=== PATIENT | male | born 1970 | race Caucasian/White ===

== ENCOUNTER 2017-11-12 06:05 | Inpatient (IN) ==
[~2017-11-12 06:05] MED LIST: Bacitracin 50,000 UNIT, Polymyxin B Sulfate 500,000 UNIT, Sodium Chloride IRRigation 1,... IR ONE
[2017-11-12] MEDS ORDERED: CeFAZolin Syr 3,000MG/30 ML 3,000 MG/30 ML SYRINGE IVPB ONE (06:22)
[2017-11-12] MEDS ORDERED: Ringers Solution, Lactated 1,000 ML IVC SCH (06:30)
--- NOTE | 2017-11-12 07:02 | Anesthesia Evaluation PreOp ---
Date of Encounter: 11/12/17 Time of Encounter: 07:00 - Past History Planned Operation: PLIF T12-S1 Cardiac History: [place] (1999, no stent, had heart cath and medically treated, on metoprolol), HTN, Hyperlipidemia Pulmonary History: Former smoker NUMEROLOGIST History: Other (Radiculopathy) Other Medical History: GERD, Other (Morbid Obesity) Anesthesia History: No Prior Anesthetic Complications Alcohol Use: none Drug use: none Medications and Allergies Aspirin [Lo-Dose Aspirin EC] 81 mg PO DAILY 11/08/16 [History] Pravastatin Sodium [Pravachol] 40 mg PO HS 11/08/16 [History] Trazodone HCl 300 mg PO HS 11/08/16 [History] Calcium Carbonate [Calcium] 600 mg PO DAILY 06/11/17 [History] Duloxetine HCl [Cymbalta] 120 mg PO DAILY 06/11/17 [History] Ergocalciferol (VITAMIN D2) [Vitamin D2] 1,000 unit PO BID 06/11/17 [History] Gabapentin [Neurontin] 1,800 mg PO BID 06/11/17 [History] Metoprolol [Lopressor] 50 mg PO BID 06/11/17 [History] Tizanidine HCl 4 mg PO HS 09/23/17 [History] Meloxicam [Mobic] 7.5 mg PO DAILY 11/12/17 [History] NIFEdipine [Nifedipine ER] 60 mg PO DAILY 11/12/17 [History] 3 Allergy/AdvReac Type Severity Reaction Status Date / Time No Known Allergies Allergy Verified 06/11/17 10:31 - Meds/Allergy Pre-op Review Medications Reviewed: Yes Allergies Reviewed: Yes Beta Blockers on Current Med List: Yes (Metoprolol today [id number]) Anesthesia Results - Labs Laboratory Tests 10/28/17 10/28/17 12:55 12:55 Hgb 15.8 Hct 47.7 Plt Count 252 Sodium 139 Potassium 4.1 BUN 13 Creatinine 1.26 - Imaging EKG: report reviewed (SR) Additional studies: Stress Test 2016 negative for ischemia, gated EF 61% Anesthesia Exam O2 Sat Height 1.93 m Height 1.93 m Weight 145.603 kg Weight 145.603 kg O2 Sat by Pulse Oximetry 96 Vital Signs Temp Pulse Resp BP Pulse Ox 98.1 F 71 18 116/82 96 11/12/17 06:27 11/12/17 06:27 11/12/17 06:27 11/12/17 06:27 11/12/17 06:27 Height: 6'4 Weight: 321 lbs NPO (# of Hours): MN Pain Scale: 0 - HEENT Pupil (Motor): Pupils equal, EOMI Mallampati: III Teeth: Missing, Poor dentition (several loose dentition) Oral Opening: Less than or equal to 3 - NUMEROLOGIST LOC: Oriented NUMEROLOGIST Motor: Normal RUE, Normal LUE, Normal RLE, Normal LLE, Normal Face NUMEROLOGIST Sensory: Normal: RUE, LUE, RLE, LLE, Face - Cardiac Rhythm: Regular Murmur: None JVD: No Carotid Bruit: No - Pulmonary Breath Sounds: bilateral Clear Respiratory Effort: Symmetrical Anesthesia Assess/Plan ASA Score: 3 (CAD HTN MO) Modified Analisa Scale for Level of Consciousness: Cooperative, oriented, and tranquil Anesthetic Plan: General Monitoring Plan: Standard Monitors, A-Line Recovery Plan: PACU (Discussed GA, risk of losing loose dentition, A-line, agrees to proceed)
[2017-11-12] MEDS ORDERED: *HR* FentaNYL (PF) 100 MCG/2 ML VIAL ONE (07:14)
[2017-11-12] MEDS ORDERED: *HR* Midazolam HCl 2 MG/2 ML VIAL ONE (07:14)
[2017-11-12] MEDS ORDERED: Ketorolac 30 MG/ML VIAL ONE (07:14)
[2017-11-12] MEDS ORDERED: Dexamethasone 4 MG/ML VIAL ONE (07:14)
[2017-11-12] MEDS ORDERED: Ondansetron 4 MG/2 ML VIAL ONE (07:14)
[2017-11-12] MEDS ORDERED: Heparin 1,000 UNITS/500 mL 500 ML ONE (07:14)
[2017-11-12] MEDS ORDERED: *HR* Rocuronium Bromide 50 MG/5 ML VIAL ONE (07:14)
[2017-11-12] MEDS ORDERED: Lidocaine -MPF 2% 2 ML VIAL ONE (07:14)
[2017-11-12] MEDS ORDERED: *HR* Propofol 200 MG/20 ML VIAL IVP ONE ×2 (07:15→08:22)
[2017-11-12] MEDS ORDERED: Famotidine 20 MG/2 ML VIAL IVP ONE (07:16)
[2017-11-12] MEDS ORDERED: Pregabalin 75 MG CAPSULE PO ONE (07:17)
[2017-11-12] MEDS ORDERED: *HR* Methadone 10 MG TABLET PO ONE (07:17)
--- NOTE | 2017-11-12 08:07 | History & Physical Report ---
Date of Encounter: 11/12/17 Time of Encounter: 08:06 24 Hour HP Update - Instructions Instructions: If the History and Physical is less than 30 days old and was completed prior to A.M. admission and or procedure and has NOT been updated on calendar day of procedure please complete this update prior to performing procedure. - Update Patient reports changes in Medical Condition: No Changes in examination, assessment, or condition: No Changes in Medication: No Preop tests/diagnostics Reviewed: Yes Pre-Op MRSA Screen: Negative Surgery Remains Indicated: Yes Consent for Planned Operative Procedure(s) Verified: Yes - Pre-Operative Checklist Preoperative Checklist Indicated: No Prophylactic Antibiotic Ordered: Yes Home Medications Include Beta David: No Beta David Taken Today (Day of Surgery): No Beta David Taken Yesterday (Day Prior to Surgery): No Is VTE Prophylaxis Indicated?: Yes
[2017-11-12] MEDS ORDERED: EPHEDrine 50 MG/ML VIAL ONE (08:28)
[2017-11-12] MEDS ORDERED: *HR* Remifentanil 2 MG VIAL IVP ONE ×4 (08:44→13:36)
[2017-11-12] MEDS ORDERED: *HR* Morphine 10 MG/ML VIAL ONE (12:24)
[2017-11-12] MEDS ORDERED: Acetaminophen IV 1,000 MG/100 ML INFUS..BTL IVPB ONE (12:28)
[2017-11-12] MEDS ORDERED: *HR* HYDROmorphone (PF) 1 MG/ML SYRINGE IVP PRN (12:28)
[2017-11-12] MEDS ORDERED: *HR* Midazolam HCl 2 MG/2 ML VIAL IVP PRN (12:28)
[2017-11-12] MEDS ORDERED: *HR* Promethazine 25 MG/ML VIAL IVP PRN (12:28)
[2017-11-12] MEDS ORDERED: Albuterol 2.5 MG/3 ML NEBULIZER IH PRN (12:28)
[2017-11-12] MEDS ORDERED: *HR* OxyCODONE Immed Rel 5 MG TABLET PO PRN (12:32)
--- NOTE | 2017-11-12 13:49 | Anesthesia Procedures ---
Date of Encounter: 11/12/17 Time of Encounter: 07:00 Procedures: Anesthesia - Arterial Line Consent obtained: written consent Time out performed: Yes Size (Gauge): 20 Length (inches): 1 3/4 Technique Used: sterile prep, guide wire technique, direct puncture technique Post-Procedure: line taped into place Patient tolerated procedure: no complications Complications: none Site: Radial L
--- NOTE | 2017-11-12 16:08 | Orthopedic Operative Note ---
Date of procedure: 11/12/17 Pre-op diagnosis: Degenerative scoliosis, lumbar stenosis, lumbar radiculopathy Post-op diagnosis: same Operation/Findings: Posterior lumbar interbody fusion T12-S1 with interbody grafts at L2-3, L3-4, and L5-S1: The patient successfully underwent general endotracheal anesthesia. The patient was given antibiotics prior to the start of the procedure. Compression boots and stockings were used for deep vein thrombosis prophylaxis. A Hummel catheter was placed. Leads for neuro monitoring were placed on the upper and lower extremities. This included the cranium. The neuro monitoring personnel confirmed there were satisfactory readings prior to the start of the procedure. The patient was turned prone on the Mikie table. The back was prepped and draped in the usual sterile fashion. An incision was was marked and centered over the involved T12-S1 levels in the mid line. The incision was deepened through the lumbar fascia. Bovie cautery and Do elevators were used to reflect the paraspinal musculature at the lateral extent of the transverse processes of the involved T12-S1 levels. Bere clamps were placed over the spinous L4 and L5 processes. An intraoperative lateral fluorograph was obtained. A conversation was held between the surgeon and radiologist and both confirmed we had the correct operative levels. We then placed pedicle screws in standard fashion with the aid of fluoroscopy and anatomic landmarks. Briefly a starter awl was used. A gearshift was subsequently used to enter the state pilot hole via a transpedicular route into the vertebral body. The state pilot hole was tapped with an undersized instrument, and subsequently twelve 6.5 x 40 mm pedicle screws were placed bilaterally at the indicated T12 to the L5 levels. Pedicle screws that were 7.5 x 40mm were placed bilaterally at S1. The screws were tested with the aid of the neurologic monitoring staff via pedicle screw stimulation. All reading suggested there was no significant cortical wall breech. The screws were also evaluated fluoro- graphically and appeared to be in satisfactory position. We then turned our attention to the decompression portion of the procedure. We removed the supraspinous and interspinous ligaments between L3-4 and subsequently the insertion of the ligamentum flavum on the undersurface of the proximal L3 lamina was dislodged with a curette. We then removed the ligamentum flavum as well as undercut the L3-4 facets at this level to decompress the lateral recesses. We also performed a L3 laminectomy. We moved proximally to the L2-3 level and again removed hypertrophied ligamentum flavum and undercut the L2-3 facets. We also performed an L2 laminectomy. We went distally to the L5-S1 level and again removed ligamentum flavum and the supraspinous and interspinous ligaments, undercut the L5-S1 facets, and performed an L5 laminectomy. After the decompression at L2-3, L3-4 , and L5-S1, which was over and above that which was required to place the interbody graft, the foramen and traversing roots at these levels were found to be free and patent. We also took part of the medial facet at L2-3 and L3-4 on the right in order to aid in the decompression and lessen the known scoliotic deformity.. We then protected the neural elements including the thecal sac and traversing nerve root on the right at L2-3 with a dural retractor. We made an annulotomy into the L2-3 disc space and then removed entire disc material using Pituitary instruments. We trialed various size grafts after the endplates were prepared for graft insertion. A 10 x 26 enter body graft fit well within the L2 -3 disc space. We obtained some bone from the right posterior superior iliac spine through us a separate incision and combined with this with the bone which we had saved from the laminectomies portion of the procedure. This autograft bone was first placed in the anterior portion of the L2-3 disc space and additional bone was placed within the interbody graft spacer. We then placed the interbody graft spacer obliquely across the L2-3 disc space towards the midline while protecting the neural elements with a root retractor. When the graft was found to be in satisfactory position the structural steel detailer was removed. We then turned our attention to the L3-4 level and again retracted the neural elements on the right with a dural retractor. We made an annulotomy into the L3 -4 disc space and removed entire disc material at L3-4. We packed the anterior portion of the L3-4 disc space with autograft bone, and then subsequently placed a packed 10 x 26 mm interbody graft and placed it obliquely across the L3 -4 disc space. When found to be in satisfactory position the structural steel detailer was removed. We then turned our attention to the L5-S1 disc space and again protected the neural elements with a dural retractor. We made an annulotomy in the L5-S1 disc space. Removed entire disc material from L5-S1. We packed the anterior portion of the L5-S1 disc space with autograft bone which we had obtained from the pelvis and the previous laminectomies. We then packed a 10 x 26 mm interbody graft spacer and placed it obliquely across the L5-S1 disc space. When found in appropriate position this structural steel detailer was removed. This left 3 interbody grafts at L2-3, L3-4, and L5-S1 respectively. We then copiously irrigated the wound. We then decorticated the transverse processes as well as the facet joints of the involved T12-L1, L1-L2, L2-L3, L3-L4, L4-L5, and L5-S1 levels to aid in the posterolateral fusion. We placed autograft bone in the lateral gutters over these regions. We then placed rods within the screw heads of the involved T12-S1 levels and an performed compression and distraction maneuvers with the jeramy/screw construct to improve the scoliotic deformity previously seen. We then closed the wound in layers with 1 Vicryl for the fascia, 2-0 Vicryl. Subcutaneous tissue, and Dermabond was used for skin closure. Sterile dressings were placed over the wound. The patient was turned supine on a hospital bed and extubated. All sponge instruments and needle counts were correct at the end of the procedure. The patient tolerated the procedure well without complications. Anesthesia: GETA Surgeon: Ole Cox Jr Was there an information services assistant present: No Estimated blood loss (cc): 1,500 (1100 cc Cell Saver returned) Specimen: None Condition: stable Disposition: PACU
--- NOTE | 2017-11-12 16:43 | Anesthesia Evaluation Post Op ---
Date of Encounter: 11/12/17 Time of Encounter: 16:30 - Vital Signs Vital Signs: Vital Signs/O2 Sat/Glucose, Most Current Temp Pulse Resp BP Pulse Ox 11/12/17 16:31 98.9 F 114 18 117/85 94 11/12/17 16:24 18 92 11/12/17 16:21 98.9 F 118 18 122/79 92 11/12/17 16:11 97.7 F 113 14 125/82 90 11/12/17 16:01 97.7 F 109 12 125/82 90 - Lungs Lungs: Clear Ascult./Percussion - Airway Airway: Non-obstructed - Cardiovascular Regular Rate - Mental Status Mental Status: Alert & Oriented, Answers Appropriately - Pain Pain Scale: 0 - Nausea Vomiting Nausea Vomiting: Not Present - Hydration Hydration: Ice chips - Discharge PostOp Status: Transfer Patient to floor
[2017-11-12] MEDS ORDERED: Naloxone 0.4 MG/ML INJ IVP PRN (17:32)
[2017-11-12] MEDS ORDERED: *HR* HYDROcodone/Acet 5/325 mg TABLET PO PRN (17:32)
[2017-11-12] MEDS: CeFAZolin Pre 2,000 MG/100 ML 2,000 MG/100 ML BAG IVPB SCH (18:26)
[2017-11-12] MEDS: traZODone 50 MG TABLET PO SCH (19:58)
[2017-11-12] MEDS: tiZANidine 4 MG TABLET PO SCH (19:58)
[2017-11-12] MEDS: *HR* OxyCODONE Immed Rel 5 MG TABLET PO PRN (20:06)
[2017-11-13] MEDS: CeFAZolin Pre 2,000 MG/100 ML 2,000 MG/100 ML BAG IVPB SCH (01:44)
[2017-11-13 01:52] LABS: Basophils % 0.1 %; Hematocrit 43.8 % (37.5-50.1); Hemoglobin 14.7 g/dL (12.9-16.9); Immature Granulocytes % 0.5 % (0-4); Lymphocytes # 0.9 K/mcL (0.6-4.6); Lymphocytes % 4.5 %; Mean Corpuscular HGB Conc 33.6 g/dL (31.6-35.5); Mean Corpuscular Hemoglobin 30.2 pg (28.0-33.3); Mean Corpuscular Volume 89.9 fL (83.0-100.0); Monocytes # 1.1 K/mcL (0.0-1.3); Monocytes % 5.7 %; Neutrophils # 17.6 K/mcL (1.6-8.9); Platelet Count 195 K/mcL (140-400); Red Blood Count 4.87 M/mcL (4.19-5.50); Red Cell Distribution Width 12.7 % (11.5-14.5); Segmented Neutrophils % 89.2 %
[2017-11-13 02:08] LABS: Calcium 7.9 mg/dL (8.6-10.3); Potassium 5.2 mEq/L (3.5-5.1)
[2017-11-13] MEDS ORDERED: NIFEdipine XL (24 HR) 60 MG TAB.ER.24 PO SCH (09:00)
--- NOTE | 2017-11-13 09:01 | Orthopedics Progress Note ---
Date of Encounter: 11/13/17 Time of Encounter: 08:59 - Assessment and Plan (1) Degenerative scoliosis Current Visit: Yes Status: Chronic (2) Lumbar stenosis Current Visit: Yes Status: Chronic Qualifiers: Neurogenic claudication status: unspecified Qualified Code(s): M48.061 - Spinal stenosis, lumbar region without neurogenic claudication (3) Lumbar radiculopathy Current Visit: Yes Status: Chronic (4) Status post lumbar spinal fusion Current Visit: Yes Status: Acute Subjective Principal diagnosis: Degenerative scoliosis, lumbar stenosis, lumbar radiculopathy Interval history: Posterior lumbar interbody fusion T12-S1 with interbody grafts at L2-3, L3-4, and L5-S1 on 11/12/[address] Cox Degenerative scoliosis, lumbar stenosis, lumbar radiculopathy The patient is without complaints. Afebrile vital signs are stable. Incision is clean dry and intact. Neurovascularly intact with regard to bilateral lower extremities. Fires all upper and lower extremity motor groups. Assessment: Stable postoperative. Plan: Reviewed postoperative restrictions and precautions. Patient verbalized understanding. Brace present and patient aware to apply with activity. Mobilize with therapy Continue analgesics as needed Discharge planning - awaiting therapy recommendations Radiographs pending Objective Vital signs: Vital Signs Temp Pulse Resp BP Pulse Ox 11/13/17 06:33 98.9 F 116 16 109/73 96 11/13/17 04:02 97.9 F 127 18 108/74 93 11/13/17 00:00 98.6 F 128 18 104/69 99 11/12/17 21:59 98 11/12/17 19:40 25 100 11/12/17 19:18 97.7 F 122 18 114/82 94 11/12/17 18:00 98.8 F 117 20 104/69 92 11/12/17 17:30 98.8 F 112 18 123/83 93 11/12/17 17:01 98.6 F 111 18 117/85 90 11/12/17 16:51 98.9 F 108 18 104/84 90 11/12/17 16:41 98.9 F 109 18 120/88 94 11/12/17 16:31 98.9 F 114 18 117/85 94 11/12/17 16:24 18 92 11/12/17 16:21 98.9 F 118 18 122/79 92 11/12/17 16:11 97.7 F 113 14 125/82 90 11/12/17 16:01 97.7 F 109 12 125/82 90 Intake and Output 11/12/17 11/13/17 11/13/17 23:59 07:59 15:59 Intake Total 275 / 275 Output Total 1500 / 1500 Balance 275 / 275 -1500 / -1500 Intake: IV Fluids 100 / 100 Ancef Premix 2,000 MG/100 ML 2, 100 / 100 000 mg In 100 ml @ 200 mls/hr IVPB Q8H JENA Rx#:[id number] Oral 175 / 175 Output: Urine 400 / 400 Catheter 1100 / 1100 - Labs CBC & BMP: 11/13/17 15:27 11/13/17 01:05 Labs: Abnormal lab results WBC 19.7 K/mcL (4.3-11.1) H 11/13/17 01:05 Neutrophils # 17.6 K/mcL (1.6-8.9) H 11/13/17 01:05 Sodium 135 mEq/L (136-145) L 11/13/17 01:05 Potassium 5.2 mEq/L (3.5-5.1) H 11/13/17 01:05 Carbon Dioxide 21 mEq/L (23-29) L 11/13/17 01:05 BUN 23 mg/dL (6-20) H 11/13/17 01:05 Creatinine 1.64 mg/dL (0.70-1.30) H 11/13/17 01:05 Est GFR ( Amer) 55 (> 60) L 11/13/17 01:05 Est GFR (Non-Af Amer) 45 (> 60) L 11/13/17 01:05 Glucose 217 mg/dL (70-105) H 11/13/17 01:05 Calcium 7.9 mg/dL (8.6-10.3) L 11/13/17 01:05 - VTE Documentation of Mechanical Device: Intermittent pneumatic compression device Consult Discharge Plan - Plan Referrals: Aundrea Thrasher, DAYO [Primary Care Provider] -
[2017-11-13] MEDS: Ringers Solution, Lactated 1,000 ML IVC SCH ×3 (09:30→23:45)
[2017-11-13] MEDS: Aspirin Enteric Coated 81 MG Tablet PO SCH (09:44)
[2017-11-13] MEDS: Cholecalciferol (D-3) 1,000 UNIT TABLET PO SCH (09:44)
[2017-11-13] MEDS: Ondansetron 4 MG/2 ML VIAL IVP PRN (09:52)
[2017-11-13 15:38] LABS: Hematocrit 31.4 % (37.5-50.1)
[2017-11-13 15:51] LABS: Hemoglobin 11.1 g/dL (12.9-16.9)
[2017-11-13] MEDS: tiZANidine 4 MG TABLET PO SCH (21:28)
[2017-11-13] MEDS: traZODone 50 MG TABLET PO SCH (21:28)
[2017-11-13] MEDS: *HR* OxyCODONE Immed Rel 5 MG TABLET PO PRN (23:43)
[2017-11-14] MEDS ORDERED: Ipratropium/Albuterol Neb 3 ML IH STA (01:16)
[2017-11-14 01:18] LABS: ABG Base Excess 4 mEq/L (-2 to 3); ABG HCO3 30 mEq/L (21-27); ABG Oxygen Saturation 93 % (95-98); ABG PCO2 51 mmHg (35-45); ABG PH 7.38 pH Units (7.32-7.45); ABG PO2 69 mmHg (85-104); ABG TCO2 32 mEq/L (20-26)
[2017-11-14 01:32] LABS: Basophils % 0.1 %; Eosinophils % 0.1 %; Hematocrit 31.2 % (37.5-50.1); Hemoglobin 10.6 g/dL (12.9-16.9); Immature Granulocytes % 0.5 % (0-4); Lymphocytes # 2.1 K/mcL (0.6-4.6); Lymphocytes % 13.3 %; Mean Corpuscular Hemoglobin 30.1 pg (28.0-33.3); Mean Corpuscular Volume 88.6 fL (83.0-100.0); Mean Platelet Volume 10.7 fL (9.4-12.4); Monocytes # 1.2 K/mcL (0.0-1.3); Monocytes % 7.7 %; Neutrophils # 12.1 K/mcL (1.6-8.9); Platelet Count 136 K/mcL (140-400); Red Blood Count 3.52 M/mcL (4.19-5.50); Red Cell Distribution Width 12.7 % (11.5-14.5); Segmented Neutrophils % 78.3 %
[2017-11-14] MEDS ORDERED: 0.9 % Sodium Chloride 500 ML IVC ONE (01:50)
[2017-11-14] MEDS ORDERED: 0.9 % Sodium Chloride 1,000 ML IVC SCH ×2 (02:00→03:45)
[2017-11-14 02:06] LABS: Alanine Aminotransferase 25 Units/L (7-52); Albumin/Globulin Ratio 1.3 (1.1-2.2); Alkaline Phosphatase 38 Units/L (34-104); Aspartate Amino Transferase 95 Units/L (13-39); BUN/Creatinine Ratio 17 (6-26); Bilirubin,Total 0.4 mg/dL (0.3-1.0); Blood Urea Nitrogen 20 mg/dL (6-20); Carbon Dioxide 28 mEq/L (23-29); Chloride 103 mEq/L (98-107); Globulin 2.3 g/dL (2.4-3.5); Glucose 161 mg/dL (70-105); Osmolality,Calculated 292 (280-300); Potassium 4.6 mEq/L (3.5-5.1); Sodium 138 mEq/L (136-145); Total Protein 5.3 g/dL (6.4-8.9); eGFR For African Americans > 60 (> 60); eGFR For Non-African Americans > 60 (> 60)
[2017-11-14 02:10] LABS: Troponin I 0.09 ng/mL (< 0.04)
[2017-11-14] MEDS: Ipratropium/Albuterol Neb 3 ML IH SCH ×6 (03:46→23:48)
--- NOTE | 2017-11-14 03:53 | Internal Medicine Consult Note ---
Date of Encounter: 11/14/17 Time of Encounter: 02:00 - Assessment and plan (1) Hypoxemia Current Visit: Yes Status: Acute Assessment and plan: O2 saturations currently in 90-92% when I am in room. He is in no respiratory distress on 10 L HFNC. Continue supplemental O2 and wean as tolerated. ABG confirms mild hypoxemia and mild hypercapnia. Please see my HPI for discussion on plan. I think this is likely secondary to a combination of obesity hypoventilation syndrome and post-surgical atelectasis. Will add IV levaquin for now because CXR can't rule out pneumonia; my suspicions are low. Get up to chair during day. Turn cough and deep breathe. Encourage more use of incentive spirometer. Raise head of bed when in bed. Per Dr. Cox's order, we will get BLE dopplers to rule out DVT. Will defer CTA chest for now due to mild ELIGIO. Consider CTA chest in AM if condition worsens or BLE dopplers come back positive for DVT. EKG was NSR. Troponin elevated at 0.09. Patient states that he does have CAD history with HI; no stents or CABG. Would like to treat for NSTEMI with anticoagulation, but will defer to surgeon. Nurse consulted with surgeon, and Dr. Cox is aware and does not want to anticoagulate. Advised nurse to notify me if his condition worsens. Stable at this time, but I have low threshold for transfer to step down. (2) Obesity hypoventilation syndrome Current Visit: Yes Status: Acute Assessment and plan: Plan as per above. (3) Hyperglycemia Current Visit: Yes Status: Acute Assessment and plan: Start accuchecks and low dose SSI QID AC/HS. (4) Acute kidney injury Current Visit: Yes Status: Acute Assessment and plan: Improved. Today, Cr = 1.21. Hydrate gently with IV NS. Give mucomyst x 4 doses in case we need to get CTA chest. Encourage good PO hydration. (5) Acute blood loss anemia Current Visit: Yes Status: Acute Assessment and plan: Slowly dropping. Now Hgb = 10.6. Management per primary at this time. Dr. Cox is aware and does not want to anticoagulate. (6) Elevated troponin Current Visit: Yes Status: Acute Assessment and plan: Management as per above. No chest pain at this time. Will trend troponin Q6H x 3. Dr. Cox is aware and does not want to anticoagulate. Consider cardiology consult in AM. (7) CAD (coronary artery disease) Current Visit: Yes Status: Acute Assessment and plan: Management as per above. Continue home medications. Qualifiers: Coronary Disease-Associated Artery/Lesion type: unspecified vessel or lesion type [place] vs. transplanted heart: unspecified whether [place] or transplanted heart Associated angina: angina presence unspecified Qualified Code(s): I25.10 - Atherosclerotic heart disease of [place] coronary artery without angina pectoris (8) Status post lumbar spinal fusion Current Visit: Yes Status: Acute Assessment and plan: Management per primary. - Time Spent With Patient Total time spent is greater than 50% in coordination of care (as documented) at patient's floor/unit and/or counseling patient: less than 15 minutes Internal Medicine - CN: HPI - Data of Consult Patient: new to practice Consult date: 11/14/17 Requesting Physician: Ole Cox Jr MD - Consult Narrative Reason for consult: Hypoxemia History of present illness: Mr. Marte is a 46 year old male who is POD #1 from extensive lumbar to sacrum spinal fusion surgery performed by Dr. Cox. He states that patient tolerated procedure well. However, nurse paged him tonight because patient had increase in oxygen requirement - needed 10 L HFNC to maintain O2 saturations in high 80s - low 90s. After surgery, he was on 10 L, and they were able to wean him down to 7 L earlier today, but now required [address] Cox has order CXR, ABG, and called me consult on patient. When I went to see patient, he was in no distress at all. He was in good spirits and joking around with me. Nurse confirms that he is in no distress. He denies chest pain, SOB, abdominal pain, nausea, vomiting, fever, or chills. He does not want to wear BiPAP. After surgery, Hgb has trended from 14.1 to 11.1 to 10.6 now. No signs of bleeding. WBC has trended from 19.7 to 15.5 today. ABG now shows pCO2 of 51 and pO2 of 69. CMP significant for mild hyperglycemia and creatinine of 1.21 (down from 1.64). STAT troponin just came back 0.09. Nurse spoke with surgeon Dr. Cox who does not want any anticoagulation. He instead wants to looks for clots in BLE. He requested that a BLE doppler be ordered. I do not understand the benefit of getting BLE dopplers if he is against anticoagulation. But it may help us risk stratify and maybe help us decide if we should get a CTA chest to rule out pulmonary embolism (we are not getting one STAT because of suboptimal renal function). I will give 4 doses of mucomyst and IVF overnight in preparation for possible CTA chest in AM. I advised nursing staff to monitor patient closely and notifying me STAT of any changes, or if he needs to be urgently transferred to step down or ICU. He is in no distress at this time. CXR just came back with bibasilar airspace disease, likely atelectasis. Pneumonia cannot be excluded. He was probably treated perioperatively with antibiotics, but I will start IV levaquin 750 mg QD for now and observe for any improvements. I emphasized to nursing staff to get patient out of bed during day time and ENCOURAGE him to use incentive spirometer. He likely has obesity hypoventilation syndrome, and in addition to the above measures, BiAPAP would help. Long-term, it would be beneficial to lose some weight. He also may benefit from a sleep study as an outpatient. Past Med Surg Social Fam HX - Past Medical History Attestation: Yes The following information was validated with the patient. Medical history: arthritis, coronary artery disease, GERD, hypertension Psychiatric history: no psych history - Past Surgical History Surgical History: other (L-S Spinal Fusion) - Social History Smoking Status: Unknown if ever smoked Smokeless Tobacco Status: No Alcohol use: none Drug use: none - Family History Mother Hx Family Endocrine Disorder: Yes - Additional Family History Additional family history: Family history reviewed with patient. - Constitutional Constitutional: no anorexia, no chills, no fatigue, no fever(s), no lethargy, no malaise, no weakness, no weight gain, no weight loss - EENT Eyes: no blurry vision, no diplopia, no loss of vision, no pain, no photophobia , no other visual disturbances Nose, mouth and throat: no dry mouth, no mouth lesions, no mouth pain, no nasal congestion, no nasal discharge, no nasal obstruction, no sinus pain, no sinus pressure, no sore throat - Cardiovascular Cardiovascular ROS IM: no chest pain, no diaphoresis, no dyspnea, no dyspnea on exertion, no edema, no lightheadedness, no palpitations, no syncope - Respiratory Respiratory: no cough, no dyspnea, no hemoptysis, no dyspnea on exertion, no wheezing, no chest congestion, no excessive phlegm production - Gastrointestinal Gastrointestinal: no abdominal pain, no change in bowel habits, no constipation , no diarrhea, no dysphagia, no heartburn, no hematemesis, no hematochezia, no melena, no nausea, no vomiting - Genitourinary Genitourinary ROS male: no difficulty urinating, no dysuria, no flank pain, no hematuria, no urinary frequency, no urinary hesitancy, no urinary incontinence, no urinary urgency - Musculoskeletal Musculoskeletal ROS IM: arthralgias, back pain, limited range of motion, no joint swelling, no muscle weakness, no myalgias, no numbness, no tingling - Integumentary Integumentary IM: other (Surgical Incision), no erythema, no rash, no sores, no jaundice - Neurological Neurological ROS: no abnormal hearing, no abnormal movements, no abnormal speech , no behavioral changes, no confusion, no dizziness, no focal weakness, no headache(s), no paresthesias, no weakness - Psychiatric Psychiatric: no anxiety, no confusion, no depression, no irritability, no mood swings - Endocrine Endocrine IM: no cold intolerance, no heat intolerance, no polydipsia, no polyphagia, no polyuria Internal Medicine - CN: Meds Aspirin [Lo-Dose Aspirin EC] 81 mg PO DAILY 11/08/16 [History] Pravastatin Sodium [Pravachol] 40 mg PO HS 11/08/16 [History] Trazodone HCl 300 mg PO HS 11/08/16 [History] Calcium Carbonate [Calcium] 600 mg PO BID 06/11/17 [History] Duloxetine HCl [Cymbalta] 120 mg PO DAILY 06/11/17 [History] Ergocalciferol (VITAMIN D2) [Vitamin D2] 400 unit PO BID 06/11/17 [History] Gabapentin [Neurontin] 1,800 mg PO BID 06/11/17 [History] Metoprolol [Lopressor] 50 mg PO BID 06/11/17 [History] Tizanidine HCl 16 mg PO HS 09/23/17 [History] Meloxicam [Mobic] 7.5 mg PO DAILY 11/12/17 [History] NIFEdipine [Nifedipine ER] 60 mg PO DAILY 11/12/17 [History] 3 Allergy/AdvReac Type Severity Reaction Status Date / Time No Known Allergies Allergy Verified 06/11/17 10:31 Internal Medicine - CN: Exam - Constitutional Vitals: Temp Pulse Resp BP Pulse Ox 98.8 F 89 15 108/71 90 11/13/17 23:36 11/13/17 23:36 11/13/17 23:36 11/13/17 23:36 11/13/17 23:36 General appearance IM: Present: cooperative, A&O X 3, pleasant, no acute distress, obese, answers questions appropriately - Head Head exam: Present: atraumatic, normal inspection, normocephalic - Eye Eye exam: Present: EOMI, PERRL. Absent: conjunctival injection, nystagmus, scleral icterus - ENT ENT exam: Present: mucous membranes moist, normal external ear exam, normal oropharynx - Neck Neck exam general surgery: Present: supple, trachea midline. Absent: lymphadenopathy, tenderness, thyromegaly - Respiratory Respiratory exam: Present: CTAB. Absent: accessory muscle use, rales, rhonchi, wheezes Additional comments: Normal WOB on 10 L HFNC, no respiratory distress, able to expand lungs well when told to take deep breath - Cardiovascular Cardiovascular exam IM: Present: RRR, +S1, +S2. Absent: diastolic murmur, gallop, rubs, systolic murmur Additional comments: No BLE edema - GI/Abdominal GI/Abdominal exam IM: Present: normal bowel sounds, soft. Absent: distended, hepatomegaly, mass, splenomegaly, tenderness - Neurological Exam Neurological exam: Present: alert, CN II-XII intact, oriented X3, no focal deficits, strengths equal and symetr throughout. Absent: motor sensory deficit , facial droop, speech deficit - Psychiatric Psychiatric exam: Present: normal affect, normal mood. Absent: agitated, anxious, depressed - Skin Skin exam IM: Present: dry, intact, warm. Absent: cyanosis, rash Internal Medicine - CN: Reslt - Labs CBC & Chem 7: 11/14/17 01:20 11/14/17 01:20 Labs: Short CBC 11/13/17 11/14/17 Range/Units 15:27 01:20 WBC 15.5 H (4.3-11.1) K/mcL Hgb 11.1 L D 10.6 L (12.9-16.9) g/dL Hct 31.4 L 31.2 L (37.5-50.1) % Plt Count 136 L (140-400) K/mcL Neutrophils # 12.1 H (1.6-8.9) K/mcL BMP 11/14/17 01:20 Sodium 138 Potassium 4.6 Chloride 103 Carbon Dioxide 28 BUN 20 Creatinine 1.21 Glucose 161 H Calcium 8.0 L Cardiac Enzymes 11/14/17 Range/Units 01:20 Troponin I 0.09 H* (< 0.04) ng/mL Liver Function 11/14/17 Range/Units 01:20 Total Bilirubin 0.4 (0.3-1.0) mg/dL AST 95 H (13-39) Units/L ALT 25 (7-52) Units/L Alkaline Phosphatase 38 (34-104) Units/L Albumin 3.0 L (3.5-5.7) g/dL - ABG Interpretation ABG results: ABG ABG pH 7.38 pH Units (7.32-7.45) 11/14/17 01:12 ABG pCO2 51 mmHg (35-45) H 11/14/17 01:12 ABG pO2 69 mmHg (85-104) L 11/14/17 01:12 ABG O2 Saturation 93 % (95-98) L 11/14/17 01:12 - Impressions Impressions Lumbar Spine X-Ray 11/12/17 00:00 IMPRESSION: Posterior spinal fusion hardware extends from T12 to S1. D/ / 11/12/2017 15:40:33 Estiven Centeno MD / [email or web address] Interpreting Provider: Estiven Centeno MD Chest X-Ray 11/14/17 00:35 IMPRESSION: Very low lung volume study showing bibasilar airspace disease, likely atelectasis. Pneumonia cannot be excluded. D/ / Angeli Enriquez Cha, MD / Angeli Enriquez Cha, MD Interpreting Provider: Angeli Enriquez Cha, MD Consult Discharge Plan - Plan Referrals: Aundrea Thrasher, DAYO [Primary Care Provider] -
[2017-11-14] MEDS ORDERED: Dextrose Gel 15 GM/37.5 ML TUBE PO PRN ×2 (04:11)
[2017-11-14] MEDS ORDERED: *HR* Dextrose 50 % in Water (Syg) 50 ML SYRINGE IVP PRN (04:11)
[2017-11-14] MEDS ORDERED: D5% in Water 1,000 ML IVC PRN (04:11)
[2017-11-14] MEDS: *HR* Acetylcysteine 20% 600 MG/3 ML ORAL SYRINGE PO SCH ×2 (04:44→20:42)
[2017-11-14] MEDS: Levofloxacin 750 MG/150 ML 750 MG/150 ML BAG IVPB SCH (04:44)
[2017-11-14] MEDS: Insulin LISPRO 300 UNITS/3 ML VIAL SQ SCH ×4 (04:55→20:42)
[2017-11-14] MEDS: Aspirin Enteric Coated 81 MG Tablet PO SCH (07:57)
[2017-11-14] MEDS: Cholecalciferol (D-3) 1,000 UNIT TABLET PO SCH (07:57)
[2017-11-14] MEDS: Acetaminophen 325 MG TABLET PO PRN ×3 (07:57→21:31)
[2017-11-14 09:24] LABS: Estimated Average Glucose 108 mg/dl; Hemoglobin A1C 5.4 %
[2017-11-14] MEDS: 0.9 % Sodium Chloride 1,000 ML IVC SCH (15:21)
[2017-11-14] MEDS: NIFEdipine XL (24 HR) 60 MG TAB.ER.24 PO SCH (15:30)
--- NOTE | 2017-11-14 16:32 | Orthopedics Progress Note ---
Date of Encounter: 11/14/17 Time of Encounter: 09:15 - Assessment and Plan (1) Degenerative scoliosis Current Visit: Yes Status: Chronic (2) Lumbar stenosis Current Visit: Yes Status: Chronic Qualifiers: Neurogenic claudication status: unspecified Qualified Code(s): M48.061 - Spinal stenosis, lumbar region without neurogenic claudication (3) Lumbar radiculopathy Current Visit: Yes Status: Chronic (4) Status post lumbar spinal fusion Current Visit: Yes Status: Acute Subjective Principal diagnosis: Degenerative scoliosis, lumbar stenosis, lumbar radiculopathy Interval history: Posterior lumbar interbody fusion T12-S1 with interbody grafts at L2-3, L3-4, and L5-S1 on 11/12/[address] Cox Degenerative scoliosis, lumbar stenosis, lumbar radiculopathy The patient is without complaints. Patient states that he feels fine. He states that "I do not know what everyone is concerned about my oxygen for". Afebrile - patient continues on 10 L of oxygen. . Incision is clean dry and intact. Neurovascularly intact with regard to bilateral lower extremities. Fires all upper and lower extremity motor groups. Assessment: Hypoxemia with sudden development. Hospitalist on board. Plan: Reviewed postoperative restrictions and precautions. Patient verbalized understanding. Brace present and patient aware to apply with activity. Mobilize with therapy Continue analgesics as needed Discharge planning - awaiting therapy recommendations Radiographs pending Objective Vital signs: Vital Signs Temp Pulse Resp BP Pulse Ox 11/14/17 16:15 98.1 F 90 18 123/78 90 11/14/17 16:01 18 92 11/14/17 12:22 90 11/14/17 11:25 98.4 F 97 20 110/70 94 11/14/17 07:45 18 92 11/14/17 07:30 93 11/14/17 06:51 98.9 F 93 18 112/76 92 11/14/17 03:47 18 90 11/14/17 03:36 98.7 F 89 18 100/69 91 11/13/17 23:36 98.8 F 89 15 108/71 90 11/13/17 18:50 97.4 F L 94 15 127/84 95 Intake and Output 11/14/17 11/14/17 11/14/17 07:59 15:59 23:59 Intake Total 1350 / 1350 Output Total 375 / 375 800 / 800 Balance 975 / 975 -800 / -800 Intake: IV Fluids 650 / 650 0.9 % Sodium Chloride 500 ML @ 500 / 500 1875 mls/hr IVC .Q16M ONE Rx#: [id number] Levaquin Premix 750mg/150 mL 150 / 150 750 mg In 150 ml @ 100 mls/hr IVPB DAILY JENA Rx#:[id number] Oral 700 / 700 Output: Urine 375 / 375 800 / 800 Other: Blood Glucose* 126 120 120 - Labs CBC & BMP: 11/14/17 01:20 11/14/17 01:20 Labs: Abnormal lab results WBC 15.5 K/mcL (4.3-11.1) H 11/14/17 01:20 RBC 3.52 M/mcL (4.19-5.50) L 11/14/17 01:20 Hgb 10.6 g/dL (12.9-16.9) L 11/14/17 01:20 Hct 31.2 % (37.5-50.1) L 11/14/17 01:20 Plt Count 136 K/mcL (140-400) L 11/14/17 01:20 Neutrophils # 12.1 K/mcL (1.6-8.9) H 11/14/17 01:20 D-Dimer 2086 ng/mLFEU (0-500) H 11/14/17 13:34 ABG pCO2 51 mmHg (35-45) H 11/14/17 01:12 ABG pO2 69 mmHg (85-104) L 11/14/17 01:12 ABG HCO3 30 mEq/L (21-27) H 11/14/17 01:12 ABG Total CO2 32 mEq/L (20-26) H 11/14/17 01:12 ABG O2 Saturation 93 % (95-98) L 11/14/17 01:12 ABG Base Excess 4 mEq/L (-2 to 3) H 11/14/17 01:12 Glucose 161 mg/dL (70-105) H 11/14/17 01:20 POC Glucose 122 mg/dL (70-99) H 11/14/17 04:48 Calcium 8.0 mg/dL (8.6-10.3) L 05/18/18 01:20 AST 95 Units/L (13-39) H 11/14/17 01:20 Troponin I 0.07 ng/mL (< 0.04) H* 11/14/17 07:44 Serum Total Protein 5.3 g/dL (6.4-8.9) L 11/14/17 01:20 Albumin 3.0 g/dL (3.5-5.7) L 11/14/17 01:20 Globulin 2.3 g/dL (2.4-3.5) L 11/14/17 01:20 - VTE Documentation of Mechanical Device: Graduated compression elastic hosiery Consult Discharge Plan - Plan Referrals: Aundrea Thrasher, [employer] [Primary Care Provider] -
[2017-11-14] MEDS ORDERED: Ketorolac 15 MG/ML VIAL IVP ONE (21:58)
--- NOTE | 2017-11-14 23:28 | Electrocardiograph Report ---
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
[2017-11-15 01:05] LABS: Basophils % 0.2 %; Eosinophils % 0.5 %; Mean Corpuscular Hemoglobin 31.5 pg (28.0-33.3); Red Blood Count 2.76 M/mcL (4.19-5.50)
[2017-11-15 01:07] LABS: Eosinophils # 0.1 K/mcL (0.0-0.6); Hematocrit 24.9 % (37.5-50.1); Hemoglobin 8.7 g/dL (12.9-16.9); Immature Granulocytes % 0.5 % (0-4); Immature Platelets 7.1 % (1.1-6.1); Lymphocytes # 1.5 K/mcL (0.6-4.6); Lymphocytes % 13.6 %; Mean Corpuscular HGB Conc 34.9 g/dL (31.6-35.5); Mean Corpuscular Volume 90.2 fL (83.0-100.0); Mean Platelet Volume 11.4 fL (9.4-12.4); Monocytes % 8.7 %; Neutrophils # 8.4 K/mcL (1.6-8.9); Platelet Count 97 K/mcL (140-400); Red Cell Distribution Width 12.4 % (11.5-14.5); Segmented Neutrophils % 76.5 %
[2017-11-15 01:08] LABS: Platelet Estimate Decreased (Normal)
[2017-11-15 01:22] LABS: BUN/Creatinine Ratio 22 (6-26); Blood Urea Nitrogen 21 mg/dL (6-20); Calcium 7.7 mg/dL (8.6-10.3); Carbon Dioxide 25 mEq/L (23-29); Chloride 106 mEq/L (98-107); Glucose 115 mg/dL (70-105); Osmolality,Calculated 286 (280-300); Potassium 4.7 mEq/L (3.5-5.1); Sodium 136 mEq/L (136-145); eGFR For African Americans > 60 (> 60); eGFR For Non-African Americans > 60 (> 60)
[2017-11-15] MEDS: Ipratropium/Albuterol Neb 3 ML IH SCH ×6 (04:25→23:35)
[2017-11-15] MEDS: 0.9 % Sodium Chloride 1,000 ML IVC SCH (07:18)
[2017-11-15] MEDS: Insulin LISPRO 300 UNITS/3 ML VIAL SQ SCH ×4 (08:10→22:34)
[2017-11-15] MEDS: *HR* Acetylcysteine 20% 600 MG/3 ML ORAL SYRINGE PO SCH ×2 (08:50→21:04)
[2017-11-15] MEDS: Cholecalciferol (D-3) 1,000 UNIT TABLET PO SCH (08:52)
[2017-11-15] MEDS: Aspirin Enteric Coated 81 MG Tablet PO SCH (08:52)
[2017-11-15] MEDS: Acetaminophen 325 MG TABLET PO PRN (08:54)
[2017-11-15] MEDS: Levofloxacin 750 MG/150 ML 750 MG/150 ML BAG IVPB SCH (08:55)
[2017-11-15] MEDS ORDERED: Isovue-370 500 ML INFUS..BTL IV ONE (11:40)
[2017-11-15] MEDS: NIFEdipine XL (24 HR) 60 MG TAB.ER.24 PO SCH (15:05)
--- NOTE | 2017-11-15 15:20 | Internal Med Progress Note ---
Date of Encounter: 11/15/17 Time of Encounter: 11:45 - Assessment and plan (1) Status post lumbar spinal fusion Current Visit: Yes Status: Acute Assessment and plan: postoperative care per Spine surgery; (2) Hyperglycemia Current Visit: Yes Status: Acute Assessment and plan: Start accuchecks and low dose SSI QID AC/HS. check HbA1C; he is not a known diabetic; blood sugars improving; (3) Acute kidney injury Current Visit: Yes Status: Resolved Assessment and plan: improved with IV hydration; monitor closely; (4) Acute blood loss anemia Current Visit: Yes Status: Acute Assessment and plan: Hb continues to drop, 8.7 TODAY; could be dilutional too; check stool for occult blood; check Fe profile, ferritin; transfuse to keep Hb>8; (5) Elevated troponin Current Visit: Yes Status: Acute Assessment and plan: mild leak likely demand ischemia and hypoxemia; flat and adynamic; continue Telemetry and f/up TTE; (6) CAD (coronary artery disease) Current Visit: Yes Status: Chronic Assessment and plan: continue ASA, beta pooja, statin; Qualifiers: Coronary Disease-Associated Artery/Lesion type: [place] artery [place] vs. transplanted heart: [place] heart Associated angina: without angina Qualified Code(s): I25.10 - Atherosclerotic heart disease of [place] coronary artery without angina pectoris (7) Obesity hypoventilation syndrome Current Visit: Yes Status: Suspected (8) Acute respiratory failure Current Visit: Yes Status: Acute Assessment and plan: ABG shows hypoxemia and mild hypercapnia; elevated D-dimer which could be from recent surgery. B/L LE venous Doppler negative for DVT. PE vs atelectasis vs OHS check CTA chest; continue supplemental O2 and monitor closely; Qualifiers: Respiratory failure complication: hypoxia Qualified Code(s): J96.01 - Acute respiratory failure with hypoxia - Time Spent With Patient Total time spent is greater than 50% in coordination of care (as documented) at patient's floor/unit and/or counseling patient: - Subjective Interval history: Reports no chest pain, shortness of breath, palpitations, dizziness or syncope; requiring at least 4L/min O2; back pain controlled; c/o- constipation; - Constitutional Vitals: Temp Pulse Resp BP Pulse Ox 99.3 F 88 17 113/68 93 11/15/17 07:44 11/15/17 07:44 11/15/17 11:37 11/15/17 07:44 11/15/17 11:37 General appearance: Present: cooperative, A&O X 3, obese, answers questions appropriately - Respiratory Respiratory exam: Present: CTAB. Absent: accessory muscle use, rales, rhonchi, wheezes - Cardiovascular Cardiovascular exam: Present: RRR, +S1, +S2. Absent: diastolic murmur, gallop, rubs, systolic murmur - GI/Abdominal GI/Abdominal exam: Present: normal bowel sounds, soft (obese), no peritoneal signs. Absent: distended, tenderness - Extremities Exam Extremities exam: Present: pedal edema, warm, radial pulses palpable and symmetrical. Absent: calf tenderness, cyanotic - Back Exam Additional comments: midline lumbar surgical dressing dry and intact; mild tenderness+ - Neurological Exam Neurological exam: Present: CN II-XII intact, oriented X3, no focal deficits. Absent: pronater drift, facial droop, speech deficit Internal Medicine: Result - Labs CBC & Chem 7: 11/15/17 00:40 11/15/17 00:40 Labs: Short CBC 11/15/17 Range/Units 00:40 WBC 11.0 (4.3-11.1) K/mcL Hgb 8.7 L D (12.9-16.9) g/dL Hct 24.9 L (37.5-50.1) % Plt Count 97 L (140-400) K/mcL Neutrophils # 8.4 (1.6-8.9) K/mcL BMP 11/15/17 00:40 Sodium 136 Potassium 4.7 Chloride 106 Carbon Dioxide 25 BUN 21 H Creatinine 0.96 Glucose 115 H Calcium 7.7 L - ABG Interpretation ABG results: ABG ABG pH 7.38 pH Units (7.32-7.45) 11/14/17 01:12 ABG pCO2 51 mmHg (35-45) H 11/14/17 01:12 ABG pO2 69 mmHg (85-104) L 11/14/17 01:12 ABG O2 Saturation 93 % (95-98) L 11/14/17 01:12 PT/INR, D-dimer D-Dimer 2086 ng/mLFEU (0-500) H 11/14/17 13:34 - Impressions Impressions Lumbar Spine X-Ray 11/14/17 12:09 IMPRESSION: No complicating factor evident following T12-S1 transpedicular spinal fixation and L2-3, L3-4 and L5-S1 discectomies with spacer placement. D/ / Emory Sweeney / Emory Sweeney Interpreting Provider: Emory Sweeney - VTE Documentation of Mechanical Device: Graduated compression elastic hosiery Consult Discharge Plan - Plan Referrals: Aundrea Thrasher, [employer] [Primary Care Provider] -
[2017-11-15] MEDS: *HR* OxyCODONE Immed Rel 5 MG TABLET PO PRN ×2 (15:44→21:49)
[2017-11-15 16:31] LABS: % Iron Saturation 10 % (20-55); Ferritin 171 ng/ml (20-250); Iron 24 mcg/dL (65-175); Transferrin 165 mg/dL (203-362)
[2017-11-15] MEDS: *HR* Enoxaparin 150 MG/ML SYRINGE SQ SCH (19:53)
[2017-11-15] MEDS: Sennosides/Docusate Sodium TABLET PO SCH (21:04)
--- NOTE | 2017-11-15 21:45 | Event Note ---
Date of Encounter: 11/15/17 Time of Encounter: 19:20 Received a call from Radiologist regarding CTA chest report- left-sided acute PE in distal left main pulmonary artery, involving segmental and subsegmental branches, with no right heart strain; d/w patient's RN; to start 1mg/kg body weight s.c Lovenox BID, after Spine surgeon's clearance; continue supplemental O2 and supportive care;
[2017-11-16 01:38] LABS: Basophils % 0.1 %; Eosinophils # 0.1 K/mcL (0.0-0.6); Eosinophils % 1.4 %; Hematocrit 23.1 % (37.5-50.1); Immature Granulocytes % 0.7 % (0-4); Lymphocytes # 1.7 K/mcL (0.6-4.6); Lymphocytes % 20.1 %; Mean Corpuscular HGB Conc 34.6 g/dL (31.6-35.5); Mean Corpuscular Hemoglobin 31.9 pg (28.0-33.3); Mean Platelet Volume 11.1 fL (9.4-12.4); Monocytes # 0.6 K/mcL (0.0-1.3); Monocytes % 7.1 %; Nucleated Red Blood Cells 0.4 /100 WBC (0); Platelet Count 106 K/mcL (140-400); Red Blood Count 2.51 M/mcL (4.19-5.50); Red Cell Distribution Width 12.5 % (11.5-14.5); Segmented Neutrophils % 70.6 %
[2017-11-16 01:57] LABS: BUN/Creatinine Ratio 17 (6-26); Blood Urea Nitrogen 15 mg/dL (6-20); Carbon Dioxide 30 mEq/L (23-29); Chloride 103 mEq/L (98-107); Glucose 106 mg/dL (70-105); Osmolality,Calculated 285 (280-300); Potassium 4.2 mEq/L (3.5-5.1); Sodium 137 mEq/L (136-145); eGFR For African Americans > 60 (> 60); eGFR For Non-African Americans > 60 (> 60)
[2017-11-16] MEDS: Ipratropium/Albuterol Neb 3 ML IH SCH ×6 (04:31→23:17)
[2017-11-16] MEDS: *HR* Enoxaparin 150 MG/ML SYRINGE SQ SCH ×2 (05:17→19:53)
[2017-11-16] MEDS: Insulin LISPRO 300 UNITS/3 ML VIAL SQ SCH ×2 (08:30→12:00)
[2017-11-16] MEDS: Cholecalciferol (D-3) 1,000 UNIT TABLET PO SCH (08:35)
[2017-11-16] MEDS: Levofloxacin 750 MG/150 ML 750 MG/150 ML BAG IVPB SCH (08:35)
[2017-11-16] MEDS: Aspirin Enteric Coated 81 MG Tablet PO SCH (08:35)
[2017-11-16] MEDS: Sennosides/Docusate Sodium TABLET PO SCH ×2 (08:35→19:53)
[2017-11-16] MEDS: *HR* OxyCODONE Immed Rel 5 MG TABLET PO PRN ×3 (08:40→19:53)
[2017-11-16] MEDS ORDERED: 0.9 % Sodium Chloride 250 ML ONE ×2 (12:27→15:41)
[2017-11-16] MEDS: NIFEdipine XL (24 HR) 60 MG TAB.ER.24 PO SCH (15:13)
--- NOTE | 2017-11-16 15:19 | Internal Med Progress Note ---
Date of Encounter: 11/16/17 Time of Encounter: 11:30 - Assessment and plan (1) Acute respiratory failure Current Visit: Yes Status: Acute Assessment and plan: CTA chest showed left-sided PE; started on therapeutic s.c Lovenox for now; requiring at least 2-3L/min supplemental O2 via NC; Venous Doppler of B/L LE showed no DVT. Echocardiogram shows preserved EF, moderate LV diastolic dysfunction, mild concentric LVH; Qualifiers: Respiratory failure complication: hypoxia Qualified Code(s): J96.01 - Acute respiratory failure with hypoxia (2) Status post lumbar spinal fusion Current Visit: Yes Status: Acute Assessment and plan: postoperative care per Spine surgery; (3) Hyperglycemia Current Visit: Yes Status: Resolved Assessment and plan: not a diabetic, blood sugars remain controlled; HbA1C 5.4%; will stop Accucheck blood glucose monitoring; (4) Acute kidney injury Current Visit: Yes Status: Resolved Assessment and plan: improved with IV hydration; monitor closely; (5) Acute blood loss anemia Current Visit: Yes Status: Acute Assessment and plan: Hb continues to drop, 8 TODAY; check stool for occult blood; check Fe profile- mildly low Fe stores; receiving 2units PRBC transfusion today; (6) CAD (coronary artery disease) Current Visit: Yes Status: Chronic Qualifiers: Coronary Disease-Associated Artery/Lesion type: [place] artery [place] vs. transplanted heart: [place] heart Associated angina: without angina Qualified Code(s): I25.10 - Atherosclerotic heart disease of [place] coronary artery without angina pectoris (7) Obesity hypoventilation syndrome Current Visit: Yes Status: Suspected - Time Spent With Patient Total time spent is greater than 50% in coordination of care (as documented) at patient's floor/unit and/or counseling patient: - Subjective Interval history: Reports chest pain due to recent chest strapping for back surgery that left blisters; no shortness of breath, palpitations, dizziness or syncope; requiring at least 2-3L/min O2; back pain controlled; c/o- constipation; - Constitutional Vitals: Temp Pulse Resp BP Pulse Ox 98 F 86 18 109/69 95 11/16/17 12:53 11/16/17 12:53 11/16/17 12:53 11/16/17 12:53 11/16/17 12:53 General appearance: Present: cooperative, A&O X 3, obese, answers questions appropriately - Respiratory Respiratory exam: Present: CTAB (anterolaterally). Absent: accessory muscle use , rales, rhonchi, wheezes - Cardiovascular Cardiovascular exam: Present: RRR, +S1, +S2. Absent: diastolic murmur, gallop, rubs, systolic murmur - GI/Abdominal GI/Abdominal exam: Present: normal bowel sounds, soft (obese), no peritoneal signs. Absent: distended, tenderness - Extremities Exam Extremities exam: Present: full ROM, warm, radial pulses palpable and symmetrical. Absent: calf tenderness, cyanotic, pedal edema - Neurological Exam Neurological exam: Present: CN II-XII intact, oriented X3, no focal deficits. Absent: pronater drift, facial droop, speech deficit Internal Medicine: Result - Labs CBC & Chem 7: 11/16/17 01:25 11/16/17 01:25 Labs: Short CBC 11/16/17 Range/Units 01:25 WBC 8.4 (4.3-11.1) K/mcL Hgb 8.0 L (12.9-16.9) g/dL Hct 23.1 L (37.5-50.1) % Plt Count 106 L (140-400) K/mcL Neutrophils # 6.0 (1.6-8.9) K/mcL BMP 11/16/17 01:25 Sodium 137 Potassium 4.2 Chloride 103 Carbon Dioxide 30 H BUN 15 Creatinine 0.90 Glucose 106 H Calcium 8.0 L - ABG Interpretation ABG results: ABG ABG pH 7.38 pH Units (7.32-7.45) 11/14/17 01:12 ABG pCO2 51 mmHg (35-45) H 11/14/17 01:12 ABG pO2 69 mmHg (85-104) L 11/14/17 01:12 ABG O2 Saturation 93 % (95-98) L 11/14/17 01:12 PT/INR, D-dimer D-Dimer 2086 ng/mLFEU (0-500) H 11/14/17 13:34 - Impressions Impressions Chest CTA 11/15/17 11:40 IMPRESSION: Acute PE in the distal left lower lobe pulmonary artery, with segmental and subsegmental extension. Acute segmental upper lobe PE. No evidence of right heart strain. Results of this examination were verbally communicated to Dr. Ortega at 7:21 p.m. on 11/15/2017. D/ / Juvenal Haley MD / Juvenal Haley MD Interpreting Provider: Juvenal Haley MD Echocardiogram 11/15/17 11:42 Impressions: LVEF 60-65%. Normal LV chamber size and function. Moderate left ventricular diastolic dysfunction. Mild concentric left ventricular hypertrophy. Normal right ventricular structure and function. No evidence of pulmonary hypertension. No significant valvular dysfunction. Findings: Study Quality * Technically adequate exam. ECG Findings * Normal sinus rhythm. Left Ventricle * LVEF 60-65%. * Normal LV chamber size and function. * Moderate left ventricular diastolic dysfunction. * Mild concentric left ventricular hypertrophy. Right Ventricle * Normal right ventricular structure and function. Left Atrium * Moderately dilated left atrium. Right Atrium * Normal right atrial size. Aortic Valve * Aortic valve not well visualized. * No aortic regurgitation. * No aortic stenosis. Mitral Valve * Normal mitral valve structure and function. * No mitral regurgitation. * No mitral stenosis. Tricuspid Valve * Normal tricuspid valve structure and function. * Trace tricuspid regurgitation. * No evidence of pulmonary hypertension. Pulmonic Valve * Pulmonic valve is not well visualized. * No pulmonic regurgitation. Aorta * Normally sized aortic root. Pericardium * The pericardium appears normal. IVC * Not well visualized. Pulmonary Artery * Normal visualized portions of the main pulmonary artery. - VTE Documentation of Mechanical Device: Intermittent pneumatic compression device Consult Discharge Plan - Plan Referrals: Aundrea Thrasher, EMERGENCY DEPARTMENT PHYSICIAN [Primary Care Provider] -
--- NOTE | 2017-11-16 15:23 | Spine Progress Note ---
Date of Encounter: 11/15/17 Time of Encounter: 07:15 Subjective Principal diagnosis: Degenerative scoliosis, lumbar stenosis, lumbar radiculopathy Interval history: Patient complains of back pain. It is of concern that he is on 10 L of O2 via nasal cannula. Chest x-ray was essentially normal. Cardiac workup was negative for acute LA. Also scanned his lower extremities with a Doppler and this was negative. Due to high suspicion of pulmonary process we plan to get a VQ scan or CTA. He is afebrile. Pulse ox is in the high 80s to low 90s on 10 L via nasal cannula. His incision is well approximated clean dry and intact. He is neurovascularly intact with regard to his bilateral lower extremities. Within a type and cross him for 2 units as his hemoglobin has slowly drifted to the 8 range. Recheck a.m. and check results of CTA. Appreciate hospitalist input. Objective Vital signs: Vital Signs Temp Pulse Pulse Pulse Pulse Resp BP 11/16/17 12:53 98 F 86 18 109/69 11/16/17 12:43 11/16/17 12:38 99 F 86 18 108/72 11/16/17 12:25 98.8 F 89 17 109/71 11/16/17 11:12 18 11/16/17 08:56 11/16/17 08:38 18 11/16/17 08:13 99.1 F 96 18 119/73 11/16/17 04:13 98.6 F 85 16 100/70 11/15/17 23:35 18 11/15/17 23:16 99.1 F 105 18 135/87 11/15/17 18:32 109 70 120 11/15/17 18:13 11/15/17 17:11 11/15/17 16:21 18 11/15/17 15:54 11/15/17 15:45 98.6 F 94 18 105/67 BP BP BP Pulse Ox 11/16/17 12:53 95 11/16/17 12:43 98 11/16/17 12:38 96 11/16/17 12:25 98 11/16/17 11:12 94 11/16/17 08:56 94 11/16/17 08:38 91 11/16/17 08:13 100 11/16/17 04:13 97 11/15/17 23:35 88 11/15/17 23:16 93 11/15/17 18:32 88/40 78/49 95/51 11/15/17 18:13 89 11/15/17 17:11 94 11/15/17 16:21 95 11/15/17 15:54 95 11/15/17 15:45 97 Intake and Output 11/15/17 11/16/17 11/16/17 23:59 07:59 15:59 Intake Total 250 / 250 540 / 540 Output Total 200 / 200 Balance -200 / -200 250 / 250 540 / 540 Intake: IV Fluids 300 / 300 Levaquin Premix 750mg/150 mL 300 / 300 750 mg In 150 ml @ 100 mls/hr IVPB DAILY [facility] Rx#:[id number] Oral 250 / 250 240 / 240 Blood Product 0 / 0 Rbcs Leuko Poor As-1 Unit 0 / 0 [id number] Output: Urine 200 / 200 Other: Meal Lunch Percent of Meal Consumed 20% # Voids 1 Blood Glucose* 99 107 - Labs CBC & BMP: 11/16/17 01:25 11/16/17 01:25 Labs: Abnormal lab results RBC 2.51 M/mcL (4.19-5.50) L 11/16/17 01:25 Hgb 8.0 g/dL (12.9-16.9) L 11/16/17 01:25 Hct 23.1 % (37.5-50.1) L 11/16/17 01:25 Plt Count 106 K/mcL (140-400) L 11/16/17 01:25 Nucleated RBCs/100 WBC 0.4 /100 WBC (0) H 11/16/17 01:25 Platelet Estimate Decreased (Normal) L 11/15/17 00:40 Immature Plt Fraction 7.1 % (1.1-6.1) H 11/15/17 00:40 D-Dimer 2086 ng/mLFEU (0-500) H 11/14/17 13:34 ABG pCO2 51 mmHg (35-45) H 11/14/17 01:12 ABG pO2 69 mmHg (85-104) L 11/14/17 01:12 ABG HCO3 30 mEq/L (21-27) H 11/14/17 01:12 ABG Total CO2 32 mEq/L (20-26) H 11/14/17 01:12 ABG O2 Saturation 93 % (95-98) L 11/14/17 01:12 ABG Base Excess 4 mEq/L (-2 to 3) H 11/14/17 01:12 Carbon Dioxide 30 mEq/L (23-29) H 11/16/17 01:25 Glucose 106 mg/dL (70-105) H 11/16/17 01:25 POC Glucose 121 mg/dL (70-99) H 11/16/17 11:47 Calcium 8.0 mg/dL (8.6-10.3) L 11/16/17 01:25 Iron 24 mcg/dL (65-175) L 11/15/17 15:36 % Saturation 10 % (20-55) L 11/15/17 15:36 Transferrin 165 mg/dL (203-362) L 11/15/17 15:36 AST 95 Units/L (13-39) H 11/14/17 01:20 Troponin I 0.07 ng/mL (< 0.04) H* 11/14/17 07:44 Serum Total Protein 5.3 g/dL (6.4-8.9) L 11/14/17 01:20 Albumin 3.0 g/dL (3.5-5.7) L 11/14/17 01:20 Globulin 2.3 g/dL (2.4-3.5) L 11/14/17 01:20 Consult Discharge Plan - Plan Referrals: Aundrea Thrasher, [facility] [Primary Care Provider] -
--- NOTE | 2017-11-16 15:26 | Spine Progress Note ---
Date of Encounter: 11/16/17 Time of Encounter: 15:24 Subjective Principal diagnosis: Degenerative scoliosis, lumbar stenosis, lumbar radiculopathy Interval history: Patient complains of back pain. Head CTA yesterday which revealed acute pulmonary embolism. He has been started on Lovenox and his respiratory status has improved. He is now on 2 L O2 via nasal cannula. Afebrile vital signs stable. He is neurovascularly intact with regard to his bilateral lower extremities. He is currently receiving 2 units of packed red cells. Will reassess H&H in a.m. as well as pulmonary status. Mobilize, discharge planning. Objective Vital signs: Vital Signs Temp Pulse Pulse Pulse Pulse Resp BP 11/16/17 12:53 98 F 86 18 109/69 11/16/17 12:43 11/16/17 12:38 99 F 86 18 108/72 11/16/17 12:25 98.8 F 89 17 109/71 11/16/17 11:12 18 11/16/17 08:56 11/16/17 08:38 18 11/16/17 08:13 99.1 F 96 18 119/73 11/16/17 04:13 98.6 F 85 16 100/70 11/15/17 23:35 18 11/15/17 23:16 99.1 F 105 18 135/87 11/15/17 18:32 109 70 120 11/15/17 18:13 11/15/17 17:11 11/15/17 16:21 18 11/15/17 15:54 11/15/17 15:45 98.6 F 94 18 105/67 BP BP BP Pulse Ox 11/16/17 12:53 95 11/16/17 12:43 98 11/16/17 12:38 96 11/16/17 12:25 98 11/16/17 11:12 94 11/16/17 08:56 94 11/16/17 08:38 91 11/16/17 08:13 100 11/16/17 04:13 97 11/15/17 23:35 88 18 23:16 93 11/15/17 18:32 88/40 78/49 95/51 18 18:13 89 11/15/17 17:11 94 11/15/17 16:21 95 11/15/17 15:54 95 11/15/17 15:45 97 Intake and Output 11/15/17 11/16/17 11/16/17 23:59 07:59 15:59 Intake Total 250 / 250 835 / 835 Output Total 200 / 200 Balance -200 / -200 250 / 250 835 / 835 Intake: IV Fluids 300 / 300 Levaquin Premix 750mg/150 mL 300 / 300 750 mg In 150 ml @ 100 mls/hr IVPB DAILY [facility] Rx#:[id number] Oral 250 / 250 240 / 240 Blood Product 295 / 295 Rbcs Leuko Poor As-1 Unit 295 / 295 [id number] Output: Urine 200 / 200 Other: Meal Lunch Percent of Meal Consumed 20% # Voids 1 Blood Glucose* 99 107 - Labs CBC & BMP: 11/16/17 01:25 11/16/17 01:25 Labs: Abnormal lab results RBC 2.51 M/mcL (4.19-5.50) L 11/16/17 01:25 Hgb 8.0 g/dL (12.9-16.9) L 11/16/17 01:25 Hct 23.1 % (37.5-50.1) L 11/16/17 01:25 Plt Count 106 K/mcL (140-400) L 11/16/17 01:25 Nucleated RBCs/100 WBC 0.4 /100 WBC (0) H 11/16/17 01:25 Platelet Estimate Decreased (Normal) L 11/15/17 00:40 Immature Plt Fraction 7.1 % (1.1-6.1) H 11/15/17 00:40 D-Dimer 2086 ng/mLFEU (0-500) H 11/14/17 13:34 ABG pCO2 51 mmHg (35-45) H 11/14/17 01:12 ABG pO2 69 mmHg (85-104) L 11/14/17 01:12 ABG HCO3 30 mEq/L (21-27) H 11/14/17 01:12 ABG Total CO2 32 mEq/L (20-26) H 11/14/17 01:12 ABG O2 Saturation 93 % (95-98) L 11/14/17 01:12 ABG Base Excess 4 mEq/L (-2 to 3) H 11/14/17 01:12 Carbon Dioxide 30 mEq/L (23-29) H 11/16/17 01:25 Glucose 106 mg/dL (70-105) H 11/16/17 01:25 POC Glucose 121 mg/dL (70-99) H 11/16/17 11:47 Calcium 8.0 mg/dL (8.6-10.3) L 11/16/17 01:25 Iron 24 mcg/dL (65-175) L 11/15/17 15:36 % Saturation 10 % (20-55) L 11/15/17 15:36 Transferrin 165 mg/dL (203-362) L 11/15/17 15:36 AST 95 Units/L (13-39) H 11/14/17 01:20 Troponin I 0.07 ng/mL (< 0.04) H* 11/14/17 07:44 Serum Total Protein 5.3 g/dL (6.4-8.9) L 11/14/17 01:20 Albumin 3.0 g/dL (3.5-5.7) L 11/14/17 01:20 Globulin 2.3 g/dL (2.4-3.5) L 11/14/17 01:20 Consult Discharge Plan - Plan Referrals: Aundrea Thrasher, [facility] [Primary Care Provider] -
[2017-11-17 02:11] LABS: Basophils % 0.3 %; Eosinophils # 0.1 K/mcL (0.0-0.6); Eosinophils % 1.5 %; Hematocrit 28.6 % (37.5-50.1); Immature Granulocytes % 1.8 % (0-4); Lymphocytes # 1.8 K/mcL (0.6-4.6); Lymphocytes % 18.4 %; Mean Corpuscular HGB Conc 35.3 g/dL (31.6-35.5); Mean Corpuscular Volume 87.7 fL (83.0-100.0); Mean Platelet Volume 11.3 fL (9.4-12.4); Monocytes # 0.9 K/mcL (0.0-1.3); Neutrophils # 6.6 K/mcL (1.6-8.9); Nucleated Red Blood Cells 0.3 /100 WBC (0); Platelet Count 154 K/mcL (140-400); Red Blood Count 3.26 M/mcL (4.19-5.50); Red Cell Distribution Width 13.4 % (11.5-14.5)
[2017-11-17 02:12] LABS: Hemoglobin 10.1 g/dL (12.9-16.9)
[2017-11-17] MEDS: Ipratropium/Albuterol Neb 3 ML IH SCH ×5 (03:21→20:16)
[2017-11-17] MEDS: *HR* Enoxaparin 150 MG/ML SYRINGE SQ SCH ×2 (05:15→19:43)
[2017-11-17] MEDS: Levofloxacin 750 MG/150 ML 750 MG/150 ML BAG IVPB SCH (07:47)
[2017-11-17] MEDS: Cholecalciferol (D-3) 1,000 UNIT TABLET PO SCH (07:47)
[2017-11-17] MEDS: Aspirin Enteric Coated 81 MG Tablet PO SCH (07:48)
[2017-11-17] MEDS: *HR* OxyCODONE Immed Rel 5 MG TABLET PO PRN ×3 (07:48→20:37)
[2017-11-17] MEDS: Sennosides/Docusate Sodium TABLET PO SCH ×2 (07:48→20:37)
[2017-11-17] MEDS ORDERED: Haloperidol Lactate 5 MG/ML VIAL IVP ONE ×2 (13:21→21:45)
[2017-11-17] MEDS: Ondansetron 4 MG/2 ML VIAL IVP PRN ×2 (14:24→20:37)
[2017-11-17] MEDS: NIFEdipine XL (24 HR) 60 MG TAB.ER.24 PO SCH (16:34)
--- NOTE | 2017-11-17 17:17 | Internal Med Progress Note ---
Date of Encounter: 11/17/17 Time of Encounter: 11:00 - Assessment and plan (1) Acute respiratory failure Current Visit: Yes Status: Acute Assessment and plan: CTA chest showed left-sided PE; started on therapeutic s.c Lovenox for now; Xarelto calles check tomorrow; improving O2 requirements, saturating well on room air today; Venous Doppler of B/L LE showed no DVT. Echocardiogram shows preserved EF, moderate LV diastolic dysfunction, mild concentric LVH; Qualifiers: Respiratory failure complication: hypoxia Qualified Code(s): J96.01 - Acute respiratory failure with hypoxia (2) Status post lumbar spinal fusion Current Visit: Yes Status: Acute Assessment and plan: postoperative care per Spine surgery; PT/PT recommends inpatient rehab; social work job titles on board; (3) Hyperglycemia Current Visit: Yes Status: Resolved (4) Acute kidney injury Current Visit: Yes Status: Resolved (5) Acute blood loss anemia Current Visit: Yes Status: Acute Assessment and plan: Hb improved to 10.1 after PRBC transfusion; stool for occult blood positive; continue to monitor Hb, if further drops, consult GI for possible EGD/ Colonoscopy; check Fe profile- mildly low Fe stores; (6) CAD (coronary artery disease) Current Visit: Yes Status: Chronic Qualifiers: Coronary Disease-Associated Artery/Lesion type: [place] artery [place] vs. transplanted heart: [place] heart Associated angina: without angina Qualified Code(s): I25.10 - Atherosclerotic heart disease of [place] coronary artery without angina pectoris (7) Obesity hypoventilation syndrome Current Visit: Yes Status: Suspected - Time Spent With Patient Total time spent is greater than 50% in coordination of care (as documented) at patient's floor/unit and/or counseling patient: - Subjective Interval history: Able to answer questions but seems somewhat off; denies chest pain, shortness of breath, palpitations; noted to be agitated with erratic behaviour later today; - Constitutional Vitals: Temp Pulse Resp BP Pulse Ox 97.6 F 103 16 133/88 96 11/17/17 15:55 11/17/17 15:55 11/17/17 15:55 11/17/17 15:55 11/17/17 15:55 General appearance: Present: cooperative, A&O X 3, obese, answers questions appropriately - Respiratory Respiratory exam: Present: CTAB. Absent: accessory muscle use, rales, rhonchi, wheezes - Cardiovascular Cardiovascular exam: Present: RRR, +S1, +S2. Absent: diastolic murmur, gallop, rubs, systolic murmur - GI/Abdominal GI/Abdominal exam: Present: normal bowel sounds, soft (obese), no peritoneal signs. Absent: distended, tenderness - Extremities Exam Extremities exam: Present: full ROM, warm, radial pulses palpable and symmetrical. Absent: calf tenderness, cyanotic, pedal edema Internal Medicine: Result - Labs CBC & Chem 7: 11/17/17 01:20 11/16/17 01:25 Labs: Short CBC 11/17/17 Range/Units 01:20 WBC 9.5 (4.3-11.1) K/mcL Hgb 10.1 L D (12.9-16.9) g/dL Hct 28.6 L (37.5-50.1) % Plt Count 154 (140-400) K/mcL Neutrophils # 6.6 (1.6-8.9) K/mcL - ABG Interpretation ABG results: ABG ABG pH 7.38 pH Units (7.32-7.45) 11/14/17 01:12 ABG pCO2 51 mmHg (35-45) H 11/14/17 01:12 ABG pO2 69 mmHg (85-104) L 11/14/17 01:12 ABG O2 Saturation 93 % (95-98) L 11/14/17 01:12 PT/INR, D-dimer D-Dimer 2086 ng/mLFEU (0-500) H 11/14/17 13:34 - VTE Documentation of Mechanical Device: Intermittent pneumatic compression device Consult Discharge Plan - Plan Referrals: Aundrea Thrasher, SE[employer] [Primary Care Provider] -
[2017-11-17 18:03] LABS: BUN/Creatinine Ratio 20 (6-26); Blood Urea Nitrogen 19 mg/dL (6-20); Calcium 8.8 mg/dL (8.6-10.3); Carbon Dioxide 29 mEq/L (23-29); Chloride 101 mEq/L (98-107); Glucose 144 mg/dL (70-105); Osmolality,Calculated 287 (280-300); Potassium 3.8 mEq/L (3.5-5.1); Sodium 136 mEq/L (136-145); eGFR For African Americans > 60 (> 60); eGFR For Non-African Americans > 60 (> 60)
[2017-11-18] MEDS: Ipratropium/Albuterol Neb 3 ML IH SCH ×2 (00:17→04:47)
[2017-11-18 01:43] LABS: Basophils % 0.2 %; Eosinophils % 0.1 %; Hematocrit 27.4 % (37.5-50.1); Hemoglobin 9.5 g/dL (12.9-16.9); Immature Granulocytes % 1.8 % (0-4); Lymphocytes % 7.4 %; Mean Corpuscular HGB Conc 34.7 g/dL (31.6-35.5); Mean Corpuscular Hemoglobin 31.3 pg (28.0-33.3); Mean Corpuscular Volume 90.1 fL (83.0-100.0); Mean Platelet Volume 10.6 fL (9.4-12.4); Monocytes # 1.1 K/mcL (0.0-1.3); Monocytes % 7.8 %; Neutrophils # 11.4 K/mcL (1.6-8.9); Nucleated Red Blood Cells 0.3 /100 WBC (0); Platelet Count 223 K/mcL (140-400); Red Blood Count 3.04 M/mcL (4.19-5.50); Red Cell Distribution Width 13.9 % (11.5-14.5); Segmented Neutrophils % 82.7 %
[2017-11-18 02:02] LABS: BUN/Creatinine Ratio 25 (6-26); Blood Urea Nitrogen 24 mg/dL (6-20); Calcium 8.6 mg/dL (8.6-10.3); Carbon Dioxide 26 mEq/L (23-29); Chloride 103 mEq/L (98-107); Glucose 149 mg/dL (70-105); Osmolality,Calculated 295 (280-300); Potassium 4.4 mEq/L (3.5-5.1); Sodium 139 mEq/L (136-145); eGFR For African Americans > 60 (> 60); eGFR For Non-African Americans > 60 (> 60)
[2017-11-18] MEDS: *HR* Enoxaparin 150 MG/ML SYRINGE SQ SCH ×2 (05:20→17:36)
[2017-11-18] MEDS ORDERED: Ipratropium/Albuterol Neb 3 ML IH PRN (07:48)
[2017-11-18] MEDS: Aspirin Enteric Coated 81 MG Tablet PO SCH (07:52)
[2017-11-18] MEDS: Cholecalciferol (D-3) 1,000 UNIT TABLET PO SCH (07:52)
[2017-11-18] MEDS: *HR* OxyCODONE Immed Rel 5 MG TABLET PO PRN ×2 (07:52→19:57)
[2017-11-18] MEDS: Sennosides/Docusate Sodium TABLET PO SCH ×2 (07:52→20:05)
[2017-11-18] MEDS: Levofloxacin 750 MG/150 ML 750 MG/150 ML BAG IVPB SCH (07:53)
--- NOTE | 2017-11-18 12:44 | Internal Med Progress Note ---
Date of Encounter: 11/18/17 Time of Encounter: 12:40 - Assessment and plan (1) Leukocytosis, unspecified Current Visit: Yes Status: Acute Assessment and plan: History today's leukocytosis is 13.7 thousand. It was 8.4 thousand days ago. It is associated with tachycardia. We are ordering blood cultures and urine culture. We are ordering lactic acid level. The patient may be developing a wound infection, after recently done low back surgery. Qualifiers: Leukocytosis type: unspecified Qualified Code(s): D72.829 - Elevated white blood cell count, unspecified (2) Tachycardia Current Visit: Yes Status: Acute Assessment and plan: See the dictation above, about his leukocytosis. The patient was transfused with 2 units of packed red blood cells 2 days ago. Hemoccults of stool was positive yesterday. There is no evidence for significant GI bleeding. See GI consult. The patient is on Lovenox for treatment of pulmonary embolism. We will observe his hemoglobin closely. (3) Status post lumbar spinal fusion Current Visit: Yes Status: Acute Assessment and plan: The treatment is as per orthopedic spine surgery. The patient developed pulmonary embolism after the surgery. He is on subcutaneous Lovenox. (4) Acute blood loss anemia Current Visit: Yes Status: Acute Assessment and plan: His hemoccult of stool was positive yesterday. We transfused him with 2 units of packed red blood cells 2 days ago. He is getting treatment with subcutaneous Lovenox for pulmonary embolism. We will monitor his hemoglobin closely. Appreciate consult from GI disease. (5) Pulmonary embolism Current Visit: Yes Status: Acute Assessment and plan: The patient is on subcutaneous Lovenox. We are watching his hemoglobin closely. She will need to 3 months of treatment Xarelto or similar. The pulmonary embolism episode is his first one. It is likely provoked by the recently done low back surgery. Qualifiers: Pulmonary embolism type: other Chronicity: acute Acute cor pulmonale presence: without acute cor pulmonale Qualified Code(s): I26.99 - Other pulmonary embolism without acute cor pulmonale - Time Spent With Patient Total time spent is greater than 50% in coordination of care (as documented) at patient's floor/unit and/or counseling patient: 25 - 35 minutes - Subjective Interval history: The patient complains of low back Pain. It is mild to moderate in intensity. It seems to be decreasing in intensity. Denies chest pain. Denies difficulty breathing, coughing and wheezing. Denies abdominal pain, nausea and vomiting. He does not have any urinary symptoms. He does have physical therapy with a walker. He does have more pain in his lower back at standing/walking. He also complains of pain in his knees, when doing physical activities. His mental status seems to be normal (baseline). - Constitutional Vitals: Temp Pulse Resp BP Pulse Ox 97.5 F L 128 20 135/86 97 11/18/17 10:51 11/18/17 10:51 11/18/17 10:51 11/18/17 10:51 11/18/17 10:51 General appearance: Present: cooperative, A&O X 3, obese, answers questions appropriately - Respiratory Respiratory exam: Present: CTAB. Absent: accessory muscle use, rales, rhonchi, wheezes Additional comments: The patient is tachycardic. - Cardiovascular Cardiovascular exam: Present: RRR. Absent: diastolic murmur, gallop, rubs, systolic murmur Additional comments: The patient is tachypneic. - GI/Abdominal GI/Abdominal exam: Present: normal bowel sounds, soft, no peritoneal signs. Absent: distended, tenderness - Skin Skin exam: Present: normal color. Absent: rash Additional comments: Examination of the wound in the lower back is deferred to orthopedic service. Internal Medicine: Result - Labs CBC & Chem 7: 11/19/17 17:20 11/19/17 08:55 Labs: Short CBC 11/18/17 Range/Units 01:08 WBC 13.7 H (4.3-11.1) K/mcL Hgb 9.5 L (12.9-16.9) g/dL Hct 27.4 L (37.5-50.1) % Plt Count 223 (140-400) K/mcL Neutrophils # 11.4 H (1.6-8.9) K/mcL BMP 11/17/17 11/18/17 17:26 01:08 Sodium 136 139 Potassium 3.8 4.4 Chloride 101 103 Carbon Dioxide 29 26 BUN 19 24 H Creatinine 0.94 0.95 Glucose 144 H 149 H Calcium 8.8 8.6 - ABG Interpretation ABG results: ABG ABG pH 7.38 pH Units (7.32-7.45) 05/18/18 01:12 ABG pCO2 51 mmHg (35-45) H 11/14/17 01:12 ABG pO2 69 mmHg (85-104) L 11/14/17 01:12 ABG O2 Saturation 93 % (95-98) L 11/14/17 01:12 PT/INR, D-dimer D-Dimer 2086 ng/mLFEU (0-500) H 11/14/17 13:34 - Impressions Impressions Chest X-Ray 11/18/17 09:58 IMPRESSION: 1. Limited evaluation secondary to portable technique and hypoinflation. If patient can participate in proper PA and lateral positioning, that would be helpful. 2. Parahilar opacification and right mid lung opacification identified, possibly representing atelectasis. 3. Subsegmental atelectasis in the left base is nonspecific. Given that there was embolus in this area on 11/15/2017 evaluation, small area of infarct could be considered. D/ / Marvin Mccann / Marvin Mccann Interpreting Provider: Marvin Mccann - VTE Documentation of Mechanical Device: Intermittent pneumatic compression device Consult Discharge Plan - Plan Referrals: Aundrea Thrasher ATTENDING RADIOLOGIST [Primary Care Provider] -
[2017-11-18] MEDS: NIFEdipine XL (24 HR) 60 MG TAB.ER.24 PO SCH (14:40)
[2017-11-18 15:34] LABS: Bilirubin,Urine Negative (Negative); Blood,Urine Large (Negative); Clarity,Urine Cloudy (Clear); Color,Urine Dark Yellow (Yellow); Glucose,Urine (UA) Normal (Normal); Ketones,Urine 15 mg/dL (Negative); Leukocyte Esterase,Urine Negative (Negative); Nitrite,Urine Negative (Negative); Protein,Urine 30 mg/dL (Neg-Trace); Specific Gravity,Urine 1.021 (1.010-1.025); Urobilinogen,Urine Normal (Normal)
[2017-11-18 15:36] LABS: Bacteria,Urine None Seen per hpf (None-Few); Hyaline Casts,Urine Few per lpf (None-Few); Squamous Epithelial Cell,Urine Many per lpf (None-Few)
[2017-11-18 15:49] LABS: RBC,Urine TNTC per hpf (0-3); Sperm,Urine Present
--- NOTE | 2017-11-18 15:59 | Orthopedics Progress Note ---
Date of Encounter: 11/18/17 Time of Encounter: 09:00 - Assessment and Plan (1) Degenerative scoliosis Current Visit: Yes Status: Chronic (2) Lumbar stenosis Current Visit: Yes Status: Chronic Qualifiers: Neurogenic claudication status: unspecified Qualified Code(s): M48.061 - Spinal stenosis, lumbar region without neurogenic claudication (3) Lumbar radiculopathy Current Visit: Yes Status: Chronic (4) Status post lumbar spinal fusion Current Visit: Yes Status: Acute (5) Diaphoresis Current Visit: Yes Status: Acute (6) Pulmonary embolism Current Visit: Yes Status: Acute Qualifiers: Pulmonary embolism type: other Chronicity: acute Acute cor pulmonale presence: without acute cor pulmonale Qualified Code(s): I26.99 - Other pulmonary embolism without acute cor pulmonale Subjective Principal diagnosis: Degenerative scoliosis, lumbar stenosis, lumbar radiculopathy Interval history: Posterior lumbar interbody fusion T12-S1 with interbody grafts at L2-3, L3-4, and L5-S1 on 11/12/[address] Cox Degenerative scoliosis, lumbar stenosis, lumbar radiculopathy The patient is without complaints. Patient states that he feels short of breath , and sweaty. He states overall he does not feel well and he states "I wish someone to would figure this out". States that through the night he has not been having the best care per patient with assistance to and from the restroom. Afebrile - temperature checked while this provided within the room secondary to diaphoresis. Patient on a room air on examination. Incision is clean and intact, scant serosanguineous drainage noted to mid incision. Patient admits to new numbness the right lower extremity from the right thigh down to the proximal bryant on the anterior side of the leg. He states that his right foot is numb. However he can feel, though describes it as altered sensation, with palpation of the right foot. Fires all upper and lower extremity motor groups. Assessment: Status post lumbar fusion Pulmonary embolism Plan: Reviewed postoperative restrictions and precautions. Patient verbalized understanding. Brace present and patient aware to apply with activity. Mobilize with therapy as tolerated Continue analgesics as needed Discharge planning - awaiting medical clearance Radiographs reviewed With patient continuing to be tachycardic as well as significantly diaphoretic with intermittent hole episodes of hallucination mixed with lucidity, discussed with Dr. Cox regarding patient's status. Concern for developing infection. Blood cultures ordered as well as chest x-ray and urinalysis. We will discuss with hospitalist at earliest available time. We will continue to follow. Objective Vital signs: Vital Signs Temp Pulse Resp BP Pulse Ox 11/18/17 10:51 97.5 F L 128 20 135/86 97 11/18/17 07:17 98.9 F 140 16 121/88 95 11/18/17 03:27 98.7 F 109 18 128/89 99 11/17/17 23:39 98.7 F 95 16 129/84 97 11/17/17 18:38 98.3 F 118 16 133/83 94 11/17/17 15:55 97.6 F 103 16 133/88 96 Intake and Output 11/17/17 11/18/17 11/18/17 23:59 07:59 15:59 Intake Total 590 / 590 200 / 200 Output Total 0 / 0 200 / 200 Balance 590 / 590 0 / 0 Intake: Oral 590 / 590 200 / 200 Output: Urine 0 / 0 200 / 200 Other: Meal Dinner Percent of Meal Consumed 80% Stool Size Moderate Stool Consistency soft Stool Characteristics Normal for Patient Stool Color Brown # Voids 2 # Bowel Movements 1 Blood Glucose* 150 - Labs CBC & BMP: 11/18/17 01:08 11/18/17 01:08 Labs: Abnormal lab results WBC 13.7 K/mcL (4.3-11.1) H 11/18/17 01:08 RBC 3.04 M/mcL (4.19-5.50) L 11/18/17 01:08 Hgb 9.5 g/dL (12.9-16.9) L 11/18/17 01:08 Hct 27.4 % (37.5-50.1) L 11/18/17 01:08 Neutrophils # 11.4 K/mcL (1.6-8.9) H 11/18/17 01:08 Nucleated RBCs/100 WBC 0.3 /100 WBC (0) H 11/18/17 01:08 Platelet Estimate Decreased (Normal) L 11/15/17 00:40 Immature Plt Fraction 7.1 % (1.1-6.1) H 11/15/17 00:40 D-Dimer 2086 ng/mLFEU (0-500) H 11/14/17 13:34 ABG pCO2 51 mmHg (35-45) H 11/14/17 01:12 ABG pO2 69 mmHg (85-104) L 11/14/17 01:12 ABG HCO3 30 mEq/L (21-27) H 11/14/17 01:12 ABG Total CO2 32 mEq/L (20-26) H 11/14/17 01:12 ABG O2 Saturation 93 % (95-98) L 11/14/17 01:12 ABG Base Excess 4 mEq/L (-2 to 3) H 11/14/17 01:12 BUN 24 mg/dL (6-20) H 11/18/17 01:08 Glucose 149 mg/dL (70-105) H 11/18/17 01:08 POC Glucose 107 mg/dL (70-99) H 11/17/17 13:11 Iron 24 mcg/dL (65-175) L 11/15/17 15:36 % Saturation 10 % (20-55) L 11/15/17 15:36 Transferrin 165 mg/dL (203-362) L 11/15/17 15:36 AST 95 Units/L (13-39) H 11/14/17 01:20 Troponin I 0.07 ng/mL (< 0.04) H* 11/14/17 07:44 Serum Total Protein 5.3 g/dL (6.4-8.9) L 11/14/17 01:20 Albumin 3.0 g/dL (3.5-5.7) L 11/14/17 01:20 Globulin 2.3 g/dL (2.4-3.5) L 11/14/17 01:20 Urine Clarity Cloudy (Clear) A 11/18/17 15:15 Urine Protein 30 mg/dL (Neg-Trace) H 11/18/17 15:15 Urine Ketones 15 mg/dL (Negative) H 11/18/17 15:15 Urine Blood Large (Negative) H 11/18/17 15:15 Urine Microscopic RBC TNTC per hpf (0-3) H 11/18/17 15:15 Urine Microscopic WBC 3-5 per hpf (0-3) H 11/18/17 15:15 Ur Squamous Epith Cells Many per lpf (None-Few) H 11/18/17 15:15 Stool Occult Blood Positive (Negative) A 11/17/17 06:12 - VTE Documentation of Mechanical Device: Intermittent pneumatic compression device Consult Discharge Plan - Plan Referrals: Aundrea Thrasher CNP [Primary Care Provider] -
--- NOTE | 2017-11-18 16:16 | Event Note ---
Date of Encounter: 11/18/17 Time of Encounter: 16:[address] Slaughter regarding patient. We discussed the possibilities of patient's ongoing diaphoresis and tachycardia. We discussed patient's history since operative day. Continuing to rule out sepsis which appears to be very unlikely given patient laboratory results. Concern for wound infection is ongoing. Patient's urine culture is pending. Other concerns regarding the hallucinations and the pulmonary embolism were discussed. At this time Dr. Slaughter with like us to consider local cultures of the wound in addition to the blood cultures. We will discuss with Dr. Cox and proceed in the morning as per Dr. Cox' s discretion.
[2017-11-19] MEDS: *HR* OxyCODONE Immed Rel 5 MG TABLET PO PRN (04:45)
[2017-11-19] MEDS: *HR* Enoxaparin 150 MG/ML SYRINGE SQ SCH ×3 (04:45→18:48)
--- NOTE | 2017-11-19 08:17 | Orthopedics Progress Note ---
Date of Encounter: 11/19/17 Time of Encounter: 08:17 - Assessment and Plan (1) Degenerative scoliosis Current Visit: Yes Status: Chronic (2) Lumbar stenosis Current Visit: Yes Status: Chronic Qualifiers: Neurogenic claudication status: unspecified Qualified Code(s): M48.061 - Spinal stenosis, lumbar region without neurogenic claudication (3) Lumbar radiculopathy Current Visit: Yes Status: Chronic (4) Status post lumbar spinal fusion Current Visit: Yes Status: Acute (5) Diaphoresis Current Visit: Yes Status: Acute (6) Pulmonary embolism Current Visit: Yes Status: Acute Qualifiers: Pulmonary embolism type: other Chronicity: acute Acute cor pulmonale presence: without acute cor pulmonale Qualified Code(s): I26.99 - Other pulmonary embolism without acute cor pulmonale (7) Anemia Current Visit: Yes Status: Acute Qualifiers: Anemia type: unspecified type Qualified Code(s): D64.9 - Anemia, unspecified (8) Leukocytosis, unspecified Current Visit: Yes Status: Acute Qualifiers: Leukocytosis type: unspecified Qualified Code(s): D72.829 - Elevated white blood cell count, unspecified (9) Tachycardia Current Visit: Yes Status: Acute Subjective Principal diagnosis: Degenerative scoliosis, lumbar stenosis, lumbar radiculopathy Interval history: Posterior lumbar interbody fusion T12-S1 with interbody grafts at L2-3, L3-4, and L5-S1 on 11/12/[address] Cox Degenerative scoliosis, lumbar stenosis, lumbar radiculopathy The patient is without complaints. Patient states that he feels short of breath , and sweaty. He states overall he does not feel well and he states "I wish someone to would figure this out". He declines to transport for chest xray repeat. Discussed and informed patient that it is necessary to see if he has pneumonia as he had questionable patches on portable version. Patient on a 4L humidified O2 by nasal cannula air on examination. Patient admits to new numbness the right lower extremity from the right thigh down to the proximal bryant on the anterior side of the leg. He states that his right foot is numb. However he can feel, though describes it as altered sensation, with palpation of the right foot. Motion intact. Posterior tibial pulses intact. Fires all upper and lower extremity motor groups. Assessment: Status post lumbar fusion Pulmonary embolism Hallucinations Tachycardia Diaphoresis Plan: Reviewed postoperative restrictions and precautions. Patient verbalized understanding. Brace present and patient aware to apply with activity. Mobilize with therapy as tolerated Continue analgesics as needed Discharge planning - awaiting medical clearance Radiographs reviewed With patient continuing to be tachycardic as well as significantly diaphoretic with intermittent episodes of hallucination mixed with lucidity, discussed with Dr. Cox regarding patient's status. Concern for developing infection. Blood cultures ordered and pending Chest x-ray suspicious for infiltrate vs infarct Urinalysis - awaiting culture results; patient currently on Levofloxacin Repeat Troponin and order Ammonia Dr. Cox inspected dressing and incision and denies concern for incisional infection - no local cultures indicated. GI consulted as patient continues to have decreased hemoglobin with ongoing tachycardia Hospitalist states going to consult ID Dr. Cox discussing transfer to ICU potentially as concern for worsening instability. Objective Vital signs: Vital Signs Temp Pulse Resp BP Pulse Ox 11/19/17 04:27 99.4 F 120 18 133/88 96 11/19/17 00:43 99.5 F 105 18 132/93 96 11/18/17 20:16 99.1 F 128 18 115/79 93 11/18/17 20:06 92 11/18/17 16:10 98.1 F 119 20 141/79 96 11/18/17 10:51 97.5 F L 128 20 135/86 97 Intake and Output 11/18/17 11/19/17 11/19/17 23:59 07:59 15:59 Intake Total 400 / 400 0 / 0 Output Total 900 / 900 0 / 0 Balance -500 / -500 0 / 0 Intake: Oral 400 / 400 0 / 0 Output: Urine 0 / 0 Straight Cath 900 / 900 Other: Meal Dinner Percent of Meal Consumed 0% Blood Glucose* 142 - Labs CBC & BMP: 11/19/17 09:46 11/19/17 08:55 Labs: Abnormal lab results WBC 13.7 K/mcL (4.3-11.1) H 11/18/17 01:08 RBC 3.04 M/mcL (4.19-5.50) L 11/18/17 01:08 Hgb 9.5 g/dL (12.9-16.9) L 11/18/17 01:08 Hct 27.4 % (37.5-50.1) L 11/18/17 01:08 Neutrophils # 11.4 K/mcL (1.6-8.9) H 11/18/17 01:08 Nucleated RBCs/100 WBC 0.3 /100 WBC (0) H 11/18/17 01:08 Platelet Estimate Decreased (Normal) L 11/15/17 00:40 Immature Plt Fraction 7.1 % (1.1-6.1) H 11/15/17 00:40 D-Dimer 2086 ng/mLFEU (0-500) H 11/14/17 13:34 ABG pCO2 51 mmHg (35-45) H 11/14/17 01:12 ABG pO2 69 mmHg (85-104) L 11/14/17 01:12 ABG HCO3 30 mEq/L (21-27) H 11/14/17 01:12 ABG Total CO2 32 mEq/L (20-26) H 11/14/17 01:12 ABG O2 Saturation 93 % (95-98) L 11/14/17 01:12 ABG Base Excess 4 mEq/L (-2 to 3) H 11/14/17 01:12 BUN 24 mg/dL (6-20) H 11/18/17 01:08 Glucose 149 mg/dL (70-105) H 11/18/17 01:08 POC Glucose 145 mg/dL (70-99) H 11/18/17 17:43 Iron 24 mcg/dL (65-175) L 11/15/17 15:36 % Saturation 10 % (20-55) L 11/15/17 15:36 Transferrin 165 mg/dL (203-362) L 11/15/17 15:36 AST 95 Units/L (13-39) H 11/14/17 01:20 Troponin I 0.07 ng/mL (< 0.04) H* 11/14/17 07:44 Serum Total Protein 5.3 g/dL (6.4-8.9) L 11/14/17 01:20 Albumin 3.0 g/dL (3.5-5.7) L 11/14/17 01:20 Globulin 2.3 g/dL (2.4-3.5) L 11/14/17 01:20 Urine Clarity Cloudy (Clear) A 11/18/17 15:15 Urine Protein 30 mg/dL (Neg-Trace) H 11/18/17 15:15 Urine Ketones 15 mg/dL (Negative) H 11/18/17 15:15 Urine Blood Large (Negative) H 11/18/17 15:15 Urine Microscopic RBC TNTC per hpf (0-3) H 11/18/17 15:15 Urine Microscopic WBC 3-5 per hpf (0-3) H 11/18/17 15:15 Ur Squamous Epith Cells Many per lpf (None-Few) H 11/18/17 15:15 Stool Occult Blood Positive (Negative) A 11/17/17 06:12 - VTE Documentation of Mechanical Device: Intermittent pneumatic compression device Consult Discharge Plan - Plan Referrals: Aundrea Thrasher, NURSING CARE ATTENDANT [Primary Care Provider] -
[2017-11-19] MEDS: Sennosides/Docusate Sodium TABLET PO SCH ×2 (09:16→19:57)
[2017-11-19] MEDS: Cholecalciferol (D-3) 1,000 UNIT TABLET PO SCH (09:16)
[2017-11-19] MEDS: Aspirin Enteric Coated 81 MG Tablet PO SCH (09:16)
[2017-11-19] MEDS: Levofloxacin 750 MG/150 ML 750 MG/150 ML BAG IVPB SCH (09:17)
[2017-11-19 09:21] LABS: BUN/Creatinine Ratio 37 (6-26); Blood Urea Nitrogen 41 mg/dL (6-20); Calcium 8.5 mg/dL (8.6-10.3); Carbon Dioxide 22 mEq/L (23-29); Chloride 99 mEq/L (98-107); Glucose 123 mg/dL (70-105); Osmolality,Calculated 287 (280-300); Potassium 4.1 mEq/L (3.5-5.1); Sodium 133 mEq/L (136-145); eGFR For African Americans > 60 (> 60); eGFR For Non-African Americans > 60 (> 60)
[2017-11-19 10:05] LABS: Hematocrit 23.5 % (37.5-50.1); Hemoglobin 8.1 g/dL (12.9-16.9); Immature Platelets 5.5 % (1.1-6.1); Mean Corpuscular HGB Conc 34.5 g/dL (31.6-35.5); Mean Corpuscular Hemoglobin 31.2 pg (28.0-33.3); Mean Corpuscular Volume 90.4 fL (83.0-100.0); Mean Platelet Volume 10.9 fL (9.4-12.4); Nucleated Red Blood Cells 0.6 /100 WBC (0); Platelet Count 341 K/mcL (140-400); Red Cell Distribution Width 14.9 % (11.5-14.5)
[2017-11-19 10:24] LABS: Lymphocytes # 3.2 K/mcL (0.6-4.6); Monocytes # 4.2 K/mcL (0.0-1.3); Neutrophils # 18.9 K/mcL (1.6-8.9)
[2017-11-19 10:29] LABS: Anisocytosis 1+ (Not Present); Macrocytosis Present (Not Present); Platelet Estimate Normal (Normal); Polychromasia 1+ (Not Present)
[2017-11-19] MEDS ORDERED: *HR* LORazepam 2 MG/ML VIAL IVP ONE (12:19)
[2017-11-19] MEDS ORDERED: *HR* LORazepam 2 MG/ML VIAL ONE (12:22)
[2017-11-19] MEDS ORDERED: *HR* LORazepam 2 MG/ML VIAL IM STA (12:24)
--- NOTE | 2017-11-19 12:44 | Gastroenterology Consult Note ---
<Malathi Jacques - Last Filed: 11/19/17 12:39> Date of Encounter: 11/19/17 Time of Encounter: 12:30 - Assessment and plan (1) Acute blood loss anemia Current Visit: Yes Status: Acute Assessment and plan: Anemia is likely multifactoral. He does not have any overt GI bleed. He denies abdominal symptoms. He appears septic and is being taken to CCU, poor candidate for endoscopic procedures at this time. Would monitor H&H and transfuse as needed. Will reconsider endoscopy when patient is more stable. - Time Spent With Patient Total time spent is greater than 50% in coordination of care (as documented) at patient's floor/unit and/or counseling patient: GI History of Present Illness - Data of Consult Patient: new to practice Consult date: 11/19/17 Requesting Physician: Bebeto Lombardo - Consult Narrative Reason for consult: anemia History of present illness: Mr. Marte is a 46 year old male 46 year old male who is status post extensive spinal fusion surgery on 11/11. He also had PE and elevated troponins postoperatively. He has been on lovenox injections. He has been tachycardic and diaphoretic. Hgb has dropped from baseline of 14 to 8.1 today. He has been transfused 2 units prbcs. He denies abdominal pain, GERD. He reports some nausea, no vomiting. He denies bloody or tarry stools, reports BM yesterday. He denies diarrhea. He is currently very agitated, per nursing staff he pulled monitor and lines out. He appears pale, cool and clammy. He is shivering. His WBC count is 23 today. He had colonoscopy 06/15 which was normal. Past Med Surg Social Fam HX - Past Medical History Medical history: arthritis, coronary artery disease, GERD, hypertension Psychiatric history: no psych history - Past Surgical History Surgical History: other (L-S Spinal Fusion) - Social History Smoking Status: Unknown if ever smoked Smokeless Tobacco Status: No Alcohol use: none Drug use: none - Family History Mother Hx Family Endocrine Disorder: Yes Review of Systems: GI: as per [facility]: chills and diaphoresis EYES: denies yellow discoloration ENT: denies pain with swallowing or difficulty swallowing CARDIO: denies chest pain, tachycardia RESP: Shortness of breath with exertion : denies change in color of urine NEURO: weakness HEME: bruising MS: continued back pain DERM: denies rash or itching PSYCH: Denies history of anxiety or depression - Constitutional Vitals: Temp Pulse Resp BP Pulse Ox 98.8 F 118 15 125/74 94 11/19/17 11:07 11/19/17 11:07 11/19/17 11:07 11/19/17 11:07 11/19/17 11:07 Exam: CONSTITUTIONAL:~alert, agitated.~HEAD:~normocephalic.~EYES:~no jaundice.~NECK:~ no obvious swelling.~HEART:~tachycardic, regular rate and rhythm, no murmurs.~ LUNGS:~bilateral fair air entry.~ABDOMEN:~non distended, soft, non tender, no masses palpable, no organomegaly, bruising noted to injection sites.~RECTAL EXAM :~Deferred.~EXTREMITIES:~no clubbing, cyanosis or edema.~SKIN:~pallor noted, diaphoretic and cool, no stigmata of chronic liver disease, midline incision to his back well approximated, no drainage noted, some bruising noted around site.~ NEUROLOGIC:~no obvious focal defect.~~~~ Results - Labs CBC & Chem 7: 11/19/17 09:46 11/19/17 08:55 Labs: Last Result Calcium 8.5 mg/dL (8.6-10.3) L 11/19/17 08:55 Iron 24 mcg/dL (65-175) L 11/15/17 15:36 % Saturation 10 % (20-55) L 11/15/17 15:36 Transferrin 165 mg/dL (203-362) L 11/15/17 15:36 Ferritin 171 ng/ml (20-250) 11/15/17 15:36 Troponin I 0.07 ng/mL (< 0.04) H* 11/14/17 07:44 Stool Occult Blood Positive (Negative) A 11/17/17 06:12 Entire Visit Hgb 8.1 g/dL (12.9-16.9) L 11/19/17 09:46 Hct 23.5 % (37.5-50.1) L 11/19/17 09:46 Ferritin 171 ng/ml (20-250) 11/15/17 15:36 Total Bilirubin 0.4 mg/dL (0.3-1.0) 11/14/17 01:20 AST 95 Units/L (13-39) H 11/14/17 01:20 ALT 25 Units/L (7-52) 11/14/17 01:20 - ABG ABG results: ABG ABG pH 7.38 pH Units (7.32-7.45) 11/14/17 01:12 ABG pCO2 51 mmHg (35-45) H 11/14/17 01:12 ABG pO2 69 mmHg (85-104) L 11/14/17 01:12 ABG O2 Saturation 93 % (95-98) L 11/14/17 01:12 PT/INR, D-dimer D-Dimer 2086 ng/mLFEU (0-500) H 11/14/17 13:34 Consult Discharge Plan - Plan Referrals: Aundrea Thrasher, HOME HEALTH CARE CASE MANAGER [Primary Care Provider] - <Brittny Mariee - Last Filed: 11/19/17 16:35> Date of Encounter: 11/19/17 Time of Encounter: 15:00 - Time Spent With Patient Total time spent is greater than 50% in coordination of care (as documented) at patient's floor/unit and/or counseling patient: GI History of Present Illness - Data of Consult Requesting Physician: Bebeto Lombardo - Consult Narrative History of present illness: Mr. Marte is a 46 year old male - Constitutional Vitals: Temp Pulse Resp BP Pulse Ox 98.2 F 120 22 138/80 92 11/19/17 15:57 11/19/17 15:57 11/19/17 15:57 11/19/17 15:57 11/19/17 15:57 Results - Labs CBC & Chem 7: 11/19/17 09:46 11/19/17 08:55 Labs: Last Result Calcium 8.5 mg/dL (8.6-10.3) L 11/19/17 08:55 Iron 24 mcg/dL (65-175) L 11/15/17 15:36 % Saturation 10 % (20-55) L 11/15/17 15:36 Transferrin 165 mg/dL (203-362) L 11/15/17 15:36 Ferritin 171 ng/ml (20-250) 11/15/17 15:36 Troponin I < 0.03 ng/mL (< 0.04) 11/19/17 13:36 Stool Occult Blood Positive (Negative) A 11/17/17 06:12 Entire Visit Hgb 8.1 g/dL (12.9-16.9) L 11/19/17 09:46 Hct 23.5 % (37.5-50.1) L 11/19/17 09:46 Ferritin 171 ng/ml (20-250) 11/15/17 15:36 Total Bilirubin 0.4 mg/dL (0.3-1.0) 11/14/17 01:20 AST 95 Units/L (13-39) H 11/14/17 01:20 ALT 25 Units/L (7-52) 11/14/17 01:20 Ammonia 44 mcmol/L (16-53) 11/19/17 13:36 - ABG ABG results: ABG ABG pH 7.38 pH Units (7.32-7.45) 11/14/17 01:12 ABG pCO2 51 mmHg (35-45) H 11/14/17 01:12 ABG pO2 69 mmHg (85-104) L 11/14/17 01:12 ABG O2 Saturation 93 % (95-98) L 11/14/17 01:12 PT/INR, D-dimer D-Dimer 2086 ng/mLFEU (0-500) H 11/14/17 13:34 - Attending Attestation I have personally performed a face to face evaluation on this patient. I have reviewed and agree with the care plan. History and Exam by me shows: Patient seen does has chills. Also has high white count. Has a drop in hemoglobin but there is no overt GI bleeding. The anemia is multifactorial. Recommendation: Workup for infection source as per infectious disease. Once clinically more stable then we will do the GI workup for his anemia otherwise there is no acute indication for scopes
--- NOTE | 2017-11-19 15:12 | Pulmonology Consult Note ---
<Rd Napier M - Last Filed: 11/19/17 16:18> Date of Encounter: 11/19/17 Medications and Allergies Aspirin [Lo-Dose Aspirin EC] 81 mg PO DAILY 11/08/16 [History] Pravastatin Sodium [Pravachol] 40 mg PO HS 11/08/16 [History] Trazodone HCl 300 mg PO HS 11/08/16 [History] Calcium Carbonate [Calcium] 600 mg PO BID 06/11/17 [History] Duloxetine HCl [Cymbalta] 120 mg PO DAILY 06/11/17 [History] Ergocalciferol (VITAMIN D2) [Vitamin D2] 400 unit PO BID 06/11/17 [History] Gabapentin [Neurontin] 1,800 mg PO BID 06/11/17 [History] Metoprolol [Lopressor] 50 mg PO BID 06/11/17 [History] Tizanidine HCl 16 mg PO HS 09/23/17 [History] Meloxicam [Mobic] 7.5 mg PO DAILY 11/12/17 [History] NIFEdipine [Nifedipine ER] 60 mg PO DAILY 11/12/17 [History] 3 Allergy/AdvReac Type Severity Reaction Status Date / Time No Known Allergies Allergy Verified 06/11/17 10:31 All Systems: The remainder of the systems were reviewed and are negative Physical Examination Vital Signs: Vital Signs, Last 4 Hours Temp Pulse Resp BP Pulse Ox 11/19/17 15:57 98.2 F 120 22 138/80 92 Results - Laboratory Findings CBC and BMP: 11/19/17 09:46 11/19/17 08:55 ABG ABG pH 7.38 pH Units (7.32-7.45) 11/14/17 01:12 ABG pCO2 51 mmHg (35-45) H 11/14/17 01:12 ABG pO2 69 mmHg (85-104) L 11/14/17 01:12 ABG O2 Saturation 93 % (95-98) L 11/14/17 01:12 PT/INR, D-dimer D-Dimer 2086 ng/mLFEU (0-500) H 11/14/17 13:34 Abnormal lab findings: Abnormal lab results WBC 26.3 K/mcL (4.3-11.1) H D 11/19/17 09:46 RBC 2.60 M/mcL (4.19-5.50) L 11/19/17 09:46 Hgb 8.1 g/dL (12.9-16.9) L 11/19/17 09:46 Hct 23.5 % (37.5-50.1) L 11/19/17 09:46 RDW 14.9 % (11.5-14.5) H 11/19/17 09:46 Neutrophils # 18.9 K/mcL (1.6-8.9) H 11/19/17 09:46 Monocytes # 4.2 K/mcL (0.0-1.3) H 11/19/17 09:46 Nucleated RBCs/100 WBC 0.6 /100 WBC (0) H 11/19/17 09:46 Polychromasia 1+ (Not Present) A 11/19/17 09:46 Anisocytosis 1+ (Not Present) A 11/19/17 09:46 Macrocytosis Present (Not Present) A 11/19/17 09:46 D-Dimer 2086 ng/mLFEU (0-500) H 11/14/17 13:34 ABG pCO2 51 mmHg (35-45) H 11/14/17 01:12 ABG pO2 69 mmHg (85-104) L 11/14/17 01:12 ABG HCO3 30 mEq/L (21-27) H 11/14/17 01:12 ABG Total CO2 32 mEq/L (20-26) H 11/14/17 01:12 ABG O2 Saturation 93 % (95-98) L 11/14/17 01:12 ABG Base Excess 4 mEq/L (-2 to 3) H 11/14/17 01:12 Sodium 133 mEq/L (136-145) L 11/19/17 08:55 Carbon Dioxide 22 mEq/L (23-29) L 11/19/17 08:55 BUN 41 mg/dL (6-20) H 11/19/17 08:55 BUN/Creatinine Ratio 37 (6-26) H 11/19/17 08:55 Glucose 123 mg/dL (70-105) H 11/19/17 08:55 POC Glucose 126 mg/dL (70-99) H 11/19/17 15:39 Calcium 8.5 mg/dL (8.6-10.3) L 11/19/17 08:55 Iron 24 mcg/dL (65-175) L 11/15/17 15:36 % Saturation 10 % (20-55) L 11/15/17 15:36 Transferrin 165 mg/dL (203-362) L 11/15/17 15:36 AST 95 Units/L (13-39) H 11/14/17 01:20 Serum Total Protein 5.3 g/dL (6.4-8.9) L 11/14/17 01:20 Albumin 3.0 g/dL (3.5-5.7) L 11/14/17 01:20 Globulin 2.3 g/dL (2.4-3.5) L 11/14/17 01:20 Urine Clarity Cloudy (Clear) A 11/18/17 15:15 Urine Protein 30 mg/dL (Neg-Trace) H 11/18/17 15:15 Urine Ketones 15 mg/dL (Negative) H 11/18/17 15:15 Urine Blood Large (Negative) H 11/18/17 15:15 Urine Microscopic RBC TNTC per hpf (0-3) H 11/18/17 15:15 Urine Microscopic WBC 3-5 per hpf (0-3) H 11/18/17 15:15 Ur Squamous Epith Cells Many per lpf (None-Few) H 11/18/17 15:15 Stool Occult Blood Positive (Negative) A 11/17/17 06:12 - Microbiology Findings Microbiology Findings: Microbiology, Last 48 Hours 11/18/17 15:15 Urine Culture - Final Urine,Clean Catch No growth. - Clinical Findings Intake & Output: Intake & Output 11/19/17 11/19/17 11/19/17 07:59 15:59 23:59 Intake Total 0 / 0 Output Total 0 / 0 950 / 950 Balance 0 / 0 -950 / -950 Consult Discharge Plan - Plan Referrals: Aundrea Thrasher, [employer] [Primary Care Provider] - - Attending Attestation I examined this patient and my medical decision-making was reviewed with the Resident Physician. I agree with the documented findings, disposition and treatment plan as described except to the extent set forth below. Patient seen and examined. Labs, radiology, chart personally reviewed. I was called by the hospitalist to evaluate the patient and he was seen in the floor in the presence of his nurse and also patient's family patient's seen and examined. Agree with resident's history and physical, assessment, plan with following comments: SUPERINTENDENT STEVEDORING: Patient follows commands, patient has been confused and according to the family he has tendency to have hallucination with the side effect of pain medication and will try to avoid that, however it could be also a feature of sepsis. Pulmonary: Acceptable oxygenation and ventilation. Patient is being diagnosed with acute pulmonary embolism and he is on appropriate treatment with anticoagulation and no significant respiratory distress. Echocardiogram shows no evidence of pulmonary hypertension or right heart strain. Cardiovascular: stable GI: Nutrition per dietary and GI prophylaxis per routine Heme: DVT prophylaxis per routine ID: Continue antibiotics and plan to de-escalation. Patient has features suggestive of systemic inflammatory response syndrome and it is not clear if this is secondary to infection and infectious disease has been consulted. Renal; urine out put and renal funtion reviewed Endorcine: blood glucose is monitored Lines: all lines checked and no evidence of infections Skin: skin care to prevent pressure ulcers per nursing routine care Patient has multiple problems at this time and his condition could deteriorate for that reason close monitoring, patient will be transferred to ICU <Claudio Hair - Last Filed: 11/19/17 17:23> Date of Encounter: 11/19/17 Time of Encounter: 15:00 Assessment and Plan (1) Sepsis Current Visit: Yes Status: Acute Patient is now tachycardic, does not leukocytosis and possible source of infection and recent surgery so he does meet sepsis criteria based currently non -septic shock as his last blood pressures have been stable and he does not need any pressors at this time. The source of infection is not exact but due to the recent surgery most likely it is from the surgical site. Patient is not had any fevers. Due to the possibility of this progressing and patient deteriorating very quickly patient was transferred to the ICU in critical care team was consulted. Patient is currently on Levaquin Infectious disease has been consulted, appreciate their recommendations Await IDs recommendations before we start antibiotics. Blood cultures pending Get surgical site cultures Tylenol when necessary for fever IV fluids at 100 ml/hour The patient does become hypotensive consider placing central line and starting pressors. (Not needed at this time) Qualifiers: Sepsis type: sepsis due to unspecified organism Qualified Code(s): A41.9 - Sepsis, unspecified organism (2) Pulmonary embolism Current Visit: Yes Status: Acute Patient was diagnosed with pulmonary and was not based on CT angiogram. He was started on Lovenox and Lovenox is still being continued. There was no DVTs based on a bilateral Doppler venous exam. The pulmonary embolism was most likely provoked by the recently done low back surgery. This is first-ever pulmonary embolism. We are unable to give heparin due to recent surgery is Dr. Perrin as orthopedist does not want heparin started patient also has a positive Hemoccult GI is consulting. Due to this we also do not want start heparin. Continue Lovenox patient will need 3 months of Xarelto or similar after he is discharged. Qualifiers: Pulmonary embolism type: other Chronicity: acute Acute cor pulmonale presence: without acute cor pulmonale Qualified Code(s): I26.99 - Other pulmonary embolism without acute cor pulmonale (3) Leukocytosis, unspecified Current Visit: Yes Status: Acute Patient does have leukocytosis that when he came in originally was 19.7 did decrease to 8.4. His continue to increase to 9.5, 13.7, 26.3. This was likely secondary to early sepsis or could be stress reaction from the pulmonary embolism. Infectious disease is still on the case so we will appreciate their recommendations patient is also currently on Lovenox for his pulmonary embolus. We will continue to monitor with daily labs We will await and appreciate infectious diseases recommendations. Qualifiers: Leukocytosis type: unspecified Qualified Code(s): D72.829 - Elevated white blood cell count, unspecified (4) Acute respiratory failure Current Visit: Yes Status: Resolved Patient was in acute risk story failure early on in his admission here. He was was on oxygen all up to 10 L high flow. It has normalized were now he is only at 2 L occasionally and satting at 98% oxygen saturation. Overall patient could easily decompensate and going to further respirations failure due to his pulmonary embolism and other comorbidities as well as sepsis. We will continue to monitor with cardiac and pulse ox monitoring. Continue to monitor Qualifiers: Respiratory failure complication: hypoxia Qualified Code(s): J96.01 - Acute respiratory failure with hypoxia (5) Acute blood loss anemia Current Visit: Yes Status: Acute Prior to surgery patient hemoglobin of 14.7. It did decrease elevated 8.0 where he did receive 2 units of packed red blood cells. After that it went to 10.1 this fully been decreasing over the past 2 days were now it is 8.1 this morning. This could be from the surgical site or also could be a GI bleed. GI has been consulted we do appear she had their recommendations. As patient did have a positive Hemoccult. GI said patient does not seem to have an overt GI bleed at this time. He is a poor candidate for endoscopy at this time. We will they recommend continue to monitor H&H and transfuse as needed if he gets less than 7. We will consider endoscopy when patient is more stable. Monitor H&H daily Transfuse hemoglobin less than 7 (6) Tachycardia Current Visit: Yes Status: Acute Patient was tachycardic and has been for most of his visit here this most likely is worsening due to the secondary source of being septic. We will continue to monitor. Plan as above (7) Hypoxemia Current Visit: Yes Status: Acute Patient was hypoxic earlier but has now normalized while he is on 2 L on room air. Most likely secondary to the sepsis/pulmonary embolism. plan as above (8) CAD (coronary artery disease) Current Visit: Yes Status: Chronic Patient does have history of CAD has never had stents placed but did have a heart catheterization which showed minor blockage not eating stents placed. He is medically managed. We will continue his home medications as tolerated for his blood pressure and tachycardia. Qualifiers: Coronary Disease-Associated Artery/Lesion type: [place] artery [place] vs. transplanted heart: [place] heart Associated angina: without angina Qualified Code(s): I25.10 - Atherosclerotic heart disease of [place] coronary artery without angina pectoris History of Present Illness Consult date: 11/19/17 Requesting physician: Satnam Perrin Reason for consult: other (Critical care management) Chief complaint: Backpain History of present illness: Mr. Marte is a 52-year-old male who presented for T12-S1 spinal fusion done by Dr. Perrin postop day #8. Patient has been hospitalized since then. Patient started to have medical problems starting on 11/14/17. At this time the hospitalist team was consulted oxidation saturations dropped to 90% he was beginning to be undressed for distress is placed on 10 L high flow nasal cannula. After his surgery he was on 10 L and was able to wean down his 7 L. He was never in respiratory distress. Patient declined where BiPAP. Hemoglobin did not drop to 8.04 before surgery it was 14.7 he did receive 2 units packed red blood cells. And responded well but again has decreased since those back to 8.1 today. On 518 chest x-ray showed possible pneumonia so is started on IV Levaquin 750 mg daily. Patient that time also had elevated troponin of 0.09. They did not start anticoagulation due to Dr. Cox not wanting to anticoagulate the patient. Patient did have a positive Hemoccult on 11/17/17 GI is currently consulting. Patient did have a chest CT done which was positive for a acute PE in the distal left lower lobe pulmonary artery with segment mental and subsegmental extension. There is also acute segmental upper lobe PE there was no significant right heart strain. Patient was placed on subcutaneous Lovenox after the positive CT finding. He did have bleeding from the sites which orthopedics Dr. Perrin is still following. Over the last couple days they have noticed that patient started to deteriorate where he began having hallucinations after talking to family says that this happens every time he takes oxycodone and is currently getting oxycodone for the pain. She says this is normal hallucinations that he gets one on those. He also became much more tachycardic respiratory drive also increased and he also had increasing leukocytosis from 8.4 to 13.7 to 26.3. Due to the elevation in his white blood cell count has feeling tachycardic and is having a more difficult time breathing but was still only on 2 L to the room air and satting at 96%. Pulmonology was consult and is recommended to transfer him to the ICU due to patient's quick deterioration as he would need a higher level of care. Past Med Surg Social Fam HX - Past Medical History Medical history: arthritis, coronary artery disease, GERD, hypertension Psychiatric history: no psych history - Past Surgical History Surgical History: other (L-S Spinal Fusion) - Social History Smoking Status: Unknown if ever smoked Smokeless Tobacco Status: No Alcohol use: none Drug use: none - Family History Mother Hx Family Endocrine Disorder: Yes ROS unobtainable: due to mental status All Systems: The remainder of the systems were reviewed and are negative Physical Examination General appearance: alert, agitated, appears uncomfortable Eyes: nonicteric ENT: oropharynx moist Neck: supple Effort: mildly labored Inspection: normal Auscultation: bilateral: clear Cardiovascular: regular rate and rhythm Gastrointestinal: normoactive bowel sounds, soft, non-tender, non-distended Integumentary: normal Extremities: no cyanosis, no edema, no clubbing Musculoskeletal: no deformities, ROM normal, other (Back does have multiple bandages on the wounds there is no redness or spreading around the wounds present or erythema around it there is no noticeable pus drainage or other fluid drainage coming from the area.) normal mental status, non-focal exam Results - Laboratory Findings CBC and BMP: 11/19/17 09:46 11/19/17 08:55 ABG ABG pH 7.38 pH Units (7.32-7.45) 11/14/17 01:12 ABG pCO2 51 mmHg (35-45) H 11/14/17 01:12 ABG pO2 69 mmHg (85-104) L 11/14/17 01:12 ABG O2 Saturation 93 % (95-98) L 11/14/17 01:12 PT/INR, D-dimer D-Dimer 2086 ng/mLFEU (0-500) H 11/14/17 13:34 Abnormal lab findings: Abnormal lab results WBC 26.3 K/mcL (4.3-11.1) H D 11/19/17 09:46 RBC 2.60 M/mcL (4.19-5.50) L 11/19/17 09:46 Hgb 8.1 g/dL (12.9-16.9) L 11/19/17 09:46 Hct 23.5 % (37.5-50.1) L 11/19/17 09:46 RDW 14.9 % (11.5-14.5) H 11/19/17 09:46 Neutrophils # 18.9 K/mcL (1.6-8.9) H 11/19/17 09:46 Monocytes # 4.2 K/mcL (0.0-1.3) H 11/19/17 09:46 Nucleated RBCs/100 WBC 0.6 /100 WBC (0) H 11/19/17 09:46 Polychromasia 1+ (Not Present) A 11/19/17 09:46 Anisocytosis 1+ (Not Present) A 11/19/17 09:46 Macrocytosis Present (Not Present) A 11/19/17 09:46 D-Dimer 2086 ng/mLFEU (0-500) H 11/14/17 13:34 ABG pCO2 51 mmHg (35-45) H 11/14/17 01:12 ABG pO2 69 mmHg (85-104) L 11/14/17 01:12 ABG HCO3 30 mEq/L (21-27) H 11/14/17 01:12 ABG Total CO2 32 mEq/L (20-26) H 11/14/17 01:12 ABG O2 Saturation 93 % (95-98) L 11/14/17 01:12 ABG Base Excess 4 mEq/L (-2 to 3) H 11/14/17 01:12 Sodium 133 mEq/L (136-145) L 11/19/17 08:55 Carbon Dioxide 22 mEq/L (23-29) L 11/19/17 08:55 BUN 41 mg/dL (6-20) H 11/19/17 08:55 BUN/Creatinine Ratio 37 (6-26) H 11/19/17 08:55 Glucose 123 mg/dL (70-105) H 11/19/17 08:55 POC Glucose 142 mg/dL (70-99) H 11/18/17 20:58 Calcium 8.5 mg/dL (8.6-10.3) L 11/19/17 08:55 Iron 24 mcg/dL (65-175) L 11/15/17 15:36 % Saturation 10 % (20-55) L 11/15/17 15:36 Transferrin 165 mg/dL (203-362) L 11/15/17 15:36 AST 95 Units/L (13-39) H 11/14/17 01:20 Serum Total Protein 5.3 g/dL (6.4-8.9) L 11/14/17 01:20 Albumin 3.0 g/dL (3.5-5.7) L 11/14/17 01:20 Globulin 2.3 g/dL (2.4-3.5) L 11/14/17 01:20 Urine Clarity Cloudy (Clear) A 11/18/17 15:15 Urine Protein 30 mg/dL (Neg-Trace) H 11/18/17 15:15 Urine Ketones 15 mg/dL (Negative) H 11/18/17 15:15 Urine Blood Large (Negative) H 11/18/17 15:15 Urine Microscopic RBC TNTC per hpf (0-3) H 11/18/17 15:15 Urine Microscopic WBC 3-5 per hpf (0-3) H 11/18/17 15:15 Ur Squamous Epith Cells Many per lpf (None-Few) H 11/18/17 15:15 Stool Occult Blood Positive (Negative) A 11/17/17 06:12 - Microbiology Findings Microbiology Findings: Microbiology, Last 48 Hours 11/18/17 15:15 Urine Culture - Final Urine,Clean Catch No growth. - Diagnostic Findings Chest x-ray: report reviewed, image reviewed CT scan - chest: report reviewed, image reviewed U/S of Legs: report reviewed - Clinical Findings Intake & Output: Intake & Output 11/18/17 11/19/17 11/19/17 23:59 07:59 15:59 Intake Total 400 / 400 0 / 0 Output Total 900 / 900 0 / 0 250 / 250 Balance -500 / -500 0 / 0 -250 / -250
--- NOTE | 2017-11-19 15:22 | Infectious Disease Consult ---
Date of Encounter: 11/19/17 Time of Encounter: 15:13 Assessment and Plan (1) SIRS (systemic inflammatory response syndrome) Status: Acute Assessment and plan: The patient has two SIRS criteria, but no identified source of infection. Afebrile, but does appear to have rigors. Source unclear. The patient has had a 2 gram drop in hemoglobin over the past two days. He is pale on exam and had + FOBT. Blood cultures drawn 11/18/17 are pending x 4 sets. Repeat blood cultures x [address] chest 11/15/17 showed PE, but no pneumonia. CXR 11/18/17 showed parahilar opacification and right mid lung opacification, likely atelectasis, and subsegmental atelectasis in the left base, concerning for infart given history of PE in the same area. Urinalysis contaminated, urine culture negative. Clinically, the surgical site looks great. No evidence of infection. There is some ecchymosis around the incision. Get additional two sets of blood cultures now. Check ESR and CRP. Check LDH. Check amylase and lipase. Check LFTs. Get CT chest, abdomen, and pelvis with IV contrast. Discontinue Levaquin as there is no identified source of infection and previous CT scan was negative for PNA. (2) Monocytosis Status: Acute Assessment and plan: Etiology unclear. WBC 26 thousand with 16% monocytes. Continue to trend. If persists, may need to consult Hem/Onc. (3) Altered mental status Status: Acute Assessment and plan: Etiology unclear. Waxes and waning. No meningeal signs. Continue to monitor closely. Qualifiers: Altered mental status type: unspecified Qualified Code(s): R41.82 - Altered mental status, unspecified (4) Acute kidney injury Status: Resolved Assessment and plan: Etiology unclear. Resolved. Continue to trend. Strict I's and O's. (5) Pulmonary embolism Status: Acute Assessment and plan: Etiology unclear. Venous doppler of the BLE negative for DVT. CT of the chest showed PE in the distal LLL pulmonary artery with segmental and subsegmental extension and acute segmental upper lobe PE. Anticoagulation per the primary team. Continue O2 per the primary team. Qualifiers: Pulmonary embolism type: other Chronicity: acute Acute cor pulmonale presence: without acute cor pulmonale Qualified Code(s): I26.99 - Other pulmonary embolism without acute cor pulmonale (6) Hypoxemia Status: Acute Assessment and plan: Likely secondary to PE. CT negative for PNA. Improved. Continue supportive O2. (7) Acute respiratory failure Status: Resolved Assessment and plan: Likely secondary to PE. Resolved. Qualifiers: Respiratory failure complication: hypoxia Qualified Code(s): J96.01 - Acute respiratory failure with hypoxia (8) Status post lumbar spinal fusion Status: Acute Assessment and plan: Status post PLIF T12-S1 with interbody grafts L2-L3, L3-L4, and L5-S1 11/12/[address] Cox. Clinically, wound looks great. Post-op x-ray negative. Wound care and activity restrictions per the ortho team. (9) Anemia Status: Acute Assessment and plan: Etiology unclear, but concern for GIB. FOBT +. Hgb down to 8 pre-transfusion. Post-transfusion Hgb improved to 10, but back down to 8 today. Could be contributing to the patient's tachycardia and AMS. Transfusion parameters per the primary team. Qualifiers: Anemia type: unspecified type Qualified Code(s): D64.9 - Anemia, unspecified (10) Elevated troponin Status: Acute Assessment and plan: Trops positive 0.09/0.07. No chest pain. Further workup and management per the primary team. (11) Degenerative scoliosis Status: Chronic (12) Lumbar stenosis Status: Chronic Qualifiers: Neurogenic claudication status: unspecified Qualified Code(s): M48.061 - Spinal stenosis, lumbar region without neurogenic claudication (13) CAD (coronary artery disease) Status: Chronic Qualifiers: Coronary Disease-Associated Artery/Lesion type: [place] artery [place] vs. transplanted heart: [place] heart Associated angina: without angina Qualified Code(s): I25.10 - Atherosclerotic heart disease of [place] coronary artery without angina pectoris Infectious Disease HPI - Data of Consult Patient: new to practice Consult date: 11/19/17 Requesting Physician: Bebeto Lombardo Primary Care Provider: Aundrea Thrasher - Consult Narrative Reason for consult: Sepsis History of present illness: Mr. Marte is a 46 year old male has medical history of scoliosis, lumbar stenosis, hypertension, and CAD. The patient was admitted to the hospital November 12 for a posterior lumbar interbody fusion. We are consulted November 19 for further recommendations for sepsis. Recently, the patient's a 46-year-old male with past medical history as stated above. The patient was admitted to the hospital on the day of admission for an elective posterior lumbar interbody fusion with interbody grafts L2-L3, L3-L4, L5-S1 by Dr. Cox due to failed outpatient therapy for lumbar stenosis back pain and scoliosis. The patient underwent his procedure and did well postoperatively until he became hypoxic and required 10 L of high flow nasal cannula. At that time, the patient was mildly symptomatic. ABG showed hypercarbia and hypoxemia. He had a chest x-ray that showed bibasilar airspace disease concerning for atelectasis versus pneumonia. Laboratory studies revealed a leukocytosis he was started on IV Levaquin empirically. He and a repeat L-spine x-ray on November 14 that was essentially negative. He had venous Doppler studies of the bilateral lower extremities that were negative. Troponins were mildly elevated, but adynamic. LFTs were normal. He was noted to have an acute kidney injury on baseline labs. Due to persistent hypoxia and high FiO2 requirements, the patient underwent a CT of the chest that showed a pulmonary embolism in the distal left lower lobe pulmonary artery with segmental and subsegmental extension and acute segmental upper lobe pulmonary embolism. He was started on anticoagulation per the primary team. His leukocytosis resolved. His acute kidney injury improved. On Friday, he began to develop persistent tachycardia with heart rate 120s. His white blood cell count yesterday to 13.7 thousand and went up again today to 26,000 with 16% monocytes. He had a repeat chest x-ray yesterday that showed perihilar opacification with right mid lung opacification likely atelectasis as well as some segmental atelectasis in the left base concerning for possible infarct given the previous history of pulmonary embolism. Blood cultures were obtained 2 sets yesterday and are pending. Urinalysis appears contaminated, but the culture is negative. The patient did have anemia and a positive fecal occult blood test and GI was consulted, but they recommend no further acute intervention at that time given the patient's current condition. Currently, the patient remains on IV Levaquin. We've been asked to evaluate and make further recommendations. During my exam today, the patient appears lethargic, but he arouses easily and is able to answer questions appropriately. According to his , he was in his usual state of health up until Friday when he began to have some intermittent altered mental status and hallucinations. The patient is noted to have rigors during my exam, and reports chills, but no fevers. He denies any headache or neck pain. He denies any dizziness. He denies any congestion, earache, or sore throat. He denies any chest pain, shortness of breath, or cough. He denies any nausea, vomiting, diarrhea, or constipation. He does report some dysuria and urinary frequency, but denies any flank pain. He denies any pain surgical site. He denies any numbness or tingling, but according to the notes and his he reported some altered sensation to the right lower extremity since his surgery. He denies any oral thrush or new skin lesions. The patient lives at home with his . They have 3 cats that are inside and outside. He has not had any contact with the litter box. He has not traveled outside the [facility]. He does not smoke, chew tobacco, use alcohol, or do drugs. CC: Bebeto Lombardo Past Med Surg Social Fam HX - Past Medical History Attestation: Yes The following information was validated with the patient. Source: patient, old records reviewed, nursing notes reviewed Medical history: arthritis, coronary artery disease, GERD, hypertension, other ( lumbar stenosis, scoliosis) Psychiatric history: no psych history - Past Surgical History Surgical History: other (L-S Spinal Fusion) - Social History Smoking Status: Never smoker Smokeless Tobacco Status: No Alcohol use: none Drug use: none Occupational status: disabled Current living situation: Home, With Family Activity Level: Independent ambulation Recent Out of Country Travel Within the Last 8 Weeks: No Exposure or Possible Exposure to Illness During Travel: No - Family History Mother Hx Family Endocrine Disorder: Yes Infectious Disease-CN:Meds Aspirin [Lo-Dose Aspirin EC] 81 mg PO DAILY 11/08/16 [History] Pravastatin Sodium [Pravachol] 40 mg PO HS 11/08/16 [History] Trazodone HCl 300 mg PO HS 11/08/16 [History] Calcium Carbonate [Calcium] 600 mg PO BID 06/11/17 [History] Duloxetine HCl [Cymbalta] 120 mg PO DAILY 06/11/17 [History] Ergocalciferol (VITAMIN D2) [Vitamin D2] 400 unit PO BID 06/11/17 [History] Gabapentin [Neurontin] 1,800 mg PO BID 06/11/17 [History] Metoprolol [Lopressor] 50 mg PO BID 06/11/17 [History] Tizanidine HCl 16 mg PO HS 09/23/17 [History] Meloxicam [Mobic] 7.5 mg PO DAILY 11/12/17 [History] NIFEdipine [Nifedipine ER] 60 mg PO DAILY 11/12/17 [History] 3 Allergy/AdvReac Type Severity Reaction Status Date / Time No Known Allergies Allergy Verified 06/11/17 10:31 All systems: reviewed and no additional remarkable complaints except as stated Exam - Constitutional Vitals: Temp Pulse Resp BP Pulse Ox 98.8 F 118 15 125/74 94 11/19/17 11:07 11/19/17 11:07 11/19/17 11:07 11/19/17 11:07 11/19/17 11:07 General appearance: cooperative, no acute distress, obese - Head Head exam: Present: atraumatic, normal inspection, normocephalic - Eye Eye exam: Present: EOMI, normal appearance, PERRL Pupils: Present: normal accommodation - ENT ENT exam: Present: mucous membranes moist - Neck Neck exam: Present: normal inspection. Absent: meningismus - Respiratory Respiratory exam: Present: CTAB. Absent: rales, respiratory distress, rhonchi, wheezes - Cardiovascular Cardiovascular exam: Present: +S1, +S2, tachycardia. Absent: irregular rhythm - GI/Abdominal GI/Abdominal exam: Present: normal bowel sounds, soft. Absent: distended, tenderness Additional comments: Ecchymosis noted to the left lower abdomen. - Extremities Exam Extremities exam: Present: normal inspection. Absent: joint swelling, pedal edema, tenderness - Back Exam Back exam: Absent: tenderness Additional comments: Midline surgical incision with dressing C/D/I. Expected post-op bruising noted. Sutures and mesh dressing intact. No purulence, erythema, warmth, drainage, or fluctuance noted. - Neurological Exam Neurological exam: Present: altered, oriented X3, no focal deficits. Absent: facial droop, speech deficit - Psychiatric Psychiatric exam: Present: normal affect, normal mood - Skin Skin exam: Present: dry, intact, pallor, warm Infectious Disease CN: Results - Labs CBC & Chem 7: 11/19/17 17:20 11/19/17 08:55 Cultures: Cultures 11/18/17 15:15 Urine Culture - Final Urine,Clean Catch No growth. Serology: Serology 11/18/17 11/17/17 Range/Units 15:15 06:12 Urine Color Dark Yellow (Yellow) Urine Clarity Cloudy A (Clear) Urine pH 7.0 (5.0-8.0) pH Units Ur Specific [place] 1.021 (1.010-1.025) Urine Protein 30 H (Neg-Trace) mg/dL Urine Glucose (UA) Normal (Normal) mg/dL Urine Ketones 15 H (Negative) mg/dL Urine Blood Large H (Negative) Urine Nitrite Negative (Negative) Urine Bilirubin Negative (Negative) Urine Urobilinogen Normal (Normal) mg/dL Ur Leukocyte Esterase Negative (Negative) Urine Microscopic RBC TNTC H (0-3) per hpf Urine Microscopic WBC 3-5 H (0-3) per hpf Ur Squamous Epith Cells Many H (None-Few) per lpf Urine Bacteria None Seen (None-Few) per hpf Hyaline Casts Few (None-Few) per lpf Urine Sperm Present Stool Occult Blood Positive A (Negative) - VTE Documentation of Mechanical Device: Intermittent pneumatic compression device Consult Discharge Plan - Plan Referrals: Aundrea Thrasher CNP [Primary Care Provider] - - Attending Attestation I examined this patient and my medical decision-making was reviewed with the Resident Physician. I agree with the documented findings, disposition and treatment plan as described except to the extent set forth below. This is an addendum to original report dictated by Awa Yuen CNP. Please refer to Ollie badillo for full detail. Patient is a 46-year-old gentleman who came in for elective vertebral fusion surgery. Post surgery patient started having shortness of breath requiring high O2 demands. Post that patient also started having altered mental status. Workup revealed that the patient had a PE and was started on anticoagulation. Patient continued to have SIRS criteria so we were asked to evaluate the patient and make further recommendations. Currently patient laying in bed appears comfortable acid every question appropriately knows who he is aware he is who is the president, any children he has many animals he has and why is he on disability and almost stopped. His and nursing, the earlier he was screaming and yelling and trying to pull things. So apparently is waxing and waning. Plus the patient currently just received some Precedex. Patient also has been having hallucinations in the past every time he gets placed on oxycodone. I did ask the and confirmed with her. Assessment and plan SIRS Pulmonary embolism Altered mental status Acute on chronic kidney injury Troponin leak Status post lumbar fusion Acute blood loss anemia Recommendations: I am not sure was causing all the patients symptoms combined. This could be multifactorial. As for the altered mental status I do not have a high index of suspicion for an infection I think it is medication related. As for the pulmonary embolism but will be treated per primary team. Patient does have SIRS and I am not sure if this is due to infectious etiology versus inflammatory versus postsurgical versus other. Patients physical exam and review of system was really unremarkable. Clinically, the surgical site looks great. No evidence of infection. There is some ecchymosis around the incision. Get additional two sets of blood cultures now. Check ESR and CRP. Check LDH. Check amylase and lipase. Check LFTs. Get CT chest, abdomen, and pelvis with IV contrast. Discontinue Levaquin as there is no identified source of infection and previous CT scan was negative for PNA.
[2017-11-19] MEDS ORDERED: Isovue-370 500 ML INFUS..BTL IV ONE (16:09)
[2017-11-19] MEDS ORDERED: Potassium Chloride 10 MEQ in 0.9 % Sodium Chloride 100 ML IVPB PRN (16:11)
[2017-11-19] MEDS ORDERED: Potassium Phosphate 44 MEQ in 0.9 % Sodium Chloride 250 ML IVPB PRN (16:11)
[2017-11-19] MEDS: NIFEdipine XL (24 HR) 60 MG TAB.ER.24 PO SCH (17:02)
[2017-11-19] MEDS ORDERED: Dexmedetomidine HCl 400 MCG/100 ML MLS IVC ONE (17:03)
[2017-11-19] MEDS: Dexmedetomidine HCl 400 MCG/100 ML MLS IVC SCH (17:06)
[2017-11-19 18:13] LABS: Hematocrit 20.1 % (37.5-50.1); Hemoglobin 6.8 g/dL (12.9-16.9)
[2017-11-19 18:19] LABS: Albumin 2.9 g/dL (3.5-5.7); Albumin/Globulin Ratio 1.1 (1.1-2.2); Bilirubin,Direct 0.6 mg/dL (0.0-0.2); Bilirubin,Indirect 1.1 mg/dL (0.0-1.2); Bilirubin,Total 1.7 mg/dL (0.3-1.0); Globulin 2.6 g/dL (2.4-3.5); Total Protein 5.5 g/dL (6.4-8.9)
[2017-11-19] MEDS ORDERED: 0.9 % Sodium Chloride 250 ML ONE (20:48)
--- NOTE | 2017-11-19 23:09 | Internal Med Progress Note ---
Date of Encounter: 11/19/17 Time of Encounter: 13:00 - Assessment and plan (1) Altered mental status Current Visit: Yes Status: Acute Assessment and plan: The patient has developed confusion. His mental status was baseline yesterday. It is associated with tachycardia, tachypnea and increased WBC count (26.3 thousand). Infectious disease has been consulted. They make diagnosis of SIRS , with no identified source of infection. They took patient off the Levaquin. His lactic acid from today is 1.3. His anemia is worse again. We will move this patient to ICU. Qualifiers: Altered mental status type: unspecified Qualified Code(s): R41.82 - Altered mental status, unspecified (2) Leukocytosis, unspecified Current Visit: Yes Status: Acute Assessment and plan: I am very concerned about the patient's high WBC count. His cultures are negative, so far. We did not see an identifiable cause of infection. Levaquin has been stopped by infectious disease. Qualifiers: Leukocytosis type: unspecified Qualified Code(s): D72.829 - Elevated white blood cell count, unspecified (3) Acute blood loss anemia Current Visit: Yes Status: Acute Assessment and plan: His hemoglobin dropped from 9.5-8.1. Will get another H&H in the afternoon. We may need to switch him from IV heparin (from subcutaneous Lovenox). We may also need to stop his anticoagulation. He was recently diagnosed with pulmonary embolism. I discussed all my findings with obstetrics specialist. (4) Pulmonary embolism Current Visit: Yes Status: Acute Assessment and plan: See my dictation (above) about his acute anemia. Qualifiers: Pulmonary embolism type: other Chronicity: acute Acute cor pulmonale presence: without acute cor pulmonale Qualified Code(s): I26.99 - Other pulmonary embolism without acute cor pulmonale (5) Status post lumbar spinal fusion Current Visit: Yes Status: Acute Assessment and plan: The wound is looking good. I discussed this case with Dr. Cox, orthopedics. - Time Spent With Patient Total time spent is greater than 50% in coordination of care (as documented) at patient's floor/unit and/or counseling patient: - Subjective Interval history: The patient has developed confusion (today morning). He pulled out his peripheral line. He continues to be tachycardic and tachypneic. One can see he is increasing, WBC count. His lactic acid was 1.6 yesterday. It is 1.3 today morning. His hemoglobin dropped from 9.5 to 8.1. With have not seen any bowel movements from him recently. - Constitutional Vitals: Temp Pulse Resp BP Pulse Ox 98.3 F 86 30 106/80 96 11/19/17 21:15 11/19/17 22:00 11/19/17 22:00 11/19/17 22:00 11/19/17 22:00 - Respiratory Respiratory exam: Present: CTAB, tachypnea. Absent: rales, respiratory distress , rhonchi, wheezes - Cardiovascular Cardiovascular exam: Present: gallop, RRR. Absent: diastolic murmur, systolic murmur - GI/Abdominal GI/Abdominal exam: Present: normal bowel sounds, soft. Absent: tenderness - Skin Skin exam: Present: dry, intact Additional comments: The surgical wound in the area of the lower back is looking good. Internal Medicine: Result - Labs CBC & Chem 7: 11/19/17 17:20 11/19/17 08:55 Labs: Short CBC 11/19/17 11/19/17 Range/Units 09:46 17:20 WBC 26.3 H D (4.3-11.1) K/mcL Hgb 8.1 L 6.8 L (12.9-16.9) g/dL Hct 23.5 L 20.1 L (37.5-50.1) % Plt Count 341 D (140-400) K/mcL Neutrophils # 18.9 H (1.6-8.9) K/mcL BMP 11/19/17 08:55 Sodium 133 L Potassium 4.1 Chloride 99 Carbon Dioxide 22 L BUN 41 H Creatinine 1.11 Glucose 123 H Calcium 8.5 L Cardiac Enzymes 11/19/17 11/19/17 Range/Units 08:55 13:36 Troponin I Cancelled < 0.03 Liver Function 11/19/17 Range/Units 17:38 Total Bilirubin 1.7 H (0.3-1.0) mg/dL Direct Bilirubin 0.6 H (0.0-0.2) mg/dL AST 55 H (13-39) Units/L ALT 25 (7-52) Units/L Alkaline Phosphatase 44 (34-104) Units/L Albumin 2.9 L (3.5-5.7) g/dL - ABG Interpretation ABG results: ABG ABG pH 7.38 pH Units (7.32-7.45) 11/14/17 01:12 ABG pCO2 51 mmHg (35-45) H 11/14/17 01:12 ABG pO2 69 mmHg (85-104) L 11/14/17 01:12 ABG O2 Saturation 93 % (95-98) L 11/14/17 01:12 PT/INR, D-dimer D-Dimer 2086 ng/mLFEU (0-500) H 11/14/17 13:34 - Impressions Impressions Abdomen/Pelvis CT 11/19/17 16:09 IMPRESSION: Bibasilar airspace disease, likely atelectasis, minimal on the left. Moderate to large right ileo psoas intramuscular hematoma. Findings were called to the ordering service at 5:20 pm on 11/19/2017. D/ / Angeli Enriquez Cha, MD / Angeli Enriquez Cha, MD Interpreting Provider: Angeli Enriquez Cha, MD Chest CT 11/19/17 16:09 IMPRESSION: Bibasilar airspace disease, likely atelectasis, minimal on the left. Moderate to large right ileo psoas intramuscular hematoma. Findings were called to the ordering service at 5:20 pm on 11/19/2017. D/ / Angeli Enriquez Cha, MD / Angeli Enriquez Cha, MD Interpreting Provider: Angeli Enriquez Cha, MD - VTE Documentation of Mechanical Device: Intermittent pneumatic compression device Consult Discharge Plan - Plan Referrals: Aundrea Thrasher CNP [Primary Care Provider] -
[2017-11-20] MEDS ORDERED: 0.9 % Sodium Chloride 250 ML ONE (00:06)
[2017-11-20] MEDS: Dexmedetomidine HCl 400 MCG/100 ML MLS IVC SCH (03:07)
[2017-11-20 04:41] LABS: VBG Ionized Calcium 1.09 mmol/L (1.15-1.35)
[2017-11-20 04:44] LABS: Basophils % 0.3 %; Eosinophils # 0.1 K/mcL (0.0-0.6); Hematocrit 27.4 % (37.5-50.1); Immature Granulocytes % 0.7 % (0-4); Lymphocytes # 1.9 K/mcL (0.6-4.6); Lymphocytes % 15.4 %; Mean Corpuscular HGB Conc 34.7 g/dL (31.6-35.5); Mean Corpuscular Hemoglobin 32.3 pg (28.0-33.3); Mean Corpuscular Volume 93.2 fL (83.0-100.0); Mean Platelet Volume 10.1 fL (9.4-12.4); Monocytes # 1.5 K/mcL (0.0-1.3); Monocytes % 11.6 %; Platelet Count 147 K/mcL (140-400); Red Blood Count 2.94 M/mcL (4.19-5.50); Red Cell Distribution Width 12.4 % (11.5-14.5)
[2017-11-20 04:47] LABS: Hemoglobin 9.5 g/dL (12.9-16.9)
[2017-11-20 05:06] LABS: Alanine Aminotransferase 38 Units/L (7-52); Albumin 3.2 g/dL (3.5-5.7); Albumin/Globulin Ratio 1.2 (1.1-2.2); Alkaline Phosphatase 46 Units/L (34-104); Aspartate Amino Transferase 32 Units/L (13-39); BUN/Creatinine Ratio 32 (6-26); Bilirubin,Total 0.5 mg/dL (0.3-1.0); Blood Urea Nitrogen 29 mg/dL (6-20); Calcium 8.3 mg/dL (8.6-10.3); Carbon Dioxide 30 mEq/L (23-29); Chloride 100 mEq/L (98-107); Globulin 2.7 g/dL (2.4-3.5); Glucose 211 mg/dL (70-105); Osmolality,Calculated 290 (280-300); Potassium 4.6 mEq/L (3.5-5.1); Sodium 134 mEq/L (136-145); Total Protein 5.9 g/dL (6.4-8.9); eGFR For African Americans > 60 (> 60); eGFR For Non-African Americans > 60 (> 60)
[2017-11-20 05:13] LABS: Troponin I 1.01 ng/mL (< 0.04)
[2017-11-20] MEDS ORDERED: *HR* Heparin 5,000 UNIT/ML VIAL IVP PRN ×4 (07:41→14:18)
[2017-11-20] MEDS ORDERED: Heparin 25,000 UNIT/500 ML D5W 25,000 UNIT/500 ML BAG IVC SCH (07:45)
[2017-11-20] MEDS: Levofloxacin 750 MG/150 ML 750 MG/150 ML BAG IVPB SCH (09:07)
[2017-11-20] MEDS: Aspirin Enteric Coated 81 MG Tablet PO SCH (09:07)
[2017-11-20] MEDS: Cholecalciferol (D-3) 1,000 UNIT TABLET PO SCH (09:14)
[2017-11-20] MEDS: Sennosides/Docusate Sodium TABLET PO SCH ×2 (09:14→21:01)
[2017-11-20 10:02] LABS: Hematocrit 22.7 % (37.5-50.1); Mean Corpuscular HGB Conc 34.4 g/dL (31.6-35.5); Mean Corpuscular Hemoglobin 31.2 pg (28.0-33.3); Mean Corpuscular Volume 90.8 fL (83.0-100.0); Platelet Count 248 K/mcL (140-400); Red Cell Distribution Width 15.2 % (11.5-14.5)
[2017-11-20 10:06] LABS: Hemoglobin 7.8 g/dL (12.9-16.9)
[2017-11-20 10:10] LABS: INR 1.3; Prothrombin Time 14.6 Seconds (9.4-12.1)
[2017-11-20 10:13] LABS: Activated Partial Thrombo Time 32.7 Seconds (26.0-36.0)
--- NOTE | 2017-11-20 10:26 | Pulmonology Progress Note ---
Date of Encounter: 11/20/17 Time of Encounter: 07:00 Assessment and Plan (1) Acute blood loss anemia Current Visit: Yes Status: Acute Patient has received PRBC and H&H stable. This is from the blood loss and hematoma. (2) Pulmonary embolism Current Visit: Yes Status: Acute Start patient on Heparin drip for now instead of the Lovenx without bolus and there is no evidence of right heart strain. Repeat lower ext was done and result is pending, if positive for DVT and continue bleeding, he will need IFC filter. Qualifiers: Qualified Code(s): I26.99 - Other pulmonary embolism without acute cor pulmonale (3) Altered mental status Current Visit: Yes Status: Resolved This is improved significantly and stopped Precedex and avoid narcotics that affects his mental status. Qualifiers: Qualified Code(s): R41.82 - Altered mental status, unspecified (4) SIRS (systemic inflammatory response syndrome) Current Visit: Yes Status: Resolved This possibly related to blood loss and appreciate ID's input. (5) Status post lumbar spinal fusion Current Visit: Yes Status: Acute Followed by ortho team. Subjective Principal diagnosis: Degenerative scoliosis, lumbar stenosis, lumbar radiculopathy Interval history: Patient is feeling much better today. He still have some pain in the right hip area. Objective PUL Vital signs: Last Vital Signs Temp 98.6 F 11/20/17 05:18 Pulse 92 11/20/17 09:30 Resp 28 11/20/17 09:30 BP 110/69 11/20/17 09:30 Pulse Ox 94 11/20/17 09:30 General appearance: no acute distress Eyes: nonicteric ENT: oropharynx moist Neck: supple Effort: normal Auscultation: bilateral: clear Percussion: bilateral: not dull Cardiovascular: regular rate and rhythm Gastrointestinal: normoactive bowel sounds, non-distended Extremities: no cyanosis normal mental status, non-focal exam mood appropriate Results - Laboratory Findings CBC and BMP: 11/20/17 09:50 11/20/17 04:20 ABG ABG pH 7.38 pH Units (7.32-7.45) 11/14/17 01:12 ABG pCO2 51 mmHg (35-45) H 11/14/17 01:12 ABG pO2 69 mmHg (85-104) L 11/14/17 01:12 ABG O2 Saturation 93 % (95-98) L 11/14/17 01:12 PT/INR, D-dimer PT 14.6 Seconds (9.4-12.1) H 11/20/17 09:50 D-Dimer 2086 ng/mLFEU (0-500) H 11/14/17 13:34 Abnormal lab findings: Abnormal lab results WBC 14.8 K/mcL (4.3-11.1) H 11/20/17 09:50 RBC 2.50 M/mcL (4.19-5.50) L 11/20/17 09:50 Hgb 7.8 g/dL (12.9-16.9) L D 11/20/17 09:50 Hct 22.7 % (37.5-50.1) L 11/20/17 09:50 RDW 15.2 % (11.5-14.5) H 11/20/17 09:50 Neutrophils # 9.0 K/mcL (1.6-8.9) H 11/20/17 04:20 Monocytes # 1.5 K/mcL (0.0-1.3) H 11/20/17 04:20 Nucleated RBCs/100 WBC 0.6 /100 WBC (0) H 11/19/17 09:46 Polychromasia 1+ (Not Present) A 11/19/17 09:46 Anisocytosis 1+ (Not Present) A 11/19/17 09:46 Macrocytosis Present (Not Present) A 11/19/17 09:46 ESR 36 mm/hr (0-10) H 11/19/17 17:38 PT 14.6 Seconds (9.4-12.1) H 11/20/17 09:50 D-Dimer 2086 ng/mLFEU (0-500) H 11/14/17 13:34 ABG pCO2 51 mmHg (35-45) H 11/14/17 01:12 ABG pO2 69 mmHg (85-104) L 11/14/17 01:12 ABG HCO3 30 mEq/L (21-27) H 11/14/17 01:12 ABG Total CO2 32 mEq/L (20-26) H 11/14/17 01:12 ABG O2 Saturation 93 % (95-98) L 11/14/17 01:12 ABG Base Excess 4 mEq/L (-2 to 3) H 11/14/17 01:12 Sodium 134 mEq/L (136-145) L 11/20/17 04:20 Carbon Dioxide 30 mEq/L (23-29) H 11/20/17 04:20 BUN 29 mg/dL (6-20) H 11/20/17 04:20 BUN/Creatinine Ratio 32 (6-26) H 11/20/17 04:20 Glucose 211 mg/dL (70-105) H 11/20/17 04:20 POC Glucose 138 mg/dL (70-99) H 11/19/17 20:02 Calcium 8.3 mg/dL (8.6-10.3) L 11/20/17 04:20 Venous Ioniz Calcium 1.09 mmol/L (1.15-1.35) L 11/20/17 04:36 Iron 24 mcg/dL (65-175) L 11/15/17 15:36 % Saturation 10 % (20-55) L 11/15/17 15:36 Transferrin 165 mg/dL (203-362) L 11/15/17 15:36 Direct Bilirubin 0.6 mg/dL (0.0-0.2) H 11/19/17 17:38 Lactate Dehydrogenase 276 Units/L (140-271) H 11/19/17 17:38 Troponin I 1.01 ng/mL (< 0.04) H* 11/20/17 04:20 C-Reactive Protein 162 mg/L (Less than 10) H 11/19/17 17:38 Serum Total Protein 5.9 g/dL (6.4-8.9) L 11/20/17 04:20 Albumin 3.2 g/dL (3.5-5.7) L 11/20/17 04:20 Urine Clarity Cloudy (Clear) A 11/18/17 15:15 Urine Protein 30 mg/dL (Neg-Trace) H 11/18/17 15:15 Urine Ketones 15 mg/dL (Negative) H 11/18/17 15:15 Urine Blood Large (Negative) H 11/18/17 15:15 Urine Microscopic RBC TNTC per hpf (0-3) H 11/18/17 15:15 Urine Microscopic WBC 3-5 per hpf (0-3) H 11/18/17 15:15 Ur Squamous Epith Cells Many per lpf (None-Few) H 11/18/17 15:15 Stool Occult Blood Positive (Negative) A 11/17/17 06:12 - Microbiology Findings Microbiology Findings: Microbiology, Last 48 Hours 11/18/17 11:03 Blood Culture - Preliminary Peripheral Venipuncture No growth. 11/18/17 11:08 Blood Culture - Preliminary Peripheral Venipuncture No growth. 11/18/17 15:15 Urine Culture - Final Urine,Clean Catch No growth. - Diagnostic Findings CT scan - chest: report reviewed, image reviewed - Clinical Findings Intake & Output: Intake & Output 11/19/17 11/20/17 11/20/17 23:59 07:59 15:59 Intake Total 341.7 / 341.7 929.3 / 929.3 Output Total 825 / 825 250 / 250 225 / 225 Balance -483.3 / -483.3 679.3 / 679.3 -200 / -200 Weight 152.2 kg 151.4 kg - VTE Documentation of Mechanical Device: Intermittent pneumatic compression device Consult Discharge Plan - Plan Referrals: Aundrea Thrasher, [employer] [Primary Care Provider] - - Attending Attestation I examined this patient and my medical decision-making was reviewed with the Resident Physician. I agree with the documented findings, disposition and treatment plan as described except to the extent set forth below. Patient seen and examined. Labs, radiology, chart personally reviewed. 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
[2017-11-20] MEDS ORDERED: Dextrose Gel 15 GM/37.5 ML TUBE PO PRN ×4 (10:46→14:18)
[2017-11-20] MEDS ORDERED: *HR* Dextrose 50 % in Water (Syg) 50 ML SYRINGE IVP PRN ×2 (10:46→14:18)
[2017-11-20] MEDS ORDERED: D5% in Water 1,000 ML IVC PRN ×2 (10:46→14:18)
[2017-11-20] MEDS ORDERED: Insulin LISPRO 300 UNITS/3 ML VIAL SQ SCH ×2 (11:30→21:00)
[2017-11-20] MEDS: Acetaminophen 325 MG TABLET PO PRN ×3 (11:37→21:01)
--- NOTE | 2017-11-20 13:52 | Infectious Disease Progress No ---
Date of Encounter: 11/20/17 Time of Encounter: 13:41 - Assessment and Plan (1) SIRS (systemic inflammatory response syndrome) Current Visit: Yes Status: Resolved The patient has two SIRS criteria, but no identified source of infection. Likely secondary to anemia from acute bleeding into the large iliopsoas hematoma. Improved. Tachycardia has resolved. WBC has improved. Afebrile, but does appear to have rigors. Blood cultures drawn 11/18/17 are NGTD x 2 sets. Repeat blood cultures x 2 sets drawn 11/19/[address] chest 11/15/17 showed PE, but no pneumonia. CXR 11/18/17 showed parahilar opacification and right mid lung opacification, likely atelectasis, and subsegmental atelectasis in the left base, concerning for infarct given history of PE in the same area. Urine culture negative. ESR and CRP mildly elevated, likely secondary to recent surgery. LDH elevated. Amylase, lipase, and LFTs are normal. CT chest showed bibasilar atelectasis, no PNA. CT abdomen and pelvis showed a large right iliopsoas muscle hematoma. (2) Monocytosis Current Visit: Yes Status: Acute Etiology unclear. Improved this morning. Likely reactive from iliopsoas hematoma. Continue to trend. If persists, may need to consult Hem/Onc. (3) Hematoma of right iliopsoas muscle Current Visit: Yes Status: Acute Etiology unclear: post-surgical vs. spontaneous secondary to anticoagulation vs. other. CT of the abdomen and pelvis showed 7.3 x 7.8 x 14.8 cm ileopsoas intramuscular hematoma. Likely contributing to the patient's anemia and RLE/right hip pain. Recommend surgery or IR to evaluate for possible drainage of the hematoma. Qualifiers: Encounter type: initial encounter Qualified Code(s): S70.11XA - Contusion of right thigh, initial encounter (4) Altered mental status Current Visit: Yes Status: Resolved Likely secondary to hypoxia and anemia. Improved. Waxes and waning. No meningeal signs. Continue to monitor closely. Qualifiers: Altered mental status type: unspecified Qualified Code(s): R41.82 - Altered mental status, unspecified (5) Acute kidney injury Current Visit: Yes Status: Resolved Etiology unclear. Resolved. Continue to trend. Strict I's and O's. (6) Pulmonary embolism Current Visit: Yes Status: Acute Etiology unclear. Venous doppler of the BLE negative for DVT. CT of the chest showed PE in the distal LLL pulmonary artery with segmental and subsegmental extension and acute segmental upper lobe PE. Anticoagulation per the primary team. Continue O2 per the primary team. Qualifiers: Pulmonary embolism type: other Chronicity: acute Acute cor pulmonale presence: without acute cor pulmonale Qualified Code(s): I26.99 - Other pulmonary embolism without acute cor pulmonale (7) Hypoxemia Current Visit: Yes Status: Acute Likely secondary to PE. CT negative for PNA. Improved. Continue supportive O2. (8) Acute respiratory failure Current Visit: Yes Status: Resolved Likely secondary to PE. Resolved. Qualifiers: Respiratory failure complication: hypoxia Qualified Code(s): J96.01 - Acute respiratory failure with hypoxia (9) Status post lumbar spinal fusion Current Visit: Yes Status: Acute Status post PLIF T12-S1 with interbody grafts L2-L3, L3-L4, and L5-S1 11/12/[address] Cox. Clinically, wound looks great. Post-op x-ray negative. Wound care and activity restrictions per the ortho team. (10) Anemia Current Visit: Yes Status: Acute Etiology unclear, but concern for GIB. FOBT +. Hgb down to 8 pre-transfusion. Post-transfusion Hgb improved to 10, but back down to 8 yesterday. Likely secondary to iliopsoas muscle hematoma. Likely the source of to the patient's tachycardia and AMS. Transfusion parameters per the primary team. Qualifiers: Anemia type: unspecified type Qualified Code(s): D64.9 - Anemia, unspecified (11) Elevated troponin Current Visit: Yes Status: Acute Trops positive 0.09/0.07. No chest pain. Further workup and management per the primary team. (12) Degenerative scoliosis Current Visit: Yes Status: Chronic (13) Lumbar stenosis Current Visit: Yes Status: Chronic Qualifiers: Neurogenic claudication status: unspecified Qualified Code(s): M48.061 - Spinal stenosis, lumbar region without neurogenic claudication (14) CAD (coronary artery disease) Current Visit: Yes Status: Chronic Qualifiers: Coronary Disease-Associated Artery/Lesion type: [place] artery [place] vs. transplanted heart: [place] heart Associated angina: without angina Qualified Code(s): I25.10 - Atherosclerotic heart disease of [place] coronary artery without angina pectoris - Subjective Interval history: Patient seen and examined. No acute events noted overnight. Patient resting quietly in bed with at bedside. Denies fevers, chills, or rigors. Denies chest pain, shortness of breath, or cough. Denies nausea, vomiting, or diarrhea. Reports some RLQ abdominal pain and RLE pain from the hip to the knee. Hummel catheter remains patent with clear yellow urine. Denies oral thrush or new skin lesions. Reports mild pain at the surgical site. Infect Dis PN-Objective Data - Labs CBC & Chem 7: 11/20/17 09:50 11/20/17 04:20 Labs: Laboratory Results - last 24 hr 11/19/17 11/19/17 11/19/17 13:36 13:36 15:39 WBC RBC Hgb Hct MCV MCH MCHC RDW Plt Count MPV Immature Gran % Seg Neutrophils % Lymphocytes % Monocytes % Eosinophils % Basophils % Neutrophils # Lymphocytes # Monocytes # Eosinophils # Basophils # ESR PT INR APTT Sodium Potassium Chloride Carbon Dioxide BUN Creatinine Est GFR ( Amer) Est GFR (Non-Af Amer) BUN/Creatinine Ratio Glucose POC Glucose 126 H Calculated Osmolality Lactic Acid Calcium Venous Ioniz Calcium Phosphorus Magnesium Total Bilirubin Direct Bilirubin Indirect Bilirubin AST ALT Alkaline Phosphatase Ammonia 44 Lactate Dehydrogenase Troponin I < 0.03 C-Reactive Protein Serum Total Protein Albumin Globulin Albumin/Globulin Ratio Amylase Lipase Blood Type Antibody Screen Crossmatch 11/19/17 11/19/17 11/19/17 17:20 17:38 17:38 WBC RBC Hgb 6.8 L Hct 20.1 L MCV MCH MCHC RDW Plt Count MPV Immature Gran % Seg Neutrophils % Lymphocytes % Monocytes % Eosinophils % Basophils % Neutrophils # Lymphocytes # Monocytes # Eosinophils # Basophils # ESR 36 H PT INR APTT Sodium Potassium Chloride Carbon Dioxide BUN Creatinine Est GFR ( Amer) Est GFR (Non-Af Amer) BUN/Creatinine Ratio Glucose POC Glucose Calculated Osmolality Lactic Acid Calcium Venous Ioniz Calcium Phosphorus Magnesium Total Bilirubin 1.7 H Direct Bilirubin 0.6 H Indirect Bilirubin 1.1 AST 55 H ALT 25 Alkaline Phosphatase 44 Ammonia Lactate Dehydrogenase 276 H Troponin I C-Reactive Protein 162 H Serum Total Protein 5.5 L Albumin 2.9 L Globulin 2.6 Albumin/Globulin Ratio 1.1 Amylase 59 Lipase 34 Blood Type Antibody Screen Crossmatch 11/19/17 11/19/17 11/20/17 19:30 20:02 04:20 WBC 12.6 H D RBC 2.94 L Hgb 9.5 L D Hct 27.4 L MCV 93.2 MCH 32.3 MCHC 34.7 RDW 12.4 Plt Count 147 D MPV 10.1 Immature Gran % 0.7 Seg Neutrophils % 71.0 Lymphocytes % 15.4 Monocytes % 11.6 Eosinophils % 1.0 Basophils % 0.3 Neutrophils # 9.0 H Lymphocytes # 1.9 Monocytes # 1.5 H Eosinophils # 0.1 Basophils # 0.0 ESR PT INR APTT Sodium Potassium Chloride Carbon Dioxide BUN Creatinine Est GFR ( Amer) Est GFR (Non-Af Amer) BUN/Creatinine Ratio Glucose POC Glucose 138 H Calculated Osmolality Lactic Acid Calcium Venous Ioniz Calcium Phosphorus Magnesium Total Bilirubin Direct Bilirubin Indirect Bilirubin AST ALT Alkaline Phosphatase Ammonia Lactate Dehydrogenase Troponin I C-Reactive Protein Serum Total Protein Albumin Globulin Albumin/Globulin Ratio Amylase Lipase Blood Type A POSITIVE Antibody Screen NEGATIVE Crossmatch See Detail 11/20/17 11/20/17 11/20/17 04:20 04:20 04:36 WBC RBC Hgb Hct MCV MCH MCHC RDW Plt Count MPV Immature Gran % Seg Neutrophils % Lymphocytes % Monocytes % Eosinophils % Basophils % Neutrophils # Lymphocytes # Monocytes # Eosinophils # Basophils # ESR PT INR APTT Sodium 134 L Potassium 4.6 Chloride 100 Carbon Dioxide 30 H BUN 29 H Creatinine 0.92 Est GFR ( Amer) > 60 Est GFR (Non-Af Amer) > 60 BUN/Creatinine Ratio 32 H Glucose 211 H POC Glucose Calculated Osmolality 290 Lactic Acid 1.3 Calcium 8.3 L Venous Ioniz Calcium 1.09 L Phosphorus 3.0 Magnesium 2.0 Total Bilirubin 0.5 Direct Bilirubin Indirect Bilirubin AST 32 ALT 38 Alkaline Phosphatase 46 Ammonia Lactate Dehydrogenase Troponin I 1.01 H* C-Reactive Protein Serum Total Protein 5.9 L Albumin 3.2 L Globulin 2.7 Albumin/Globulin Ratio 1.2 Amylase Lipase Blood Type Antibody Screen Crossmatch 11/20/17 11/20/17 09:50 09:50 WBC 14.8 H RBC 2.50 L Hgb 7.8 L D Hct 22.7 L MCV 90.8 MCH 31.2 MCHC 34.4 RDW 15.2 H Plt Count 248 D MPV 10.0 Immature Gran % Seg Neutrophils % Lymphocytes % Monocytes % Eosinophils % Basophils % Neutrophils # Lymphocytes # Monocytes # Eosinophils # Basophils # ESR PT 14.6 H INR 1.3 APTT 32.7 Sodium Potassium Chloride Carbon Dioxide BUN Creatinine Est GFR ( Amer) Est GFR (Non-Af Amer) BUN/Creatinine Ratio Glucose POC Glucose Calculated Osmolality Lactic Acid Calcium Venous Ioniz Calcium Phosphorus Magnesium Total Bilirubin Direct Bilirubin Indirect Bilirubin AST ALT Alkaline Phosphatase Ammonia Lactate Dehydrogenase Troponin I C-Reactive Protein Serum Total Protein Albumin Globulin Albumin/Globulin Ratio Amylase Lipase Blood Type Antibody Screen Crossmatch Cultures: Cultures 11/18/17 11:03 Blood Culture - Preliminary Peripheral Venipuncture No growth. 11/18/17 11:08 Blood Culture - Preliminary Peripheral Venipuncture No growth. 11/18/17 15:15 Urine Culture - Final Urine,Clean Catch No growth. Serology 11/18/17 11/17/17 Range/Units 15:15 06:12 Urine Color Dark Yellow (Yellow) Urine Clarity Cloudy A (Clear) Urine pH 7.0 (5.0-8.0) pH Units Ur Specific [place] 1.021 (1.010-1.025) Urine Protein 30 H (Neg-Trace) mg/dL Urine Glucose (UA) Normal (Normal) mg/dL Urine Ketones 15 H (Negative) mg/dL Urine Blood Large H (Negative) Urine Nitrite Negative (Negative) Urine Bilirubin Negative (Negative) Urine Urobilinogen Normal (Normal) mg/dL Ur Leukocyte Esterase Negative (Negative) Urine Microscopic RBC TNTC H (0-3) per hpf Urine Microscopic WBC 3-5 H (0-3) per hpf Ur Squamous Epith Cells Many H (None-Few) per lpf Urine Bacteria None Seen (None-Few) per hpf Hyaline Casts Few (None-Few) per lpf Urine Sperm Present Stool Occult Blood Positive A (Negative) - Impressions Impressions Abdomen/Pelvis CT 11/19/17 16:09 IMPRESSION: Bibasilar airspace disease, likely atelectasis, minimal on the left. Moderate to large right ileo psoas intramuscular hematoma. Findings were called to the ordering service at 5:20 pm on 11/19/2017. D/ / Angeli Enriquez Cha, MD / Angeli Enriquez Cha, MD Interpreting Provider: Angeli Enriquez Cha, MD Chest CT 11/19/17 16:09 IMPRESSION: Bibasilar airspace disease, likely atelectasis, minimal on the left. Moderate to large right ileo psoas intramuscular hematoma. Findings were called to the ordering service at 5:20 pm on 11/19/2017. D/ / Angeli Enriquez Cha, MD / Angeli Enriquez Cha, MD Interpreting Provider: Angeli Enriquez Cha, MD Exam - Constitutional Vitals: Temp Pulse Resp BP Pulse Ox 99 F 81 26 115/67 95 11/20/17 12:30 11/20/17 13:30 11/20/17 13:30 11/20/17 13:30 11/20/17 13:30 General appearance: average body habitus, cooperative, no acute distress - Head Head exam: Present: atraumatic, normal inspection, normocephalic - Eye Eye exam: Present: EOMI, normal appearance, PERRL Pupils: Present: normal accommodation - ENT ENT exam: Present: mucous membranes moist - Neck Neck exam: Present: normal inspection - Respiratory Respiratory exam: Present: CTAB. Absent: rales, respiratory distress, rhonchi, wheezes - Cardiovascular Cardiovascular exam: Present: RRR, +S1, +S2 - GI/Abdominal GI/Abdominal exam: Present: normal bowel sounds, soft, tenderness (RLQ). Absent : distended - Extremities Exam Extremities exam: Present: normal inspection, tenderness (RLE). Absent: pedal edema - Back Exam Additional comments: Surgical site dressing C/D/I. Mild ecchymosis noted to the right lower back. - Neurological Exam Neurological exam: Present: alert, oriented X3, no focal deficits - Psychiatric Psychiatric exam: Present: normal affect, normal mood - Skin Skin exam: Present: dry, intact, normal color, warm - VTE Documentation of Mechanical Device: Intermittent pneumatic compression device Consult Discharge Plan - Plan Referrals: Aundrea Thrasher, [employer] [Primary Care Provider] - - Attending Attestation I examined this patient and my medical decision-making was reviewed with the Resident Physician. I agree with the documented findings, disposition and treatment plan as described except to the extent set forth below.
[2017-11-20] MEDS ORDERED: Naloxone 0.4 MG/ML INJ IVP PRN (14:18)
[2017-11-20] MEDS ORDERED: Ipratropium/Albuterol Neb 3 ML IH PRN (14:18)
[2017-11-20] MEDS ORDERED: *HR* OxyCODONE Immed Rel 5 MG TABLET PO PRN (14:18)
[2017-11-20] MEDS ORDERED: Isovue-370 500 ML INFUS..BTL IV ONE (14:18)
[2017-11-20] MEDS ORDERED: Ondansetron 4 MG/2 ML VIAL IVP PRN (14:18)
[2017-11-20] MEDS ORDERED: Gabapentin 300 MG CAPSULE PO SCH (15:00)
[2017-11-20] MEDS ORDERED: CeFAZolin Syr 3,000MG/30 ML 3,000 MG/30 ML SYRINGE IVPB ONE (15:41)
[2017-11-20] MEDS: Gabapentin 300 MG CAPSULE PO SCH ×2 (15:44→21:00)
[2017-11-20] MEDS: Insulin LISPRO 300 UNITS/3 ML VIAL SQ SCH ×2 (17:26→21:02)
[2017-11-20] MEDS: NIFEdipine XL (24 HR) 60 MG TAB.ER.24 PO SCH (17:28)
--- NOTE | 2017-11-20 17:53 | Orthopedics Progress Note ---
Date of Encounter: 11/20/17 Time of Encounter: 09:20 - Assessment and Plan (1) Degenerative scoliosis Current Visit: Yes Status: Chronic (2) Lumbar stenosis Current Visit: Yes Status: Chronic Qualifiers: Neurogenic claudication status: unspecified Qualified Code(s): M48.061 - Spinal stenosis, lumbar region without neurogenic claudication (3) Lumbar radiculopathy Current Visit: Yes Status: Chronic (4) Status post lumbar spinal fusion Current Visit: Yes Status: Acute (5) Diaphoresis Current Visit: Yes Status: Acute (6) Pulmonary embolism Current Visit: Yes Status: Acute Qualifiers: Pulmonary embolism type: other Chronicity: acute Acute cor pulmonale presence: without acute cor pulmonale Qualified Code(s): I26.99 - Other pulmonary embolism without acute cor pulmonale (7) Anemia Current Visit: Yes Status: Acute Qualifiers: Anemia type: unspecified type Qualified Code(s): D64.9 - Anemia, unspecified (8) Leukocytosis, unspecified Current Visit: Yes Status: Acute Qualifiers: Leukocytosis type: unspecified Qualified Code(s): D72.829 - Elevated white blood cell count, unspecified (9) Tachycardia Current Visit: Yes Status: Resolved Subjective Principal diagnosis: Degenerative scoliosis, lumbar stenosis, lumbar radiculopathy Interval history: Posterior lumbar interbody fusion T12-S1 with interbody grafts at L2-3, L3-4, and L5-S1 on 11/12/[address] Cox Degenerative scoliosis, lumbar stenosis, lumbar radiculopathy The patient is without complaints. Patient admits to ongoing numbness the right lower extremity from the right thigh down to the proximal bryant on the anterior side of the leg. He states that his right foot is numb. However he can feel, though describes it as altered sensation, with palpation of the right foot. Weakness of the right hip flexion. Posterior tibial pulses intact. Fires all upper and lower extremity motor groups. Assessment: Status post lumbar fusion Pulmonary embolism - requires provoked dosing of anticoagulation upon discharge Hallucinations - appear to be resolved Tachycardia - appears to be resolved Diaphoresis - appears to be resolved Plan: Reviewed postoperative restrictions and precautions. Patient verbalized understanding. Brace present and patient aware to apply with activity. 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 This was just revealed to the orthopedic team. Patient is medically improved and this provider is informed that he will transfer back to [facility] for continuing postoperative care. Dr. Cox states that he is going to take patient to surgery tomorrow to remove the screw that appears to be touching causing psoas muscle weakness as well as patient's decreased ability to flex the right hip. Objective Vital signs: Vital Signs Temp Pulse Resp BP Pulse Ox 11/20/17 17:11 98.4 F 79 16 124/75 96 11/20/17 15:00 87 22 108/75 93 11/20/17 13:30 81 26 115/67 95 11/20/17 12:30 99 F 81 24 112/69 96 11/20/17 11:30 82 30 111/74 98 11/20/17 10:00 85 24 118/71 95 11/20/17 09:30 92 28 110/69 94 11/20/17 08:30 98 F 90 24 107/72 94 11/20/17 07:30 90 26 115/69 93 11/20/17 06:00 94 31 113/70 96 11/20/17 05:18 98.6 F 11/20/17 05:00 90 30 106/74 95 11/20/17 04:00 88 30 108/71 95 11/20/17 03:05 98.8 F 90 20 99/64 11/20/17 03:00 91 24 99/64 95 11/20/17 02:00 89 38 102/70 92 11/20/17 01:00 90 30 109/78 95 11/20/17 00:31 99.0 F 90 30 102/80 98 11/20/17 00:20 87 27 108/69 96 11/20/17 00:15 98.9 F 86 36 108/69 36 11/20/17 00:08 98.9 F 88 20 110/63 11/19/17 23:00 87 18 93/74 96 11/19/17 22:00 86 30 106/80 96 11/19/17 21:15 98.3 F 93 16 111/69 97 11/19/17 21:00 98.1 F 98 37 117/67 100 11/19/17 20:03 98 F 11/19/17 20:00 102 26 123/76 98 11/19/17 19:00 102 34 116/74 97 11/19/17 18:37 102 16 110/78 98 Intake and Output 11/20/17 11/20/17 11/20/17 07:59 15:59 23:59 Intake Total 929.3 / 929.3 415 / 415 344 / 344 Output Total 250 / 250 575 / 575 Balance 679.3 / 679.3 -160 / -160 344 / 344 Intake: IV Fluids 229.3 / 229.3 150 / 150 344 / 344 PRECEDEX Premix 400 mcg In 100 119.3 / 119.3 ml @ 0.2 MCG/KG/HR 7.28 mls/hr IVC .[id number] [facility] Rx#:[id number] Heparin 25,000 UNIT/500 ML D5W 344 / 344 25,000 unit In 500 ml @ 14 UNIT /KG/HR 42.616 mls/hr IVC . [id number] [facility] Rx#:[id number] Calcium Gluconate 1,000 MG In 0 110 / 110 .9 % Sodium Chloride 100 ML @ 220 mls/hr IVPB Q6HR PRN Rx#: [id number] Levaquin Premix 750mg/150 mL 150 / 150 750 mg In 150 ml @ 100 mls/hr IVPB DAILY [facility] Rx#:[id number] Oral 265 / 265 Blood Product 700 / 700 Rbcs Leuko Poor As-1 Unit 350 / 350 [id number] Rbcs Leuko Poor As-1 Unit 350 / 350 [id number] Output: Catheter 250 / 250 575 / 575 Other: Meal Lunch Percent of Meal Consumed 90% Weight 151.4 kg Blood Glucose* 131 Patient Weight 11/20/17 23:59 Weight 151.4 kg - Labs CBC & BMP: 11/20/17 09:50 11/20/17 04:20 Labs: Abnormal lab results WBC 14.8 K/mcL (4.3-11.1) H 11/20/17 09:50 RBC 2.50 M/mcL (4.19-5.50) L 11/20/17 09:50 Hgb 7.8 g/dL (12.9-16.9) L D 11/20/17 09:50 Hct 22.7 % (37.5-50.1) L 11/20/17 09:50 RDW 15.2 % (11.5-14.5) H 11/20/17 09:50 Neutrophils # 9.0 K/mcL (1.6-8.9) H 11/20/17 04:20 Monocytes # 1.5 K/mcL (0.0-1.3) H 11/20/17 04:20 Nucleated RBCs/100 WBC 0.6 /100 WBC (0) H 11/19/17 09:46 Polychromasia 1+ (Not Present) A 11/19/17 09:46 Anisocytosis 1+ (Not Present) A 11/19/17 09:46 Macrocytosis Present (Not Present) A 11/19/17 09:46 ESR 36 mm/hr (0-10) H 11/19/17 17:38 PT 14.6 Seconds (9.4-12.1) H 11/20/17 09:50 APTT 47.1 Seconds (26.0-36.0) H 11/20/17 15:30 D-Dimer 2086 ng/mLFEU (0-500) H 11/14/17 13:34 ABG pCO2 51 mmHg (35-45) H 11/14/17 01:12 ABG pO2 69 mmHg (85-104) L 11/14/17 01:12 ABG HCO3 30 mEq/L (21-27) H 11/14/17 01:12 ABG Total CO2 32 mEq/L (20-26) H 11/14/17 01:12 ABG O2 Saturation 93 % (95-98) L 11/14/17 01:12 ABG Base Excess 4 mEq/L (-2 to 3) H 11/14/17 01:12 Sodium 134 mEq/L (136-145) L 11/20/17 04:20 Carbon Dioxide 30 mEq/L (23-29) H 11/20/17 04:20 BUN 29 mg/dL (6-20) H 11/20/17 04:20 BUN/Creatinine Ratio 32 (6-26) H 11/20/17 04:20 Glucose 211 mg/dL (70-105) H 11/20/17 04:20 POC Glucose 138 mg/dL (70-99) H 11/19/17 20:02 Calcium 8.3 mg/dL (8.6-10.3) L 11/20/17 04:20 Venous Ioniz Calcium 1.09 mmol/L (1.15-1.35) L 11/20/17 04:36 Iron 24 mcg/dL (65-175) L 11/15/17 15:36 % Saturation 10 % (20-55) L 11/15/17 15:36 Transferrin 165 mg/dL (203-362) L 11/15/17 15:36 Direct Bilirubin 0.6 mg/dL (0.0-0.2) H 11/19/17 17:38 Lactate Dehydrogenase 276 Units/L (140-271) H 11/19/17 17:38 C-Reactive Protein 162 mg/L (Less than 10) H 11/19/17 17:38 Serum Total Protein 5.9 g/dL (6.4-8.9) L 11/20/17 04:20 Albumin 3.2 g/dL (3.5-5.7) L 11/20/17 04:20 Urine Clarity Cloudy (Clear) A 11/18/17 15:15 Urine Protein 30 mg/dL (Neg-Trace) H 11/18/17 15:15 Urine Ketones 15 mg/dL (Negative) H 11/18/17 15:15 Urine Blood Large (Negative) H 11/18/17 15:15 Urine Microscopic RBC TNTC per hpf (0-3) H 11/18/17 15:15 Urine Microscopic WBC 3-5 per hpf (0-3) H 11/18/17 15:15 Ur Squamous Epith Cells Many per lpf (None-Few) H 11/18/17 15:15 Stool Occult Blood Positive (Negative) A 11/17/17 06:12 - VTE Documentation of Mechanical Device: Intermittent pneumatic compression device Consult Discharge Plan - Plan Referrals: Aundrea Thrasher, [employer]EL[employer] DIRECTOR [Primary Care Provider] -
[2017-11-20] MEDS: Heparin 25,000 UNIT/500 ML D5W 25,000 UNIT/500 ML BAG IVC SCH (21:02)
[2017-11-20] MEDS ORDERED: tiZANidine 4 MG TABLET PO ONE (23:00)
--- NOTE | 2017-11-20 23:58 | Anesthesia Evaluation PreOp ---
Date of Encounter: 11/21/17 Time of Encounter: 19:23 - Past History Planned Operation: Hardware removal spine Cardiac History: [place] (in 1999, medically managed), HTN, Hyperlipidemia, Other Pulmonary History: Former smoker, Other (Acute PE (diagnosed 11-15-17)) [employer]IV[employer] History: Other (radiculopathy, recent PLIF T12-S1) Other Medical History: GERD, Other (BMI 41, anemia s/p 4U PRBC's between 11-16 and 11-20) Anesthesia History: No Prior Anesthetic Complications Alcohol Use: none Drug use: none Medications and Allergies Aspirin [Lo-Dose Aspirin EC] 81 mg PO DAILY 11/08/16 [History] Pravastatin Sodium [Pravachol] 40 mg PO HS 11/08/16 [History] Trazodone HCl 300 mg PO HS 11/08/16 [History] Calcium Carbonate [Calcium] 600 mg PO BID 06/11/17 [History] Duloxetine HCl [Cymbalta] 120 mg PO DAILY 06/11/17 [History] Ergocalciferol (VITAMIN D2) [Vitamin D2] 400 unit PO BID 06/11/17 [History] Gabapentin [Neurontin] 1,800 mg PO BID 06/11/17 [History] Metoprolol [Lopressor] 50 mg PO BID 06/11/17 [History] Tizanidine HCl 16 mg PO HS 09/23/17 [History] Meloxicam [Mobic] 7.5 mg PO DAILY 11/12/17 [History] NIFEdipine [Nifedipine ER] 60 mg PO DAILY 11/12/17 [History] 3 Allergy/AdvReac Type Severity Reaction Status Date / Time Oxycodone AdvReac Hallucinati Verified 11/20/17 14:13 ng - Meds/Allergy Pre-op Review Medications Reviewed: Yes Allergies Reviewed: Yes Beta Blockers on Current Med List: Yes (metoprolol) If Beta Blockers taken, Date/Time (Last Dose taken): 11-20-17 metoprolol 21:01 Anesthesia Results - Labs 11/21/17 16:19 11/21/17 05:04 - Imaging EKG: report reviewed, image reviewed (SR) Chest x-ray: other (11-15-17 CT chest: IMPRESSION: Acute PE in the distal left lower lobe pulmonary artery, with segmental and subsegmental extension. Acute segmental upper lobe PE. No evidence of right heart strain.) Additional studies: TTE: Impressions: LVEF 60-65%. Normal LV chamber size and function. Moderate left ventricular diastolic dysfunction. Mild concentric left ventricular hypertrophy. Normal right ventricular structure and function. No evidence of pulmonary hypertension. No significant valvular dysfunction. Anesthesia Exam Last Vital Signs Temp 98.2 F 11/20/17 19:50 Pulse 92 11/20/17 19:50 Resp 16 11/20/17 19:50 BP 118/70 11/20/17 19:50 Pulse Ox 96 11/20/17 19:50 Weight: 151 kg - HEENT Pupil (Motor): Pupils equal, EOMI Mallampati: III Teeth: Missing, Poor dentition (several loose teeth) Oral Opening: Greater than 3 - [employer]SEM[employer]IV[employer] LOC: Oriented - Cardiac Rhythm: Regular - Pulmonary Breath Sounds: bilateral Clear Respiratory Effort: Symmetrical Anesthesia Assess/Plan ASA Score: 4 (BMI 41, CAD, hx IL, radiculopathy, Acute PE, anemia requiring blood transfusion) Anesthetic Plan: General Monitoring Plan: Standard Monitors Recovery Plan: PACU
[2017-11-21] MEDS ORDERED: Acetaminophen 325 MG TABLET PO ONE (02:40)
[2017-11-21 05:30] LABS: Hematocrit 24.2 % (37.5-50.1); Hemoglobin 7.7 g/dL (12.9-16.9); Mean Corpuscular HGB Conc 31.8 g/dL (31.6-35.5); Mean Corpuscular Hemoglobin 29.5 pg (28.0-33.3); Mean Corpuscular Volume 92.7 fL (83.0-100.0); Mean Platelet Volume 10.2 fL (9.4-12.4); Nucleated Red Blood Cells 0.9 /100 WBC (0); Platelet Count 280 K/mcL (140-400); Red Blood Count 2.61 M/mcL (4.19-5.50); Red Cell Distribution Width 15.3 % (11.5-14.5)
[2017-11-21 05:32] LABS: VBG PH 7.35 pH Units (7.32-7.42)
[2017-11-21 05:44] LABS: Alanine Aminotransferase 25 Units/L (7-52); Albumin 2.9 g/dL (3.5-5.7); Albumin/Globulin Ratio 1.1 (1.1-2.2); Alkaline Phosphatase 45 Units/L (34-104); Aspartate Amino Transferase 42 Units/L (13-39); BUN/Creatinine Ratio 31 (6-26); Bilirubin,Total 1.3 mg/dL (0.3-1.0); Blood Urea Nitrogen 23 mg/dL (6-20); Carbon Dioxide 27 mEq/L (23-29); Chloride 102 mEq/L (98-107); Globulin 2.7 g/dL (2.4-3.5); Glucose 110 mg/dL (70-105); Magnesium 1.9 mg/dL (1.6-2.6); Osmolality,Calculated 282 (280-300); Potassium 3.7 mEq/L (3.5-5.1); Sodium 134 mEq/L (136-145); Total Protein 5.6 g/dL (6.4-8.9); eGFR For African Americans > 60 (> 60); eGFR For Non-African Americans > 60 (> 60)
[2017-11-21 05:50] LABS: Eosinophils # 0.3 K/mcL (0.0-0.6); Lymphocytes # 4.8 K/mcL (0.6-4.6); Neutrophils # 9.9 K/mcL (1.6-8.9); Platelet Estimate Normal (Normal)
[2017-11-21] MEDS: Acetaminophen 325 MG TABLET PO PRN ×2 (07:44→20:20)
[2017-11-21] MEDS: Cholecalciferol (D-3) 1,000 UNIT TABLET PO SCH (07:47)
[2017-11-21] MEDS: Sennosides/Docusate Sodium TABLET PO SCH ×2 (07:47→20:12)
[2017-11-21] MEDS: Aspirin Enteric Coated 81 MG Tablet PO SCH (07:47)
[2017-11-21] MEDS: Gabapentin 300 MG CAPSULE PO SCH ×3 (07:47→20:12)
[2017-11-21] MEDS: Insulin LISPRO 300 UNITS/3 ML VIAL SQ SCH ×4 (07:47→20:39)
--- NOTE | 2017-11-21 08:28 | Orthopedics Progress Note ---
Date of Encounter: 11/21/17 Time of Encounter: 08:00 - Assessment and Plan (1) Degenerative scoliosis Current Visit: Yes Status: Chronic (2) Lumbar stenosis Current Visit: Yes Status: Chronic Qualifiers: Qualified Code(s): M48.061 - Spinal stenosis, lumbar region without neurogenic claudication (3) Lumbar radiculopathy Current Visit: Yes Status: Chronic (4) Status post lumbar spinal fusion Current Visit: Yes Status: Acute (5) Diaphoresis Current Visit: Yes Status: Acute (6) Pulmonary embolism Current Visit: Yes Status: Acute Qualifiers: Qualified Code(s): I26.99 - Other pulmonary embolism without acute cor pulmonale (7) Anemia Current Visit: Yes Status: Acute Qualifiers: Qualified Code(s): D64.9 - Anemia, unspecified (8) Leukocytosis, unspecified Current Visit: Yes Status: Acute Qualifiers: Qualified Code(s): D72.829 - Elevated white blood cell count, unspecified (9) Tachycardia Current Visit: Yes Status: Resolved Subjective Principal diagnosis: Degenerative scoliosis, lumbar stenosis, lumbar radiculopathy Interval history: Posterior lumbar interbody fusion T12-S1 with interbody grafts at L2-3, L3-4, and L5-S1 on 11/12/[address] Cox Degenerative scoliosis, lumbar stenosis, lumbar radiculopathy The patient is without complaints. Patient admits to ongoing numbness the right lower extremity from the right thigh down to the proximal bryant on the anterior side of the leg. He states that his right foot is numb. However he can feel, though describes it as altered sensation, with palpation of the right foot. Weakness of the right hip flexion. Posterior tibial pulses intact. Fires all upper and lower extremity motor groups. Assessment: Status post lumbar fusion Failed Hardware - requiring removal and replacement of hardware of lumbar spine Pulmonary embolism - requires provoked dosing of anticoagulation upon discharge Hallucinations - appear to be resolved Tachycardia - appears to be resolved Diaphoresis - appears to be resolved Plan: Reviewed postoperative restrictions and precautions. Patient verbalized understanding. Brace present and patient aware to apply with activity. 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 This was just revealed to the orthopedic team. Patient is medically improved - transferred [facility] care on 11/20 Dr. Cox planning to take patient to surgery today to for failed hardware and removal and replacement of hardware. Informed consent obtained. Objective Vital signs: Vital Signs Temp Pulse Resp BP Pulse Ox 11/21/17 06:55 98.3 F 84 16 107/68 99 11/21/17 03:35 98.1 F 78 18 105/71 98 11/21/17 00:35 97.9 F 80 18 100/63 93 11/20/17 19:50 98.2 F 92 16 118/70 96 11/20/17 17:11 98.4 F 79 16 124/75 96 11/20/17 17:00 95 11/20/17 15:00 87 22 108/75 93 11/20/17 13:30 81 26 115/67 95 11/20/17 12:30 99 F 81 24 112/69 96 11/20/17 11:30 82 30 111/74 98 11/20/17 10:00 85 24 118/71 95 11/20/17 09:30 92 28 110/69 94 11/20/17 08:30 98 F 90 24 107/72 94 Intake and Output 11/20/17 11/21/17 11/21/17 23:59 07:59 15:59 Intake Total 344 / 344 495 / 495 Output Total 800 / 800 Balance 344 / 344 -305 / -305 Intake: IV Fluids 344 / 344 495 / 495 Heparin 25,000 UNIT/500 ML D5W 344 / 344 495 / 495 25,000 unit In 500 ml @ 14 UNIT /KG/HR 42.616 mls/hr IVC . [id number] [facility] Rx#:[id number] Output: Catheter 800 / 800 Other: Blood Glucose* 142 101 - Labs CBC & BMP: 11/21/17 05:04 11/21/17 05:04 Labs: Abnormal lab results WBC 16.0 K/mcL (4.3-11.1) H 11/21/17 05:04 RBC 2.61 M/mcL (4.19-5.50) L 11/21/17 05:04 Hgb 7.7 g/dL (12.9-16.9) L 11/21/17 05:04 Hct 24.2 % (37.5-50.1) L 11/21/17 05:04 RDW 15.3 % (11.5-14.5) H 11/21/17 05:04 Neutrophils # 9.9 K/mcL (1.6-8.9) H 11/21/17 05:04 Lymphocytes # 4.8 K/mcL (0.6-4.6) H 11/21/17 05:04 Nucleated RBCs/100 WBC 0.9 /100 WBC (0) H 11/21/17 05:04 Polychromasia 1+ (Not Present) A 11/19/17 09:46 Anisocytosis 1+ (Not Present) A 11/19/17 09:46 Macrocytosis Present (Not Present) A 11/19/17 09:46 ESR 36 mm/hr (0-10) H 11/19/17 17:38 PT 14.6 Seconds (9.4-12.1) H 11/20/17 09:50 APTT 88.5 Seconds (26.0-36.0) H D 11/20/17 23:21 D-Dimer 2086 ng/mLFEU (0-500) H 11/14/17 13:34 ABG pCO2 51 mmHg (35-45) H 11/14/17 01:12 ABG pO2 69 mmHg (85-104) L 11/14/17 01:12 ABG HCO3 30 mEq/L (21-27) H 11/14/17 01:12 ABG Total CO2 32 mEq/L (20-26) H 11/14/17 01:12 ABG O2 Saturation 93 % (95-98) L 11/14/17 01:12 ABG Base Excess 4 mEq/L (-2 to 3) H 11/14/17 01:12 Sodium 134 mEq/L (136-145) L 11/21/17 05:04 BUN 23 mg/dL (6-20) H 11/21/17 05:04 BUN/Creatinine Ratio 31 (6-26) H 11/21/17 05:04 Glucose 110 mg/dL (70-105) H 11/21/17 05:04 POC Glucose 118 mg/dL (70-99) H 11/20/17 11:47 Calcium 8.0 mg/dL (8.6-10.3) L 11/21/17 05:04 Venous Ioniz Calcium 1.10 mmol/L (1.15-1.35) L 11/21/17 05:29 Iron 24 mcg/dL (65-175) L 11/15/17 15:36 % Saturation 10 % (20-55) L 11/15/17 15:36 Transferrin 165 mg/dL (203-362) L 11/15/17 15:36 Total Bilirubin 1.3 mg/dL (0.3-1.0) H 11/21/17 05:04 Direct Bilirubin 0.6 mg/dL (0.0-0.2) H 11/19/17 17:38 AST 42 Units/L (13-39) H 11/21/17 05:04 Lactate Dehydrogenase 276 Units/L (140-271) H 11/19/17 17:38 C-Reactive Protein 162 mg/L (Less than 10) H 11/19/17 17:38 Serum Total Protein 5.6 g/dL (6.4-8.9) L 11/21/17 05:04 Albumin 2.9 g/dL (3.5-5.7) L 11/21/17 05:04 Urine Clarity Cloudy (Clear) A 11/18/17 15:15 Urine Protein 30 mg/dL (Neg-Trace) H 11/18/17 15:15 Urine Ketones 15 mg/dL (Negative) H 11/18/17 15:15 Urine Blood Large (Negative) H 11/18/17 15:15 Urine Microscopic RBC TNTC per hpf (0-3) H 11/18/17 15:15 Urine Microscopic WBC 3-5 per hpf (0-3) H 11/18/17 15:15 Ur Squamous Epith Cells Many per lpf (None-Few) H 11/18/17 15:15 Stool Occult Blood Positive (Negative) A 11/17/17 06:12 - VTE Documentation of Mechanical Device: Intermittent pneumatic compression device Consult Discharge Plan - Plan Referrals: Aundrea Thrasher, MATERIALS SPECIALIST [Primary Care Provider] -
--- NOTE | 2017-11-21 09:44 | Infectious Disease Progress No ---
Date of Encounter: 11/21/17 Time of Encounter: 09:42 - Assessment and Plan (1) SIRS (systemic inflammatory response syndrome) Current Visit: Yes Status: Resolved The patient has two SIRS criteria, but no identified source of infection. Likely secondary to anemia from acute bleeding into the large iliopsoas hematoma. Improved. Tachycardia has resolved. WBC has improved. Blood cultures drawn 11/18/17 are NGTD x 2 sets. Repeat blood cultures x 2 sets drawn 11/19/[address] chest 11/15/17 showed PE, but no pneumonia. CXR 11/18/17 showed parahilar opacification and right mid lung opacification, likely atelectasis, and subsegmental atelectasis in the left base, concerning for infarct given history of PE in the same area. Urine culture negative. ESR and CRP mildly elevated, likely secondary to recent surgery. LDH elevated. Amylase, lipase, and LFTs are normal. CT chest showed bibasilar atelectasis, no PNA. CT abdomen and pelvis showed a large right iliopsoas muscle hematoma. No further recommendations from the ID team. Will sign off. Please re-consult if needed. (2) Monocytosis Current Visit: Yes Status: Resolved Etiology unclear. Resolved. Likely reactive from iliopsoas hematoma. Continue to trend. If persists, may need to consult Hem/Onc. (3) Hematoma of right iliopsoas muscle Current Visit: Yes Status: Acute Etiology unclear: post-surgical vs. spontaneous secondary to anticoagulation vs. other. CT of the abdomen and pelvis showed 7.3 x 7.8 x 14.8 cm ileopsoas intramuscular hematoma. Likely contributing to the patient's anemia and RLE/right hip pain. Ortho team is planning to take the patient back to surgery today for removal of failed hardware and evacuation of the hematoma. Qualifiers: Encounter type: initial encounter Qualified Code(s): S70.11XA - Contusion of right thigh, initial encounter (4) Altered mental status Current Visit: Yes Status: Resolved Likely secondary to hypoxia and anemia and medication. Improved. Continue to monitor closely. Qualifiers: Altered mental status type: unspecified Qualified Code(s): R41.82 - Altered mental status, unspecified (5) Acute kidney injury Current Visit: Yes Status: Resolved Etiology unclear. Resolved. Continue to trend. Strict I's and O's. (6) Pulmonary embolism Current Visit: Yes Status: Acute Etiology unclear. Venous doppler of the BLE negative for DVT. CT of the chest showed PE in the distal LLL pulmonary artery with segmental and subsegmental extension and acute segmental upper lobe PE. Anticoagulation per the primary team. Continue O2 per the primary team. Qualifiers: Pulmonary embolism type: other Chronicity: acute Acute cor pulmonale presence: without acute cor pulmonale Qualified Code(s): I26.99 - Other pulmonary embolism without acute cor pulmonale (7) Hypoxemia Current Visit: Yes Status: Resolved Likely secondary to PE. CT negative for PNA. Improved. On RA. (8) Acute respiratory failure Current Visit: Yes Status: Resolved Likely secondary to PE. Resolved. Qualifiers: Respiratory failure complication: hypoxia Qualified Code(s): J96.01 - Acute respiratory failure with hypoxia (9) Status post lumbar spinal fusion Current Visit: Yes Status: Acute Status post PLIF T12-S1 with interbody grafts L2-L3, L3-L4, and L5-S1 11/12/[address] Cox. Clinically, wound looks great. Post-op x-ray negative. Wound care and activity restrictions per the ortho team. (10) Anemia Current Visit: Yes Status: Acute Etiology unclear, but concern for GIB. FOBT +. Hgb down to 8 pre-transfusion. Post-transfusion Hgb improved to 10, but back down to 8 yesterday. Likely secondary to iliopsoas muscle hematoma. Hgb back down to 7.7 this morning. Likely the source of to the patient's tachycardia and AMS. Transfusion parameters per the primary team. Qualifiers: Anemia type: unspecified type Qualified Code(s): D64.9 - Anemia, unspecified (11) Elevated troponin Current Visit: Yes Status: Acute Trops positive 0.09/0.07. No chest pain. Further workup and management per the primary team. (12) Degenerative scoliosis Current Visit: Yes Status: Chronic (13) Lumbar stenosis Current Visit: Yes Status: Chronic Qualifiers: Neurogenic claudication status: unspecified Qualified Code(s): M48.061 - Spinal stenosis, lumbar region without neurogenic claudication (14) CAD (coronary artery disease) Current Visit: Yes Status: Chronic Qualifiers: Coronary Disease-Associated Artery/Lesion type: [place] artery [place] vs. transplanted heart: [place] heart Associated angina: without angina Qualified Code(s): I25.10 - Atherosclerotic heart disease of [place] coronary artery without angina pectoris - Subjective Interval history: Patient seen and examined. No acute events noted overnight. Patient resting quietly in bed. Reports overall he feels better. Denies fevers, chills, or rigors. Denies chest pain, shortness of breath, or cough. Denies nausea, vomiting, or diarrhea. Denies abdominal pain. States he does not have much of an appetite. Hummel catheter remains patent with clear yellow urine. Denies oral thrush or new skin lesions. Reports mild pain at the surgical site and across his low back. He states his RLE is numb. He is scheduled to go to surgery later today. Infect Dis PN-Objective Data - Labs CBC & Chem 7: 11/21/17 05:04 11/21/17 05:04 Labs: Laboratory Results - last 24 hr 11/19/17 11/20/17 11/20/17 19:30 09:50 09:50 WBC 14.8 H RBC 2.50 L Hgb 7.8 L D Hct 22.7 L MCV 90.8 MCH 31.2 MCHC 34.4 RDW 15.2 H Plt Count 248 D MPV 10.0 Seg Neutrophils % Band Neutrophils % Lymphocytes % Monocytes % Eosinophils % Neutrophils # Lymphocytes # Monocytes # Eosinophils # Nucleated RBCs/100 WBC Platelet Estimate PT 14.6 H INR 1.3 APTT 32.7 VBG pH Sodium Potassium Chloride Carbon Dioxide BUN Creatinine Est GFR ( Amer) Est GFR (Non-Af Amer) BUN/Creatinine Ratio Glucose POC Glucose Calculated Osmolality Lactic Acid Calcium Venous Ioniz Calcium Magnesium Total Bilirubin AST ALT Alkaline Phosphatase Troponin I Serum Total Protein Albumin Globulin Albumin/Globulin Ratio Crossmatch See Detail 11/20/17 11/20/17 11/20/17 11:47 14:10 15:30 WBC RBC Hgb Hct MCV MCH MCHC RDW Plt Count MPV Seg Neutrophils % Band Neutrophils % Lymphocytes % Monocytes % Eosinophils % Neutrophils # Lymphocytes # Monocytes # Eosinophils # Nucleated RBCs/100 WBC Platelet Estimate PT INR APTT 47.1 H VBG pH Sodium Potassium Chloride Carbon Dioxide BUN Creatinine Est GFR ( Amer) Est GFR (Non-Af Amer) BUN/Creatinine Ratio Glucose POC Glucose 118 H Calculated Osmolality Lactic Acid Calcium Venous Ioniz Calcium Magnesium Total Bilirubin AST ALT Alkaline Phosphatase Troponin I < 0.03 Serum Total Protein Albumin Globulin Albumin/Globulin Ratio Crossmatch 11/20/17 11/21/17 11/21/17 23:21 05:04 05:04 WBC 16.0 H RBC 2.61 L Hgb 7.7 L Hct 24.2 L MCV 92.7 MCH 29.5 MCHC 31.8 RDW 15.3 H Plt Count 280 MPV 10.2 Seg Neutrophils % 60.0 Band Neutrophils % 2.0 Lymphocytes % 30.0 Monocytes % 6.0 Eosinophils % 2.0 Neutrophils # 9.9 H Lymphocytes # 4.8 H Monocytes # 1.0 Eosinophils # 0.3 Nucleated RBCs/100 WBC 0.9 H Platelet Estimate Normal PT INR APTT 88.5 H D VBG pH Sodium 134 L Potassium 3.7 Chloride 102 Carbon Dioxide 27 BUN 23 H Creatinine 0.74 Est GFR ( Amer) > 60 Est GFR (Non-Af Amer) > 60 BUN/Creatinine Ratio 31 H Glucose 110 H POC Glucose Calculated Osmolality 282 Lactic Acid Calcium 8.0 L Venous Ioniz Calcium Magnesium 1.9 Total Bilirubin 1.3 H AST 42 H ALT 25 Alkaline Phosphatase 45 Troponin I Serum Total Protein 5.6 L Albumin 2.9 L Globulin 2.7 Albumin/Globulin Ratio 1.1 Crossmatch 11/21/17 11/21/17 05:04 05:29 WBC RBC Hgb Hct MCV MCH MCHC RDW Plt Count MPV Seg Neutrophils % Band Neutrophils % Lymphocytes % Monocytes % Eosinophils % Neutrophils # Lymphocytes # Monocytes # Eosinophils # Nucleated RBCs/100 WBC Platelet Estimate PT INR APTT VBG pH 7.35 Sodium Potassium Chloride Carbon Dioxide BUN Creatinine Est GFR ( Amer) Est GFR (Non-Af Amer) BUN/Creatinine Ratio Glucose POC Glucose Calculated Osmolality Lactic Acid 0.9 Calcium Venous Ioniz Calcium 1.10 L Magnesium Total Bilirubin AST ALT Alkaline Phosphatase Troponin I Serum Total Protein Albumin Globulin Albumin/Globulin Ratio Crossmatch Cultures: Cultures 11/19/17 17:34 Blood Culture - Preliminary Peripheral Venipuncture No growth. 11/19/17 17:34 Blood Culture - Preliminary Peripheral Venipuncture No growth. 11/19/17 17:34 Blood Culture - Preliminary Peripheral Venipuncture No growth. 11/18/17 11:03 Blood Culture - Preliminary Peripheral Venipuncture No growth. 11/18/17 11:08 Blood Culture - Preliminary Peripheral Venipuncture No growth. 11/18/17 15:15 Urine Culture - Final Urine,Clean Catch No growth. Serology 11/18/17 11/17/17 Range/Units 15:15 06:12 Urine Color Dark Yellow (Yellow) Urine Clarity Cloudy A (Clear) Urine pH 7.0 (5.0-8.0) pH Units Ur Specific [place] 1.021 (1.010-1.025) Urine Protein 30 H (Neg-Trace) mg/dL Urine Glucose (UA) Normal (Normal) mg/dL Urine Ketones 15 H (Negative) mg/dL Urine Blood Large H (Negative) Urine Nitrite Negative (Negative) Urine Bilirubin Negative (Negative) Urine Urobilinogen Normal (Normal) mg/dL Ur Leukocyte Esterase Negative (Negative) Urine Microscopic RBC TNTC H (0-3) per hpf Urine Microscopic WBC 3-5 H (0-3) per hpf Ur Squamous Epith Cells Many H (None-Few) per lpf Urine Bacteria None Seen (None-Few) per hpf Hyaline Casts Few (None-Few) per lpf Urine Sperm Present Stool Occult Blood Positive A (Negative) Exam - Constitutional Vitals: Temp Pulse Resp BP Pulse Ox 98.3 F 84 16 107/68 99 11/21/17 06:55 11/21/17 06:55 11/21/17 06:55 11/21/17 06:55 11/21/17 06:55 General appearance: cooperative, no acute distress, obese - Head Head exam: Present: atraumatic, normal inspection, normocephalic - Eye Eye exam: Present: EOMI, normal appearance, PERRL Pupils: Present: normal accommodation - ENT ENT exam: Present: mucous membranes moist - Neck Neck exam: Present: normal inspection - Respiratory Respiratory exam: Present: CTAB. Absent: rales, respiratory distress, rhonchi, wheezes - Cardiovascular Cardiovascular exam: Present: RRR, +S1, +S2 - GI/Abdominal GI/Abdominal exam: Present: normal bowel sounds, soft. Absent: distended, tenderness Additional comments: Hummel catheter patent draining dark yellow urine. - Extremities Exam Extremities exam: Present: normal inspection. Absent: joint swelling, pedal edema, tenderness - Back Exam Additional comments: Dressing C/D/I. - Neurological Exam Neurological exam: Present: alert, motor sensory deficit (Altered sensation to the RLE.), oriented X3, no focal deficits - Psychiatric Psychiatric exam: Present: normal affect, normal mood - Skin Skin exam: Present: dry, intact, normal color, warm - VTE Documentation of Mechanical Device: Intermittent pneumatic compression device Consult Discharge Plan - Plan Referrals: Aundrea Thrasher, DAYO [Primary Care Provider] - - Attending Attestation I examined this patient and my medical decision-making was reviewed with the Resident Physician. I agree with the documented findings, disposition and treatment plan as described except to the extent set forth below.
[2017-11-21] MEDS ORDERED: *HR* FentaNYL (PF) 100 MCG/2 ML VIAL ONE (10:31)
[2017-11-21] MEDS ORDERED: *HR* Propofol 200 MG/20 ML VIAL IVP ONE (10:31)
[2017-11-21] MEDS ORDERED: *HR* Succinylcholine 200 MG/10 ML VIAL IVP ONE ×2 (10:34→14:14)
[2017-11-21] MEDS ORDERED: Lidocaine -MPF 2% 2 ML VIAL ONE (10:34)
[2017-11-21] MEDS ORDERED: *HR* Rocuronium Bromide 50 MG/5 ML VIAL ONE (10:35)
[2017-11-21] MEDS ORDERED: *HR* Midazolam HCl 2 MG/2 ML VIAL ONE ×2 (10:35→16:08)
[2017-11-21] MEDS ORDERED: Bacitracin 50,000 UNIT, Polymyxin B Sulfate 500,000 UNIT, Sodium Chloride IRRigation 1,... IR ONE (12:10)
[2017-11-21] MEDS ORDERED: CEFAZOLIN IVP ONE (12:18)
[2017-11-21] MEDS ORDERED: *HR* PHENYLEPHRINE 1,000 MCG/10 ML SYRINGE IVP ONE (12:18)
[2017-11-21] MEDS ORDERED: WATER FOR INJ IVP ONE (12:18)
[2017-11-21] MEDS ORDERED: Lacri-Lube 3.5 GM TUBE ONE (12:20)
--- NOTE | 2017-11-21 12:40 | Spine Progress Note ---
Date of Encounter: 11/21/17 Time of Encounter: 12:36 - Assessment and Plan (1) Hematoma of right iliopsoas muscle Current Visit: Yes Status: Acute Qualifiers: Encounter type: subsequent encounter Qualified Code(s): S70.11XD - Contusion of right thigh, subsequent encounter Subjective Principal diagnosis: Degenerative scoliosis, lumbar stenosis, lumbar radiculopathy Interval history: Patient is being anticoagulated secondary to his pulmonary embolism. His respiratory status is stable but he continues to have drifting of his hemoglobin into the 8 and 7 range. He is currently getting 2 units of packed red cells. Review of his abdominal CT revealed a right psoas hematoma. There is concern for a displaced L3 pedicle screw which may be in contact with the psoas musculature. This may be a source of the psoas hematoma. He does complain of some right leg pain and weakness. The patient is afebrile with stable vital signs. He is neurovascularly intact with regard to his bilateral lower extremities but he does have some weakness in right hip flexion. Due to his weakness and hematoma find it reasonable consider surgery in the form of removal and possible replacement of his lumbar pedicle screw/hardware. Risk benefits possible competitions and alternatives were discussed and the patient would like to proceed Objective Vital signs: Vital Signs Temp Pulse Resp BP Pulse Ox 11/21/17 09:43 98.5 F 91 16 104/73 96 11/21/17 06:55 98.3 F 84 16 107/68 99 11/21/17 03:35 98.1 F 78 18 105/71 98 11/21/17 00:35 97.9 F 80 18 100/63 93 11/20/17 19:50 98.2 F 92 16 118/70 96 11/20/17 17:11 98.4 F 79 16 124/75 96 11/20/17 17:00 95 11/20/17 15:00 87 22 108/75 93 11/20/17 13:30 81 26 115/67 95 Intake and Output 11/20/17 11/21/17 11/21/17 23:59 07:59 15:59 Intake Total 344 / 344 495 / 495 Output Total 800 / 800 425 / 425 Balance 344 / 344 -305 / -305 -425 / -425 Intake: IV Fluids 344 / 344 495 / 495 Heparin 25,000 UNIT/500 ML D5W 344 / 344 495 / 495 25,000 unit In 500 ml @ 14 UNIT /KG/HR 42.616 mls/hr IVC . [id number] [facility] Rx#:[id number] Output: Catheter 800 / 800 425 / 425 Other: Blood Glucose* 142 101 - Labs CBC & BMP: 11/21/17 05:04 11/21/17 05:04 Labs: Abnormal lab results WBC 16.0 K/mcL (4.3-11.1) H 11/21/17 05:04 RBC 2.61 M/mcL (4.19-5.50) L 11/21/17 05:04 Hgb 7.7 g/dL (12.9-16.9) L 11/21/17 05:04 Hct 24.2 % (37.5-50.1) L 11/21/17 05:04 RDW 15.3 % (11.5-14.5) H 11/21/17 05:04 Neutrophils # 9.9 K/mcL (1.6-8.9) H 11/21/17 05:04 Lymphocytes # 4.8 K/mcL (0.6-4.6) H 11/21/17 05:04 Nucleated RBCs/100 WBC 0.9 /100 WBC (0) H 11/21/17 05:04 Polychromasia 1+ (Not Present) A 11/19/17 09:46 Anisocytosis 1+ (Not Present) A 11/19/17 09:46 Macrocytosis Present (Not Present) A 11/19/17 09:46 ESR 36 mm/hr (0-10) H 11/19/17 17:38 PT 14.6 Seconds (9.4-12.1) H 11/20/17 09:50 APTT 88.5 Seconds (26.0-36.0) H D 11/20/17 23:21 D-Dimer 2086 ng/mLFEU (0-500) H 11/14/17 13:34 ABG pCO2 51 mmHg (35-45) H 11/14/17 01:12 ABG pO2 69 mmHg (85-104) L 11/14/17 01:12 ABG HCO3 30 mEq/L (21-27) H 11/14/17 01:12 ABG Total CO2 32 mEq/L (20-26) H 11/14/17 01:12 ABG O2 Saturation 93 % (95-98) L 11/14/17 01:12 ABG Base Excess 4 mEq/L (-2 to 3) H 11/14/17 01:12 Sodium 134 mEq/L (136-145) L 11/21/17 05:04 BUN 23 mg/dL (6-20) H 11/21/17 05:04 BUN/Creatinine Ratio 31 (6-26) H 11/21/17 05:04 Glucose 110 mg/dL (70-105) H 11/21/17 05:04 POC Glucose 118 mg/dL (70-99) H 11/20/17 11:47 Calcium 8.0 mg/dL (8.6-10.3) L 11/21/17 05:04 Venous Ioniz Calcium 1.10 mmol/L (1.15-1.35) L 11/21/17 05:29 Iron 24 mcg/dL (65-175) L 11/15/17 15:36 % Saturation 10 % (20-55) L 11/15/17 15:36 Transferrin 165 mg/dL (203-362) L 11/15/17 15:36 Total Bilirubin 1.3 mg/dL (0.3-1.0) H 11/21/17 05:04 Direct Bilirubin 0.6 mg/dL (0.0-0.2) H 11/19/17 17:38 AST 42 Units/L (13-39) H 11/21/17 05:04 Lactate Dehydrogenase 276 Units/L (140-271) H 11/19/17 17:38 C-Reactive Protein 162 mg/L (Less than 10) H 11/19/17 17:38 Serum Total Protein 5.6 g/dL (6.4-8.9) L 11/21/17 05:04 Albumin 2.9 g/dL (3.5-5.7) L 11/21/17 05:04 Urine Clarity Cloudy (Clear) A 11/18/17 15:15 Urine Protein 30 mg/dL (Neg-Trace) H 11/18/17 15:15 Urine Ketones 15 mg/dL (Negative) H 11/18/17 15:15 Urine Blood Large (Negative) H 11/18/17 15:15 Urine Microscopic RBC TNTC per hpf (0-3) H 11/18/17 15:15 Urine Microscopic WBC 3-5 per hpf (0-3) H 11/18/17 15:15 Ur Squamous Epith Cells Many per lpf (None-Few) H 11/18/17 15:15 Stool Occult Blood Positive (Negative) A 11/17/17 06:12 Consult Discharge Plan - Plan Referrals: Aundrea Thrasher, DAYO [Primary Care Provider] -
--- NOTE | 2017-11-21 13:11 | Internal Med Progress Note ---
Date of Encounter: 11/21/17 Time of Encounter: 13:00 - Assessment and plan (1) Pulmonary embolism Current Visit: Yes Status: Acute Assessment and plan: Was previously on lovenox but has been switched to heparin drip dueto bleeding. Hematology recs appreciated for [facility] anticoagulation planning Qualifiers: Pulmonary embolism type: other Chronicity: acute Acute cor pulmonale presence: without acute cor pulmonale Qualified Code(s): I26.99 - Other pulmonary embolism without acute cor pulmonale (2) Hematoma Current Visit: Yes Status: Acute Assessment and plan: Went for surgery today (3) Acute blood loss anemia Current Visit: Yes Status: Acute Assessment and plan: is s/p transfusion. Anemia likley 2/2 to blood loss from hematoma. Monitr hemoglobin and transfuse prbc as indicated (4) Status post lumbar spinal fusion Current Visit: Yes Status: Acute Assessment and plan: postoperative care per Spine surgery; PT/PT recommends inpatient rehab; social work manager on board; (5) Hyperglycemia Current Visit: Yes Status: Resolved Assessment and plan: not a diabetic, blood sugars remain controlled; HbA1C 5.4%; will stop Accucheck blood glucose monitoring; (6) Acute kidney injury Current Visit: Yes Status: Resolved Assessment and plan: improved with IV hydration; monitor closely; (7) CAD (coronary artery disease) Current Visit: Yes Status: Chronic Assessment and plan: continue ASA, beta pooja, statin; Qualifiers: Coronary Disease-Associated Artery/Lesion type: [place] artery [place] vs. transplanted heart: [place] heart Associated angina: without angina Qualified Code(s): I25.10 - Atherosclerotic heart disease of [place] coronary artery without angina pectoris (8) Obesity hypoventilation syndrome Current Visit: Yes Status: Suspected Assessment and plan: Plan as per above. (9) Acute respiratory failure Current Visit: Yes Status: Resolved Assessment and plan: CTA chest showed left-sided PE; currently on heparin drip improving O2 requirements, saturating well on room air today; Venous Doppler of B/L LE showed no DVT. Echocardiogram shows preserved EF, moderate LV diastolic dysfunction, mild concentric LVH; Qualifiers: Respiratory failure complication: hypoxia Qualified Code(s): J96.01 - Acute respiratory failure with hypoxia - Time Spent With Patient Total time spent is greater than 50% in coordination of care (as documented) at patient's floor/unit and/or counseling patient: - Subjective Interval history: went for surgery this am - Constitutional Vitals: Temp Pulse Resp BP Pulse Ox 98.5 F 91 16 104/73 96 11/21/17 09:43 11/21/17 09:43 11/21/17 09:43 11/21/17 09:43 11/21/17 09:43 General appearance: Present: cooperative, A&O X 3, obese, answers questions appropriately - Head Head exam: Present: atraumatic, normocephalic - Eye Eye exam: Present: PERRL, conjuntiva pink, sclera anicteric Pupils: Present: PERRL - Neck Neck exam general surgery: Present: supple, trachea midline. Absent: lymphadenopathy - Respiratory Respiratory exam: Present: CTAB. Absent: accessory muscle use, rales, rhonchi, wheezes - Cardiovascular Cardiovascular exam: Present: RRR, +S1, +S2. Absent: diastolic murmur, gallop, rubs, systolic murmur - GI/Abdominal GI/Abdominal exam: Present: normal bowel sounds, soft, no peritoneal signs. Absent: distended, tenderness - Extremities Exam Extremities exam: Present: warm, radial pulses palpable and symmetrical. Absent : calf tenderness, cyanotic, pedal edema - Neurological Exam Neurological exam: Present: CN II-XII intact, oriented X3, no focal deficits. Absent: pronater drift, facial droop, speech deficit - Skin Skin exam: Present: dry, intact Internal Medicine: Result - Labs CBC & Chem 7: 11/21/17 05:04 11/21/17 05:04 Labs: Short CBC 11/21/17 Range/Units 05:04 WBC 16.0 H (4.3-11.1) K/mcL Hgb 7.7 L (12.9-16.9) g/dL Hct 24.2 L (37.5-50.1) % Plt Count 280 (140-400) K/mcL Neutrophils # 9.9 H (1.6-8.9) K/mcL BMP 11/21/17 05:04 Sodium 134 L Potassium 3.7 Chloride 102 Carbon Dioxide 27 BUN 23 H Creatinine 0.74 Glucose 110 H Calcium 8.0 L Cardiac Enzymes 11/20/17 Range/Units 14:10 Troponin I < 0.03 (< 0.04) ng/mL Liver Function 05/25/18 Range/Units 05:04 Total Bilirubin 1.3 H (0.3-1.0) mg/dL AST 42 H (13-39) Units/L ALT 25 (7-52) Units/L Alkaline Phosphatase 45 (34-104) Units/L Albumin 2.9 L (3.5-5.7) g/dL - ABG Interpretation ABG results: ABG ABG pH 7.38 pH Units (7.32-7.45) 11/14/17 01:12 ABG pCO2 51 mmHg (35-45) H 11/14/17 01:12 ABG pO2 69 mmHg (85-104) L 11/14/17 01:12 ABG O2 Saturation 93 % (95-98) L 11/14/17 01:12 PT/INR, D-dimer PT 14.6 Seconds (9.4-12.1) H 11/20/17 09:50 D-Dimer 2086 ng/mLFEU (0-500) H 11/14/17 13:34 - VTE Documentation of Mechanical Device: Intermittent pneumatic compression device Consult Discharge Plan - Plan Referrals: Aundrea Thrasher, MATERIALS SUPERVISOR [Primary Care Provider] -
[2017-11-21] MEDS ORDERED: *HR* Promethazine 25 MG/ML VIAL IVP PRN (13:26)
[2017-11-21] MEDS ORDERED: *HR* HYDROmorphone (PF) 1 MG/ML SYRINGE IVP PRN (13:26)
[2017-11-21] MEDS ORDERED: Neostigmine Methylsulfate 3 MG/3 ML SYRINGE ONE (13:44)
[2017-11-21] MEDS ORDERED: *HR* HYDROmorphone (PF) 1 MG/ML SYRINGE ONE (14:03)
[2017-11-21] MEDS ORDERED: Ondansetron 4 MG/2 ML VIAL ONE (14:14)
[2017-11-21] MEDS ORDERED: *HR* Midazolam HCl 5 MG/5 ML VIAL IVP PRN (16:03)
--- NOTE | 2017-11-21 16:49 | Oncology Inp Consult Note ---
<Shea Modi - Last Filed: 11/21/17 22:38> Date of Encounter: 11/21/17 - Data of Consult Requesting Physician: Bebeto Lombardo Primary Care Provider: Aundrea Thrasher - Consult Narrative Reason for consult: anticoagulation, bleed, thrombosis History of present illness: Mr. Marte is a 46 year old male seen today after surgical intervention for psoas hematoma, failed hardware, who initially underwent spinal fusion surgery on 11/11. He developed pulmonary embolus anticoagulated with subsequent Hgb drop , requiring transfusion support. Imaging findings since hospital stay reviewed. Per GI report he had a colonoscopy 06/15 which was normal. Hematology is consulted for recommendations on anticoagulation in this post surgical patient with hematoma. Please refer to Bere Marks's A/P for anticoag recommendations. Monitor Hgb/Hct transfusion support/surgery intervention as needed. I examined this patient and my medical decision-making was reviewed with the Advanced Practice Nurse, Bere Marks. I agree with the documented findings, disposition and treatment plan as described except to the extent set forth below. Medications and Allergies Aspirin [Lo-Dose Aspirin EC] 81 mg PO DAILY 11/08/16 [History] Pravastatin Sodium [Pravachol] 40 mg PO HS 11/08/16 [History] Trazodone HCl 300 mg PO HS 11/08/16 [History] Calcium Carbonate [Calcium] 600 mg PO BID 06/11/17 [History] Duloxetine HCl [Cymbalta] 120 mg PO DAILY 06/11/17 [History] Ergocalciferol (VITAMIN D2) [Vitamin D2] 400 unit PO BID 06/11/17 [History] Gabapentin [Neurontin] 1,800 mg PO BID 06/11/17 [History] Metoprolol [Lopressor] 50 mg PO BID 06/11/17 [History] Tizanidine HCl 16 mg PO HS 09/23/17 [History] Meloxicam [Mobic] 7.5 mg PO DAILY 11/12/17 [History] NIFEdipine [Nifedipine ER] 60 mg PO DAILY 11/12/17 [History] 3 Allergy/AdvReac Type Severity Reaction Status Date / Time Oxycodone AdvReac Hallucinati Verified 11/20/17 14:13 ng Review of systems: seen bedside after arrival post surgery, drowsy. c/o some discomfort using oxygen, breathing ok, no chest pain Oncology - Exam - Constitutional Vitals: Temp Pulse Resp BP Pulse Ox 98.0 F 100 18 145/82 96 11/21/17 20:25 11/21/17 20:25 11/21/17 20:25 11/21/17 20:25 11/21/17 20:25 General appearance: cooperative - Head Head exam: Present: atraumatic, normal inspection - Eye Eye exam: Present: conjuntiva pink - ENT ENT exam: Present: mucous membranes moist - Neck Neck exam: Present: full ROM - Respiratory Respiratory exam: Present: CTAB - Cardiovascular Cardiovascular exam: Present: +S1, +S2, systolic murmur - GI/Abdominal GI/Abdominal exam: Present: distended, normal bowel sounds, soft - Extremities Exam Extremities exam: Present: normal inspection - Neurological Exam Neurological exam: Present: alert, altered, no focal deficits - Psychiatric Psychiatric exam: Present: normal affect - Skin Skin exam: Present: normal color Oncology - Results Labs: 11/21/17 11/21/17 11/21/17 20:34 18:19 18:19 WBC RBC Hgb Hct MCV MCH MCHC RDW Plt Count MPV Immature Gran % Seg Neutrophils % Band Neutrophils % Lymphocytes % Monocytes % Eosinophils % Basophils % Neutrophils # Lymphocytes # Monocytes # Eosinophils # Basophils # Nucleated RBCs/100 WBC Platelet Estimate Immature Plt Fraction Polychromasia Anisocytosis Macrocytosis ESR PT INR APTT 23.4 L D VBG pH Sodium Potassium Chloride Carbon Dioxide BUN Creatinine Est GFR ( Amer) Est GFR (Non-Af Amer) BUN/Creatinine Ratio Glucose POC Glucose 150 H Calculated Osmolality Lactic Acid Calcium Venous Ioniz Calcium Phosphorus Magnesium Iron % Saturation Transferrin Ferritin Total Bilirubin Direct Bilirubin Indirect Bilirubin AST ALT Alkaline Phosphatase Ammonia Lactate Dehydrogenase Troponin I C-Reactive Protein Serum Total Protein Albumin Globulin Albumin/Globulin Ratio Amylase Lipase Vitamin B12 Folate Urine Color Urine Clarity Urine pH Ur Specific [place] Urine Protein Urine Glucose (UA) Urine Ketones Urine Blood Urine Nitrite Urine Bilirubin Urine Urobilinogen Ur Leukocyte Esterase Urine Microscopic RBC Urine Microscopic WBC Ur Squamous Epith Cells Urine Bacteria Hyaline Casts Urine Sperm Stool Occult Blood Blood Type Antibody Screen CHARLY, Poly Interpret NEG Crossmatch 11/21/17 11/21/17 11/21/17 18:19 18:12 16:19 WBC RBC Hgb 8.5 L Hct 25.7 L MCV MCH MCHC RDW Plt Count MPV Immature Gran % Seg Neutrophils % Band Neutrophils % Lymphocytes % Monocytes % Eosinophils % Basophils % Neutrophils # Lymphocytes # Monocytes # Eosinophils # Basophils # Nucleated RBCs/100 WBC Platelet Estimate Immature Plt Fraction Polychromasia Anisocytosis Macrocytosis ESR PT INR APTT VBG pH Sodium Potassium Chloride Carbon Dioxide BUN Creatinine Est GFR ( Amer) Est GFR (Non-Af Amer) BUN/Creatinine Ratio Glucose POC Glucose 143 H Calculated Osmolality Lactic Acid Calcium Venous Ioniz Calcium Phosphorus Magnesium Iron % Saturation Transferrin Ferritin Total Bilirubin Direct Bilirubin Indirect Bilirubin AST ALT Alkaline Phosphatase Ammonia Lactate Dehydrogenase Troponin I C-Reactive Protein Serum Total Protein Albumin Globulin Albumin/Globulin Ratio Amylase Lipase Vitamin B12 289 Folate 11.6 Urine Color Urine Clarity Urine pH Ur Specific [place] Urine Protein Urine Glucose (UA) Urine Ketones Urine Blood Urine Nitrite Urine Bilirubin Urine Urobilinogen Ur Leukocyte Esterase Urine Microscopic RBC Urine Microscopic WBC Ur Squamous Epith Cells Urine Bacteria Hyaline Casts Urine Sperm Stool Occult Blood Blood Type Antibody Screen CHARLY, Poly Interpret Crossmatch 11/21/17 11/21/17 11/21/17 11:22 07:44 05:29 WBC RBC Hgb Hct MCV MCH MCHC RDW Plt Count MPV Immature Gran % Seg Neutrophils % Band Neutrophils % Lymphocytes % Monocytes % Eosinophils % Basophils % Neutrophils # Lymphocytes # Monocytes # Eosinophils # Basophils # Nucleated RBCs/100 WBC Platelet Estimate Immature Plt Fraction Polychromasia Anisocytosis Macrocytosis ESR PT INR APTT VBG pH 7.35 Sodium Potassium Chloride Carbon Dioxide BUN Creatinine Est GFR ( Amer) Est GFR (Non-Af Amer) BUN/Creatinine Ratio Glucose POC Glucose 101 H Calculated Osmolality Lactic Acid Calcium Venous Ioniz Calcium 1.10 L Phosphorus Magnesium Iron % Saturation Transferrin Ferritin Total Bilirubin Direct Bilirubin Indirect Bilirubin AST ALT Alkaline Phosphatase Ammonia Lactate Dehydrogenase Troponin I C-Reactive Protein Serum Total Protein Albumin Globulin Albumin/Globulin Ratio Amylase Lipase Vitamin B12 Folate Urine Color Urine Clarity Urine pH Ur Specific [place] Urine Protein Urine Glucose (UA) Urine Ketones Urine Blood Urine Nitrite Urine Bilirubin Urine Urobilinogen Ur Leukocyte Esterase Urine Microscopic RBC Urine Microscopic WBC Ur Squamous Epith Cells Urine Bacteria Hyaline Casts Urine Sperm Stool Occult Blood Blood Type A POSITIVE Antibody Screen NEGATIVE CHARLY, Poly Interpret Crossmatch See Detail 11/21/17 11/21/17 11/21/17 05:04 05:04 05:04 WBC 16.0 H RBC 2.61 L Hgb 7.7 L Hct 24.2 L MCV 92.7 MCH 29.5 MCHC 31.8 RDW 15.3 H Plt Count 280 MPV 10.2 Immature Gran % Seg Neutrophils % 60.0 Band Neutrophils % 2.0 Lymphocytes % 30.0 Monocytes % 6.0 Eosinophils % 2.0 Basophils % Neutrophils # 9.9 H Lymphocytes # 4.8 H Monocytes # 1.0 Eosinophils # 0.3 Basophils # Nucleated RBCs/100 WBC 0.9 H Platelet Estimate Normal Immature Plt Fraction Polychromasia Anisocytosis Macrocytosis ESR PT INR APTT VBG pH Sodium 134 L Potassium 3.7 Chloride 102 Carbon Dioxide 27 BUN 23 H Creatinine 0.74 Est GFR ( Amer) > 60 Est GFR (Non-Af Amer) > 60 BUN/Creatinine Ratio 31 H Glucose 110 H POC Glucose Calculated Osmolality 282 Lactic Acid 0.9 Calcium 8.0 L Venous Ioniz Calcium Phosphorus Magnesium 1.9 Iron % Saturation Transferrin Ferritin Total Bilirubin 1.3 H Direct Bilirubin Indirect Bilirubin AST 42 H ALT 25 Alkaline Phosphatase 45 Ammonia Lactate Dehydrogenase Troponin I C-Reactive Protein Serum Total Protein 5.6 L Albumin 2.9 L Globulin 2.7 Albumin/Globulin Ratio 1.1 Amylase Lipase Vitamin B12 Folate Urine Color Urine Clarity Urine pH Ur Specific [place] Urine Protein Urine Glucose (UA) Urine Ketones Urine Blood Urine Nitrite Urine Bilirubin Urine Urobilinogen Ur Leukocyte Esterase Urine Microscopic RBC Urine Microscopic WBC Ur Squamous Epith Cells Urine Bacteria Hyaline Casts Urine Sperm Stool Occult Blood Blood Type Antibody Screen CHARLY, Poly Interpret Crossmatch 11/20/17 11/20/17 11/20/17 23:21 17:25 15:30 WBC RBC Hgb Hct MCV MCH MCHC RDW Plt Count MPV Immature Gran % Seg Neutrophils % Band Neutrophils % Lymphocytes % Monocytes % Eosinophils % Basophils % Neutrophils # Lymphocytes # Monocytes # Eosinophils # Basophils # Nucleated RBCs/100 WBC Platelet Estimate Immature Plt Fraction Polychromasia Anisocytosis Macrocytosis ESR PT INR APTT 88.5 H D 47.1 H VBG pH Sodium Potassium Chloride Carbon Dioxide BUN Creatinine Est GFR ( Amer) Est GFR (Non-Af Amer) BUN/Creatinine Ratio Glucose POC Glucose 131 H Calculated Osmolality Lactic Acid Calcium Venous Ioniz Calcium Phosphorus Magnesium Iron % Saturation Transferrin Ferritin Total Bilirubin Direct Bilirubin Indirect Bilirubin AST ALT Alkaline Phosphatase Ammonia Lactate Dehydrogenase Troponin I C-Reactive Protein Serum Total Protein Albumin Globulin Albumin/Globulin Ratio Amylase Lipase Vitamin B12 Folate Urine Color Urine Clarity Urine pH Ur Specific [place] Urine Protein Urine Glucose (UA) Urine Ketones Urine Blood Urine Nitrite Urine Bilirubin Urine Urobilinogen Ur Leukocyte Esterase Urine Microscopic RBC Urine Microscopic WBC Ur Squamous Epith Cells Urine Bacteria Hyaline Casts Urine Sperm Stool Occult Blood Blood Type Antibody Screen CHARLY, Poly Interpret Crossmatch 11/20/17 11/20/17 11/20/17 14:10 11:47 09:50 WBC RBC Hgb Hct MCV MCH MCHC RDW Plt Count MPV Immature Gran % Seg Neutrophils % Band Neutrophils % Lymphocytes % Monocytes % Eosinophils % Basophils % Neutrophils # Lymphocytes # Monocytes # Eosinophils # Basophils # Nucleated RBCs/100 WBC Platelet Estimate Immature Plt Fraction Polychromasia Anisocytosis Macrocytosis ESR PT 14.6 H INR 1.3 APTT 32.7 VBG pH Sodium Potassium Chloride Carbon Dioxide BUN Creatinine Est GFR ( Amer) Est GFR (Non-Af Amer) BUN/Creatinine Ratio Glucose POC Glucose 118 H Calculated Osmolality Lactic Acid Calcium Venous Ioniz Calcium Phosphorus Magnesium Iron % Saturation Transferrin Ferritin Total Bilirubin Direct Bilirubin Indirect Bilirubin AST ALT Alkaline Phosphatase Ammonia Lactate Dehydrogenase Troponin I < 0.03 C-Reactive Protein Serum Total Protein Albumin Globulin Albumin/Globulin Ratio Amylase Lipase Vitamin B12 Folate Urine Color Urine Clarity Urine pH Ur Specific [place] Urine Protein Urine Glucose (UA) Urine Ketones Urine Blood Urine Nitrite Urine Bilirubin Urine Urobilinogen Ur Leukocyte Esterase Urine Microscopic RBC Urine Microscopic WBC Ur Squamous Epith Cells Urine Bacteria Hyaline Casts Urine Sperm Stool Occult Blood Blood Type Antibody Screen CHARLY, Poly Interpret Crossmatch 11/20/17 11/20/17 11/20/17 09:50 04:36 04:20 WBC 14.8 H RBC 2.50 L Hgb 7.8 L D Hct 22.7 L MCV 90.8 MCH 31.2 MCHC 34.4 RDW 15.2 H Plt Count 248 D MPV 10.0 Immature Gran % Seg Neutrophils % Band Neutrophils % Lymphocytes % Monocytes % Eosinophils % Basophils % Neutrophils # Lymphocytes # Monocytes # Eosinophils # Basophils # Nucleated RBCs/100 WBC Platelet Estimate Immature Plt Fraction Polychromasia Anisocytosis Macrocytosis ESR PT INR APTT VBG pH Sodium Potassium Chloride Carbon Dioxide BUN Creatinine Est GFR ( Amer) Est GFR (Non-Af Amer) BUN/Creatinine Ratio Glucose POC Glucose Calculated Osmolality Lactic Acid 1.3 Calcium Venous Ioniz Calcium 1.09 L Phosphorus Magnesium Iron % Saturation Transferrin Ferritin Total Bilirubin Direct Bilirubin Indirect Bilirubin AST ALT Alkaline Phosphatase Ammonia Lactate Dehydrogenase Troponin I C-Reactive Protein Serum Total Protein Albumin Globulin Albumin/Globulin Ratio Amylase Lipase Vitamin B12 Folate Urine Color Urine Clarity Urine pH Ur Specific [place] Urine Protein Urine Glucose (UA) Urine Ketones Urine Blood Urine Nitrite Urine Bilirubin Urine Urobilinogen Ur Leukocyte Esterase Urine Microscopic RBC Urine Microscopic WBC Ur Squamous Epith Cells Urine Bacteria Hyaline Casts Urine Sperm Stool Occult Blood Blood Type Antibody Screen CHARLY, Poly Interpret Crossmatch 11/20/17 11/20/17 11/19/17 04:20 04:20 20:02 WBC 12.6 H D RBC 2.94 L Hgb 9.5 L D Hct 27.4 L MCV 93.2 MCH 32.3 MCHC 34.7 RDW 12.4 Plt Count 147 D MPV 10.1 Immature Gran % 0.7 Seg Neutrophils % 71.0 Band Neutrophils % Lymphocytes % 15.4 Monocytes % 11.6 Eosinophils % 1.0 Basophils % 0.3 Neutrophils # 9.0 H Lymphocytes # 1.9 Monocytes # 1.5 H Eosinophils # 0.1 Basophils # 0.0 Nucleated RBCs/100 WBC Platelet Estimate Immature Plt Fraction Polychromasia Anisocytosis Macrocytosis ESR PT INR APTT VBG pH Sodium 134 L Potassium 4.6 Chloride 100 Carbon Dioxide 30 H BUN 29 H Creatinine 0.92 Est GFR ( Amer) > 60 Est GFR (Non-Af Amer) > 60 BUN/Creatinine Ratio 32 H Glucose 211 H POC Glucose 138 H Calculated Osmolality 290 Lactic Acid Calcium 8.3 L Venous Ioniz Calcium Phosphorus 3.0 Magnesium 2.0 Iron % Saturation Transferrin Ferritin Total Bilirubin 0.5 Direct Bilirubin Indirect Bilirubin AST 32 ALT 38 Alkaline Phosphatase 46 Ammonia Lactate Dehydrogenase Troponin I 1.01 H* C-Reactive Protein Serum Total Protein 5.9 L Albumin 3.2 L Globulin 2.7 Albumin/Globulin Ratio 1.2 Amylase Lipase Vitamin B12 Folate Urine Color Urine Clarity Urine pH Ur Specific [place] Urine Protein Urine Glucose (UA) Urine Ketones Urine Blood Urine Nitrite Urine Bilirubin Urine Urobilinogen Ur Leukocyte Esterase Urine Microscopic RBC Urine Microscopic WBC Ur Squamous Epith Cells Urine Bacteria Hyaline Casts Urine Sperm Stool Occult Blood Blood Type Antibody Screen CHARLY, Poly Interpret Crossmatch 11/19/17 11/19/17 11/19/17 19:30 17:38 17:38 WBC RBC Hgb Hct MCV MCH MCHC RDW Plt Count MPV Immature Gran % Seg Neutrophils % Band Neutrophils % Lymphocytes % Monocytes % Eosinophils % Basophils % Neutrophils # Lymphocytes # Monocytes # Eosinophils # Basophils # Nucleated RBCs/100 WBC Platelet Estimate Immature Plt Fraction Polychromasia Anisocytosis Macrocytosis ESR 36 H PT INR APTT VBG pH Sodium Potassium Chloride Carbon Dioxide BUN Creatinine Est GFR ( Amer) Est GFR (Non-Af Amer) BUN/Creatinine Ratio Glucose POC Glucose Calculated Osmolality Lactic Acid Calcium Venous Ioniz Calcium Phosphorus Magnesium Iron % Saturation Transferrin Ferritin Total Bilirubin 1.7 H Direct Bilirubin 0.6 H Indirect Bilirubin 1.1 AST 55 H ALT 25 Alkaline Phosphatase 44 Ammonia Lactate Dehydrogenase 276 H Troponin I C-Reactive Protein 162 H Serum Total Protein 5.5 L Albumin 2.9 L Globulin 2.6 Albumin/Globulin Ratio 1.1 Amylase 59 Lipase 34 Vitamin B12 Folate Urine Color Urine Clarity Urine pH Ur Specific [place] Urine Protein Urine Glucose (UA) Urine Ketones Urine Blood Urine Nitrite Urine Bilirubin Urine Urobilinogen Ur Leukocyte Esterase Urine Microscopic RBC Urine Microscopic WBC Ur Squamous Epith Cells Urine Bacteria Hyaline Casts Urine Sperm Stool Occult Blood Blood Type A POSITIVE Antibody Screen NEGATIVE CHARLY, Poly Interpret Crossmatch See Detail 11/19/17 11/19/17 11/19/17 17:20 15:39 13:36 WBC RBC Hgb 6.8 L Hct 20.1 L MCV MCH MCHC RDW Plt Count MPV Immature Gran % Seg Neutrophils % Band Neutrophils % Lymphocytes % Monocytes % Eosinophils % Basophils % Neutrophils # Lymphocytes # Monocytes # Eosinophils # Basophils # Nucleated RBCs/100 WBC Platelet Estimate Immature Plt Fraction Polychromasia Anisocytosis Macrocytosis ESR PT INR APTT VBG pH Sodium Potassium Chloride Carbon Dioxide BUN Creatinine Est GFR ( Amer) Est GFR (Non-Af Amer) BUN/Creatinine Ratio Glucose POC Glucose 126 H Calculated Osmolality Lactic Acid Calcium Venous Ioniz Calcium Phosphorus Magnesium Iron % Saturation Transferrin Ferritin Total Bilirubin Direct Bilirubin Indirect Bilirubin AST ALT Alkaline Phosphatase Ammonia 44 Lactate Dehydrogenase Troponin I C-Reactive Protein Serum Total Protein Albumin Globulin Albumin/Globulin Ratio Amylase Lipase Vitamin B12 Folate Urine Color Urine Clarity Urine pH Ur Specific [place] Urine Protein Urine Glucose (UA) Urine Ketones Urine Blood Urine Nitrite Urine Bilirubin Urine Urobilinogen Ur Leukocyte Esterase Urine Microscopic RBC Urine Microscopic WBC Ur Squamous Epith Cells Urine Bacteria Hyaline Casts Urine Sperm Stool Occult Blood Blood Type Antibody Screen CHARLY, Poly Interpret Crossmatch 11/19/17 11/19/17 11/19/17 13:36 11:00 09:46 WBC 26.3 H D RBC 2.60 L Hgb 8.1 L Hct 23.5 L MCV 90.4 MCH 31.2 MCHC 34.5 RDW 14.9 H Plt Count 341 D MPV 10.9 Immature Gran % Seg Neutrophils % 72.0 Band Neutrophils % Lymphocytes % 12.0 Monocytes % 16.0 Eosinophils % Basophils % Neutrophils # 18.9 H Lymphocytes # 3.2 Monocytes # 4.2 H Eosinophils # Basophils # Nucleated RBCs/100 WBC 0.6 H Platelet Estimate Normal Immature Plt Fraction 5.5 Polychromasia 1+ A Anisocytosis 1+ A Macrocytosis Present A ESR PT INR APTT VBG pH Sodium Potassium Chloride Carbon Dioxide BUN Creatinine Est GFR ( Amer) Est GFR (Non-Af Amer) BUN/Creatinine Ratio Glucose POC Glucose Calculated Osmolality Lactic Acid 1.3 Calcium Venous Ioniz Calcium Phosphorus Magnesium Iron % Saturation Transferrin Ferritin Total Bilirubin Direct Bilirubin Indirect Bilirubin AST ALT Alkaline Phosphatase Ammonia Lactate Dehydrogenase Troponin I < 0.03 C-Reactive Protein Serum Total Protein Albumin Globulin Albumin/Globulin Ratio Amylase Lipase Vitamin B12 Folate Urine Color Urine Clarity Urine pH Ur Specific [place] Urine Protein Urine Glucose (UA) Urine Ketones Urine Blood Urine Nitrite Urine Bilirubin Urine Urobilinogen Ur Leukocyte Esterase Urine Microscopic RBC Urine Microscopic WBC Ur Squamous Epith Cells Urine Bacteria Hyaline Casts Urine Sperm Stool Occult Blood Blood Type Antibody Screen CHARLY, Poly Interpret Crossmatch 11/19/17 11/18/17 11/18/17 08:55 20:58 17:43 WBC RBC Hgb Hct MCV MCH MCHC RDW Plt Count MPV Immature Gran % Seg Neutrophils % Band Neutrophils % Lymphocytes % Monocytes % Eosinophils % Basophils % Neutrophils # Lymphocytes # Monocytes # Eosinophils # Basophils # Nucleated RBCs/100 WBC Platelet Estimate Immature Plt Fraction Polychromasia Anisocytosis Macrocytosis ESR PT INR APTT VBG pH Sodium 133 L Potassium 4.1 Chloride 99 Carbon Dioxide 22 L BUN 41 H Creatinine 1.11 Est GFR ( Amer) > 60 Est GFR (Non-Af Amer) > 60 BUN/Creatinine Ratio 37 H Glucose 123 H POC Glucose 142 H 145 H Calculated Osmolality 287 Lactic Acid Calcium 8.5 L Venous Ioniz Calcium Phosphorus Magnesium Iron % Saturation Transferrin Ferritin Total Bilirubin Direct Bilirubin Indirect Bilirubin AST ALT Alkaline Phosphatase Ammonia Lactate Dehydrogenase Troponin I Cancelled C-Reactive Protein Serum Total Protein Albumin Globulin Albumin/Globulin Ratio Amylase Lipase Vitamin B12 Folate Urine Color Urine Clarity Urine pH Ur Specific [place] Urine Protein Urine Glucose (UA) Urine Ketones Urine Blood Urine Nitrite Urine Bilirubin Urine Urobilinogen Ur Leukocyte Esterase Urine Microscopic RBC Urine Microscopic WBC Ur Squamous Epith Cells Urine Bacteria Hyaline Casts Urine Sperm Stool Occult Blood Blood Type Antibody Screen CHARLY, Poly Interpret Crossmatch 11/18/17 11/18/17 11/18/17 15:15 12:30 01:08 WBC RBC Hgb Hct MCV MCH MCHC RDW Plt Count MPV Immature Gran % Seg Neutrophils % Band Neutrophils % Lymphocytes % Monocytes % Eosinophils % Basophils % Neutrophils # Lymphocytes # Monocytes # Eosinophils # Basophils # Nucleated RBCs/100 WBC Platelet Estimate Immature Plt Fraction Polychromasia Anisocytosis Macrocytosis ESR PT INR APTT VBG pH Sodium 139 Potassium 4.4 Chloride 103 Carbon Dioxide 26 BUN 24 H Creatinine 0.95 Est GFR ( Amer) > 60 Est GFR (Non-Af Amer) > 60 BUN/Creatinine Ratio 25 Glucose 149 H POC Glucose Calculated Osmolality 295 Lactic Acid 1.6 Calcium 8.6 Venous Ioniz Calcium Phosphorus Magnesium Iron % Saturation Transferrin Ferritin Total Bilirubin Direct Bilirubin Indirect Bilirubin AST ALT Alkaline Phosphatase Ammonia Lactate Dehydrogenase Troponin I C-Reactive Protein Serum Total Protein Albumin Globulin Albumin/Globulin Ratio Amylase Lipase Vitamin B12 Folate Urine Color Dark Yellow Urine Clarity Cloudy A Urine pH 7.0 Ur Specific [place] 1.021 Urine Protein 30 H Urine Glucose (UA) Normal Urine Ketones 15 H Urine Blood Large H Urine Nitrite Negative Urine Bilirubin Negative Urine Urobilinogen Normal Ur Leukocyte Esterase Negative Urine Microscopic RBC TNTC H Urine Microscopic WBC 3-5 H Ur Squamous Epith Cells Many H Urine Bacteria None Seen Hyaline Casts Few Urine Sperm Present Stool Occult Blood Blood Type Antibody Screen CHARLY, Poly Interpret Crossmatch 11/18/17 11/18/17 11/17/17 01:08 00:19 17:26 WBC 13.7 H RBC 3.04 L Hgb 9.5 L Hct 27.4 L MCV 90.1 MCH 31.3 MCHC 34.7 RDW 13.9 Plt Count 223 MPV 10.6 Immature Gran % 1.8 Seg Neutrophils % 82.7 Band Neutrophils % Lymphocytes % 7.4 Monocytes % 7.8 Eosinophils % 0.1 Basophils % 0.2 Neutrophils # 11.4 H Lymphocytes # 1.0 Monocytes # 1.1 Eosinophils # 0.0 Basophils # 0.0 Nucleated RBCs/100 WBC 0.3 H Platelet Estimate Immature Plt Fraction Polychromasia Anisocytosis Macrocytosis ESR PT INR APTT VBG pH Sodium 136 Potassium 3.8 Chloride 101 Carbon Dioxide 29 BUN 19 Creatinine 0.94 Est GFR ( Amer) > 60 Est GFR (Non-Af Amer) > 60 BUN/Creatinine Ratio 20 Glucose 144 H POC Glucose 150 H Calculated Osmolality 287 Lactic Acid Calcium 8.8 Venous Ioniz Calcium Phosphorus Magnesium Iron % Saturation Transferrin Ferritin Total Bilirubin Direct Bilirubin Indirect Bilirubin AST ALT Alkaline Phosphatase Ammonia Lactate Dehydrogenase Troponin I C-Reactive Protein Serum Total Protein Albumin Globulin Albumin/Globulin Ratio Amylase Lipase Vitamin B12 Folate Urine Color Urine Clarity Urine pH Ur Specific [place] Urine Protein Urine Glucose (UA) Urine Ketones Urine Blood Urine Nitrite Urine Bilirubin Urine Urobilinogen Ur Leukocyte Esterase Urine Microscopic RBC Urine Microscopic WBC Ur Squamous Epith Cells Urine Bacteria Hyaline Casts Urine Sperm Stool Occult Blood Blood Type Antibody Screen CHARLY, Poly Interpret Crossmatch 11/17/17 11/17/17 11/17/17 13:11 09:50 06:12 WBC RBC Hgb Hct MCV MCH MCHC RDW Plt Count MPV Immature Gran % Seg Neutrophils % Band Neutrophils % Lymphocytes % Monocytes % Eosinophils % Basophils % Neutrophils # Lymphocytes # Monocytes # Eosinophils # Basophils # Nucleated RBCs/100 WBC Platelet Estimate Immature Plt Fraction Polychromasia Anisocytosis Macrocytosis ESR PT INR APTT VBG pH Sodium Potassium Chloride Carbon Dioxide BUN Creatinine Est GFR ( Amer) Est GFR (Non-Af Amer) BUN/Creatinine Ratio Glucose POC Glucose 107 H 90 Calculated Osmolality Lactic Acid Calcium Venous Ioniz Calcium Phosphorus Magnesium Iron % Saturation Transferrin Ferritin Total Bilirubin Direct Bilirubin Indirect Bilirubin AST ALT Alkaline Phosphatase Ammonia Lactate Dehydrogenase Troponin I C-Reactive Protein Serum Total Protein Albumin Globulin Albumin/Globulin Ratio Amylase Lipase Vitamin B12 Folate Urine Color Urine Clarity Urine pH Ur Specific [place] Urine Protein Urine Glucose (UA) Urine Ketones Urine Blood Urine Nitrite Urine Bilirubin Urine Urobilinogen Ur Leukocyte Esterase Urine Microscopic RBC Urine Microscopic WBC Ur Squamous Epith Cells Urine Bacteria Hyaline Casts Urine Sperm Stool Occult Blood Positive A Blood Type Antibody Screen CHARLY, Poly Interpret Crossmatch 11/17/17 11/16/17 11/16/17 01:20 11:47 08:01 WBC 9.5 RBC 3.26 L Hgb 10.1 L D Hct 28.6 L MCV 87.7 MCH 31.0 MCHC 35.3 RDW 13.4 Plt Count 154 MPV 11.3 Immature Gran % 1.8 Seg Neutrophils % 69.0 Band Neutrophils % Lymphocytes % 18.4 Monocytes % 9.0 Eosinophils % 1.5 Basophils % 0.3 Neutrophils # 6.6 Lymphocytes # 1.8 Monocytes # 0.9 Eosinophils # 0.1 Basophils # 0.0 Nucleated RBCs/100 WBC 0.3 H Platelet Estimate Immature Plt Fraction Polychromasia Anisocytosis Macrocytosis ESR PT INR APTT VBG pH Sodium Potassium Chloride Carbon Dioxide BUN Creatinine Est GFR ( Amer) Est GFR (Non-Af Amer) BUN/Creatinine Ratio Glucose POC Glucose 121 H 107 H Calculated Osmolality Lactic Acid Calcium Venous Ioniz Calcium Phosphorus Magnesium Iron % Saturation Transferrin Ferritin Total Bilirubin Direct Bilirubin Indirect Bilirubin AST ALT Alkaline Phosphatase Ammonia Lactate Dehydrogenase Troponin I C-Reactive Protein Serum Total Protein Albumin Globulin Albumin/Globulin Ratio Amylase Lipase Vitamin B12 Folate Urine Color Urine Clarity Urine pH Ur Specific [place] Urine Protein Urine Glucose (UA) Urine Ketones Urine Blood Urine Nitrite Urine Bilirubin Urine Urobilinogen Ur Leukocyte Esterase Urine Microscopic RBC Urine Microscopic WBC Ur Squamous Epith Cells Urine Bacteria Hyaline Casts Urine Sperm Stool Occult Blood Blood Type Antibody Screen CHARLY, Poly Interpret Crossmatch 11/16/17 11/16/17 11/15/17 01:25 01:25 21:58 WBC 8.4 RBC 2.51 L Hgb 8.0 L Hct 23.1 L MCV 92.0 MCH 31.9 MCHC 34.6 RDW 12.5 Plt Count 106 L MPV 11.1 Immature Gran % 0.7 Seg Neutrophils % 70.6 Band Neutrophils % Lymphocytes % 20.1 Monocytes % 7.1 Eosinophils % 1.4 Basophils % 0.1 Neutrophils # 6.0 Lymphocytes # 1.7 Monocytes # 0.6 Eosinophils # 0.1 Basophils # 0.0 Nucleated RBCs/100 WBC 0.4 H Platelet Estimate Immature Plt Fraction Polychromasia Anisocytosis Macrocytosis ESR PT INR APTT VBG pH Sodium 137 Potassium 4.2 Chloride 103 Carbon Dioxide 30 H BUN 15 Creatinine 0.90 Est GFR ( Amer) > 60 Est GFR (Non-Af Amer) > 60 BUN/Creatinine Ratio 17 Glucose 106 H POC Glucose 103 H Calculated Osmolality 285 Lactic Acid Calcium 8.0 L Venous Ioniz Calcium Phosphorus Magnesium Iron % Saturation Transferrin Ferritin Total Bilirubin Direct Bilirubin Indirect Bilirubin AST ALT Alkaline Phosphatase Ammonia Lactate Dehydrogenase Troponin I C-Reactive Protein Serum Total Protein Albumin Globulin Albumin/Globulin Ratio Amylase Lipase Vitamin B12 Folate Urine Color Urine Clarity Urine pH Ur Specific [place] Urine Protein Urine Glucose (UA) Urine Ketones Urine Blood Urine Nitrite Urine Bilirubin Urine Urobilinogen Ur Leukocyte Esterase Urine Microscopic RBC Urine Microscopic WBC Ur Squamous Epith Cells Urine Bacteria Hyaline Casts Urine Sperm Stool Occult Blood Blood Type Antibody Screen CHARLY, Poly Interpret Crossmatch 11/15/17 11/15/17 11/15/17 16:03 15:36 11:30 WBC RBC Hgb Hct MCV MCH MCHC RDW Plt Count MPV Immature Gran % Seg Neutrophils % Band Neutrophils % Lymphocytes % Monocytes % Eosinophils % Basophils % Neutrophils # Lymphocytes # Monocytes # Eosinophils # Basophils # Nucleated RBCs/100 WBC Platelet Estimate Immature Plt Fraction Polychromasia Anisocytosis Macrocytosis ESR PT INR APTT VBG pH Sodium Potassium Chloride Carbon Dioxide BUN Creatinine Est GFR ( Amer) Est GFR (Non-Af Amer) BUN/Creatinine Ratio Glucose POC Glucose 99 101 H Calculated Osmolality Lactic Acid Calcium Venous Ioniz Calcium Phosphorus Magnesium Iron 24 L % Saturation 10 L Transferrin 165 L Ferritin 171 Total Bilirubin Direct Bilirubin Indirect Bilirubin AST ALT Alkaline Phosphatase Ammonia Lactate Dehydrogenase Troponin I C-Reactive Protein Serum Total Protein Albumin Globulin Albumin/Globulin Ratio Amylase Lipase Vitamin B12 Folate Urine Color Urine Clarity Urine pH Ur Specific [place] Urine Protein Urine Glucose (UA) Urine Ketones Urine Blood Urine Nitrite Urine Bilirubin Urine Urobilinogen Ur Leukocyte Esterase Urine Microscopic RBC Urine Microscopic WBC Ur Squamous Epith Cells Urine Bacteria Hyaline Casts Urine Sperm Stool Occult Blood Blood Type Antibody Screen CHARLY, Poly Interpret Crossmatch 11/15/17 11/15/17 11/15/17 08:01 07:29 00:40 WBC RBC Hgb Hct MCV MCH MCHC RDW Plt Count MPV Immature Gran % Seg Neutrophils % Band Neutrophils % Lymphocytes % Monocytes % Eosinophils % Basophils % Neutrophils # Lymphocytes # Monocytes # Eosinophils # Basophils # Nucleated RBCs/100 WBC Platelet Estimate Immature Plt Fraction Polychromasia Anisocytosis Macrocytosis ESR PT INR APTT VBG pH Sodium 136 Potassium 4.7 Chloride 106 Carbon Dioxide 25 BUN 21 H Creatinine 0.96 Est GFR ( Amer) > 60 Est GFR (Non-Af Amer) > 60 BUN/Creatinine Ratio 22 Glucose 115 H POC Glucose 86 Calculated Osmolality 286 Lactic Acid Calcium 7.7 L Venous Ioniz Calcium Phosphorus Magnesium Iron % Saturation Transferrin Ferritin Total Bilirubin Direct Bilirubin Indirect Bilirubin AST ALT Alkaline Phosphatase Ammonia Lactate Dehydrogenase Troponin I C-Reactive Protein Serum Total Protein Albumin Globulin Albumin/Globulin Ratio Amylase Lipase Vitamin B12 Folate Urine Color Urine Clarity Urine pH Ur Specific [place] Urine Protein Urine Glucose (UA) Urine Ketones Urine Blood Urine Nitrite Urine Bilirubin Urine Urobilinogen Ur Leukocyte Esterase Urine Microscopic RBC Urine Microscopic WBC Ur Squamous Epith Cells Urine Bacteria Hyaline Casts Urine Sperm Stool Occult Blood Blood Type A POSITIVE Antibody Screen NEGATIVE CHARLY, Poly Interpret Crossmatch See Detail 11/15/17 11/14/17 11/14/17 00:40 20:10 16:19 WBC 11.0 RBC 2.76 L Hgb 8.7 L D Hct 24.9 L MCV 90.2 MCH 31.5 MCHC 34.9 RDW 12.4 Plt Count 97 L MPV 11.4 Immature Gran % 0.5 Seg Neutrophils % 76.5 Band Neutrophils % Lymphocytes % 13.6 Monocytes % 8.7 Eosinophils % 0.5 Basophils % 0.2 Neutrophils # 8.4 Lymphocytes # 1.5 Monocytes # 1.0 Eosinophils # 0.1 Basophils # 0.0 Nucleated RBCs/100 WBC Platelet Estimate Decreased L Immature Plt Fraction 7.1 H Polychromasia Anisocytosis Macrocytosis ESR PT INR APTT VBG pH Sodium Potassium Chloride Carbon Dioxide BUN Creatinine Est GFR ( Amer) Est GFR (Non-Af Amer) BUN/Creatinine Ratio Glucose POC Glucose 241 H 120 H Calculated Osmolality Lactic Acid Calcium Venous Ioniz Calcium Phosphorus Magnesium Iron % Saturation Transferrin Ferritin Total Bilirubin Direct Bilirubin Indirect Bilirubin AST ALT Alkaline Phosphatase Ammonia Lactate Dehydrogenase Troponin I C-Reactive Protein Serum Total Protein Albumin Globulin Albumin/Globulin Ratio Amylase Lipase Vitamin B12 Folate Urine Color Urine Clarity Urine pH Ur Specific [place] Urine Protein Urine Glucose (UA) Urine Ketones Urine Blood Urine Nitrite Urine Bilirubin Urine Urobilinogen Ur Leukocyte Esterase Urine Microscopic RBC Urine Microscopic WBC Ur Squamous Epith Cells Urine Bacteria Hyaline Casts Urine Sperm Stool Occult Blood Blood Type Antibody Screen CHARLY, Poly Interpret Crossmatch 11/14/17 11/14/17 11:58 07:14 WBC RBC Hgb Hct MCV MCH MCHC RDW Plt Count MPV Immature Gran % Seg Neutrophils % Band Neutrophils % Lymphocytes % Monocytes % Eosinophils % Basophils % Neutrophils # Lymphocytes # Monocytes # Eosinophils # Basophils # Nucleated RBCs/100 WBC Platelet Estimate Immature Plt Fraction Polychromasia Anisocytosis Macrocytosis ESR PT INR APTT VBG pH Sodium Potassium Chloride Carbon Dioxide BUN Creatinine Est GFR ( Amer) Est GFR (Non-Af Amer) BUN/Creatinine Ratio Glucose POC Glucose 120 H 126 H Calculated Osmolality Lactic Acid Calcium Venous Ioniz Calcium Phosphorus Magnesium Iron % Saturation Transferrin Ferritin Total Bilirubin Direct Bilirubin Indirect Bilirubin AST ALT Alkaline Phosphatase Ammonia Lactate Dehydrogenase Troponin I C-Reactive Protein Serum Total Protein Albumin Globulin Albumin/Globulin Ratio Amylase Lipase Vitamin B12 Folate Urine Color Urine Clarity Urine pH Ur Specific [place] Urine Protein Urine Glucose (UA) Urine Ketones Urine Blood Urine Nitrite Urine Bilirubin Urine Urobilinogen Ur Leukocyte Esterase Urine Microscopic RBC Urine Microscopic WBC Ur Squamous Epith Cells Urine Bacteria Hyaline Casts Urine Sperm Stool Occult Blood Blood Type Antibody Screen CHARLY, Poly Interpret Crossmatch Consult Discharge Plan - Plan Referrals: Aundrea Thrasher, STATE APPELLATE CLERK [Primary Care Provider] - <Bere Marks - Last Filed: 11/25/17 12:59> Date of Encounter: 11/21/17 Time of Encounter: 16:15 Assessment and Plan (1) Acute blood loss anemia Status: Acute Assessment and plan: Recommendations from chart review as below, patient remains in surgical suite for planned removal of failed hardware and evacuation of the hematoma-Dr. Caldwell will further assess patient once returned from surgery with further recommendations. Please refer to Dr. Caldwell's recommendations for further details. Anemia likely secondary to acute bleeding into the large iliopsoas hematoma versus small GI loss Hematoma of unclear etiology-Post surgical, spontaneous or exacerbated by AC Hgb 7.7 today, s/p 4 units PRBC with 2 pending. Hgb will recover following transfusion then decrease suggesting continued acute blood loss LDH elevated- will check dane. Indirect bili is normal making hemolysis less likely Can check B12 and folate for completeness although not the cause of his acute anemia Stool occult positive-previously evaluated by GI and holding on endoscopy until patient has stabilized, would recommend EGD/Colonoscopy when stable Patient remains symptomatic from PE- restart heparin drip per surgery Recommend DOAC either Eliquis or Xarelto for AC on discharge. Would recommend Hgb stabilize and further re-imaging of hematoma for stabilization prior to initiating DOAC. If hgb does not stabilize prior to discharge, he may benefit from inpatient GI endoscopy prior to starting DOAC Given patient weight >120 kg-may continue to monitor symptomatically and check Anti-factor Xa levels on outpatient basis if needed. Will arrange for follow up with Dr. Caldwell for continued monitoring following discharge. In the setting of first, provoked thrombotic event-likely recommend AC therapy for 3-6 months depending upon patients recovery from surgical procedure. (2) Pulmonary embolism Status: Acute Assessment and plan: CTA reveals Acute PE in the distal left lower lobe pulmonary artery, with segmental and subsegmental extension. Acute segmental upper lobe PE. No evidence of right heart strain. Bilateral LE venous doppler reveals normal superficial and deep exam. Initially treated with lovenox and Heparin gtt prior to surgical intervention. Provoked PE in the setting of recent surgical procedure, increased risk secondary to morbid obesity. Patient remains symptomatic from PE- likely plan to restart heparin drip per surgery and continue to monitor Hgb or for further clinical signs of bleeding closely. Recommend DOAC-either Eliquis or Xarelto for AC on discharge. Would recommend Hgb stabilize and further re-imaging of hematoma for stabilization prior to initiating DOAC. If hgb does not stabilize prior to discharge, he may benefit from inpatient GI endoscopy prior to starting DOAC Given patient weight >120 kg-may continue to monitor symptomatically and check Anti-factor Xa levels on outpatient basis if needed. Will arrange for follow up with Dr. Caldwell for continued monitoring following discharge. In the setting of first, provoked thrombotic event-likely recommend AC therapy for 3-6 months depending upon patients recovery from surgical procedure. Qualifiers: Pulmonary embolism type: other Chronicity: acute Acute cor pulmonale presence: without acute cor pulmonale Qualified Code(s): I26.99 - Other pulmonary embolism without acute cor pulmonale - Data of Consult Patient: new to practice Consult date: 11/21/17 Requesting Physician: Bebeto Lombardo Primary Care Provider: Aundrea Thrasher Past Med Surg Social Fam HX - Past Medical History Medical history: arthritis, coronary artery disease, GERD, hypertension, other ( lumbar stenosis, scoliosis) Psychiatric history: no psych history - Past Surgical History Surgical History: other (L-S Spinal Fusion) - Social History Smoking Status: Never smoker Smokeless Tobacco Status: No Alcohol use: none Drug use: none - Family History Mother Hx Family Endocrine Disorder: Yes Oncology - Exam - Constitutional Vitals: Temp Pulse Resp BP Pulse Ox 98.2 F 103 20 134/88 91 11/21/17 16:20 11/21/17 16:40 11/21/17 16:40 11/21/17 16:40 11/21/17 16:40
[2017-11-21 17:04] LABS: Hematocrit 25.7 % (37.5-50.1); Hemoglobin 8.5 g/dL (12.9-16.9)
[2017-11-21] MEDS: NIFEdipine XL (24 HR) 60 MG TAB.ER.24 PO SCH (18:00)
--- NOTE | 2017-11-21 18:31 | Anesthesia Evaluation Post Op ---
Date of Encounter: 11/23/17 Time of Encounter: 15:00 - Vital Signs Vital Signs: Vital Signs/O2 Sat/Glucose, Most Current Temp Pulse Resp BP Pulse Ox 11/21/17 17:58 98.9 F 107 24 125/79 91 11/21/17 17:30 98.2 F 107 26 123/73 91 11/21/17 17:20 111 26 112/72 91 11/21/17 17:03 98.4 F 110 27 115/75 91 11/21/17 16:50 98.0 F 100 20 138/87 90 11/21/17 16:40 103 20 134/88 91 11/21/17 16:30 102 20 120/79 89 11/21/17 16:20 98.2 F 115 20 129/73 89 11/21/17 16:10 118 20 158/70 89 11/21/17 16:00 136 22 159/91 93 11/21/17 15:50 106 20 120/77 91 11/21/17 15:40 98.0 F 100 20 146/89 90 11/21/17 15:30 101 20 157/85 93 11/21/17 15:20 103 20 144/99 91 11/21/17 15:10 98.1 F 106 20 153/96 100 - Lungs Lungs: Clear Ascult./Percussion - Airway Airway: Non-obstructed - Cardiovascular Regular Rate - Mental Status Mental Status: Confused (0) - Pain Pain Scale: 0 - Nausea Vomiting Nausea Vomiting: Not Present - Hydration Hydration: Ice chips - Discharge PostOp Status: Transfer Patient to floor
[2017-11-21] MEDS: Heparin 25,000 UNIT/500 ML D5W 25,000 UNIT/500 ML BAG IVC SCH (19:09)
[2017-11-21 19:13] LABS: Folate 11.6 ng/mL (3.0-16.0)
[2017-11-21] MEDS: CeFAZolin Syr 3,000MG/30 ML 3,000 MG/30 ML SYRINGE IVPB SCH (20:20)
[2017-11-21] MEDS: 0.9 % Sodium Chloride 250 ML IVC SCH (20:20)
[2017-11-21] MEDS: *HR* HYDROcodone/Acet 5/325 mg TABLET PO PRN (22:23)
[2017-11-22] MEDS: 0.9 % Sodium Chloride 250 ML IVC SCH ×2 (01:00→06:48)
[2017-11-22 01:58] LABS: Hematocrit 22.9 % (37.5-50.1); Hemoglobin 7.7 g/dL (12.9-16.9); Mean Corpuscular HGB Conc 33.6 g/dL (31.6-35.5); Mean Corpuscular Hemoglobin 31.4 pg (28.0-33.3); Mean Corpuscular Volume 93.5 fL (83.0-100.0); Mean Platelet Volume 9.8 fL (9.4-12.4); Nucleated Red Blood Cells 0.7 /100 WBC (0); Platelet Count 327 K/mcL (140-400); Red Blood Count 2.45 M/mcL (4.19-5.50); Red Cell Distribution Width 16.3 % (11.5-14.5)
[2017-11-22] MEDS: *HR* HYDROcodone/Acet 5/325 mg TABLET PO PRN ×3 (02:05→14:11)
[2017-11-22 02:13] LABS: Alanine Aminotransferase 20 Units/L (7-52); Albumin 2.7 g/dL (3.5-5.7); Alkaline Phosphatase 44 Units/L (34-104); Aspartate Amino Transferase 28 Units/L (13-39); BUN/Creatinine Ratio 26 (6-26); Bilirubin,Total 0.8 mg/dL (0.3-1.0); Blood Urea Nitrogen 19 mg/dL (6-20); Carbon Dioxide 26 mEq/L (23-29); Chloride 102 mEq/L (98-107); Globulin 2.7 g/dL (2.4-3.5); Glucose 145 mg/dL (70-105); Osmolality,Calculated 285 (280-300); Potassium 4.3 mEq/L (3.5-5.1); Sodium 135 mEq/L (136-145); Total Protein 5.4 g/dL (6.4-8.9); eGFR For African Americans > 60 (> 60); eGFR For Non-African Americans > 60 (> 60)
[2017-11-22 02:28] LABS: Activated Partial Thrombo Time 126.8 Seconds (26.0-36.0)
[2017-11-22 02:31] LABS: Lymphocytes # 1.5 K/mcL (0.6-4.6); Monocytes # 1.9 K/mcL (0.0-1.3); Platelet Estimate Normal (Normal)
[2017-11-22 02:36] LABS: Heparin anti-factor XA UFH 1.38 IU/mL (0.30-0.70)
[2017-11-22] MEDS: Heparin 25,000 UNIT/500 ML D5W 25,000 UNIT/500 ML BAG IVC SCH ×2 (04:54→14:56)
[2017-11-22] MEDS: CeFAZolin Syr 3,000MG/30 ML 3,000 MG/30 ML SYRINGE IVPB SCH (04:55)
[2017-11-22] MEDS: Insulin LISPRO 300 UNITS/3 ML VIAL SQ SCH ×4 (08:48→21:09)
[2017-11-22] MEDS: Aspirin Enteric Coated 81 MG Tablet PO SCH (08:49)
[2017-11-22] MEDS: Sennosides/Docusate Sodium TABLET PO SCH ×2 (08:49→21:09)
[2017-11-22] MEDS: Gabapentin 300 MG CAPSULE PO SCH ×3 (08:49→21:09)
[2017-11-22] MEDS: Cholecalciferol (D-3) 1,000 UNIT TABLET PO SCH (08:50)
--- NOTE | 2017-11-22 12:26 | Internal Med Progress Note ---
Date of Encounter: 11/22/17 Time of Encounter: 12:20 - Assessment and plan (1) Pulmonary embolism Current Visit: Yes Status: Acute Assessment and plan: Was previously on lovenox but has been switched to heparin drip due to bleeding. Hematology recommend transitioning to po xarelto and monitoring anti factor xa levels due to pt's weight over 120Kg. Plan for transition o xarelto once clear from surgery standpoint Qualifiers: Pulmonary embolism type: other Chronicity: acute Acute cor pulmonale presence: without acute cor pulmonale Qualified Code(s): I26.99 - Other pulmonary embolism without acute cor pulmonale (2) Hematoma Current Visit: Yes Status: Acute Assessment and plan: s/p evacuation of hematoma in last 24hrs (3) Acute respiratory failure Current Visit: Yes Status: Resolved Assessment and plan: CTA chest showed left-sided PE; currently on heparin drip improving O2 requirements, saturating well on room air today; Venous Doppler of B/L LE showed no DVT. Echocardiogram shows preserved EF, moderate LV diastolic dysfunction, mild concentric LVH; Qualifiers: Respiratory failure complication: hypoxia Qualified Code(s): J96.01 - Acute respiratory failure with hypoxia (4) Acute blood loss anemia Current Visit: Yes Status: Acute Assessment and plan: is s/p transfusion. Anemia likely 2/2 to blood loss from hematoma. Monitor hemoglobin and transfuse prbc as indicated (5) Status post lumbar spinal fusion Current Visit: Yes Status: Acute Assessment and plan: postoperative care per Spine surgery; PT/PT recommends inpatient rehab; clinical social work therapist on board; (6) Acute kidney injury Current Visit: Yes Status: Resolved Assessment and plan: improved with IV hydration; monitor closely; (7) CAD (coronary artery disease) Current Visit: Yes Status: Chronic Assessment and plan: continue ASA, beta pooja, statin; Qualifiers: Coronary Disease-Associated Artery/Lesion type: [place] artery [place] vs. transplanted heart: cantwell heart Associated angina: without angina Qualified Code(s): I25.10 - Atherosclerotic heart disease of [place] coronary artery without angina pectoris (8) Obesity hypoventilation syndrome Current Visit: Yes Status: Suspected Assessment and plan: Plan as per above. (9) DVT prophylaxis Current Visit: Yes Status: Acute Assessment and plan: on heparin drip - Time Spent With Patient Total time spent is greater than 50% in coordination of care (as documented) at patient's floor/unit and/or counseling patient: - Subjective Interval history: Had hematoma evacuation overnight - Constitutional Vitals: Temp Pulse Resp BP Pulse Ox 98.1 F 92 17 139/86 97 11/22/17 11:39 11/22/17 11:39 11/22/17 11:39 11/22/17 11:39 11/22/17 11:39 General appearance: Present: cooperative, A&O X 3, obese, answers questions appropriately - Head Head exam: Present: atraumatic, normocephalic - Eye Eye exam: Present: PERRL, conjuntiva pink, sclera anicteric Pupils: Present: PERRL - Neck Neck exam general surgery: Present: supple, trachea midline. Absent: lymphadenopathy - Respiratory Respiratory exam: Present: CTAB. Absent: accessory muscle use, rales, rhonchi, wheezes - Cardiovascular Cardiovascular exam: Present: RRR, +S1, +S2. Absent: diastolic murmur, gallop, rubs, systolic murmur - GI/Abdominal GI/Abdominal exam: Present: normal bowel sounds, soft, no peritoneal signs. Absent: distended, tenderness - Extremities Exam Extremities exam: Present: warm, radial pulses palpable and symmetrical. Absent : calf tenderness, cyanotic, pedal edema - Neurological Exam Neurological exam: Present: CN II-XII intact, oriented X3, no focal deficits. Absent: pronater drift, facial droop, speech deficit - Skin Skin exam: Present: dry, intact Internal Medicine: Result - Labs CBC & Chem 7: 11/22/17 14:17 11/22/17 01:37 Labs: Short CBC 11/21/17 11/22/17 Range/Units 16:19 01:37 WBC 15.4 H (4.3-11.1) K/mcL Hgb 8.5 L 7.7 L (12.9-16.9) g/dL Hct 25.7 L 22.9 L (37.5-50.1) % Plt Count 327 (140-400) K/mcL Neutrophils # 12.0 H (1.6-8.9) K/mcL BMP 11/22/17 01:37 Sodium 135 L Potassium 4.3 Chloride 102 Carbon Dioxide 26 BUN 19 Creatinine 0.73 Glucose 145 H Calcium 8.0 L Liver Function 05/26/18 Range/Units 01:37 Total Bilirubin 0.8 (0.3-1.0) mg/dL AST 28 (13-39) Units/L ALT 20 (7-52) Units/L Alkaline Phosphatase 44 (34-104) Units/L Albumin 2.7 L (3.5-5.7) g/dL - ABG Interpretation ABG results: ABG ABG pH 7.38 pH Units (7.32-7.45) 11/14/17 01:12 ABG pCO2 51 mmHg (35-45) H 11/14/17 01:12 ABG pO2 69 mmHg (85-104) L 11/14/17 01:12 ABG O2 Saturation 93 % (95-98) L 11/14/17 01:12 PT/INR, D-dimer PT 14.6 Seconds (9.4-12.1) H 11/20/17 09:50 D-Dimer 2086 ng/mLFEU (0-500) H 11/14/17 13:34 - Impressions Impressions Fluoroscopy 11/21/17 00:00 IMPRESSION: Intraprocedural fluoroscopic spot images as above. See separate procedure report for more information. D/ / 11/21/2017 15:46:35 Marquise Bryan MD / eliot Interpreting Provider: Marquise Bryan MD Lumbar Spine X-Ray 11/21/17 00:00 IMPRESSION: Intraprocedural fluoroscopic spot images as above. See separate procedure report for more information. D/ / 11/21/2017 15:46:35 Marquise Bryan MD / eliot Interpreting Provider: Marquise Bryan MD - VTE Documentation of Mechanical Device: Intermittent pneumatic compression device Consult Discharge Plan - Plan Referrals: Aundrea Thrasher, CAMP DIRECTOR [Primary Care Provider] -
--- NOTE | 2017-11-22 15:05 | Orthopedics Progress Note ---
Date of Encounter: 11/22/17 Time of Encounter: 15:02 Subjective Principal diagnosis: Degenerative scoliosis, lumbar stenosis, lumbar radiculopathy Interval history: Patient resting comfortably in bed Back dressings clean dry intact, mild ecchymosis to right flank region Patient is grossly varus intact distally in bilateral lower extremities although pain with motion on the right side.. Bilateral calves are soft and nontender POD # 10 Patient currently on heparin drip for PE Also still has acute monocytosis Continue OT/PT Will DC Hummel today Continue medical management Repeat H&H Objective Vital signs: Vital Signs Temp Pulse Resp BP Pulse Ox 11/22/17 11:39 98.1 F 92 17 139/86 97 11/22/17 08:02 98.2 F 87 17 129/81 100 11/22/17 04:07 97.8 F 78 138/83 93 11/22/17 02:22 73 18 125/75 97 11/22/17 02:01 98.8 F 76 16 125/77 97 11/22/17 01:46 98.8 F 81 18 130/82 98 11/21/17 23:18 99.4 F 80 14 136/79 96 11/21/17 20:25 98.0 F 100 18 145/82 96 11/21/17 19:16 97.7 F 97 22 150/82 92 11/21/17 18:33 98.9 F 95 22 137/79 92 11/21/17 17:58 98.9 F 107 24 125/79 91 11/21/17 17:30 98.2 F 107 26 123/73 91 11/21/17 17:20 111 26 112/72 91 11/21/17 17:03 98.4 F 110 27 115/75 91 11/21/17 16:50 98.0 F 100 20 138/87 90 11/21/17 16:40 103 20 134/88 91 11/21/17 16:30 102 20 120/79 89 11/21/17 16:20 98.2 F 115 20 129/73 89 11/21/17 16:10 118 20 158/70 89 11/21/17 16:00 136 22 159/91 93 11/21/17 15:50 106 20 120/77 91 11/21/17 15:40 98.0 F 100 20 146/89 90 11/21/17 15:30 101 20 157/85 93 11/21/17 15:20 103 20 144/99 91 11/21/17 15:10 98.1 F 106 20 153/96 100 Intake and Output 11/21/17 11/22/17 11/22/17 23:59 07:59 15:59 Intake Total 480 / 480 2171 / 2171 366 / 366 Output Total 800 / 800 300 / 300 Balance -320 / -320 1871 / 1871 366 / 366 Intake: IV Fluids 30 / 30 1221 / 1221 366 / 366 0.9 % Sodium Chloride 250 ML @ 250 / 250 25 mls/hr IVC .Q10H [facility] Rx#: [id number] Heparin 25,000 UNIT/500 ML D5W 941 / 941 366 / 366 25,000 unit In 500 ml @ 14 UNIT /KG/HR 42.616 mls/hr IVC . [id number] [facility] Rx#:[id number] Ancef Syringe 3,000 MG/30 ML 3, 30 / 30 30 / 30 000 mg In 30 ml @ 200 mls/hr IVPB Q8H [facility] Rx#:[id number] Oral 450 / 450 600 / 600 Blood Product 350 / 350 Rbcs Leuko Poor As-1 Unit 350 / 350 [id number] Output: Urine 0 / 0 Catheter 800 / 800 300 / 300 Other: Weight 152.2 kg Blood Glucose* 150 133 Patient Weight 11/22/17 23:59 Weight 152.2 kg - Labs CBC & BMP: 11/22/17 01:37 11/22/17 01:37 Labs: Abnormal lab results WBC 15.4 K/mcL (4.3-11.1) H 11/22/17 01:37 RBC 2.45 M/mcL (4.19-5.50) L 11/22/17 01:37 Hgb 7.7 g/dL (12.9-16.9) L 11/22/17 01:37 Hct 22.9 % (37.5-50.1) L 11/22/17 01:37 RDW 16.3 % (11.5-14.5) H 11/22/17 01:37 Band Neutrophils % 6.0 % (0-4) H 11/22/17 01:37 Neutrophils # 12.0 K/mcL (1.6-8.9) H 11/22/17 01:37 Monocytes # 1.9 K/mcL (0.0-1.3) H 11/22/17 01:37 Nucleated RBCs/100 WBC 0.7 /100 WBC (0) H 11/22/17 01:37 Polychromasia 1+ (Not Present) A 11/19/17 09:46 Anisocytosis 1+ (Not Present) A 11/19/17 09:46 Macrocytosis Present (Not Present) A 11/19/17 09:46 ESR 36 mm/hr (0-10) H 11/19/17 17:38 PT 14.6 Seconds (9.4-12.1) H 11/20/17 09:50 APTT 82.1 Seconds (26.0-36.0) H 11/22/17 10:15 D-Dimer 2086 ng/mLFEU (0-500) H 11/14/17 13:34 Heparin Anti-Xa, Unfract 1.38 IU/mL (0.30-0.70) H* 11/22/17 01:37 ABG pCO2 51 mmHg (35-45) H 11/14/17 01:12 ABG pO2 69 mmHg (85-104) L 11/14/17 01:12 ABG HCO3 30 mEq/L (21-27) H 11/14/17 01:12 ABG Total CO2 32 mEq/L (20-26) H 11/14/17 01:12 ABG O2 Saturation 93 % (95-98) L 11/14/17 01:12 ABG Base Excess 4 mEq/L (-2 to 3) H 11/14/17 01:12 Sodium 135 mEq/L (136-145) L 11/22/17 01:37 Glucose 145 mg/dL (70-105) H 11/22/17 01:37 POC Glucose 150 mg/dL (70-99) H 11/21/17 20:34 Calcium 8.0 mg/dL (8.6-10.3) L 11/22/17 01:37 Venous Ioniz Calcium 1.10 mmol/L (1.15-1.35) L 11/22/17 06:33 Iron 24 mcg/dL (65-175) L 11/15/17 15:36 % Saturation 10 % (20-55) L 11/15/17 15:36 Transferrin 165 mg/dL (203-362) L 11/15/17 15:36 Direct Bilirubin 0.6 mg/dL (0.0-0.2) H 11/19/17 17:38 Lactate Dehydrogenase 276 Units/L (140-271) H 11/19/17 17:38 C-Reactive Protein 162 mg/L (Less than 10) H 11/19/17 17:38 Serum Total Protein 5.4 g/dL (6.4-8.9) L 11/22/17 01:37 Albumin 2.7 g/dL (3.5-5.7) L 11/22/17 01:37 Albumin/Globulin Ratio 1.0 (1.1-2.2) L 11/22/17 01:37 Urine Clarity Cloudy (Clear) A 11/18/17 15:15 Urine Protein 30 mg/dL (Neg-Trace) H 11/18/17 15:15 Urine Ketones 15 mg/dL (Negative) H 11/18/17 15:15 Urine Blood Large (Negative) H 11/18/17 15:15 Urine Microscopic RBC TNTC per hpf (0-3) H 11/18/17 15:15 Urine Microscopic WBC 3-5 per hpf (0-3) H 11/18/17 15:15 Ur Squamous Epith Cells Many per lpf (None-Few) H 11/18/17 15:15 Stool Occult Blood Positive (Negative) A 11/17/17 06:12 - VTE Documentation of Mechanical Device: Intermittent pneumatic compression device Consult Discharge Plan - Plan Referrals: Aundrea Thrasher, TELERADIOLOGIST [Primary Care Provider] -
[2017-11-22 15:09] LABS: Hemoglobin 8.1 g/dL (12.9-16.9)
[2017-11-22] MEDS: NIFEdipine XL (24 HR) 60 MG TAB.ER.24 PO SCH (17:00)
[2017-11-23] MEDS: Heparin 25,000 UNIT/500 ML D5W 25,000 UNIT/500 ML BAG IVC SCH ×2 (02:32→12:53)
[2017-11-23 04:12] LABS: Hematocrit 25.5 % (37.5-50.1); Hemoglobin 8.2 g/dL (12.9-16.9); Mean Corpuscular HGB Conc 32.2 g/dL (31.6-35.5); Mean Corpuscular Hemoglobin 30.3 pg (28.0-33.3); Mean Corpuscular Volume 94.1 fL (83.0-100.0); Mean Platelet Volume 9.7 fL (9.4-12.4); Nucleated Red Blood Cells 0.1 /100 WBC (0); Platelet Count 318 K/mcL (140-400); Red Blood Count 2.71 M/mcL (4.19-5.50); Red Cell Distribution Width 17.2 % (11.5-14.5)
[2017-11-23 04:15] LABS: VBG Ionized Calcium 1.11 mmol/L (1.15-1.35)
[2017-11-23 04:32] LABS: Blood Urea Nitrogen 13 mg/dL (6-20); Carbon Dioxide 29 mEq/L (23-29); Chloride 104 mEq/L (98-107); Sodium 137 mEq/L (136-145)
[2017-11-23 04:33] LABS: Alanine Aminotransferase 20 Units/L (7-52); Albumin 2.8 g/dL (3.5-5.7); Albumin/Globulin Ratio 1.1 (1.1-2.2); Alkaline Phosphatase 49 Units/L (34-104); Aspartate Amino Transferase 29 Units/L (13-39); BUN/Creatinine Ratio 16 (6-26); Bilirubin,Total 0.9 mg/dL (0.3-1.0); Calcium 8.2 mg/dL (8.6-10.3); Globulin 2.6 g/dL (2.4-3.5); Glucose 119 mg/dL (70-105); Osmolality,Calculated 285 (280-300); Total Protein 5.4 g/dL (6.4-8.9); eGFR For African Americans > 60 (> 60); eGFR For Non-African Americans > 60 (> 60)
[2017-11-23 05:05] LABS: Eosinophils # 0.3 K/mcL (0.0-0.6); Monocytes # 0.9 K/mcL (0.0-1.3); Neutrophils # 10.9 K/mcL (1.6-8.9); Platelet Estimate Normal (Normal); Polychromasia 1+ (Not Present)
[2017-11-23] MEDS: Insulin LISPRO 300 UNITS/3 ML VIAL SQ SCH ×4 (08:14→22:17)
[2017-11-23] MEDS: Cholecalciferol (D-3) 1,000 UNIT TABLET PO SCH (08:51)
[2017-11-23] MEDS: Aspirin Enteric Coated 81 MG Tablet PO SCH (08:52)
[2017-11-23] MEDS: *HR* HYDROcodone/Acet 5/325 mg TABLET PO PRN ×2 (08:52→22:21)
[2017-11-23] MEDS: Gabapentin 300 MG CAPSULE PO SCH ×3 (08:52→22:22)
[2017-11-23] MEDS: Sennosides/Docusate Sodium TABLET PO SCH ×2 (08:52→22:21)
--- NOTE | 2017-11-23 09:05 | Oncology Inp Progress Note ---
Date of Encounter: 11/23/17 Time of Encounter: 08:00 (1) Pulmonary embolism Current Visit: Yes Status: Acute Assessment and plan: Hematology consulted for pulmonary embolism, postsurgical risk, on IV heparin. Oral anti-coag lesion to be considered prior to discharge. PT OT for lower extremity strength per ortho. Psoas hematoma clinically appears to be stable. Hemoglobin is steady. Oral iron replacement therapy to be considered for possible line deficiency secondary to bleeding. Plan d/w patient and family bedside Qualifiers: Pulmonary embolism type: other Chronicity: acute Acute cor pulmonale presence: without acute cor pulmonale Qualified Code(s): I26.99 - Other pulmonary embolism without acute cor pulmonale Oncology: Subj Interval history: Anxiety+, He denies pain. - Constitutional Vitals: Vital Signs Temp Pulse Resp BP Pulse Ox 11/23/17 07:26 97.9 F 86 21 122/79 94 11/23/17 03:22 98.3 F 73 16 111/72 96 11/22/17 23:40 98.7 F 73 16 112/69 97 11/22/17 19:06 98.7 F 90 16 126/75 98 11/22/17 15:00 97.8 F 82 17 129/81 95 11/22/17 11:39 98.1 F 92 17 139/86 97 Intake and Output 11/22/17 11/23/17 11/23/17 23:59 07:59 15:59 Intake Total 810 / 810 649 / 649 Output Total 700 / 700 500 / 500 Balance 110 / 110 149 / 149 Intake: IV Fluids 460 / 460 649 / 649 Heparin 25,000 UNIT/500 ML D5W 460 / 460 649 / 649 25,000 unit In 500 ml @ 14 UNIT /KG/HR 42.616 mls/hr IVC . [id number] [facility] Rx#:[id number] Oral 350 / 350 Output: Urine 700 / 700 500 / 500 Other: Blood Glucose* 149 135 General appearance: no acute distress - Head Head exam: Present: atraumatic, normal inspection - Eye Eye exam: Present: sclera anicteric - Neck Neck exam: Present: normal inspection - Respiratory Respiratory exam: Present: CTAB - Cardiovascular Cardiovascular exam: Present: +S1, +S2 - GI/Abdominal GI/Abdominal exam: Present: normal bowel sounds, soft - Neurological Exam Neurological exam: Present: alert, oriented X3 Additional comments: moving rt upper ext/toes - Psychiatric Psychiatric exam: Present: anxious Oncology: Obj Data - Labs CBC & Chem 7: 11/23/17 03:55 11/23/17 03:55 Labs: Laboratory Results - last 24 hr 11/22/17 11/22/17 11/22/17 08:19 10:15 11:42 WBC RBC Hgb Hct MCV MCH MCHC RDW Plt Count MPV Seg Neutrophils % Band Neutrophils % Lymphocytes % Monocytes % Eosinophils % Neutrophils # Lymphocytes # Monocytes # Eosinophils # Nucleated RBCs/100 WBC Platelet Estimate Polychromasia APTT 82.1 H Sodium Potassium Chloride Carbon Dioxide BUN Creatinine Est GFR ( Amer) Est GFR (Non-Af Amer) BUN/Creatinine Ratio Glucose POC Glucose 121 H 133 H Calculated Osmolality Lactic Acid Calcium Venous Ioniz Calcium Total Bilirubin AST ALT Alkaline Phosphatase Serum Total Protein Albumin Globulin Albumin/Globulin Ratio 11/22/17 11/22/17 11/22/17 14:17 16:00 16:45 WBC RBC Hgb 8.1 L Hct 24.0 L MCV MCH MCHC RDW Plt Count MPV Seg Neutrophils % Band Neutrophils % Lymphocytes % Monocytes % Eosinophils % Neutrophils # Lymphocytes # Monocytes # Eosinophils # Nucleated RBCs/100 WBC Platelet Estimate Polychromasia APTT 78.2 H Sodium Potassium Chloride Carbon Dioxide BUN Creatinine Est GFR ( Amer) Est GFR (Non-Af Amer) BUN/Creatinine Ratio Glucose POC Glucose 114 H Calculated Osmolality Lactic Acid Calcium Venous Ioniz Calcium Total Bilirubin AST ALT Alkaline Phosphatase Serum Total Protein Albumin Globulin Albumin/Globulin Ratio 11/22/17 11/23/17 11/23/17 21:59 03:55 03:55 WBC 15.1 H RBC 2.71 L Hgb 8.2 L Hct 25.5 L MCV 94.1 MCH 30.3 MCHC 32.2 RDW 17.2 H Plt Count 318 MPV 9.7 Seg Neutrophils % 64.0 Band Neutrophils % 8.0 H Lymphocytes % 20.0 Monocytes % 6.0 Eosinophils % 2.0 Neutrophils # 10.9 H Lymphocytes # 3.0 Monocytes # 0.9 Eosinophils # 0.3 Nucleated RBCs/100 WBC 0.1 H Platelet Estimate Normal Polychromasia 1+ A APTT 83.9 H Sodium 137 Potassium 4.0 Chloride 104 Carbon Dioxide 29 BUN 13 Creatinine 0.79 Est GFR ( Amer) > 60 Est GFR (Non-Af Amer) > 60 BUN/Creatinine Ratio 16 Glucose 119 H POC Glucose Calculated Osmolality 285 Lactic Acid Calcium 8.2 L Venous Ioniz Calcium Total Bilirubin 0.9 AST 29 ALT 20 Alkaline Phosphatase 49 Serum Total Protein 5.4 L Albumin 2.8 L Globulin 2.6 Albumin/Globulin Ratio 1.1 11/23/17 11/23/17 11/23/17 03:55 03:55 04:12 WBC RBC Hgb Hct MCV MCH MCHC RDW Plt Count MPV Seg Neutrophils % Band Neutrophils % Lymphocytes % Monocytes % Eosinophils % Neutrophils # Lymphocytes # Monocytes # Eosinophils # Nucleated RBCs/100 WBC Platelet Estimate Polychromasia APTT 95.8 H Sodium Potassium Chloride Carbon Dioxide BUN Creatinine Est GFR ( Amer) Est GFR (Non-Af Amer) BUN/Creatinine Ratio Glucose POC Glucose Calculated Osmolality Lactic Acid 0.6 Calcium Venous Ioniz Calcium 1.11 L Total Bilirubin AST ALT Alkaline Phosphatase Serum Total Protein Albumin Globulin Albumin/Globulin Ratio - ABG Interpretation ABG results: ABG ABG pH 7.38 pH Units (7.32-7.45) 11/14/17 01:12 ABG pCO2 51 mmHg (35-45) H 11/14/17 01:12 ABG pO2 69 mmHg (85-104) L 11/14/17 01:12 ABG O2 Saturation 93 % (95-98) L 11/14/17 01:12 PT/INR, D-dimer PT 14.6 Seconds (9.4-12.1) H 11/20/17 09:50 D-Dimer 2086 ng/mLFEU (0-500) H 11/14/17 13:34 Consult Discharge Plan - Plan Referrals: Aundrea Thrasher, [employer] [Primary Care Provider] -
--- NOTE | 2017-11-23 10:43 | Internal Med Progress Note ---
Date of Encounter: 11/23/17 Time of Encounter: 10:40 - Assessment and plan (1) Pulmonary embolism Current Visit: Yes Status: Acute Assessment and plan: Was previously on lovenox but has been switched to heparin drip due to bleeding. Hematology recommend transitioning to po xarelto and monitoring anti factor xa levels due to pt's weight over 120Kg. Plan for transition to xarelto once clear from surgery standpoint Qualifiers: Pulmonary embolism type: other Chronicity: acute Acute cor pulmonale presence: without acute cor pulmonale Qualified Code(s): I26.99 - Other pulmonary embolism without acute cor pulmonale (2) Hematoma Current Visit: Yes Status: Acute Assessment and plan: s/p evacuation of hematoma. Hemoglobin stable (3) Acute respiratory failure Current Visit: Yes Status: Resolved Assessment and plan: CTA chest showed left-sided PE; currently on heparin drip improving O2 requirements, saturating well on room air today; Venous Doppler of B/L LE showed no DVT. Echocardiogram shows preserved EF, moderate LV diastolic dysfunction, mild concentric LVH; Qualifiers: Respiratory failure complication: hypoxia Qualified Code(s): J96.01 - Acute respiratory failure with hypoxia (4) Acute blood loss anemia Current Visit: Yes Status: Acute Assessment and plan: is s/p transfusion. Anemia likely 2/2 to blood loss from hematoma. Monitor hemoglobin and transfuse prbc as indicated (5) Status post lumbar spinal fusion Current Visit: Yes Status: Acute Assessment and plan: postoperative care per Spine surgery; PT/PT recommends inpatient rehab; social services technician on board; (6) Acute kidney injury Current Visit: Yes Status: Resolved Assessment and plan: improved with IV hydration; monitor closely; (7) CAD (coronary artery disease) Current Visit: Yes Status: Chronic Assessment and plan: continue ASA, beta pooja, statin; Qualifiers: Coronary Disease-Associated Artery/Lesion type: [place] artery [place] vs. transplanted heart: [place] heart Associated angina: without angina Qualified Code(s): I25.10 - Atherosclerotic heart disease of [place] coronary artery without angina pectoris (8) Obesity hypoventilation syndrome Current Visit: Yes Status: Suspected Assessment and plan: Plan as per above. (9) DVT prophylaxis Current Visit: Yes Status: Acute Assessment and plan: on heparin drip - Time Spent With Patient Total time spent is greater than 50% in coordination of care (as documented) at patient's floor/unit and/or counseling patient: - Subjective Interval history: No acute events overnight - Constitutional Vitals: Temp Pulse Resp BP Pulse Ox 97.9 F 86 21 122/79 94 11/23/17 07:26 11/23/17 07:26 11/23/17 07:26 11/23/17 07:11/23/17 07:26 General appearance: Present: cooperative, A&O X 3, obese, answers questions appropriately Exam: Obese gentleman, NAD - Head Head exam: Present: atraumatic, normocephalic - Eye Eye exam: Present: PERRL, conjuntiva pink, sclera anicteric Pupils: Present: PERRL - Neck Neck exam general surgery: Present: supple, trachea midline. Absent: lymphadenopathy - Respiratory Respiratory exam: Present: CTAB. Absent: accessory muscle use, rales, rhonchi, wheezes - Cardiovascular Cardiovascular exam: Present: RRR, +S1, +S2. Absent: diastolic murmur, gallop, rubs, systolic murmur - GI/Abdominal GI/Abdominal exam: Present: normal bowel sounds, soft, no peritoneal signs. Absent: distended, tenderness - Extremities Exam Extremities exam: Present: warm, radial pulses palpable and symmetrical. Absent : calf tenderness, cyanotic, pedal edema - Neurological Exam Neurological exam: Present: CN II-XII intact, oriented X3, no focal deficits. Absent: pronater drift, facial droop, speech deficit - Skin Skin exam: Present: dry, intact Internal Medicine: Result - Labs CBC & Chem 7: 11/23/17 03:55 11/23/17 03:55 Labs: Short CBC 11/22/17 11/23/17 Range/Units 14:17 03:55 WBC 15.1 H (4.3-11.1) K/mcL Hgb 8.1 L 8.2 L (12.9-16.9) g/dL Hct 24.0 L 25.5 L (37.5-50.1) % Plt Count 318 (140-400) K/mcL Neutrophils # 10.9 H (1.6-8.9) K/mcL BMP 11/23/17 03:55 Sodium 137 Potassium 4.0 Chloride 104 Carbon Dioxide 29 BUN 13 Creatinine 0.79 Glucose 119 H Calcium 8.2 L Liver Function 11/23/17 Range/Units 03:55 Total Bilirubin 0.9 (0.3-1.0) mg/dL AST 29 (13-39) Units/L ALT 20 (7-52) Units/L Alkaline Phosphatase 49 (34-104) Units/L Albumin 2.8 L (3.5-5.7) g/dL - ABG Interpretation ABG results: ABG ABG pH 7.38 pH Units (7.32-7.45) 11/14/17 01:12 ABG pCO2 51 mmHg (35-45) H 11/14/17 01:12 ABG pO2 69 mmHg (85-104) L 11/14/17 01:12 ABG O2 Saturation 93 % (95-98) L 11/14/17 01:12 PT/INR, D-dimer PT 14.6 Seconds (9.4-12.1) H 11/20/17 09:50 D-Dimer 2086 ng/mLFEU (0-500) H 11/14/17 13:34 - VTE Documentation of Mechanical Device: Intermittent pneumatic compression device Consult Discharge Plan - Plan Referrals: Aundrea Thrasher, FUR TRIMMING MACHINE OPERATOR [Primary Care Provider] -
[2017-11-23] MEDS: NIFEdipine XL (24 HR) 60 MG TAB.ER.24 PO SCH (14:54)
--- NOTE | 2017-11-23 16:04 | Orthopedics Progress Note ---
Date of Encounter: 11/23/17 Time of Encounter: 16:01 Subjective Principal diagnosis: Degenerative scoliosis, lumbar stenosis, lumbar radiculopathy Interval history: Patient resting comfortably in bed Patient states that the pain in the right lower extremity is much improved Back dressings clean dry intact, mild ecchymosis to right flank region Patient is grossly varus intact distally in bilateral lower extremities although pain with motion on the right side.. Bilateral calves are soft and nontender POD # 11, doing well Patient currently on heparin drip for PE Slasher Tender Helper would like to transition heparin to Xarelto I discussed with Dr. Cox and he is okay with the patient going to Xarelto at this time. Continue OT/PT Continue medical management Repeat H&H, to make sure is no further acute blood loss intoi hematoma Objective Vital signs: Vital Signs Temp Pulse Resp BP Pulse Ox 11/23/17 11:35 98.5 F 74 17 116/75 98 11/23/17 07:26 97.9 F 86 21 122/79 94 11/23/17 03:22 98.3 F 73 16 111/72 96 11/22/17 23:40 98.7 F 73 16 112/69 97 11/22/17 19:06 98.7 F 90 16 126/75 98 Intake and Output 11/23/17 11/23/17 11/23/17 07:59 15:59 23:59 Intake Total 649 / 649 576 / 576 Output Total 500 / 500 Balance 149 / 149 576 / 576 Intake: IV Fluids 649 / 649 336 / 336 Heparin 25,000 UNIT/500 ML D5W 649 / 649 336 / 336 25,000 unit In 500 ml @ 14 UNIT /KG/HR 42.616 mls/hr IVC . [id number] Rx#:[id number] Oral 240 / 240 Output: Urine 500 / 500 Other: Meal Lunch Percent of Meal Consumed 95% Blood Glucose* 135 113 - Labs CBC & BMP: 11/23/17 03:55 11/23/17 03:55 Labs: Abnormal lab results WBC 15.1 K/mcL (4.3-11.1) H 11/23/17 03:55 RBC 2.71 M/mcL (4.19-5.50) L 11/23/17 03:55 Hgb 8.2 g/dL (12.9-16.9) L 11/23/17 03:55 Hct 25.5 % (37.5-50.1) L 11/23/17 03:55 RDW 17.2 % (11.5-14.5) H 11/23/17 03:55 Band Neutrophils % 8.0 % (0-4) H 11/23/17 03:55 Neutrophils # 10.9 K/mcL (1.6-8.9) H 11/23/17 03:55 Nucleated RBCs/100 WBC 0.1 /100 WBC (0) H 11/23/17 03:55 Polychromasia 1+ (Not Present) A 11/23/17 03:55 Anisocytosis 1+ (Not Present) A 11/19/17 09:46 Macrocytosis Present (Not Present) A 11/19/17 09:46 ESR 36 mm/hr (0-10) H 11/19/17 17:38 PT 14.6 Seconds (9.4-12.1) H 11/20/17 09:50 APTT 65.3 Seconds (26.0-36.0) H 11/23/17 13:04 D-Dimer 2086 ng/mLFEU (0-500) H 11/14/17 13:34 Heparin Anti-Xa, Unfract 1.38 IU/mL (0.30-0.70) H* 11/22/17 01:37 ABG pCO2 51 mmHg (35-45) H 11/14/17 01:12 ABG pO2 69 mmHg (85-104) L 11/14/17 01:12 ABG HCO3 30 mEq/L (21-27) H 11/14/17 01:12 ABG Total CO2 32 mEq/L (20-26) H 11/14/17 01:12 ABG O2 Saturation 93 % (95-98) L 11/14/17 01:12 ABG Base Excess 4 mEq/L (-2 to 3) H 11/14/17 01:12 Glucose 119 mg/dL (70-105) H 11/23/17 03:55 POC Glucose 114 mg/dL (70-99) H 11/22/17 16:45 Calcium 8.2 mg/dL (8.6-10.3) L 11/23/17 03:55 Venous Ioniz Calcium 1.11 mmol/L (1.15-1.35) L 11/23/17 04:12 Iron 24 mcg/dL (65-175) L 11/15/17 15:36 % Saturation 10 % (20-55) L 11/15/17 15:36 Transferrin 165 mg/dL (203-362) L 11/15/17 15:36 Direct Bilirubin 0.6 mg/dL (0.0-0.2) H 11/19/17 17:38 Lactate Dehydrogenase 276 Units/L (140-271) H 11/19/17 17:38 C-Reactive Protein 162 mg/L (Less than 10) H 11/19/17 17:38 Serum Total Protein 5.4 g/dL (6.4-8.9) L 11/23/17 03:55 Albumin 2.8 g/dL (3.5-5.7) L 11/23/17 03:55 Urine Clarity Cloudy (Clear) A 11/18/17 15:15 Urine Protein 30 mg/dL (Neg-Trace) H 11/18/17 15:15 Urine Ketones 15 mg/dL (Negative) H 11/18/17 15:15 Urine Blood Large (Negative) H 11/18/17 15:15 Urine Microscopic RBC TNTC per hpf (0-3) H 11/18/17 15:15 Urine Microscopic WBC 3-5 per hpf (0-3) H 11/18/17 15:15 Ur Squamous Epith Cells Many per lpf (None-Few) H 11/18/17 15:15 Stool Occult Blood Positive (Negative) A 11/17/17 06:12 - VTE Documentation of Mechanical Device: Intermittent pneumatic compression device Consult Discharge Plan - Plan Referrals: Aundrea Thrasher, SUPERVISOR [employer] [Primary Care Provider] -
[2017-11-23] MEDS: *HR* Rivaroxaban 15 MG TABLET PO SCH (22:21)
[2017-11-24 00:57] LABS: Basophils % 0.3 %; Eosinophils # 0.4 K/mcL (0.0-0.6); Eosinophils % 2.9 %; Hematocrit 26.5 % (37.5-50.1); Hemoglobin 8.7 g/dL (12.9-16.9); Immature Granulocytes % 4.4 % (0-4); Lymphocytes # 2.7 K/mcL (0.6-4.6); Lymphocytes % 17.2 %; Mean Corpuscular HGB Conc 32.8 g/dL (31.6-35.5); Mean Corpuscular Hemoglobin 31.4 pg (28.0-33.3); Mean Corpuscular Volume 95.7 fL (83.0-100.0); Mean Platelet Volume 9.6 fL (9.4-12.4); Monocytes # 1.1 K/mcL (0.0-1.3); Monocytes % 7.2 %; Neutrophils # 10.5 K/mcL (1.6-8.9); Nucleated Red Blood Cells 0.1 /100 WBC (0); Platelet Count 344 K/mcL (140-400); Red Blood Count 2.77 M/mcL (4.19-5.50); Red Cell Distribution Width 16.5 % (11.5-14.5)
[2017-11-24 01:03] LABS: VBG Ionized Calcium 1.11 mmol/L (1.15-1.35)
[2017-11-24 01:23] LABS: Alanine Aminotransferase 23 Units/L (7-52); Albumin/Globulin Ratio 1.1 (1.1-2.2); Alkaline Phosphatase 56 Units/L (34-104); Aspartate Amino Transferase 28 Units/L (13-39); BUN/Creatinine Ratio 18 (6-26); Bilirubin,Total 0.8 mg/dL (0.3-1.0); Blood Urea Nitrogen 14 mg/dL (6-20); Calcium 8.4 mg/dL (8.6-10.3); Carbon Dioxide 27 mEq/L (23-29); Chloride 104 mEq/L (98-107); Globulin 2.7 g/dL (2.4-3.5); Glucose 115 mg/dL (70-105); Osmolality,Calculated 285 (280-300); Potassium 4.1 mEq/L (3.5-5.1); Sodium 137 mEq/L (136-145); Total Protein 5.7 g/dL (6.4-8.9); eGFR For African Americans > 60 (> 60); eGFR For Non-African Americans > 60 (> 60)
[2017-11-24] MEDS: *HR* HYDROcodone/Acet 10/325 mg TABLET PO PRN ×2 (01:59→12:58)
[2017-11-24] MEDS: Insulin LISPRO 300 UNITS/3 ML VIAL SQ SCH ×4 (08:34→21:17)
[2017-11-24] MEDS: Cholecalciferol (D-3) 1,000 UNIT TABLET PO SCH (08:41)
[2017-11-24] MEDS: Sennosides/Docusate Sodium TABLET PO SCH ×2 (08:41→21:18)
[2017-11-24] MEDS: *HR* Rivaroxaban 15 MG TABLET PO SCH ×2 (08:41→21:18)
[2017-11-24] MEDS: Gabapentin 300 MG CAPSULE PO SCH ×3 (08:41→21:18)
[2017-11-24] MEDS: Aspirin Enteric Coated 81 MG Tablet PO SCH (08:41)
[2017-11-24] MEDS: Acetaminophen 325 MG TABLET PO PRN ×3 (08:46→22:05)
--- NOTE | 2017-11-24 10:24 | Internal Med Progress Note ---
Date of Encounter: 11/24/17 Time of Encounter: 10:30 - Assessment and plan (1) Pulmonary embolism Current Visit: Yes Status: Acute Assessment and plan: Was previously on lovenox but has been switched to heparin drip due to bleeding. Hematology recommend transitioning to po xarelto and monitoring anti factor xa levels due to pt's weight over 120Kg. Transitioned to xarelto per hematology recs Qualifiers: Pulmonary embolism type: other Chronicity: acute Acute cor pulmonale presence: without acute cor pulmonale Qualified Code(s): I26.99 - Other pulmonary embolism without acute cor pulmonale (2) Hematoma Current Visit: Yes Status: Acute Assessment and plan: s/p evacuation of hematoma. Hemoglobin stable (3) Acute respiratory failure Current Visit: Yes Status: Resolved Assessment and plan: CTA chest showed left-sided PE; has been transitioned from heparin drip to xarelto improving O2 requirements, saturating well on room air today; Venous Doppler of B/L LE showed no DVT. Echocardiogram shows preserved EF, moderate LV diastolic dysfunction, mild concentric LVH; Qualifiers: Respiratory failure complication: hypoxia Qualified Code(s): J96.01 - Acute respiratory failure with hypoxia (4) Acute blood loss anemia Current Visit: Yes Status: Acute Assessment and plan: is s/p transfusion. Anemia likely 2/2 to blood loss from hematoma. Monitor hemoglobin and transfuse prbc as indicated (5) Status post lumbar spinal fusion Current Visit: Yes Status: Acute Assessment and plan: postoperative care per Spine surgery; PT/PT recommends inpatient rehab; social work professor on board; (6) Acute kidney injury Current Visit: Yes Status: Resolved Assessment and plan: improved with IV hydration; monitor closely; (7) CAD (coronary artery disease) Current Visit: Yes Status: Chronic Assessment and plan: continue ASA, beta pooja, statin; Qualifiers: Coronary Disease-Associated Artery/Lesion type: [place] artery [place] vs. transplanted heart: [place] heart Associated angina: without angina Qualified Code(s): I25.10 - Atherosclerotic heart disease of [place] coronary artery without angina pectoris (8) Obesity hypoventilation syndrome Current Visit: Yes Status: Suspected Assessment and plan: Plan as per above. (9) DVT prophylaxis Current Visit: Yes Status: Acute Assessment and plan: on xarelto - Time Spent With Patient Total time spent is greater than 50% in coordination of care (as documented) at patient's floor/unit and/or counseling patient: - Subjective Interval history: No acute events overnight - Constitutional Vitals: Temp Pulse Resp BP Pulse Ox 98.5 F 87 16 128/76 96 11/24/17 06:41 11/24/17 06:41 11/24/17 06:41 11/24/17 06:41 11/24/17 06:41 General appearance: Present: cooperative, A&O X 3, obese, answers questions appropriately - Head Head exam: Present: atraumatic, normocephalic - Eye Eye exam: Present: PERRL, conjuntiva pink, sclera anicteric Pupils: Present: PERRL - Neck Neck exam general surgery: Present: supple, trachea midline. Absent: lymphadenopathy - Respiratory Respiratory exam: Present: CTAB. Absent: accessory muscle use, rales, rhonchi, wheezes - Cardiovascular Cardiovascular exam: Present: RRR, +S1, +S2. Absent: diastolic murmur, gallop, rubs, systolic murmur - GI/Abdominal GI/Abdominal exam: Present: normal bowel sounds, soft, no peritoneal signs. Absent: distended, tenderness - Extremities Exam Extremities exam: Present: warm, radial pulses palpable and symmetrical. Absent : calf tenderness, cyanotic, pedal edema - Neurological Exam Neurological exam: Present: CN II-XII intact, oriented X3, no focal deficits. Absent: pronater drift, facial droop, speech deficit - Skin Skin exam: Present: dry, intact Internal Medicine: Result - Labs CBC & Chem 7: 11/24/17 00:43 11/24/17 00:43 Labs: Short CBC 11/24/17 Range/Units 00:43 WBC 15.4 H (4.3-11.1) K/mcL Hgb 8.7 L (12.9-16.9) g/dL Hct 26.5 L (37.5-50.1) % Plt Count 344 (140-400) K/mcL Neutrophils # 10.5 H (1.6-8.9) K/mcL BMP 11/24/17 00:43 Sodium 137 Potassium 4.1 Chloride 104 Carbon Dioxide 27 BUN 14 Creatinine 0.80 Glucose 115 H Calcium 8.4 L Liver Function 11/24/17 Range/Units 00:43 Total Bilirubin 0.8 (0.3-1.0) mg/dL AST 28 (13-39) Units/L ALT 23 (7-52) Units/L Alkaline Phosphatase 56 (34-104) Units/L Albumin 3.0 L (3.5-5.7) g/dL - ABG Interpretation ABG results: ABG ABG pH 7.38 pH Units (7.32-7.45) 11/14/17 01:12 ABG pCO2 51 mmHg (35-45) H 11/14/17 01:12 ABG pO2 69 mmHg (85-104) L 11/14/17 01:12 ABG O2 Saturation 93 % (95-98) L 11/14/17 01:12 PT/INR, D-dimer PT 14.6 Seconds (9.4-12.1) H 11/20/17 09:50 D-Dimer 2086 ng/mLFEU (0-500) H 11/14/17 13:34 - VTE Documentation of Mechanical Device: Intermittent pneumatic compression device Consult Discharge Plan - Plan Referrals: Aundrea Thrasher, PATTERN ATTENDANT [Primary Care Provider] -
[2017-11-24] MEDS: NIFEdipine XL (24 HR) 60 MG TAB.ER.24 PO SCH (16:06)
--- NOTE | 2017-11-24 16:20 | Orthopedics Progress Note ---
Date of Encounter: 11/24/17 Time of Encounter: 16:18 Subjective Principal diagnosis: Degenerative scoliosis, lumbar stenosis, lumbar radiculopathy Interval history: Patient resting comfortably in bed Patient states that the pain in the right lower extremity is much improved The patient had urinary retention and a [place] back in. He states his neck is not bothering him since then otherwise his back is doing well Patient is grossly varus intact distally in bilateral lower extremities although pain with motion on the right side.. Bilateral calves are soft and nontender POD # 12, doing well with urinary retention Patient currently on Xarelto for PE Continue OT/PT Continue medical management Discharge plan for tomorrow, patient will go with [facility] Objective Vital signs: Vital Signs Temp Pulse Resp BP Pulse Ox 11/24/17 06:41 98.5 F 87 16 128/76 96 11/24/17 00:32 98.8 F 82 15 126/81 96 11/23/17 20:55 98.3 F 96 17 122/77 97 11/23/17 16:19 97.6 F 83 20 118/72 95 Intake and Output 11/24/17 11/24/17 11/24/17 07:59 15:59 23:59 Intake Total 300 / 300 480 / 480 Output Total 700 / 700 3200 / 3200 Balance -400 / -400 -2720 / -2720 Intake: Oral 300 / 300 480 / 480 Output: Urine 700 / 700 1000 / 1000 Catheter 2200 / 2200 Urethral (Hummel) 1100 / 1100 Other: Meal Lunch Percent of Meal Consumed 60% Blood Glucose* 111 112 - Labs CBC & BMP: 11/24/17 00:43 11/24/17 00:43 Labs: Abnormal lab results WBC 15.4 K/mcL (4.3-11.1) H 11/24/17 00:43 RBC 2.77 M/mcL (4.19-5.50) L 11/24/17 00:43 Hgb 8.7 g/dL (12.9-16.9) L 11/24/17 00:43 Hct 26.5 % (37.5-50.1) L 11/24/17 00:43 RDW 16.5 % (11.5-14.5) H 11/24/17 00:43 Immature Gran % 4.4 % (0-4) H 11/24/17 00:43 Band Neutrophils % 8.0 % (0-4) H 11/23/17 03:55 Neutrophils # 10.5 K/mcL (1.6-8.9) H 11/24/17 00:43 Nucleated RBCs/100 WBC 0.1 /100 WBC (0) H 11/24/17 00:43 Polychromasia 1+ (Not Present) A 11/23/17 03:55 Anisocytosis 1+ (Not Present) A 11/19/17 09:46 Macrocytosis Present (Not Present) A 11/19/17 09:46 ESR 36 mm/hr (0-10) H 11/19/17 17:38 PT 14.6 Seconds (9.4-12.1) H 11/20/17 09:50 APTT 65.3 Seconds (26.0-36.0) H 11/23/17 13:04 D-Dimer 2086 ng/mLFEU (0-500) H 11/14/17 13:34 Heparin Anti-Xa, Unfract 1.38 IU/mL (0.30-0.70) H* 11/22/17 01:37 ABG pCO2 51 mmHg (35-45) H 11/14/17 01:12 ABG pO2 69 mmHg (85-104) L 11/14/17 01:12 ABG HCO3 30 mEq/L (21-27) H 11/14/17 01:12 ABG Total CO2 32 mEq/L (20-26) H 11/14/17 01:12 ABG O2 Saturation 93 % (95-98) L 11/14/17 01:12 ABG Base Excess 4 mEq/L (-2 to 3) H 11/14/17 01:12 Glucose 115 mg/dL (70-105) H 11/24/17 00:43 POC Glucose 111 mg/dL (70-99) H 11/24/17 07:40 Calcium 8.4 mg/dL (8.6-10.3) L 11/24/17 00:43 Venous Ioniz Calcium 1.11 mmol/L (1.15-1.35) L 11/24/17 00:56 Iron 24 mcg/dL (65-175) L 11/15/17 15:36 % Saturation 10 % (20-55) L 11/15/17 15:36 Transferrin 165 mg/dL (203-362) L 11/15/17 15:36 Direct Bilirubin 0.6 mg/dL (0.0-0.2) H 11/19/17 17:38 Lactate Dehydrogenase 276 Units/L (140-271) H 11/19/17 17:38 C-Reactive Protein 162 mg/L (Less than 10) H 11/19/17 17:38 Serum Total Protein 5.7 g/dL (6.4-8.9) L 11/24/17 00:43 Albumin 3.0 g/dL (3.5-5.7) L 11/24/17 00:43 Urine Clarity Cloudy (Clear) A 11/18/17 15:15 Urine Protein 30 mg/dL (Neg-Trace) H 11/18/17 15:15 Urine Ketones 15 mg/dL (Negative) H 11/18/17 15:15 Urine Blood Large (Negative) H 11/18/17 15:15 Urine Microscopic RBC TNTC per hpf (0-3) H 11/18/17 15:15 Urine Microscopic WBC 3-5 per hpf (0-3) H 11/18/17 15:15 Ur Squamous Epith Cells Many per lpf (None-Few) H 11/18/17 15:15 Stool Occult Blood Positive (Negative) A 11/17/17 06:12 - VTE Documentation of Mechanical Device: Intermittent pneumatic compression device Consult Discharge Plan - Plan Referrals: Aundrea Thrasher, BEACH ATTENDANT [Primary Care Provider] -
--- NOTE | 2017-11-24 20:43 | Urology - Consult Note ---
Date of Encounter: 11/24/17 Time of Encounter: 20:38 - Assessment and Plan (1) Incomplete bladder emptying Current Visit: Yes Status: Acute Assessment and plan: pt has significant incomplete emptying with >1000cc and no major discomfort. this raises concern for a neurogenic bladder related to his significant lumbar disc issues. Pt needs to keep the cath for at least one week to help regain elasticity. at that time we can attempt a voiding trial. pt may need to start SIC if still having issues. SIC may be difficult bc nurses unable to place cath today. will start tamsulosin. Urology CN:HPI Consult date: 11/24/17 Reason for consult Urology: Difficult [place] History of present illness: 46 yo WM new to urology practice. significant lumbar back issues. also with PE. thinks he may have hx of bladder problems dating back 10+ years but not sure. has not seen a urologist. found to have incomplete emptying (>1000cc). in and out cath but issue persists. now not able to place cath and bladder scan shows >1000cc. pt has bladder pressure but no major pain. +hesitency. he admits to have a UTI in the past. Past Med Surg Social Fam HX - Past Medical History Medical history: arthritis, coronary artery disease, GERD, hypertension, other ( lumbar stenosis, scoliosis) Psychiatric history: no psych history - Past Surgical History Surgical History: other (L-S Spinal Fusion) - Social History Smoking Status: Never smoker Smokeless Tobacco Status: No Alcohol use: none Drug use: none - Family History Mother Hx Family Endocrine Disorder: Yes Medications and Allergies Aspirin [Lo-Dose Aspirin EC] 81 mg PO DAILY 11/08/16 [History] Pravastatin Sodium [Pravachol] 40 mg PO HS 11/08/16 [History] Trazodone HCl 300 mg PO HS 11/08/16 [History] Calcium Carbonate [Calcium] 600 mg PO BID 06/11/17 [History] Duloxetine HCl [Cymbalta] 120 mg PO DAILY 06/11/17 [History] Ergocalciferol (VITAMIN D2) [Vitamin D2] 400 unit PO BID 06/11/17 [History] Gabapentin [Neurontin] 1,800 mg PO BID 06/11/17 [History] Metoprolol [Lopressor] 50 mg PO BID 06/11/17 [History] Tizanidine HCl 16 mg PO HS 09/23/17 [History] Meloxicam [Mobic] 7.5 mg PO DAILY 11/12/17 [History] NIFEdipine [Nifedipine ER] 60 mg PO DAILY 11/12/17 [History] 3 Allergy/AdvReac Type Severity Reaction Status Date / Time Oxycodone AdvReac Hallucinati Verified 11/20/17 14:13 ng Review of Systems - Constitutional fatigue, no chills - EENT Nose, mouth and throat: no dizziness - Cardiovascular no chest pain - Respiratory no cough - Gastrointestinal no abdominal pain, no nausea - Genitourinary difficulty urinating - Musculoskeletal back pain - Integumentary no erythema - Neurological no confusion - Psychiatric no anxiety - Hematologic/Lymphatic no easy bleeding - Allergic/Immunologic no throat swelling Exam Initial Vital Signs Temp Pulse Resp BP Pulse Ox 98.1 F 71 18 116/82 96 11/12/17 06:27 11/12/17 06:27 11/12/17 06:27 11/12/17 06:27 11/12/17 06:27 - General physical appearance Present: well developed, no distress - Eyes Present: PERRL, conjunctiva is clear - ENT Present: normal nares - Neck Present: no masses, no lymphadenopathy - Respiratory Present: normal respiratory effort - Cardiovascular Cardiovascular exam IM: RRR - Abdomen Abdomen: Present: soft, distended, suprapubic tenderness - Genitourinary normal penis with no external lesions - Integumentary Present: no rash - Neurologic Absent: disoriented, confused Urology Results - Labs 11/24/17 00:43 11/24/17 00:43 Abnormal lab results WBC 15.4 K/mcL (4.3-11.1) H 11/24/17 00:43 RBC 2.77 M/mcL (4.19-5.50) L 11/24/17 00:43 Hgb 8.7 g/dL (12.9-16.9) L 11/24/17 00:43 Hct 26.5 % (37.5-50.1) L 11/24/17 00:43 RDW 16.5 % (11.5-14.5) H 11/24/17 00:43 Immature Gran % 4.4 % (0-4) H 11/24/17 00:43 Band Neutrophils % 8.0 % (0-4) H 11/23/17 03:55 Neutrophils # 10.5 K/mcL (1.6-8.9) H 11/24/17 00:43 Nucleated RBCs/100 WBC 0.1 /100 WBC (0) H 11/24/17 00:43 Polychromasia 1+ (Not Present) A 11/23/17 03:55 Anisocytosis 1+ (Not Present) A 11/19/17 09:46 Macrocytosis Present (Not Present) A 11/19/17 09:46 ESR 36 mm/hr (0-10) H 11/19/17 17:38 PT 14.6 Seconds (9.4-12.1) H 11/20/17 09:50 APTT 65.3 Seconds (26.0-36.0) H 11/23/17 13:04 D-Dimer 2086 ng/mLFEU (0-500) H 11/14/17 13:34 Heparin Anti-Xa, Unfract 1.38 IU/mL (0.30-0.70) H* 11/22/17 01:37 ABG pCO2 51 mmHg (35-45) H 11/14/17 01:12 ABG pO2 69 mmHg (85-104) L 11/14/17 01:12 ABG HCO3 30 mEq/L (21-27) H 11/14/17 01:12 ABG Total CO2 32 mEq/L (20-26) H 11/14/17 01:12 ABG O2 Saturation 93 % (95-98) L 11/14/17 01:12 ABG Base Excess 4 mEq/L (-2 to 3) H 11/14/17 01:12 Glucose 115 mg/dL (70-105) H 11/24/17 00:43 POC Glucose 106 mg/dL (70-99) H 11/24/17 20:07 Calcium 8.4 mg/dL (8.6-10.3) L 11/24/17 00:43 Venous Ioniz Calcium 1.11 mmol/L (1.15-1.35) L 11/24/17 00:56 Iron 24 mcg/dL (65-175) L 11/15/17 15:36 % Saturation 10 % (20-55) L 11/15/17 15:36 Transferrin 165 mg/dL (203-362) L 11/15/17 15:36 Direct Bilirubin 0.6 mg/dL (0.0-0.2) H 11/19/17 17:38 Lactate Dehydrogenase 276 Units/L (140-271) H 11/19/17 17:38 C-Reactive Protein 162 mg/L (Less than 10) H 11/19/17 17:38 Serum Total Protein 5.7 g/dL (6.4-8.9) L 11/24/17 00:43 Albumin 3.0 g/dL (3.5-5.7) L 11/24/17 00:43 Urine Clarity Cloudy (Clear) A 11/18/17 15:15 Urine Protein 30 mg/dL (Neg-Trace) H 11/18/17 15:15 Urine Ketones 15 mg/dL (Negative) H 11/18/17 15:15 Urine Blood Large (Negative) H 11/18/17 15:15 Urine Microscopic RBC TNTC per hpf (0-3) H 11/18/17 15:15 Urine Microscopic WBC 3-5 per hpf (0-3) H 11/18/17 15:15 Ur Squamous Epith Cells Many per lpf (None-Few) H 11/18/17 15:15 Stool Occult Blood Positive (Negative) A 11/17/17 06:12 Diabetes panel 11/24/17 Range/Units 00:43 Sodium 137 (136-145) mEq/L Potassium 4.1 (3.5-5.1) mEq/L Chloride 104 (98-107) mEq/L Carbon Dioxide 27 (23-29) mEq/L BUN 14 (6-20) mg/dL Creatinine 0.80 (0.70-1.30) mg/dL Glucose 115 H (70-105) mg/dL Calcium 8.4 L (8.6-10.3) mg/dL AST 28 (13-39) Units/L ALT 23 (7-52) Units/L Alkaline Phosphatase 56 (34-104) Units/L Albumin 3.0 L (3.5-5.7) g/dL Calcium panel 11/24/17 Range/Units 00:43 Calcium 8.4 L (8.6-10.3) mg/dL Albumin 3.0 L (3.5-5.7) g/dL Pituitary panel 11/24/17 Range/Units 00:43 Sodium 137 (136-145) mEq/L Potassium 4.1 (3.5-5.1) mEq/L Chloride 104 (98-107) mEq/L Carbon Dioxide 27 (23-29) mEq/L BUN 14 (6-20) mg/dL Creatinine 0.80 (0.70-1.30) mg/dL Glucose 115 H (70-105) mg/dL Calcium 8.4 L (8.6-10.3) mg/dL Adrenal panel 11/24/17 Range/Units 00:43 Sodium 137 (136-145) mEq/L Potassium 4.1 (3.5-5.1) mEq/L Chloride 104 (98-107) mEq/L Carbon Dioxide 27 (23-29) mEq/L BUN 14 (6-20) mg/dL Creatinine 0.80 (0.70-1.30) mg/dL Glucose 115 H (70-105) mg/dL Calcium 8.4 L (8.6-10.3) mg/dL Total Bilirubin 0.8 (0.3-1.0) mg/dL AST 28 (13-39) Units/L ALT 23 (7-52) Units/L Alkaline Phosphatase 56 (34-104) Units/L Albumin 3.0 L (3.5-5.7) g/dL All other labs normal. Procedures:Urology - Catheter Insertion (Urinary) Prophylactic antibiotics given: No Bladder Scan/Ultrasound used before catheterization: Yes (>1000cc) Estimated amount of urin (mLs): 1,300 Preparation: Povidone-Iodine Type of catheter inserted: 2 way, coude tip Catheter [place] Size: 16 Topical anesthesia used: Yes (lidcaine jelly) Results: successfully catheterized-immediate flow Urine Appearance: Clear Patient tolerated procedure: well Complications: none Additional comments: pt likely with false passage near bulbar urethra as I had some difficulty navigating past this area. once it passed, immediate return of clear urine. Consult Discharge Plan - Plan Referrals: Aundrea Thrasher, DAYO [Primary Care Provider] -
[2017-11-24] MEDS ORDERED: traZODone 50 MG TABLET PO SCH (22:00)
[2017-11-24] MEDS ORDERED: traZODone 50 MG TABLET PO ONE (22:00)
[2017-11-24] MEDS ORDERED: tiZANidine 4 MG TABLET PO ONE (22:00)
[2017-11-25] MEDS: *HR* HYDROcodone/Acet 10/325 mg TABLET PO PRN ×2 (02:33→11:06)
[2017-11-25] MEDS: Insulin LISPRO 300 UNITS/3 ML VIAL SQ SCH ×2 (08:14→12:15)
[2017-11-25] MEDS: Aspirin Enteric Coated 81 MG Tablet PO SCH (08:17)
[2017-11-25] MEDS: Sennosides/Docusate Sodium TABLET PO SCH (08:17)
[2017-11-25] MEDS: *HR* Rivaroxaban 15 MG TABLET PO SCH (08:17)
[2017-11-25] MEDS: Cholecalciferol (D-3) 1,000 UNIT TABLET PO SCH (08:17)
[2017-11-25] MEDS: Gabapentin 300 MG CAPSULE PO SCH ×2 (08:18→14:58)
[2017-11-25] MEDS: Acetaminophen 325 MG TABLET PO PRN ×2 (08:18→14:58)
[2017-11-25 11:21] VITALS: BP 105/69
--- NOTE | 2017-11-25 11:52 | Electrocardiograph Report ---
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
--- NOTE | 2017-11-25 14:58 | Discharge Summary ---
- NOTES TO OUTPATIENT PROVIDER Notes to Outpatient Provider: s/p spinal surgery, new PE, on Xarelto now, iliopsoas hematoma s/p drainage Date of Encounter: 11/25/17 Time of Encounter: 14:56 - Discharge Diagnosis (1) Status post lumbar spinal fusion Priority: Primary Status: Acute (2) Acute kidney injury Priority: Primary Status: Resolved (3) Acute blood loss anemia Priority: Primary Status: Acute (4) CAD (coronary artery disease) Priority: Secondary Status: Chronic Qualifiers: Coronary Disease-Associated Artery/Lesion type: tribe artery [place] vs. transplanted heart: tribe heart Associated angina: without angina Qualified Code(s): I25.10 - Atherosclerotic heart disease of tribe coronary artery without angina pectoris (5) Acute respiratory failure Priority: Primary Status: Resolved Qualifiers: Respiratory failure complication: hypoxia Qualified Code(s): J96.01 - Acute respiratory failure with hypoxia (6) Pulmonary embolism Priority: Primary Status: Acute Qualifiers: Pulmonary embolism type: other Chronicity: acute Acute cor pulmonale presence: without acute cor pulmonale Qualified Code(s): I26.99 - Other pulmonary embolism without acute cor pulmonale (7) Hematoma Priority: Primary Status: Acute Hospital course: Mr. Marte is a 46 year old male with the above medical problems who was initially admitted to spine surgery service due to low back pain. He underwent posterior lumbar interbody fusion T12-S1 with interbody grafts at L2-3, L3-4, L5 -S1 on 11/12/2017. He then developed acute respiratory failure with significant hypoxia and increasing oxygen requirements in the postoperative period. CT angiogram of chest showed left-sided PE, which is the first episode, likely provoked by recent surgery, started on therapeutic subcutaneous Lovenox initially, which was later changed to Xarelto. Bilateral lower extremity venous Doppler showed no DVT. Echocardiogram shows preserved EF, moderate LV diastolic dysfunction, mild concentric LVH; Patient developed acute kidney injury, with improved with IV hydration. He developed postoperative anemia, secondary to iliopsoas intramuscular hematoma , which is currently stable after 5 units PRBC transfusion during this admission. Patient had delirium and acute encephalopathy, thought to be secondary to the use of oxycodone. Patient's claimed it gives him hallucinations. His mental status is currently back to baseline and he is able to tolerate hydrocodone well. He developed worsening confusion with SIRS criteria due to which he was transferred to ICU but improved quickly. No source of infection was found. CT abdomen/pelvis showed large right-sided iliopsoas intramuscular hematoma. He was taken back to operating room and underwent evacuation of hematoma along with fixing of a screw that appeared to be touching the psoas muscle causing weakness and hematoma. Physical and occupational therapy evaluation recommended inpatient rehabilitation placement. Patient is currently medically stable for discharge. Discharge discussed with: patient, nurse, provider contracting consultant - Time Spent with Patient Total time spent providing and/or coordinating discharge services: Greater than 30 minutes (50 min) - Discharge Medications Prescriptions: Ferrous Sulfate 325 mg PO BIDWM #30 tablet Gabapentin [Neurontin] 600 mg PO TID #30 capsule HYDROcodone/Acet 10/325 mg [[place] 10-325 mg] 1 each PO Q6H PRN 5 Days #10 tablet PRN Reason: Severe Pain Rivaroxaban [Xarelto] 15 mg PO BID #38 tablet Rivaroxaban [Xarelto] 20 mg PO DAILY #30 tablet Home Medications: Aspirin [Lo-Dose Aspirin EC] 81 mg PO DAILY 11/08/16 [History] Pravastatin Sodium [Pravachol] 40 mg PO HS 11/08/16 [History] Trazodone HCl 300 mg PO HS 11/08/16 [History] Calcium Carbonate [Calcium] 600 mg PO BID 06/11/17 [History] Duloxetine HCl [Cymbalta] 120 mg PO DAILY 06/11/17 [History] Ergocalciferol (VITAMIN D2) [Vitamin D2] 400 unit PO BID 06/11/17 [History] Metoprolol [Lopressor] 50 mg PO BID 06/11/17 [History] Tizanidine HCl 16 mg PO HS 09/23/17 [History] Meloxicam [Mobic] 7.5 mg PO DAILY 11/12/17 [History] NIFEdipine [Nifedipine ER] 60 mg PO DAILY 11/12/17 [History] Ferrous Sulfate 325 mg PO BIDWM #30 tablet 11/25/17 [Rx] Gabapentin [Neurontin] 600 mg PO TID #30 capsule 11/25/17 [Rx] HYDROcodone/Acet 10/325 mg [[place] 10-325 mg] 1 each PO Q6H PRN 5 Days #10 tablet 11/25/17 [Rx] Rivaroxaban [Xarelto] 15 mg PO BID #38 tablet 11/25/17 [Rx] Rivaroxaban [Xarelto] 20 mg PO DAILY #30 tablet 11/25/17 [Rx] Sennosides/Docusate Sodium [Senna Plus] 2 each PO BID tablet 11/25/17 [Rx] Allergies/Adverse Reactions: 3 Allergy/AdvReac Type Severity Reaction Status Date / Time Oxycodone AdvReac Hallucinati Verified 11/20/17 14:13 ng Date of admission: 11/12/17 17:19 Primary care physician: Aundrea Thrasher Consults: 11/12/17 17:32 Consult to Occupational Therapy [CONS] Routine Comment: Evaluate, develop and implement POC Reason for Consult: Postoperative rehabilitation Does patient have active BEDREST order?: No Is patient medically & hemodynamically stable?: Yes Patient assessed for mobility or mobilized this visit?: No Consult to Spine Navigator [CONS] [CONS] Routine 11/12/17 17:39 Consult to Nutrition [CONS] Routine Comment: Consulting Provider: NUTRITION Reason for Dietary Consult: MST Score 11/14/17 01:16 Consult to Respiratory Therapy [CONS] Stat Reason for Consult: Respiratory Distress Call Completed: No 11/19/17 12:44 Consult to Gastroenterology [CONS] Routine Consulting Provider: Gastroenterology Brisa Reason for Consult: anemia of unknown source Time Notified: 12:45 Call Completed: Yes 11/19/17 14:02 Consult to Infectious Diseases [CONS] Routine Consulting Provider: Infectious Disease Brisa Reason for Consult: Called by Dr. Jiménez re: sepsis Time Notified: 14:03 Call Completed: Yes 11/21/17 13:00 Consult to Oncology Hematology [CONS] Routine Consulting Provider: Bere Marks Reason for Consult: Pulmonary embolism with hematoma Call Completed: Yes 11/22/17 00:01 Consult to Occupational Therapy [CONS] Routine Comment: Evaluate, develop and implement POC Reason for Consult: postoperative Does patient have active BEDREST order?: No Is patient medically & hemodynamically stable?: Yes Consult to Physical Therapy [CONS] Routine Comment: Evaluate, develop and implement POC Reason for Consult: postoperative Does patient have active BEDREST order?: No Is patient medically & hemodynamically stable?: Yes 11/24/17 14:16 Consult to Urology [CONS] Routine Consulting Provider: Urology Brisa Reason for Consult: urinary retention Call Completed: Yes Discharging clinician: Sallie Ortega Anticipated date of discharge: 11/25/17 - Constitutional Vitals: Temp Pulse Resp BP Pulse Ox 98.3 F 78 16 105/69 93 11/25/17 11:20 11/25/17 11:20 11/25/17 11:20 11/25/17 11:20 11/25/17 11:20 General appearance: Present: cooperative, A&O X 3, morbidly obese, answers questions appropriately - Respiratory Respiratory exam: Present: CTAB. Absent: accessory muscle use, rales, rhonchi, wheezes - Patient Status Disposition: Transfer Inpatient Rehab Fac Condition: Fair Functional capacity at discharge: uses cane/walker Overall status at discharge: patient is progressing back to baseline - Discharge Instructions Follow Up With: Ole Cox Jr, MD [Partnered Physician] - 12/09/17 11:45 am Aundrea Thrasher CNP [Primary Care Provider] - 11/27/17 9:00 am Kaiser Simmons MD [Partnered Physician] - 12/04/17 9:15 am Additional Instructions: Discharge Instructions: Lumbar Please call [facility] ([phone]), your Primary Care Physician, or report to the ER if you have any of the following symptoms: Fever greater that 101.5, increased pain/redness/drainage/odor for your incision site or any other concerning symptoms. ACTIVITY * May Shower * No Tub Baths * No lifting greater than 10 pounds * No Smoking * No Swimming * No off Ground Activities (Running, Climbing, Ladders, Horseback Riding) * No Driving * Wear Back Brace when up walking if lumbar fusion done MEDICATIONS: Upon discharge resume your home medications. Take all the medications as prescribed. Take a stool softener if taking narcotic pain medications. Stool softeners are only effective if you drink enough fluids. Drink 6-8 glass of water or fluids a day, unless this is not allowed for another health problem. Despite using stool softeners, if you haven't had a bowel movement in 3 days, please switch to a gentle laxative. Gentle laxatives are sold over the counter. You should have a bowel movement within 24 hours, if not call the office. You will be discharged from the hospital with a prescription for pain medication. You are encouraged to decrease the use of narcotic pain medication as tolerated. Should you require a refill, please call the office. It is best to call 48-72 hours in advance of needing a prescription refill so you don't run out of medication. WOUND CARE: Remove Dressing Tomorrow. Leave incision open to air. Pat dry when you get out of the shower. FOLLOW-UP: Please follow up with your surgeon in the orthopedic clinic in 2 weeks from the day of surgery. References: [employer] (www.apta.org) - Diet and Activity Activity: as per physical therapy Diet: low fat, low cholesterol, low salt diet - VTE Documentation of Mechanical Device: Intermittent pneumatic compression device
--- NOTE | 2017-11-25 15:07 | Physician Discharge Referral ---
ExtendedCare Referral Info Transfer To: [facility] Provider in Charge: Sallie Ortega Provider in Charge after Transfer: PCP Institutional Level of Care: Intermediate - Diagnosis (1) Status post lumbar spinal fusion Priority: Primary Status: Acute (2) Acute kidney injury Priority: Primary Status: Resolved (3) Acute blood loss anemia Priority: Primary Status: Acute (4) CAD (coronary artery disease) Priority: Secondary Status: Chronic (5) Acute respiratory failure Priority: Primary Status: Resolved (6) Pulmonary embolism Priority: Primary Status: Acute (7) Hematoma Priority: Primary Status: Acute Expected Duration of Placement: 3 weeks Prognosis: Fair Aware of Diagnosis: Patient Aware of Prognosis: Patient - Transfer Medications Prescriptions: Ferrous Sulfate 325 mg PO BIDWM #30 tablet Gabapentin [Neurontin] 600 mg PO TID #30 capsule HYDROcodone/Acet 10/325 mg [[place] 10-325 mg] 1 each PO Q6H PRN 5 Days #10 tablet PRN Reason: Severe Pain Rivaroxaban [Xarelto] 15 mg PO BID #38 tablet Rivaroxaban [Xarelto] 20 mg PO DAILY #30 tablet Home Medications: Aspirin [Lo-Dose Aspirin EC] 81 mg PO DAILY 11/08/16 [History] Pravastatin Sodium [Pravachol] 40 mg PO HS 11/08/16 [History] Trazodone HCl 300 mg PO HS 11/08/16 [History] Calcium Carbonate [Calcium] 600 mg PO BID 06/11/17 [History] Duloxetine HCl [Cymbalta] 120 mg PO DAILY 06/11/17 [History] Ergocalciferol (VITAMIN D2) [Vitamin D2] 400 unit PO BID 06/11/17 [History] Metoprolol [Lopressor] 50 mg PO BID 06/11/17 [History] Tizanidine HCl 16 mg PO HS 09/23/17 [History] Meloxicam [Mobic] 7.5 mg PO DAILY 11/12/17 [History] NIFEdipine [Nifedipine ER] 60 mg PO DAILY 11/12/17 [History] Ferrous Sulfate 325 mg PO BIDWM #30 tablet 11/25/17 [Rx] Gabapentin [Neurontin] 600 mg PO TID #30 capsule 11/25/17 [Rx] HYDROcodone/Acet 10/325 mg [[place] 10-325 mg] 1 each PO Q6H PRN 5 Days #10 tablet 11/25/17 [Rx] Rivaroxaban [Xarelto] 15 mg PO BID #38 tablet 11/25/17 [Rx] Rivaroxaban [Xarelto] 20 mg PO DAILY #30 tablet 11/25/17 [Rx] Sennosides/Docusate Sodium [Senna Plus] 2 each PO BID tablet 11/25/17 [Rx] Allergies/Adverse Reactions: 3 Allergy/AdvReac Type Severity Reaction Status Date / Time Oxycodone AdvReac Hallucinati Verified 11/20/17 14:13 ng - Respiratory Orders Smoking Cessation: Smoking cessation has been advised. For more information, call the [place] Tobacco Quit Line at 9-132-SILB-NOW. - Advance Directives Code Status: Full Code - Mobility Orders Ambulate - Rehabiliation Orders Rehab Potential: Fair Rehab Orders: ROM Exercises, Evaluation for Physical Therapy, Evaluation for Occupational Therapy - Diet Orders Cardiac CERTIFICATION: I certify that the transfer of the above named patient to an Extended Care Facility is necessary for the continuing treatment of the diagnosis listed. The above information is true and accurate reflection of patient's current condition. Confidential - Redisclosure prohibited without a patient's written consent.
--- NOTE | 2017-11-25 17:44 | Orthopedics Progress Note ---
Date of Encounter: 11/25/17 Time of Encounter: 12:00 - Assessment and Plan (1) Status post lumbar spinal fusion Status: Acute (2) Degenerative scoliosis Status: Chronic (3) Lumbar stenosis Status: Chronic Qualifiers: Neurogenic claudication status: unspecified Qualified Code(s): M48.061 - Spinal stenosis, lumbar region without neurogenic claudication (4) Lumbar radiculopathy Status: Chronic (5) Pulmonary embolism Status: Acute Qualifiers: Pulmonary embolism type: other Chronicity: acute Acute cor pulmonale presence: without acute cor pulmonale Qualified Code(s): I26.99 - Other pulmonary embolism without acute cor pulmonale Subjective Principal diagnosis: Degenerative scoliosis, lumbar stenosis, lumbar radiculopathy Interval history: Posterior lumbar interbody fusion T12-S1 with interbody grafts at L2-3, L3-4, and L5-S1 on 11/12/[address] Cox Degenerative scoliosis, lumbar stenosis, lumbar radiculopathy The patient is without complaints. Patient admits to improving numbness the right lower extremity from the right thigh down to the proximal bryant on the anterior side of the leg. He states now it is more of a tingling/burning that comes and goes. Sensation is improving to the right lower extremity. He does admit to some pain with palpation of the lower ankle and foot he states that it feels like a sharp pain with palpation. No skin deformities or changes noted in this area. Weakness of the right hip flexion is improving. Posterior tibial pulses intact. Fires all upper and lower extremity motor groups. Hummel is noted. Dressing is clean, dry, and intact. Assessment: Status post lumbar fusion 11/12/17 Failed Hardware - requiring removal and replacement of hardware of lumbar spine on 11/21/17 Urinary retention - acute; requiring intervention by Dr. Simmons. He will follow up outpatient with Dr. Simmons -he is being discharged with Hummel. Pulmonary embolism - diagnosed on 11/15/17 - requires provoked dosing of anticoagulation upon discharge - Xarelto Hallucinations - resolved Tachycardia - resolved Diaphoresis - resolved Plan: Reviewed postoperative restrictions and precautions. Patient verbalized understanding. Brace applied and patient aware to apply with activity. Mobilize with therapy as tolerated Continue analgesics as needed Discharge planning - discharge once cleared by hospitalist today to [facility] Radiographs reviewed - and appropriate Patient to follow up as an outpatient in 2 weeks. He is to be seen sooner with any concerns or questions. Objective Vital signs: Vital Signs Temp Pulse Resp BP Pulse Ox 11/25/17 11:20 98.3 F 78 16 105/69 93 11/25/17 07:24 100.8 F H 101 16 124/74 94 11/25/17 02:37 97.9 F 85 20 103/65 94 11/24/17 22:13 98.2 F 88 20 115/74 96 11/24/17 18:26 98.3 F 72 18 121/76 97 Intake and Output 11/25/17 11/25/17 11/25/17 07:59 15:59 23:59 Intake Total 0 / 0 240 / 240 Output Total 750 / 750 1725 / 1725 Balance -750 / -750 -1485 / -1485 Intake: Oral 0 / 0 240 / 240 Output: Catheter 750 / 750 1725 / 1725 Other: Meal Breakfast Percent of Meal Consumed 100% Blood Glucose* 97 109 - Labs CBC & BMP: 11/24/17 00:43 11/24/17 00:43 Labs: Abnormal lab results WBC 15.4 K/mcL (4.3-11.1) H 11/24/17 00:43 RBC 2.77 M/mcL (4.19-5.50) L 11/24/17 00:43 Hgb 8.7 g/dL (12.9-16.9) L 11/24/17 00:43 Hct 26.5 % (37.5-50.1) L 11/24/17 00:43 RDW 16.5 % (11.5-14.5) H 11/24/17 00:43 Immature Gran % 4.4 % (0-4) H 11/24/17 00:43 Band Neutrophils % 8.0 % (0-4) H 11/23/17 03:55 Neutrophils # 10.5 K/mcL (1.6-8.9) H 11/24/17 00:43 Nucleated RBCs/100 WBC 0.1 /100 WBC (0) H 11/24/17 00:43 Polychromasia 1+ (Not Present) A 11/23/17 03:55 Anisocytosis 1+ (Not Present) A 11/19/17 09:46 Macrocytosis Present (Not Present) A 11/19/17 09:46 ESR 36 mm/hr (0-10) H 11/19/17 17:38 PT 14.6 Seconds (9.4-12.1) H 11/20/17 09:50 APTT 65.3 Seconds (26.0-36.0) H 11/23/17 13:04 D-Dimer 2086 ng/mLFEU (0-500) H 11/14/17 13:34 Heparin Anti-Xa, Unfract 1.38 IU/mL (0.30-0.70) H* 11/22/17 01:37 ABG pCO2 51 mmHg (35-45) H 11/14/17 01:12 ABG pO2 69 mmHg (85-104) L 11/14/17 01:12 ABG HCO3 30 mEq/L (21-27) H 11/14/17 01:12 ABG Total CO2 32 mEq/L (20-26) H 11/14/17 01:12 ABG O2 Saturation 93 % (95-98) L 11/14/17 01:12 ABG Base Excess 4 mEq/L (-2 to 3) H 11/14/17 01:12 Glucose 115 mg/dL (70-105) H 11/24/17 00:43 POC Glucose 106 mg/dL (70-99) H 11/24/17 20:07 Calcium 8.4 mg/dL (8.6-10.3) L 11/24/17 00:43 Venous Ioniz Calcium 1.11 mmol/L (1.15-1.35) L 11/24/17 00:56 Iron 24 mcg/dL (65-175) L 11/15/17 15:36 % Saturation 10 % (20-55) L 11/15/17 15:36 Transferrin 165 mg/dL (203-362) L 11/15/17 15:36 Direct Bilirubin 0.6 mg/dL (0.0-0.2) H 11/19/17 17:38 Lactate Dehydrogenase 276 Units/L (140-271) H 11/19/17 17:38 C-Reactive Protein 162 mg/L (Less than 10) H 11/19/17 17:38 Serum Total Protein 5.7 g/dL (6.4-8.9) L 11/24/17 00:43 Albumin 3.0 g/dL (3.5-5.7) L 11/24/17 00:43 Urine Clarity Cloudy (Clear) A 11/18/17 15:15 Urine Protein 30 mg/dL (Neg-Trace) H 11/18/17 15:15 Urine Ketones 15 mg/dL (Negative) H 11/18/17 15:15 Urine Blood Large (Negative) H 11/18/17 15:15 Urine Microscopic RBC TNTC per hpf (0-3) H 11/18/17 15:15 Urine Microscopic WBC 3-5 per hpf (0-3) H 11/18/17 15:15 Ur Squamous Epith Cells Many per lpf (None-Few) H 11/18/17 15:15 Stool Occult Blood Positive (Negative) A 11/17/17 06:12 - VTE Documentation of Mechanical Device: Intermittent pneumatic compression device Consult Discharge Plan - Plan Additional Instructions: Discharge Instructions: Lumbar Please call [facility] ([phone]), your Primary Care Physician, or report to the ER if you have any of the following symptoms: Fever greater that 101.5, increased pain/redness/drainage/odor for your incision site or any other concerning symptoms. ACTIVITY * May Shower * No Tub Baths * No lifting greater than 10 pounds * No Smoking * No Swimming * No off Ground Activities (Running, Climbing, Ladders, Horseback Riding) * No Driving * Wear Back Brace when up walking if lumbar fusion done MEDICATIONS: Upon discharge resume your home medications. Take all the medications as prescribed. Take a stool softener if taking narcotic pain medications. Stool softeners are only effective if you drink enough fluids. Drink 6-8 glass of water or fluids a day, unless this is not allowed for another health problem. Despite using stool softeners, if you haven't had a bowel movement in 3 days, please switch to a gentle laxative. Gentle laxatives are sold over the counter. You should have a bowel movement within 24 hours, if not call the office. You will be discharged from the hospital with a prescription for pain medication. You are encouraged to decrease the use of narcotic pain medication as tolerated. Should you require a refill, please call the office. It is best to call 48-72 hours in advance of needing a prescription refill so you don't run out of medication. WOUND CARE: Remove Dressing Tomorrow. Leave incision open to air. Pat dry when you get out of the shower. FOLLOW-UP: Please follow up with your surgeon in the orthopedic clinic in 2 weeks from the day of surgery. References: [employer] (www.apta.org) Referrals: Ole Cox Jr, MD [Partnered Physician] - 12/09/17 11:45 am Aundrea Thrasher CNP [Primary Care Provider] - 11/27/17 9:00 am Kaiser Simmons MD [Partnered Physician] - 12/04/17 9:15 am Prescriptions: Ferrous Sulfate 325 mg PO BIDWM #30 tablet Gabapentin [Neurontin] 600 mg PO TID #30 capsule HYDROcodone/Acet 10/325 mg [[place] 10-325 mg] 1 each PO Q6H PRN 5 Days #10 tablet PRN Reason: Severe Pain Rivaroxaban [Xarelto] 15 mg PO BID #38 tablet Rivaroxaban [Xarelto] 20 mg PO DAILY #30 tablet
--- NOTE | 2017-11-26 06:44 | Electrocardiograph Report ---
[address] [address] Test Date: 2017-11-23 Pat Name: Ilir Marte Department: 114 Room: [facility] Gender: M Addresser: [place] : 1970 Requested By: Romeo Stone Order Number: [id number] Reading MD: Shayan Patton Measurements Intervals [place] Rate: 71 P: 51 [place]: 156 QRS: 37 QRSD: 98 T: 16 QT: 389 QTc: 412 Interpretive Statements SINUS RHYTHM LOW QRS VOLTAGE IN EXTREMITY LEADS Electronically Signed On 11-26-2017 6:43:19 EDT by Shayan Patton
--- NOTE | 2017-11-27 11:10 | Orthopedic Operative Note ---
Date of procedure: 11/21/17 Pre-op diagnosis: Degenerative scoliosis, Psoas hematoma, status post spinal fusion Post-op diagnosis: same Operation/Findings: Removal of hardware lumbar spine: The patient was brought to the operative theater where he underwent general endotracheal anesthesia. He was given antibiotics prior to the start of the procedure. Compression boots and stockings were used for deep vein thrombosis prophylaxis. The patient was placed prone on a Mikie table. The back was prepped and draped in the usual sterile fashion. An incision was marked and centered over the previous incision utilized for long fusion T12-S1. We exposed the hardware from T12-S1 and palpated the right screws at L2 and L3. There was noted to be some loosening of the screws. We removed the jeramy construct on the right in standard fashion and subsequently removed pedicle screws L2 and L3 on the right. The rest of the screws were palpated and tested for strength and pullout and they were found to be intact bilaterally. We placed a jeramy within the screws on the right in standard fashion and locked and tightened them in standard fashion. We copiously irrigated the wound and then closed the wound in layers with 1 Vicryl for the fascia, 2-0 Vicryl for the subcutaneous tissue, and Dermabond was used for skin closure. Sterile dressings were placed over the wound, the patient was turned supine in a hospital bed, and was extubated in the operative theater. All sponge needles and instrument counts were correct at the end of the procedure. The patient tolerated the procedure well without complications. Anesthesia: GETA Surgeon: Oel Cox Jr Was there an ophthalmic surgical assistant present: No Estimated blood loss (cc): 100 Specimen: None Condition: stable Disposition: PACU
== END 2017-11-25 16:45 | DRG 459 ==
LOC: SAMDAY 06:05 → 3NENU 17:19 → SUATTDRO 17:19 → ICNU 11-19 15:59 → 3NENU 11-20 15:41
PROVIDERS: ADMIT Orthopaedic Surgery Orthopaedic Surgery of the Spine; ATTEND Internal Medicine

== ENCOUNTER 2018-04-07 13:32 | Inpatient (IN) ==
[2018-04-07] MEDS ORDERED: Ondansetron 4 MG/2 ML VIAL IVP PRN (16:04)
[2018-04-07] MEDS ORDERED: Acetaminophen 325 MG TABLET PO PRN (16:05)
[2018-04-07] MEDS ORDERED: Naloxone 0.4 MG/ML INJ IVP PRN (16:05)
[2018-04-07] MEDS ORDERED: 0.9 % Sodium Chloride 1,000 ML IVC SCH (16:15)
--- NOTE | 2018-04-07 16:21 | Internal Med History&Physical ---
<GurdeepJasvir - Last Filed: 04/07/18 17:30> Date of Encounter: 04/07/18 Time of Encounter: 15:00 Internal Medicine - H&P: HPI Chief complaint: Abdominal pain Admitted From: Intrahospital Transfer Plans for Post Hospital Care: Home History of present illness: Mr. Marte is a 47 year old male w/PMH of HLD, HTN, anxiety and depression, chronic back pain from previous surgery, and on Xarelto d/t PE in October 2017 presents from [facility] w/CC of abdominal pain, nausea, and vomiting since Friday evening. Pt. states he went to Urgent Care today and was sent to the ED. Reports he has had several episodes of N/V. Also has right flank pain but denies difficulty urinating or hematuria. No alleviating or aggravating factors. Pt. denies recent illness, fever, chills, changes in vision, headache, cough, chest congestion, chest pain, SOB, unusual bleeding, diarrhea, constipation, dizziness, lightheadedness, numbness, tingling, pre-syncope, or syncope. Past Med Surg Social Fam HX - Past Medical History Source: patient, old records reviewed Medical history: hyperlipidemia, hypertension, kidney stones, pulmonary embolus (October 2017) Psychiatric history: anxiety, depression - Past Surgical History Surgical History: other (Eye and lumbar T 12 to S1 fusion with Maciel rods) Additional surgical history: eye, lumbar surgery. CAD - Social History Smoking Status: Former smoker Packs per day: Occasional cigar - Reports quitting 10 years ago Smokeless Tobacco Status: No Alcohol use: none Drug use: none Current living situation: Home Activity Level: Independent ambulation Recent Out of Country Travel Within the Last 8 Weeks: No Exposure or Possible Exposure to Illness During Travel: No - Family History Mother Race: Family Member Ethnicity: Non- Living Status: Still Living Hx Family Endocrine Disorder: Yes (DM) Father Race: Family Member Ethnicity: Non- Living Status: Still Living Hx Family Endocrine Disorder: Yes (DM) Brother Race: Family Member Ethnicity: Non- Living Status: Still Living Hx Family Medical Disorders: No Sister Race: Family Member Ethnicity: Non- Living Status: Still Living Hx Family Psychosocial Disorders: Yes (Mental issues) Internal Medicine - H&P: Meds Aspirin [Lo-Dose Aspirin EC] 81 mg PO DAILY 11/08/16 [History] Trazodone HCl 300 mg PO HS 11/08/16 [History] Calcium Carbonate [Calcium] 500 mg PO BID 06/11/17 [History] Ergocalciferol (VITAMIN D2) [Vitamin D2] 400 unit PO BID 06/11/17 [History] Metoprolol [Lopressor] 100 mg PO BID 06/11/17 [History] Pravastatin Sodium [Pravachol] 40 mg PO HS 02/04/18 [History] BuPROPion SR (12 HR) [Wellbutrin SR] 150 mg PO DAILY 04/05/18 [History] Gabapentin [Neurontin] 3 tab PO TID 04/05/18 [History] HYDROcodone/Acet 5/325 mg [Pierre 5-325 mg] 5 - 325 mg PO Q6H PRN 04/05/18 [ History] Ondansetron ODT [Zofran ODT] 4 mg SL Q6HR PRN #8 tab.rapdis 04/05/18 [Rx] Promethazine [Phenergan] 25 mg PO Q6HR PRN #16 tablet 04/05/18 [Rx] Rivaroxaban [Xarelto] 15 mg PO DAILY 04/05/18 [History] Tizanidine HCl [Zanaflex] 4 mg PO DAILY 04/05/18 [History] 3 Allergy/AdvReac Type Severity Reaction Status Date / Time Oxycodone AdvReac Hallucinati Verified 04/07/18 08:33 ng All Systems PM: A 10-system review of systems was performed and is negative for pertinent findings except as documented above in the HPI. - Constitutional Constitutional: no chills, no fever(s), no night sweats - EENT Eyes: no change in vision, no discharge, no pain, no photophobia Ears: no ear discharge, no ear pain, no tinnitus Nose, mouth and throat: no dysphagia, no nasal discharge, no neck pain, no sore throat - Breasts Breasts: as per HPI - Cardiovascular Cardiovascular ROS IM: no chest pain, no diaphoresis, no dyspnea, no lightheadedness, no palpitations, no syncope - Respiratory Respiratory: no cough, no dyspnea, no wheezing, no excessive phlegm production - Gastrointestinal Gastrointestinal: abdominal pain, nausea, vomiting, no diarrhea, no hematemesis , no hematochezia, no melena - Genitourinary Genitourinary ROS male: as per HPI, flank pain (Right) - Musculoskeletal Musculoskeletal ROS IM: as per HPI, back pain, no numbness, no tingling - Integumentary Integumentary IM: no rash, no unusual bruising - Neurological Neurological ROS: no confusion, no convulsions, no focal weakness, no numbness, no tingling, no tremor(s) - Psychiatric Psychiatric: as per HPI, anxiety, depression - Endocrine Endocrine IM: as per HPI - Hematologic/Lymphatic Hematologic/Lymphatic: no easy bruising - Allergic/Immunologic Allergic/Immunologic: as per HPI - Constitutional General appearance: Present: cooperative, mild distress (N/V), A&O X 3, pleasant , obese, answers questions appropriately Exam: Pt. examined at bedside and reports continued nausea and vomiting. Reports some right flank pain. Denies any other complaints at this time. VS: 98.2F temp, HR 112, RR 18, BP 182/102, SpO2 94% on RA. - Head Head exam: Present: atraumatic, normocephalic - Eye Eye exam: Present: PERRL, conjuntiva pink, sclera anicteric Pupils: Present: PERRL - ENT ENT exam: Present: normal exam - Neck Neck exam general surgery: Present: normal inspection, supple, trachea midline. Absent: lymphadenopathy - Respiratory Respiratory exam: Present: CTAB. Absent: accessory muscle use, rales, rhonchi, wheezes - Cardiovascular Cardiovascular exam: Present: RRR, +S1, +S2, tachycardia. Absent: diastolic murmur, gallop, rubs, systolic murmur - GI/Abdominal GI/Abdominal exam: Present: guarding, normal bowel sounds, soft, no peritoneal signs. Absent: distended, tenderness - Rectal Rectal exam: Present: deferred - Additional comments: exam deferred. - Extremities Exam Extremities exam: Present: warm, radial pulses palpable and symmetrical. Absent : calf tenderness, cyanotic, pedal edema - Back Exam Back exam: Present: normal inspection - Neurological Exam Neurological exam: Present: alert, CN II-XII intact, oriented X3, no focal deficits. Absent: pronater drift, facial droop, speech deficit - Psychiatric Psychiatric exam: Present: normal affect, normal mood - Skin Skin exam: Present: dry, intact Internal Med - H&P Results - Labs CBC & Chem 7: 04/07/18 17:03 - EKG Data EKG shows normal: sinus rhythm Rate: tachycardia - EKG Data Prior EKG available for review: no EKG comments: 04/07/18 16:38 EKG dated 04/07/18 shows sinus rhythm with low QRS voltage in extremity leads. - Diagnostic Studies CT scan - abdomen Additional comments: EXAMINATION: CT OF THE ABDOMEN AND PELVIS WITHOUT CONTRAST 04/07/2018 11:47 am TECHNIQUE: CT of the abdomen and pelvis was performed without the administration of intravenous contrast. Multiplanar reformatted images are provided for review. Dose modulation, iterative reconstruction, and/or weight based adjustment of the mA/kV was utilized to reduce the radiation dose to as low as reasonably achievable. COMPARISON: 11/19/2017 HISTORY: ORDERING SYSTEM PROVIDED HISTORY: RUQ/R flank pain FINDINGS: Lower Chest: No acute abnormality. Organs: The liver appears unremarkable. The gallbladder demonstrates extensive thickening as well as cholelithiasis. Acute cholecystitis is likely. Pancreas and spleen and adrenal glands appear unremarkable. The left kidney is normal. The right kidney demonstrates large calculus extending from the renal pelvis into the right ureteric-pelvic junction. No evidence of significant hydronephrosis, however. Aorta and IVC appear unremarkable. GI/Bowel: No evidence of acute appendicitis. No acute gastrointestinal abnormality. Pelvis: Urinary bladder, prostate and seminal vesicles appear unremarkable. Peritoneum/Retroperitoneum: No evidence of lymphadenopathy. Bones/Soft Tissues: Stable lumbar fusion. CT/CT abd pelvis wo no iv no oral IMPRESSION: 1. Findings consistent with acute cholecystitis. 2. Large calculus in the right renal pelvis extending to the right ureteric-pelvic junction although no evidence of hydronephrosis. RECOMMENDATIONS: Surgical consult for the gallbladder disease. D/ / 04/07/2018 11:54:27 Blossom Paul MD / guy Interpreting Provider: Blossom Paul MD Abdominal x-ray Additional comments: EXAMINATION: TWO XRAY VIEWS OF THE ABDOMEN AND SINGLE XRAY VIEW OF THE CHEST 04/07/2018 9:02 am COMPARISON: Abdomen and pelvis CT 11/19/2017, chest radiograph 11/18/2017, pelvis radiograph 08/29/2016 HISTORY: ORDERING SYSTEM PROVIDED HISTORY: LUQ/epigastric pain radiating into chest Epigastric and left upper quadrant pain for 3 days with vomiting. Initial evaluation. FINDINGS: Low lung volumes. Right basilar airspace opacity. Interstitial and hilar prominence likely due to central vascular crowding. No definite findings of pneumothorax pleural effusion. Normal mediastinal and cardiac contours. Nonobstructive bowel gas pattern. Mild stool. No findings of free intraperitoneal gas. 4.1 cm x 2.6 cm calcification (or adjacent calcifications) projecting over the expected location of the right renal pelvis. Bilateral pelvic phleboliths. Changes of posterior thoracolumbosacral fusion with multilevel discectomies and laminectomies and no evident complication. No acute fracture. Joints maintain anatomic alignment. Mild to moderate lumbar levoscoliosis. XR/XR acute abdominal series IMPRESSION: 1. New 4.1 cm x 2.6 cm calcification projecting over the expected location right renal pelvis, potentially nephrolithiasis. Consider further evaluation with CT. 2. Nonobstructive bowel gas pattern with a mild stool volume. 3. Right basilar atelectasis. D/ / Keith Sutton MD / Keith Sutton MD Interpreting Provider: Keith Sutton MD Chest x-ray Additional comments: EXAMINATION: TWO XRAY VIEWS OF THE ABDOMEN AND SINGLE XRAY VIEW OF THE CHEST 04/07/2018 9:02 am COMPARISON: Abdomen and pelvis CT 11/19/2017, chest radiograph 11/18/2017, pelvis radiograph 08/29/2016 HISTORY: ORDERING SYSTEM PROVIDED HISTORY: LUQ/epigastric pain radiating into chest Epigastric and left upper quadrant pain for 3 days with vomiting. Initial evaluation. FINDINGS: Low lung volumes. Right basilar airspace opacity. Interstitial and hilar prominence likely due to central vascular crowding. No definite findings of pneumothorax pleural effusion. Normal mediastinal and cardiac contours. Nonobstructive bowel gas pattern. Mild stool. No findings of free intraperitoneal gas. 4.1 cm x 2.6 cm calcification (or adjacent calcifications) projecting over the expected location of the right renal pelvis. Bilateral pelvic phleboliths. Changes of posterior thoracolumbosacral fusion with multilevel discectomies and laminectomies and no evident complication. No acute fracture. Joints maintain anatomic alignment. Mild to moderate lumbar levoscoliosis. XR/XR acute abdominal series IMPRESSION: 1. New 4.1 cm x 2.6 cm calcification projecting over the expected location right renal pelvis, potentially nephrolithiasis. Consider further evaluation with CT. 2. Nonobstructive bowel gas pattern with a mild stool volume. 3. Right basilar atelectasis. D/ / Keith Sutton MD / Keith Sutton MD Interpreting Provider: Keith Sutton MD - Assessment and plan (1) Acute cholecystitis Current Visit: Yes Status: Acute Assessment and plan: Acute cholecystitis. Pt. reports abdominal pain, nausea, and vomiting since Friday. Pt. denies previous occurrence. CT of the abdomen/pelvis shows extensive thickening as well as cholelithiasis in the gallbladder. Acute cholecystitis likely. IVPB Zosyn 3.375 gm Q8HR for current cholecystitis as well as UTI infection coverage. 0.9 NS IV fluids @ 75 mLs/HR. NPO except medications. Concern for current Xarelto use based on possible need for surgery tomorrow. Pt. reports taking Xarelto last yesterday but is unsure of time. Standard dose heparin drip ordered w/o boluses to bridge pt. Stair-step pain medications for pain mgmt. IVP Zofran and Phenergan for N/V. Surgery consult ordered and discussed w/Dr. Peralta w/possible surgery tomorrow depending upon surgical schedule. Discussed beginning heparin drip to bridge pt. and I appreciate the consult and recommendations as always. Pt. currently meeting sepsis criteria w/WBC of 12.1 and HR of 112 (infective process versus pain/N/V) . Lactic acid ordered. Pt. to be monitored closely for signs of increasing infection/sepsis. Pt. discussed w/Dr. Vivar who agrees w/plan of care. Pt. is high risk for further morbidity and complications d/t current cholecystitis, UTI , hx of PE in October on Xarelto requiring bridging for possible surgery, current renal calculus; and risk factors of HTN and HLD. Observation. (2) UTI (urinary tract infection) Current Visit: Yes Status: Acute Assessment and plan: Acute UTI according to U/A which is positive for nitrates, leukocyte esterase, and moderate urine bacteria. IVPB Zosyn 3.375 gm Q8HR for UTI infection coverage as well as current cholecystitis. WBC 12.1 on admission. Pt. is not currently meeting sepsis criteria but will be monitored closely. 0.9 NS IV fluids @ 75 mLs/HR. Monitor I&O and f/u labs. Urine w/reflex micro and culture ordered. Qualifiers: Urinary tract infection type: acute cystitis Hematuria presence: without hematuria Qualified Code(s): N30.00 - Acute cystitis without hematuria (3) Abdominal pain Current Visit: Yes Status: Acute Assessment and plan: Acute abdominal pain since Friday d/t cholecystitis. CT of the abdomen/pelvis shows findings consistent with acute cholecystitis. Pt. denies previous occurrence. IVP Zofran and Phenergan for N/V. NPO except medications. Stair- step pain medications for pain mgmt. Qualifiers: Abdominal location: upper abdomen, unspecified Qualified Code(s): R10.10 - Upper abdominal pain, unspecified (4) Nausea & vomiting Current Visit: Yes Status: Acute Assessment and plan: Acute N/V since Friday r/t current abdominal pain from cholecystitis. IVP Zofran and Phenergan ordered. Monitor I&O. NPO except medications. Qualifiers: Vomiting type: unspecified Vomiting Intractability: non-intractable Qualified Code(s): R11.2 - Nausea with vomiting, unspecified (5) Renal calculus, right Current Visit: Yes Status: Acute Assessment and plan: Acute renal calculus. CT of the abdomen/pelvis shows large calculus in the right renal pelvis extending to the right ureteric-pelvic junction although no evidence of hydronephrosis. Pt. reports right flank pain occasionally. Stair- step pain medication for pain mgmt. (6) HTN (hypertension) Current Visit: Yes Status: Chronic Assessment and plan: Hx of chronic HTN. Monitor pt. and VS. Continue pts. Lopressor and add IVP hydralazine w/parameters for unresolved HTN. Monitor pt. for hypotension following administration. Qualifiers: Hypertension type: essential hypertension Qualified Code(s): I10 - Essential (primary) hypertension (7) HLD (hyperlipidemia) Current Visit: Yes Status: Chronic Assessment and plan: Hx of chronic HLD. Lipid panel in a.m. labs. Continue pts. Pravastatin. Qualifiers: Hyperlipidemia type: pure hypercholesterolemia Qualified Code(s): E78.00 - Pure hypercholesterolemia, unspecified; E78.0 - Pure hypercholesterolemia (8) Chronic back pain greater than 3 months duration Current Visit: Yes Status: Chronic Assessment and plan: Hx of chronic back pain following back surgery. Continue pts. Trazodone and Zanaflex. Will add hydrocodone for breakthrough pain as pt. reports he has taken previously. Falls/safety precautions and up with assist. (9) Anxiety and depression Current Visit: Yes Status: Chronic Assessment and plan: Hx of chronic anxiety and depression. Continue pts. Wellbutrin and gabapentin. (10) Hx pulmonary embolism Current Visit: Yes Status: Resolved Assessment and plan: Hx of PE in October 2017. Pt. placed on Xarelto. Reports he last took his Xarelto yesterday but is unsure of the time. Will bridge pt. to heparin for possible surgery tomorrow for acute cholecystitis per Surgery. (11) DVT prophylaxis Current Visit: Yes Status: Acute Assessment and plan: Standard dose heparin drip w/o bolus started to bridge pt. from Xarelto which he reports he last took yesterday. Monitor pt. for signs of bleeding. (12) Chest pain Current Visit: Yes Status: Acute Assessment and plan: Acute CP of unknown etiology (pain from N/V versus cardiologic). Stat EKG ordered. Serial troponins ordered to start now. D-dimer ordered. D/t hx of PE in October, will consider CTA of chest based on D-dimer results if warranted. Qualifiers: Chest pain type: other chest pain Qualified Code(s): R07.89 - Other chest pain; R07.8 - Other chest pain - Time Spent With Patient Total time spent is greater than 50% in coordination of care (as documented) at patient's floor/unit and/or counseling patient: Greater than 35 minutes <Domenico Vivar - Last Filed: 04/07/18 18:36> Date of Encounter: 04/07/18 Internal Medicine - H&P: HPI History of present illness: Mr. Marte is a 47 year old male All Systems PM: A 10-system review of systems was performed and is negative for pertinent findings except as documented above in the HPI. - Constitutional Vitals: Temp Pulse Resp BP Pulse Ox 98.2 F 112 18 182/102 94 04/07/18 16:50 04/07/18 16:50 04/07/18 16:50 04/07/18 16:50 04/07/18 16:50 Internal Med - H&P Results - Labs CBC & Chem 7: 04/07/18 17:03 Labs: Short CBC 04/07/18 Range/Units 17:03 WBC 14.9 H (4.3-11.1) K/mcL Hgb 15.1 (12.9-16.9) g/dL Hct 46.7 (37.5-50.1) % Plt Count 190 (140-400) K/mcL Cardiac Enzymes 04/07/18 Range/Units 17:03 Troponin I < 0.03 (< 0.04) ng/mL - Assessment and plan (1) Nausea & vomiting Current Visit: Yes Status: Acute Qualifiers: Vomiting type: unspecified Vomiting Intractability: non-intractable Qualified Code(s): R11.2 - Nausea with vomiting, unspecified (2) Abdominal pain Current Visit: Yes Status: Acute Qualifiers: Abdominal location: upper abdomen, unspecified Qualified Code(s): R10.10 - Upper abdominal pain, unspecified (3) Acute cholecystitis Current Visit: Yes Status: Acute (4) UTI (urinary tract infection) Current Visit: Yes Status: Acute Qualifiers: Urinary tract infection type: acute cystitis Hematuria presence: without hematuria Qualified Code(s): N30.00 - Acute cystitis without hematuria (5) Hx pulmonary embolism Current Visit: Yes Status: Resolved (6) HTN (hypertension) Current Visit: Yes Status: Chronic Qualifiers: Hypertension type: essential hypertension Qualified Code(s): I10 - Essential (primary) hypertension (7) HLD (hyperlipidemia) Current Visit: Yes Status: Chronic Qualifiers: Hyperlipidemia type: pure hypercholesterolemia Qualified Code(s): E78.00 - Pure hypercholesterolemia, unspecified; E78.0 - Pure hypercholesterolemia (8) Chronic back pain greater than 3 months duration Current Visit: Yes Status: Chronic (9) Anxiety and depression Current Visit: Yes Status: Chronic (10) DVT prophylaxis Current Visit: Yes Status: Acute (11) Renal calculus, right Current Visit: Yes Status: Acute (12) Chest pain Current Visit: Yes Status: Acute Qualifiers: Chest pain type: other chest pain Qualified Code(s): R07.89 - Other chest pain; R07.8 - Other chest pain - Time Spent With Patient Total time spent is greater than 50% in coordination of care (as documented) at patient's floor/unit and/or counseling patient: - Attending Attestation Agree with plan In addition, patient with chest pain and HTN urgency Agree with troponins X2, EKG. Given a stat dose of labetalol IV he is anticoagulated on heparin as a bridge for his PE while holding xarelto, he is also on BB and Statin Unlikely ACS, chest pain is most likely due to uncontrolled blood pressure Surgery is following for his primary diagnosis of cholecystitis Rest of details is as in DAYO Mackenzie's documentation
[2018-04-07] MEDS: *HR* HYDROcodone/Acet 5/325 mg TABLET PO PRN (17:11)
[2018-04-07] MEDS: *HR* Promethazine 25 MG/ML VIAL IVP PRN (17:11)
--- NOTE | 2018-04-07 17:22 | General Surgery Consult Note ---
Date of Encounter: 04/07/18 Time of Encounter: 17:12 Assessment and Plan (1) Acute cholecystitis Current Visit: Yes Status: Acute Abdominal pain with CT showing thickened gallbladder wall and cholelithiasis. - continue zosyn - continue IVF - continue zofran and phenegran but if fails overnight I added Reglan prn for nausea - supportive care and pain management - may have clears as tolerated, but NPO at midnight - consent signed and questions answered Plan for lap vito with Dr Peralta within 24-48 hours (2) Sepsis Current Visit: Yes Status: Acute SIRs criteria of tachycardia and elevated WBC with two possible sources of UTI and cholecystitis - plan as above - blood cultures obtained Qualifiers: Sepsis type: sepsis due to unspecified organism Qualified Code(s): A41.9 - Sepsis, unspecified organism (3) Melena Current Visit: Yes Status: Acute HgB stable at 15.1- obtain occult stool with next bowel movement (4) Chest pain Current Visit: Yes Status: Acute per primary team Qualifiers: Chest pain type: other chest pain Qualified Code(s): R07.89 - Other chest pain; R07.8 - Other chest pain History of Present Illness Consult date: 04/07/18 Reason for consult: abdominal pain Requesting physician: Jasvir Mackenzie History of present illness: 47 y/o male with hx CAD and back pain presented to [facility] with 3-4 days of worsening abdominal pain and vomiting. He describes sharp epigastric pain radiating to back first triggered by food. He has intermittent vomiting and nausea not resolved with zofran or phenegran. He denies constipation or diarrhea with last bowel movement this morning without pain colored green denies white mucus, bright red or dark tarry- but he rememebrs blood on previous bowel movement of unknown time. He admits to feeling feverish and mildly confused. In ED, vitals T 99, HR 82 BP 191/114 and RR 24 with 95% RA . WBC 12.1 and Lactic acid 1.7. CT showed thickened gallbladder wall and cholelithisias. Diagnosed with UTI and cholecystitis - treated with zosyn. He admits to chest pain associated with shortness of breath and continued nausea with out radiating pain. Last meal tolerated was on Friday. He takes [place] 5 PRN at home for back pain. No family history of gallbladder issues. Surgical history included back surgery but no previous abdominal surgeries - no adverse reaction to anesthesia. Past Med Surg Social Fam HX - Past Medical History Medical history: hyperlipidemia, hypertension, kidney stones, pulmonary embolus (October 2017) Psychiatric history: anxiety, depression - Past Surgical History Surgical History: other (Eye and lumbar T 12 to S1 fusion with Maciel rods) Additional surgical history: eye, lumbar surgery. CAD - Social History Smoking Status: Former smoker Packs per day: Occasional cigar - Reports quitting 10 years ago Smokeless Tobacco Status: No Alcohol use: none Drug use: none - Family History Mother Race: Family Member Ethnicity: Non- Living Status: Still Living Hx Family Endocrine Disorder: Yes (DM) Father Race: Family Member Ethnicity: Non- Living Status: Still Living Hx Family Endocrine Disorder: Yes (DM) Brother Race: Family Member Ethnicity: Non- Living Status: Still Living Hx Family Medical Disorders: No Sister Race: Family Member Ethnicity: Non- Living Status: Still Living Hx Family Psychosocial Disorders: Yes (Mental issues) Medications and Allergies Aspirin [Lo-Dose Aspirin EC] 81 mg PO DAILY 11/08/16 [History] Trazodone HCl 300 mg PO HS 11/08/16 [History] Calcium Carbonate [Calcium] 500 mg PO BID 06/11/17 [History] Ergocalciferol (VITAMIN D2) [Vitamin D2] 400 unit PO BID 06/11/17 [History] Metoprolol [Lopressor] 100 mg PO BID 06/11/17 [History] Pravastatin Sodium [Pravachol] 40 mg PO HS 02/04/18 [History] BuPROPion SR (12 HR) [Wellbutrin SR] 150 mg PO DAILY 04/05/18 [History] Gabapentin [Neurontin] 3 tab PO TID 04/05/18 [History] HYDROcodone/Acet 5/325 mg [[place] 5-325 mg] 5 - 325 mg PO Q6H PRN 04/05/18 [ History] Ondansetron ODT [Zofran ODT] 4 mg SL Q6HR PRN #8 tab.rapdis 04/05/18 [Rx] Promethazine [Phenergan] 25 mg PO Q6HR PRN #16 tablet 04/05/18 [Rx] Rivaroxaban [Xarelto] 15 mg PO DAILY 04/05/18 [History] Tizanidine HCl [Zanaflex] 4 mg PO DAILY 04/05/18 [History] 3 Allergy/AdvReac Type Severity Reaction Status Date / Time Oxycodone AdvReac Hallucinati Verified 04/07/18 08:33 ng Review of Systems All systems PM: The remainder of the systems were reviewed and are negative - Constitutional chills, fatigue, fever(s) - Cardiovascular chest pain, lightheadedness, no radiating jaw, neck or arm pain - Gastrointestinal abdominal pain, belching, change in stool character, melena, nausea, vomiting, no constipation - Genitourinary flank pain, hematuria (chronic episodic ), no dysuria, no urinary frequency - Musculoskeletal back pain, no numbness - Neurological confusion, headache(s) General Surgery Exam Initial Vital Signs Temp Pulse Resp BP Pulse Ox 98.2 F 112 18 182/102 94 04/07/18 16:50 04/07/18 16:50 04/07/18 16:50 04/07/18 16:50 04/07/18 16:50 - General physical appearance well developed, well nourished, severe pain, obese - Eyes normal ocular movement - ENT normal pinna, normal nares, no hearing loss, dry mucosa - Respiratory normal expansion, normal respiratory effort, clear to auscultation - Cardiovascular Cardiovascular exam: Present: RRR, no murmurs/rubs/gallops - Abdomen Abdomen general surgery: Present: bowel sounds present (decreased), soft Abdominal Tenderness: Present: epigastic (worse), diffusely Hernia: Present: none - Integumentary Integumentary general surgery: Present: warm and dry, no abnormal pigmentation. Absent: diaphoresis - Neurologic Present: CN 2-12 grossly intact, normal coordination, normal sensation - Musculoskeletal Present: normal gait, normal posture - Psychiatric Psychiatric general surgery: Present: A&Ox3, speech is normal, memory intact, angry Exam Initial Vital Signs Temp Pulse Resp BP Pulse Ox 98.2 F 112 18 182/102 94 04/07/18 16:50 04/07/18 16:50 04/07/18 16:50 04/07/18 16:50 04/07/18 16:50 Results - Labs 04/07/18 17:03 All other labs normal. Consult Discharge Plan - Plan Referrals: Aundrea Thrasher DAYO [Primary Care Provider] -
[2018-04-07 17:23] LABS: Hematocrit 46.7 % (37.5-50.1); Hemoglobin 15.1 g/dL (12.9-16.9); Mean Corpuscular HGB Conc 32.3 g/dL (31.6-35.5); Mean Corpuscular Hemoglobin 27.5 pg (28.0-33.3); Mean Corpuscular Volume 85.1 fL (83.0-100.0); Mean Platelet Volume 10.7 fL (9.4-12.4); Platelet Count 190 K/mcL (140-400); Red Blood Count 5.49 M/mcL (4.19-5.50); Red Cell Distribution Width 13.7 % (11.5-14.5)
[2018-04-07 17:25] LABS: Heparin anti-factor XA UFH 0.17 IU/mL (0.30-0.70)
[2018-04-07 17:26] LABS: INR 1.2; Prothrombin Time 13.7 Seconds (9.4-12.1)
[2018-04-07] MEDS ORDERED: *HR* Labetalol 20 MG/4 ML SYRINGE IVP ONE ×2 (18:25→20:50)
[2018-04-07] MEDS ORDERED: *HR* FentaNYL (PF) 100 MCG/2 ML VIAL IVP ONE (18:48)
--- NOTE | 2018-04-07 19:15 | Anesthesia Evaluation PreOp ---
Date of Encounter: 04/07/18 Time of Encounter: 19:13 - Past History Planned Operation: Lap. Juli. Cardiac History: VT (1999 medically managed), HTN (upon arrival to room patient BP critically high 200+/123 HR-132. A&O x 3 sleeping, arousable. Hospitalist notified of BP and came to bedside. 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 (radiculopathy, recent PLIF T12-S1,) Other Medical History: GERD Anesthesia History: No Prior Anesthetic Complications, Past Anesthesia (PLIF, eye sx) Alcohol Use: none Drug use: none Medications and Allergies Aspirin [Lo-Dose Aspirin EC] 81 mg PO DAILY 11/08/16 [History] Trazodone HCl 300 mg PO HS 11/08/16 [History] Calcium Carbonate [Calcium] 500 mg PO BID 06/11/17 [History] Ergocalciferol (VITAMIN D2) [Vitamin D2] 400 unit PO BID 06/11/17 [History] Metoprolol [Lopressor] 100 mg PO BID 06/11/17 [History] Pravastatin Sodium [Pravachol] 40 mg PO HS 02/04/18 [History] BuPROPion SR (12 HR) [Wellbutrin SR] 150 mg PO DAILY 04/05/18 [History] Gabapentin [Neurontin] 3 tab PO TID 04/05/18 [History] HYDROcodone/Acet 5/325 mg [[place] 5-325 mg] 5 - 325 mg PO Q6H PRN 04/05/18 [ History] Ondansetron ODT [Zofran ODT] 4 mg SL Q6HR PRN #8 tab.rapdis 04/05/18 [Rx] Promethazine [Phenergan] 25 mg PO Q6HR PRN #16 tablet 04/05/18 [Rx] Rivaroxaban [Xarelto] 15 mg PO DAILY 04/05/18 [History] Tizanidine HCl [Zanaflex] 4 mg PO DAILY 04/05/18 [History] 3 Allergy/AdvReac Type Severity Reaction Status Date / Time Oxycodone AdvReac Hallucinati Verified 04/07/18 08:33 ng - Meds/Allergy Pre-op Review Medications Reviewed: Yes Allergies Reviewed: Yes Beta Blockers on Current Med List: Yes If Beta Blockers taken, Date/Time (Last Dose taken): labetalol 20 mg IV @ 20:41 04/07/2018 Anesthesia Results - Labs 04/07/18 17:03 Echocardiogram Name: Ilir Marte Date of Study: 11/15/2017 EV/EV echocardiogram Impressions: LVEF 60-65%. Normal LV chamber size and function. Moderate left ventricular diastolic dysfunction. Mild concentric left ventricular hypertrophy. Normal right ventricular structure and function. No evidence of pulmonary hypertension. No significant valvular dysfunction. 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
[2018-04-07] MEDS: Heparin 25,000 UNIT/500 ML D5W 25,000 UNIT/500 ML BAG IVC SCH (19:43)
[2018-04-07] MEDS ORDERED: traZODone 50 MG TABLET PO SCH (21:00)
[2018-04-07] MEDS: Ringers Solution, Lactated 1,000 ML IVC SCH (21:12)
[2018-04-07] MEDS ORDERED: *HR* LORazepam 2 MG/ML VIAL IVP ONE (21:13)
--- NOTE | 2018-04-07 21:40 | Event Note ---
Date of Encounter: 04/07/18 Time of Encounter: 20:15 Alerted by pts. nurse that Surgery Anesthesia was wanting to medically clear the pt. but found the pt. to be hypertensive w/SBP >180 and DBP >120 and HR of 132. Pt. had complained of CP earlier in the day while being assessed by Surgery and I was notified of the pts. complaint at 17:22. Stat trop and EKG were ordered. EKG showed sinus tachycardia with possible inferior myocardial infarction, probably old. Initial troponin <0.03. Will trend. Following discussion w/Surgery @ 20:15, another EKG was ordered as well as cardiac telemetry. New EKG showed sinus tachycardia with borderline right axis deviation and pattern consistent with pulmonary disease. Probable inferior myocardial infarction, probably old. Pt. has been taking Xarelto d/t PE in October 2017 and is currently being bridged w/standard-dose heparin drip for possible surgery d/t cholecystitis tomorrow. D/t current CP, limited Echocardiogram ordered since pt. had Echocardiogram in October which showed LVEF of 60-65%, normal LV chamber size and function, moderate left ventricular diastolic dysfunction, mild concentric left ventricular hypertrophy, normal right ventricular structure and function, no evidence of pulmonary hypertension, and no significant valvular dysfunction. Pt. was given 20 mg IVP Labetalol and 25 mcg of Fentanyl IVP @ 19:41. Pt. had also received IVP hydralazine @ 17:11. Discussed pt. w/Dr. Elizalde w/recommendation to hold hydralazine d/t possible rebound hypertension and give another 20 mg Labetalol after one hour. At 21:09, pts. BP was 188/140 and HR 129. Second Labetalol administered at 21:15. At 21:31 , pts. BP 181/139 and HR 111. 0.5 mg IVP Ativan ordered d/t pts. anxiety. Order to monitor pts. VS Q15MIN placed w/nurse. At 22:16, BP 180/135 and HR 116. Pt. reporting abdominal pain 7/10 so 10 mg SL morphine ordered. BP @ 23:30 188/143. Will give pts. 100 mg PO Lopressor and monitor closely. Nurse instructed to continue to monitor pts. BP and HR and notify Dr. Elizalde of continued elevation.
[2018-04-07] MEDS ORDERED: MORPHINE SUL Oral CONC 10 MG/0.5 ML ORAL.SYG SL ONE (23:10)
[2018-04-08] MEDS ORDERED: cloNIDine HCl 0.1 MG TABLET PO ONE (00:32)
[2018-04-08] MEDS: *HR* HYDROcodone/Acet 5/325 mg TABLET PO PRN (01:06)
[2018-04-08 02:18] LABS: Basophils # 0.1 K/mcL (0.0-0.2); Basophils % 0.2 %; Eosinophils % 0.1 %; Hemoglobin 15.9 g/dL (12.9-16.9); Immature Granulocytes % 0.5 % (0-4); Lymphocytes # 1.3 K/mcL (0.6-4.6); Lymphocytes % 5.5 %; Mean Corpuscular HGB Conc 33.1 g/dL (31.6-35.5); Mean Corpuscular Hemoglobin 27.8 pg (28.0-33.3); Mean Corpuscular Volume 83.9 fL (83.0-100.0); Monocytes # 1.9 K/mcL (0.0-1.3); Monocytes % 7.8 %; Platelet Count 208 K/mcL (140-400); Red Blood Count 5.72 M/mcL (4.19-5.50); Red Cell Distribution Width 13.9 % (11.5-14.5); Segmented Neutrophils % 85.9 %
[2018-04-08 02:30] LABS: Neutrophils # 20.4 K/mcL (1.6-8.9)
[2018-04-08 02:33] LABS: BUN/Creatinine Ratio 18 (6-26); Blood Urea Nitrogen 15 mg/dL (6-20); Carbon Dioxide 25 mEq/L (23-29); Chloride 97 mEq/L (98-107); Chol/HDL Ratio 2.1 (0-4.9); Cholesterol 88 mg/dL (< 200); Glucose 133 mg/dL (70-105); HDL Cholesterol 42 mg/dL (40-59); LDL Cholesterol,Calculated 35 mg/dL (0-99); Magnesium 1.5 mg/dL (1.6-2.6); Osmolality,Calculated 277 (280-300); Potassium 4.1 mEq/L (3.5-5.1); Sodium 132 mEq/L (136-145); Triglycerides 55 mg/dL (< 150); eGFR For Non-African Americans > 60 (> 60)
[2018-04-08 03:06] LABS: Estimated Average Glucose 114 mg/dl; Hemoglobin A1C 5.6 %
[2018-04-08] MEDS: Piperacillin/Tazobactam 3.375 GM in 0.9 % Sodium Chloride Mini Bag 100 ML IVPB SCH ×5 (04:15→20:00)
[2018-04-08] MEDS: Gabapentin 400 MG CAPSULE PO SCH ×4 (04:17→20:52)
[2018-04-08] MEDS: Ringers Solution, Lactated 1,000 ML IVC SCH ×2 (07:55→17:39)
[2018-04-08] MEDS ORDERED: BuPROPion SR (12 HR) 150 MG TABLET PO SCH (09:00)
[2018-04-08] MEDS: Heparin 25,000 UNIT/500 ML D5W 25,000 UNIT/500 ML BAG IVC SCH (09:00)
[2018-04-08] MEDS ORDERED: Cholecalciferol (D-3) 1,000 UNIT TABLET PO SCH (09:00)
[2018-04-08] MEDS ORDERED: tiZANidine 4 MG TABLET PO SCH (09:00)
[2018-04-08] MEDS: *HR* Promethazine 25 MG/ML VIAL IVP PRN (09:02)
--- NOTE | 2018-04-08 09:31 | Internal Med Progress Note ---
Hospitalist Progress Note - Encounter Date of Encounter: 04/08/18 Time of Encounter: 09:30 - Subjective Interval History: Seen and evalated at the bedside with spouse He feels some minimal improvement but is back tender insulation board and guarding ++ WBC increased to 23.7 from 14 He remains afebrile BP better controlled this a.m, no ischemic EKG findings or trop elevation - Exam Vitals: Temp Pulse Resp BP Pulse Ox 98.5 F 90 16 126/81 95 04/08/18 07:10 04/08/18 07:10 04/08/18 07:10 04/08/18 07:10 04/08/18 07:10 Exam: Gen: Morbidly obese, mild painful distress, VSS HEENT: Dry oral mucosa, not cyanotic, not pale CVS: No JVD, S1, S2 only, no m/g/r Chest: CTAB Abdomen: Guarding ++, generalized tenderness Extremities: No pedal edema Neuro: AAOX3, no focal deficits - Assessment and Plan (1) Acute cholecystitis Current Visit: Yes Status: Acute Assessment and Plan: Pt. presented with abdominal pain, nausea, and vomiting since Friday CT of the abdomen/pelvis shows extensive thickening as well as cholelithiasis in the gallbladder. Acute cholecystitis likely. Continue IVPB Zosyn NPO except medications. Concern for current Xarelto use based on possible need for surgery tomorrow. For OR today (2) UTI (urinary tract infection) Current Visit: Yes Status: Suspected Assessment and Plan: Suspected Acute UTI according to U/A which is positive for nitrates, leukocyte esterase, and moderate urine bacteria. I Continue Zosyn Follow final culture reports (3) Hx pulmonary embolism Current Visit: Yes Status: Acute Assessment and Plan: Hx of Procoked, post-op PE in October 2017. bridged with heaprin due to need for urgent surgery Continue heparin Resume xarelto when surgery clears to do so (4) HTN (hypertension) Current Visit: Yes Status: Chronic Assessment and Plan: Continue current meds, exacerbated by pain EKG and trops negative (5) HLD (hyperlipidemia) Current Visit: Yes Status: Chronic Assessment and Plan: Continue current meds (6) Chronic back pain greater than 3 months duration Current Visit: Yes Status: Chronic Assessment and Plan: Hx of chronic back pain following back surgery. Continue pts. Trazodone and Zanaflex. Will add hydrocodone for breakthrough pain as pt. reports he has taken previously. Falls/safety precautions and up with assist. (7) Anxiety and depression Current Visit: Yes Status: Chronic Assessment and Plan: Hx of chronic anxiety and depression. Continue pts. Wellbutrin and gabapentin. (8) DVT prophylaxis Current Visit: Yes Status: Acute Assessment and Plan: On heparin infusion (9) Renal calculus, right Current Visit: Yes Status: Acute Assessment and Plan: Acute renal calculus. CT of the abdomen/pelvis shows large calculus in the right renal pelvis extending to the right ureteric-pelvic junction although no evidence of hydronephrosis. Pt. reports right flank pain occasionally. Stair- step pain medication for pain mgmt. (10) Chest pain Current Visit: Yes Status: Acute Assessment and Plan: Likely due to uncontrolled HTN However, patient described pain as epigastric EKG X2 and trop negative for ischemic Continue to monitor Follow limited ECHO - Time Spent with Patient Total time spent is greater than 50% in coordination of care (as documented) at patient's floor/unit and/or counseling patient: Plan of Care Discussed with: patient Internal Medicine: Result - Labs CBC & Chem 7: 04/08/18 01:52 04/08/18 01:52 Labs: Short CBC 04/07/18 04/08/18 Range/Units 17:03 01:52 WBC 14.9 H 23.7 H D (4.3-11.1) K/mcL Hgb 15.1 15.9 (12.9-16.9) g/dL Hct 46.7 48.0 (37.5-50.1) % Plt Count 190 208 (140-400) K/mcL Neutrophils # 20.4 H (1.6-8.9) K/mcL BMP 04/08/18 01:52 Sodium 132 L Potassium 4.1 Chloride 97 L Carbon Dioxide 25 BUN 15 Creatinine 0.82 Glucose 133 H Calcium 9.0 Cardiac Enzymes 04/07/18 04/08/18 04/08/18 Range/Units 17:03 00:15 07:24 Troponin I < 0.03 < 0.03 < 0.03 (< 0.04) ng/mL - ABG Interpretation ABG results: PT/INR, D-dimer PT 13.7 Seconds (9.4-12.1) H 04/07/18 17:03 D-Dimer 890 ng/mLFEU (0-500) H 04/07/18 17:03 Consult Discharge Plan - Plan Referrals: Aundrea Thrasher CNP [Primary Care Provider] - (2) UTI (urinary tract infection) Qualifiers: Urinary tract infection type: acute cystitis Hematuria presence: without hematuria Qualified Code(s): N30.00 - Acute cystitis without hematuria (4) HTN (hypertension) Qualifiers: Hypertension type: essential hypertension Qualified Code(s): I10 - Essential (primary) hypertension (5) HLD (hyperlipidemia) Qualifiers: Hyperlipidemia type: pure hypercholesterolemia Qualified Code(s): E78.00 - Pure hypercholesterolemia, unspecified; E78.0 - Pure hypercholesterolemia (10) Chest pain Qualifiers: Chest pain type: other chest pain Qualified Code(s): R07.89 - Other chest pain; R07.8 - Other chest pain
--- NOTE | 2018-04-08 09:44 | Electrocardiograph Report ---
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
[2018-04-08] MEDS ORDERED: *HR* Propofol 200 MG/20 ML VIAL IVP ONE (13:54)
[2018-04-08] MEDS ORDERED: *HR* Succinylcholine 200 MG/10 ML VIAL IVP ONE (13:54)
[2018-04-08] MEDS ORDERED: *HR* FentaNYL (PF) 100 MCG/2 ML VIAL ONE (13:54)
[2018-04-08] MEDS ORDERED: Lidocaine -MPF 2% 2 ML VIAL ONE (13:54)
[2018-04-08] MEDS ORDERED: *HR* Midazolam HCl 2 MG/2 ML VIAL ONE (13:54)
[2018-04-08] MEDS ORDERED: Dexamethasone 4 MG/ML VIAL ONE (13:54)
[2018-04-08] MEDS ORDERED: *HR* Rocuronium Bromide 50 MG/5 ML VIAL ONE (13:54)
[2018-04-08] MEDS ORDERED: Ondansetron 4 MG/2 ML VIAL ONE (13:54)
[2018-04-08] MEDS ORDERED: Lidocaine -MPF 4% 5 ML AMPUL ONE (13:55)
[2018-04-08] MEDS ORDERED: Isovue-300 50 ML VIAL IVP ONE (13:58)
--- NOTE | 2018-04-08 13:59 | Operative Note ---
Date of procedure: 04/08/18 Pre-op diagnosis: Acute cholecystitis Post-op diagnosis: same Procedure: Laparoscopic cholecystectomy with cholangiogram Anesthesia: KOFI Surgeon: Negrito Peralta Was there an trust operations assistant present: Yes Diet Counselor: Sangita Vann Estimated blood loss (cc): 5 Specimen: Gallbladder Condition: stable Disposition: floor Procedure in Detail: After informed consent the patient was taken to the operating room. After adequate sedation anesthesia the abdomen was prepped and draped. A proper timeout was performed. Two towel clamps to place the umbilicus. A varies needle was placed at the umbilicus and a pneumo-peritoneum was created. A 12 mm incision was made at the umbilicus and a port was placed under direct visualization. An 5 mm incision was created in the left upper quadrant, followed by one in the right upper quadrant. There were 2 individual 5 mm cannulas then placed in the RUQ. A alligator clamp was then placed on the gallbladder was retracted anteriorly and cephalad. The infundibulum of the gallbladder was identified and the cystic duct was skeletonized. Once the structures were identified the cystic duct was clipped twice proximally and once distally. A cholangiogram was performed and found to have flow into the hepatic radicals and duodenum. Cystic duct was then transected. The gallbladder was then resected off the liver surface. Once the gallbladder was fully resected from the liver surface, the liver was gently irrigated and suctioned dry. We ensured hemostasis prior to removing the gallbladder through the umbilical port. Pneumoperitoneum was then evacuated. The 12 mm cannula site was closed with a 0-Vicryl suture in [id number] fashion. The port sites were injected with half percent Marcaine 30 mL. The skin was closed with 4-0 Vicryl suture and Dermabond. All instrument counts and needle counts were correct at the end of the case. The pt was taken to recovery in stable condition.
[2018-04-08 14:14] LABS: Bilirubin,Urine Negative (Negative); Blood,Urine Large (Negative); Clarity,Urine Clear (Clear); Color,Urine Dark Yellow (Yellow); Glucose,Urine (UA) Normal (Normal); Ketones,Urine Trace mg/dL (Negative); Leukocyte Esterase,Urine Small (Negative); Nitrite,Urine Positive (Negative); Protein,Urine 100 mg/dL (Neg-Trace); Specific Gravity,Urine 1.026 (1.010-1.025); Urobilinogen,Urine Normal (Normal)
[2018-04-08 14:16] LABS: Bacteria,Urine None Seen per hpf (None-Few); Hyaline Casts,Urine None Seen per lpf (None-Few); RBC,Urine 30-50 per hpf (0-3); Squamous Epithelial Cell,Urine Many per lpf (None-Few)
[2018-04-08] MEDS ORDERED: Acetaminophen IV 1,000 MG/100 ML INFUS..BTL ONE (14:22)
[2018-04-08] MEDS ORDERED: *HR* PHENYLEPHRINE 1,000 MCG/10 ML SYRINGE IVP ONE (14:49)
[2018-04-08] MEDS ORDERED: Neostigmine Methylsulfate 3 MG/3 ML SYRINGE ONE (14:53)
[2018-04-08] MEDS ORDERED: *HR* Phenylephrine 10 MG/ML VIAL ONE (15:06)
[2018-04-08] MEDS ORDERED: EPHEDrine 50 MG/ML VIAL ONE (15:07)
[2018-04-08 15:52] LABS: Alanine Aminotransferase 13 Units/L (7-52); Albumin/Globulin Ratio 1.3 (1.1-2.2); Alkaline Phosphatase 77 Units/L (34-104); Aspartate Amino Transferase 19 Units/L (13-39); BUN/Creatinine Ratio 14 (6-26); Bilirubin,Total 1.3 mg/dL (0.3-1.0); Blood Urea Nitrogen 15 mg/dL (6-20); Carbon Dioxide 22 mEq/L (23-29); Chloride 100 mEq/L (98-107); Globulin 3.2 g/dL (2.4-3.5); Glucose 108 mg/dL (70-105); Osmolality,Calculated 283 (280-300); Potassium 4.5 mEq/L (3.5-5.1); Sodium 136 mEq/L (136-145); Total Protein 7.2 g/dL (6.4-8.9); eGFR For Non-African Americans > 60 (> 60)
[2018-04-08] MEDS ORDERED: Ondansetron 4 MG/2 ML VIAL IVP PRN ×2 (15:55→17:00)
--- NOTE | 2018-04-08 16:13 | Anesthesia Evaluation Post Op ---
Date of Encounter: 04/08/18 Time of Encounter: 16:12 - Vital Signs Vital Signs: Vital Signs/O2 Sat, Most Current Temp Pulse Resp BP Pulse Ox 98.0 F 95 16 126/85 99 04/08/18 15:47 04/08/18 15:47 04/08/18 15:47 04/08/18 15:47 04/08/18 15:47 - Lungs Lungs: Clear Ascult./Percussion - Airway Airway: Non-obstructed - Cardiovascular Regular Rate - Mental Status Mental Status: Alert & Oriented, Answers Appropriately - Pain Pain Scale: 4 Pain Scale used: Numeric (1 - 10) - Nausea Vomiting Nausea Vomiting: Not Present - Hydration Hydration: Ice chips, Has not voided Notes: 04/08/18 16:12 denies complaints - Discharge PostOp Status: Transfer Patient to floor
[2018-04-08] MEDS ORDERED: *HR* HYDROcodone/Acet 5/325 mg TABLET PO PRN (17:00)
[2018-04-08] MEDS ORDERED: Acetaminophen 325 MG TABLET PO PRN (17:00)
[2018-04-08] MEDS ORDERED: Naloxone 0.4 MG/ML INJ IVP PRN (17:00)
[2018-04-08] MEDS ORDERED: *HR* Promethazine 25 MG/ML VIAL IVP PRN (17:00)
[2018-04-08] MEDS: traZODone 50 MG TABLET PO SCH (20:52)
[2018-04-08] MEDS: tiZANidine 4 MG TABLET PO SCH (23:27)
[2018-04-09] MEDS: Piperacillin/Tazobactam 3.375 GM in 0.9 % Sodium Chloride Mini Bag 100 ML IVPB SCH ×3 (03:50→20:53)
[2018-04-09] MEDS: Ringers Solution, Lactated 1,000 ML IVC SCH ×3 (03:52→23:17)
[2018-04-09 05:19] LABS: Basophils % 0.1 %; Hematocrit 36.8 % (37.5-50.1); Immature Granulocytes % 0.6 % (0-4); Lymphocytes % 5.9 %; Mean Corpuscular HGB Conc 33.2 g/dL (31.6-35.5); Mean Corpuscular Hemoglobin 28.1 pg (28.0-33.3); Mean Corpuscular Volume 84.8 fL (83.0-100.0); Mean Platelet Volume 10.9 fL (9.4-12.4); Monocytes # 1.1 K/mcL (0.0-1.3); Neutrophils # 15.5 K/mcL (1.6-8.9); Platelet Count 171 K/mcL (140-400); Red Blood Count 4.34 M/mcL (4.19-5.50); Red Cell Distribution Width 14.6 % (11.5-14.5); Segmented Neutrophils % 87.4 %
[2018-04-09 05:21] LABS: Hemoglobin 12.2 g/dL (12.9-16.9)
[2018-04-09 05:24] LABS: Potassium 4.4 mEq/L (3.5-5.1)
[2018-04-09 05:25] LABS: Calcium 8.8 mg/dL (8.6-10.3)
[2018-04-09] MEDS ORDERED: 0.9 % Sodium Chloride 1,000 ML IVC ONE (08:27)
--- NOTE | 2018-04-09 08:57 | General Surgery Progress Note ---
Date of Encounter: 04/09/18 Time of Encounter: 08:57 - Assessment and Plan (1) Acute cholecystitis Current Visit: Yes Status: Acute Date of procedure: 04/08/18 Pre-op diagnosis: Acute cholecystitis Post-op diagnosis: same Procedure: Laparoscopic cholecystectomy with cholangiogram Anesthesia: KOFI Surgeon: Negrito Peralta Estimated blood loss (cc): 5 MARIBEL drain placed during surgery. POD#1 as above. POstoperative pain is difficult to control at this time although he has not utilized his [place] d/t nausea. His MARIBEL site is as expected. Drain care per bedside RN. 60 ml of SS drainage emptied at my assessment. Bedside RN informed. Plan: -Continue supportive care and discomfort management -Stop Beaumont. Add schedule IV Ofirmev x24 hours and SL morphine. Will resume Beaumont tomorrow pending pain control. Cannot use Toradol given ELIGIO. -Continue MARIBEL drain care -Amb TID -OOB to chair for all trays and at least TID -Diet as tolerated -Continue prn antiemetics and add scheduled promethazine x1 -Continue IV ATBX (2) Acute kidney injury Current Visit: Yes Status: Acute Creatinine 1.52 from 0.82. Noted normal saline bolus per primary team this a.m. Management per primary team avoid nephrotoxins. (3) Chronic back pain greater than 3 months duration Current Visit: Yes Status: Chronic Patient on chronic gabapentin and Beaumont at home. We're having difficulty controlling his discomfort this a.m. See assessment and plan above for changes. (4) Anxiety and depression Current Visit: Yes Status: Chronic Management per primary team. He is on PRN anxiolytics Subjective Patient reports: still having pain, voiding w/o difficulty, no flatus, no bowel movement, nausea, shortness of breath (difficulty taking a deep breath due to pain), afebrile Objective Vital Signs - Last 8 Hours Temp Pulse Resp BP Pulse Ox 04/09/18 06:39 98 F 95 17 110/76 92 04/09/18 04:50 98.7 F 93 16 111/74 89 Intake and Output 04/08/18 04/09/18 04/09/18 23:59 07:59 15:59 Intake Total 0 / 0 1100 / 1100 Output Total 190 / 190 70 / 70 Balance -190 / -190 1030 / 1030 Intake: IV Fluids 1100 / 1100 Lactated Ringers 1,000 ML @ 125 1000 / 1000 mls/hr IVC .Q8H [facility] Rx#: [id number] Zosyn 3.375 GM In 0.9 % Sodium 100 / 100 Chloride (Mini-Bag +) 100 ML @ 25 mls/hr IVPB Q8H [facility] Rx#: [id number] Oral 0 / 0 0 / 0 Output: Urine 100 / 100 0 / 0 Wound Drainage 90 / 90 70 / 70 Right Lower Abdomen 90 / 90 70 / 70 Other: Weight 151.5 kg Patient Weight 04/09/18 23:59 Weight 151.5 kg - General physical appearance moderate distress (Guarding posture, when MARIBEL drain line was stripped, patient began shouting and stating he could not take a deep breath) - ENT normal nares, normal mucosa - Neck Neck exam: trachea midline - Respiratory other (Poor respiratory effort) - Cardiovascular Cardiovascular exam: Present: RRR - Abdomen Abdomen: Present: soft, tender (Expected postoperative tenderness), wound (MARIBEL drain right abdomen is with sero-sanguineous). Absent: bowel sounds present Hernia: none - Incision Incision: Present: clean and dry, intact - Integumentary no growths - Neurologic normal coordination, normal sensation - Musculoskeletal other (Guarding posture) - Psychiatric oriented to time, oriented to person, oriented to place, speech is normal - Labs 04/09/18 04:46 04/09/18 04:46 Diabetes panel 04/07/18 04/09/18 Range/Units 17:03 04:46 Sodium 136 132 L (136-145) mEq/L Potassium 4.5 4.4 (3.5-5.1) mEq/L Chloride 100 99 (98-107) mEq/L Carbon Dioxide 22 L 26 (23-29) mEq/L BUN 15 32 H (6-20) mg/dL Creatinine 1.06 1.52 H (0.70-1.30) mg/dL Glucose 108 H 139 H (70-105) mg/dL Calcium 9.0 8.8 (8.6-10.3) mg/dL AST 19 (13-39) Units/L ALT 13 (7-52) Units/L Alkaline Phosphatase 77 (34-104) Units/L Albumin 4.0 (3.5-5.7) g/dL Calcium panel 04/07/18 04/09/18 Range/Units 17:03 04:46 Calcium 9.0 8.8 (8.6-10.3) mg/dL Albumin 4.0 (3.5-5.7) g/dL Pituitary panel 04/07/18 04/09/18 Range/Units 17:03 04:46 Sodium 136 132 L (136-145) mEq/L Potassium 4.5 4.4 (3.5-5.1) mEq/L Chloride 100 99 (98-107) mEq/L Carbon Dioxide 22 L 26 (23-29) mEq/L BUN 15 32 H (6-20) mg/dL Creatinine 1.06 1.52 H (0.70-1.30) mg/dL Glucose 108 H 139 H (70-105) mg/dL Calcium 9.0 8.8 (8.6-10.3) mg/dL Adrenal panel 04/07/18 04/09/18 Range/Units 17:03 04:46 Sodium 136 132 L (136-145) mEq/L Potassium 4.5 4.4 (3.5-5.1) mEq/L Chloride 100 99 (98-107) mEq/L Carbon Dioxide 22 L 26 (23-29) mEq/L BUN 15 32 H (6-20) mg/dL Creatinine 1.06 1.52 H (0.70-1.30) mg/dL Glucose 108 H 139 H (70-105) mg/dL Calcium 9.0 8.8 (8.6-10.3) mg/dL Total Bilirubin 1.3 H (0.3-1.0) mg/dL AST 19 (13-39) Units/L ALT 13 (7-52) Units/L Alkaline Phosphatase 77 (34-104) Units/L Albumin 4.0 (3.5-5.7) g/dL Consult Discharge Plan - Plan Instructions: Laparoscopic Cholecystectomy (DC) Additional Instructions: General Surgical Discharge Instructions 1. No pushing, pulling, or lifting greater than 15 lbs for 2-4 weeks (depending upon procedure). 2. You may shower beginning today, but no tub baths, soaking, or swimming for 2 weeks. 3. You may resume driving when you are off narcotics and are safe to react in a car. 4. Take ibuprofen every 8 hours for discomfort. If this does not relieve discomfort, you may take the as needed [place]. Take narcotics as directed. Do not take more narcotics then directed and do not share your narcotics with any other person. Do not drink alcohol while on narcotics. 5. Take stool softeners (Colace) or a water based laxative (Miralax) while taking narcotics. You may hold for loose stools. 6. Report any fevers greater than 100.5F, increase abdominal discomfort, drainage that looks like pus, increased redness or pain at the surgical site, or any vomiting. 7. Report any pain in the calves, shortness of breath, or rapid heartbeat. 8. Follow-up in the office as directed. 9. If you were prescribed antibiotics, do not stop them without talking to your provider. Referrals: Aundrea Thrasher CNP [Primary Care Provider] - Celia Peralta CNP [Advanced Practice Nurse] - 04/23/18 10:00 am
[2018-04-09] MEDS ORDERED: tiZANidine 4 MG TABLET PO SCH (09:00)
[2018-04-09] MEDS ORDERED: *HR* FentaNYL (PF) 100 MCG/2 ML VIAL IVP STA (09:12)
[2018-04-09] MEDS ORDERED: *HR* Promethazine 25 MG/ML VIAL IVP STA (09:13)
[2018-04-09] MEDS ORDERED: Simethicone 80 MG TAB.CHEW PO STA (09:15)
[2018-04-09] MEDS ORDERED: Morphine Oral CONC 5 MG/0.25 ML ORAL.SYG PO PRN ×2 (09:17)
--- NOTE | 2018-04-09 10:09 | Internal Med Progress Note ---
Hospitalist Progress Note - Encounter Date of Encounter: 04/09/18 Time of Encounter: 10:09 - Subjective Interval History: Seen and evalated at the bedside POD 1 He is much more awake and conversant this mrn he has no new complans Per surgery, the patient had a gangrenous surgery an inflamed liver bed and they do not recommend aany anticoagulation at this time He has an active MARIBEL drain He was on Xarelto prior to admission for PE We will scan his LE for DVT and he may need an IVC filter placement if he has DVT as surgery does not anticipate resumption of anticoagulation any time soon - Exam Vitals: Temp Pulse Resp BP Pulse Ox 98 F 95 17 110/76 92 04/09/18 06:39 04/09/18 06:39 04/09/18 06:39 04/09/18 06:39 04/09/18 06:39 Exam: Gen: Morbidly obese, mild painful distress, VSS HEENT: Dry oral mucosa, not cyanotic, not pale CVS: No JVD, S1, S2 only, no m/g/r Chest: CTAB Abdomen: carrol-umbilical and epigastric dressings clean andd ry, MARIBEL drew, active, with about 30cc of bloody effluent Extremities: No pedal edema, no calf tenderness Neuro: AAOX3, no focal deficits Skin: No rash - Assessment and Plan (1) Acute cholecystitis Current Visit: Yes Status: Acute Assessment and Plan: POD 1 Surgery following Pt. presented with abdominal pain, nausea, and vomiting since Wednesday 04/04 CT of the abdomen/pelvis shows extensive thickening as well as cholelithiasis in the gallbladder. Acute cholecystitis likely. Continue IVPB Zosyn ,leukocytosis improving Clear liquid diet per surgery Diet advancement per surgery (2) UTI (urinary tract infection) Current Visit: Yes Status: Ruled-out Assessment and Plan: Ruled out urine culture from 04/07 with no growth (3) Hx pulmonary embolism Current Visit: Yes Status: Acute Assessment and Plan: Hx of Provoked, post-op PE in October 2017. Per surgery, the patient had a gangrenous surgery an inflamed liver bed and they do not recommend aany anticoagulation at this time He has an active MARIBEL drain He was on Xarelto prior to admission for PE We will scan his LE for DVT and he may need an IVC filter placement if he has DVT as surgery does not anticipate resumption of anticoagulation any time soon (4) HTN (hypertension) Current Visit: Yes Status: Chronic Assessment and Plan: Continue current meds, exacerbated by pain EKG and trops negative (5) HLD (hyperlipidemia) Current Visit: Yes Status: Chronic Assessment and Plan: Continue current meds (6) Chronic back pain greater than 3 months duration Current Visit: Yes Status: Chronic Assessment and Plan: Hx of chronic back pain following back surgery. Continue pts. Trazodone and Zanaflex. Will add hydrocodone for breakthrough pain as pt. reports he has taken previously. Falls/safety precautions and up with assist. (7) Anxiety and depression Current Visit: Yes Status: Chronic Assessment and Plan: Hx of chronic anxiety and depression. Continue pts. Wellbutrin and gabapentin. (8) DVT prophylaxis Current Visit: Yes Status: Acute Assessment and Plan: SCDs for now (9) Renal calculus, right Current Visit: Yes Status: Chronic Assessment and Plan: Chronic, stable, renal calculus. CT of the abdomen/pelvis shows large calculus in the right renal pelvis extending to the right ureteric-pelvic junction although no evidence of hydronephrosis. Continue pain control (10) Chest pain Current Visit: Yes Status: Resolved Assessment and Plan: Resolved EKG X2 and trops x2 negative - Time Spent with Patient Total time spent is greater than 50% in coordination of care (as documented) at patient's floor/unit and/or counseling patient: Plan of Care Discussed with: patient Internal Medicine: Result - Labs CBC & Chem 7: 04/09/18 04:46 04/09/18 04:46 Labs: Short CBC 04/09/18 Range/Units 04:46 WBC 17.7 H (4.3-11.1) K/mcL Hgb 12.2 L D (12.9-16.9) g/dL Hct 36.8 L (37.5-50.1) % Plt Count 171 (140-400) K/mcL Neutrophils # 15.5 H (1.6-8.9) K/mcL BMP 04/07/18 04/09/18 17:03 04:46 Sodium 136 132 L Potassium 4.5 4.4 Chloride 100 99 Carbon Dioxide 22 L 26 BUN 15 32 H Creatinine 1.06 1.52 H Glucose 108 H 139 H Calcium 9.0 8.8 Liver Function 04/07/18 Range/Units 17:03 Total Bilirubin 1.3 H (0.3-1.0) mg/dL AST 19 (13-39) Units/L ALT 13 (7-52) Units/L Alkaline Phosphatase 77 (34-104) Units/L Albumin 4.0 (3.5-5.7) g/dL Urine 04/07/18 Range/Units 13:53 Urine Color Dark Yellow (Yellow) Urine Clarity Clear (Clear) Urine pH 6.0 (5.0-8.0) pH Units Ur Specific [place] 1.026 H (1.010-1.025) Urine Protein 100 H (Neg-Trace) mg/dL Urine Glucose (UA) Normal (Normal) mg/dL - ABG Interpretation ABG results: PT/INR, D-dimer PT 13.7 Seconds (9.4-12.1) H 04/07/18 17:03 D-Dimer 890 ng/mLFEU (0-500) H 04/07/18 17:03 - Impressions Impressions Echocardiogram Limited Views 04/07/18 20:25 Impressions: LVEF 65-70%. Normal LV chamber size and function. Mild concentric left ventricular hypertrophy. Cholangiogram,Operative 04/08/18 00:00 IMPRESSION: Intraoperative cholangiogram demonstrates nonvisualization of gallbladder. No extraluminal contrast extravasation. No contrast in gallbladder fossa. No filling defect in the common bile duct. D/ / Nathanael Alvarado MD / Nathanael Alvarado MD Interpreting Provider: Nathanael Alvarado MD Consult Discharge Plan - Plan Instructions: Laparoscopic Cholecystectomy (DC) Additional Instructions: General Surgical Discharge Instructions 1. No pushing, pulling, or lifting greater than 15 lbs for 2-4 weeks (depending upon procedure). 2. You may shower beginning today, but no tub baths, soaking, or swimming for 2 weeks. 3. You may resume driving when you are off narcotics and are safe to react in a car. 4. Take ibuprofen every 8 hours for discomfort. If this does not relieve discomfort, you may take the as needed [place]. Take narcotics as directed. Do not take more narcotics then directed and do not share your narcotics with any other person. Do not drink alcohol while on narcotics. 5. Take stool softeners (Colace) or a water based laxative (Miralax) while taking narcotics. You may hold for loose stools. 6. Report any fevers greater than 100.5F, increase abdominal discomfort, drainage that looks like pus, increased redness or pain at the surgical site, or any vomiting. 7. Report any pain in the calves, shortness of breath, or rapid heartbeat. 8. Follow-up in the office as directed. 9. If you were prescribed antibiotics, do not stop them without talking to your provider. Referrals: Celia Peralta CNP [Advanced Practice Nurse] - 04/23/18 10:00 am Aundrea Thrasher CNP [Primary Care Provider] - (2) UTI (urinary tract infection) Qualifiers: Urinary tract infection type: acute cystitis Qualified Code(s): N30.00 - Acute cystitis without hematuria (4) HTN (hypertension) Qualifiers: Hypertension type: essential hypertension Qualified Code(s): I10 - Essential (primary) hypertension (5) HLD (hyperlipidemia) Qualifiers: Hyperlipidemia type: pure hypercholesterolemia Qualified Code(s): E78.00 - Pure hypercholesterolemia, unspecified; E78.0 - Pure hypercholesterolemia (10) Chest pain Qualifiers: Chest pain type: other chest pain Qualified Code(s): R07.89 - Other chest pain; R07.8 - Other chest pain
[2018-04-09] MEDS ORDERED: MORPHINE SUL Oral CONC 10 MG/0.5 ML ORAL.SYG PO PRN ×2 (11:00)
[2018-04-09] MEDS: BuPROPion SR (12 HR) 150 MG TABLET PO SCH (11:29)
[2018-04-09] MEDS: Gabapentin 400 MG CAPSULE PO SCH ×3 (11:30→20:55)
[2018-04-09] MEDS: Cholecalciferol (D-3) 1,000 UNIT TABLET PO SCH (11:30)
[2018-04-09] MEDS ORDERED: *HR* Rivaroxaban 15 MG TABLET PO SCH (17:00)
[2018-04-09] MEDS: Acetaminophen IV 1,000 MG/100 ML INFUS..BTL IVPB SCH ×3 (19:33→19:59)
[2018-04-09] MEDS ORDERED: Simethicone 80 MG TAB.CHEW PO ONE (20:15)
[2018-04-09] MEDS: tiZANidine 4 MG TABLET PO SCH (20:54)
[2018-04-09] MEDS: traZODone 50 MG TABLET PO SCH (20:55)
[2018-04-10] MEDS: Acetaminophen IV 1,000 MG/100 ML INFUS..BTL IVPB SCH ×2 (00:38→05:20)
[2018-04-10 01:37] LABS: Basophils % 0.1 %; Eosinophils % 0.3 %; Hematocrit 32.1 % (37.5-50.1); Immature Granulocytes % 0.5 % (0-4); Lymphocytes # 1.2 K/mcL (0.6-4.6); Lymphocytes % 8.5 %; Mean Corpuscular HGB Conc 32.7 g/dL (31.6-35.5); Mean Corpuscular Hemoglobin 28.2 pg (28.0-33.3); Mean Corpuscular Volume 86.1 fL (83.0-100.0); Mean Platelet Volume 10.8 fL (9.4-12.4); Monocytes # 0.8 K/mcL (0.0-1.3); Monocytes % 6.1 %; Neutrophils # 11.4 K/mcL (1.6-8.9); Platelet Count 169 K/mcL (140-400); Red Blood Count 3.73 M/mcL (4.19-5.50); Red Cell Distribution Width 14.4 % (11.5-14.5); Segmented Neutrophils % 84.5 %
[2018-04-10 01:53] LABS: Hemoglobin 10.5 g/dL (12.9-16.9)
[2018-04-10 01:55] LABS: Blood Urea Nitrogen 33 mg/dL (6-20); Calcium 8.5 mg/dL (8.6-10.3); Carbon Dioxide 27 mEq/L (23-29); Chloride 102 mEq/L (98-107); Glucose 121 mg/dL (70-105); Osmolality,Calculated 289 (280-300); Potassium 4.2 mEq/L (3.5-5.1); Sodium 135 mEq/L (136-145)
[2018-04-10 02:36] LABS: BUN/Creatinine Ratio 29 (6-26); eGFR For Non-African Americans > 60 (> 60)
[2018-04-10] MEDS: Piperacillin/Tazobactam 3.375 GM in 0.9 % Sodium Chloride Mini Bag 100 ML IVPB SCH ×3 (05:19→20:25)
[2018-04-10] MEDS: Ringers Solution, Lactated 1,000 ML IVC SCH ×3 (07:54→23:44)
[2018-04-10] MEDS: Gabapentin 400 MG CAPSULE PO SCH ×3 (07:55→20:24)
[2018-04-10] MEDS: BuPROPion SR (12 HR) 150 MG TABLET PO SCH (07:55)
[2018-04-10] MEDS: Cholecalciferol (D-3) 1,000 UNIT TABLET PO SCH (07:55)
--- NOTE | 2018-04-10 09:15 | Internal Med Progress Note ---
Hospitalist Progress Note - Encounter Date of Encounter: 04/10/18 Time of Encounter: 11:00 - Subjective Interval History: Patient postop day 2 laparoscopic cholecystectomy with MARIBEL drain in place - Exam Vitals: Temp Pulse Resp BP Pulse Ox 98.4 F 60 18 118/78 92 04/10/18 05:52 04/10/18 05:52 04/10/18 05:52 04/10/18 05:52 04/10/18 05:52 Exam: Gen.: Nonacute distress, alert and oriented 3 ENT: Mucosal membranes moist Respiratory: Lungs are clear to auscultation bilaterally without any wheezing rhonchi or rales Cardiovascular: Normal S1 and S2 regular rate rhythm no murmurs rubs or gallops Abdomen: Soft, nontender and nondistended with positive bowel sounds Extremities: No lower extremity edema Skin: Normal color - Assessment and Plan (1) Acute cholecystitis Current Visit: Yes Status: Acute Assessment and Plan: POD 2 laparoscopic cholecystectomy MARIBEL drain in place Continue IVPB Zosyn as leukocytosis improving Diet advancement per surgery (2) Hx pulmonary embolism Current Visit: Yes Status: Acute Assessment and Plan: Hx of Provoked, post-op PE in October 2017. Per surgery, the patient had a gangrenous surgery an inflamed liver bed and they do not recommend any anticoagulation at this time He has an active MARIBEL drain He was on Xarelto prior to admission for PE Will rely on surgery recommendations when to restart anticoagulation (3) HTN (hypertension) Current Visit: Yes Status: Chronic Assessment and Plan: Controlled; continue calcium channel pooja and beta pooja (4) HLD (hyperlipidemia) Current Visit: Yes Status: Chronic Assessment and Plan: Continue statin (5) Chronic back pain greater than 3 months duration Current Visit: Yes Status: Chronic Assessment and Plan: Hx of chronic back pain following back surgery. Continue home dose of Trazodone and Zanaflex in addition to hydrocodone for breakthrough pain (6) Anxiety and depression Current Visit: Yes Status: Chronic Assessment and Plan: Continue Wellbutrin (7) Renal calculus, right Current Visit: Yes Status: Chronic Assessment and Plan: Chronic, stable, renal calculus. CT of the abdomen/pelvis shows large calculus in the right renal pelvis extending to the right ureteric-pelvic junction although no evidence of hydronephrosis. Continue pain control (8) Chest pain Current Visit: Yes Status: Resolved Assessment and Plan: Resolved EKG X2 and trops x2 negative (9) UTI (urinary tract infection) Current Visit: Yes Status: Ruled-out Assessment and Plan: Ruled out urine culture from 04/07 with no growth (10) DVT prophylaxis Current Visit: Yes Status: Acute Assessment and Plan: SCDs for now - Time Spent with Patient Total time spent is greater than 50% in coordination of care (as documented) at patient's floor/unit and/or counseling patient: Internal Medicine: Result - Labs CBC & Chem 7: 04/10/18 01:20 04/10/18 01:20 Labs: Short CBC 04/10/18 Range/Units 01:20 WBC 13.5 H (4.3-11.1) K/mcL Hgb 10.5 L D (12.9-16.9) g/dL Hct 32.1 L (37.5-50.1) % Plt Count 169 (140-400) K/mcL Neutrophils # 11.4 H (1.6-8.9) K/mcL BMP 04/10/18 01:20 Sodium 135 L Potassium 4.2 Chloride 102 Carbon Dioxide 27 BUN 33 H Creatinine 1.12 Glucose 121 H Calcium 8.5 L - ABG Interpretation ABG results: PT/INR, D-dimer PT 13.7 Seconds (9.4-12.1) H 04/07/18 17:03 D-Dimer 890 ng/mLFEU (0-500) H 04/07/18 17:03 Consult Discharge Plan - Plan Instructions: Laparoscopic Cholecystectomy (DC) Additional Instructions: General Surgical Discharge Instructions 1. No pushing, pulling, or lifting greater than 15 lbs for 2-4 weeks (depending upon procedure). 2. You may shower beginning today, but no tub baths, soaking, or swimming for 2 weeks. 3. You may resume driving when you are off narcotics and are safe to react in a car. 4. Take ibuprofen every 8 hours for discomfort. If this does not relieve discomfort, you may take the as needed [place]. Take narcotics as directed. Do not take more narcotics then directed and do not share your narcotics with any other person. Do not drink alcohol while on narcotics. 5. Take stool softeners (Colace) or a water based laxative (Miralax) while taking narcotics. You may hold for loose stools. 6. Report any fevers greater than 100.5F, increase abdominal discomfort, drainage that looks like pus, increased redness or pain at the surgical site, or any vomiting. 7. Report any pain in the calves, shortness of breath, or rapid heartbeat. 8. Follow-up in the office as directed. 9. If you were prescribed antibiotics, do not stop them without talking to your provider. Drain care- empty drain 2-3 times per day and as needed. Record outputs on drain record and bring to follow-up appointment on 04/14/18 with Hailee Lucio APRN. May shower and wash around drain with soap and water, pat dry. Apply dry gauze and tape to secure daily after showers. Do not allow drain to dangle. Secure to lanyard or safety pin to clothing. Referrals: Celia Peralta CNP [Advanced Practice Nurse] - 04/23/18 10:00 am Aundrea Thrasher CNP [Primary Care Provider] - Hailee Lucio CNP [Advanced Practice Nurse] - 04/14/18 1:30 pm (surgery follow -up; drain check) Prescriptions: Amoxicillin/Clavulanate [Augmentin] 875 mg PO BIDWM #10 tablet (3) HTN (hypertension) Qualifiers: Hypertension type: essential hypertension Qualified Code(s): I10 - Essential (primary) hypertension (4) HLD (hyperlipidemia) Qualifiers: Hyperlipidemia type: pure hypercholesterolemia Qualified Code(s): E78.00 - Pure hypercholesterolemia, unspecified; E78.0 - Pure hypercholesterolemia (8) Chest pain Qualifiers: Chest pain type: other chest pain Qualified Code(s): R07.89 - Other chest pain; R07.8 - Other chest pain (9) UTI (urinary tract infection) Qualifiers: Urinary tract infection type: acute cystitis Hematuria presence: without hematuria Qualified Code(s): N30.00 - Acute cystitis without hematuria
--- NOTE | 2018-04-10 10:52 | General Surgery Progress Note ---
Date of Encounter: 04/10/18 Time of Encounter: 10:20 - Assessment and Plan (1) Acute cholecystitis Current Visit: Yes Status: Acute POD #2 laparoscopic cholecystectomy Pathology pending Advance to soft diet May decrease IV fluids- management per hospitalist IV antibiotics- may transition to PO at discharge (Augmentin) Continue MARIBEL drain IS every 1 hour while awake Ambulate hallways TID with assistance- patient requesting a walker Supportive care and pain control May resume Xarelto 04/11/18 (2) Hx pulmonary embolism Current Visit: Yes Status: Acute May resume Xarelto 04/11/18 EPCDs to bilateral lower extremities for DVT prophylaxis Subjective Patient reports: no new complaints, feels better, still having pain, pain is less, tolerating liquids well (full liquids), voiding w/o difficulty, flatus, bowel movement, afebrile Objective Vital Signs - Last 8 Hours Temp Pulse Resp BP Pulse Ox 04/10/18 10:24 98.0 F 68 13 150/98 93 04/10/18 05:52 98.4 F 60 18 118/78 92 Intake and Output 04/09/18 04/10/18 04/10/18 23:59 07:59 15:59 Intake Total 340 / 340 1200 / 1200 240 / 240 Output Total 60 / 60 680 / 680 400 / 400 Balance 280 / 280 520 / 520 -160 / -160 Intake: IV Fluids 200 / 200 1200 / 1200 Lactated Ringers 1,000 ML @ 125 1000 / 1000 mls/hr IVC .Q8H JENA Rx#: [id number] Ofirmev 1,000 mg/100 ml 1,000 100 / 100 100 / 100 mg In 100 ml @ 400 mls/hr IVPB Q6HR JENA Rx#:[id number] Zosyn 3.375 GM In 0.9 % Sodium 100 / 100 100 / 100 Chloride (Mini-Bag +) 100 ML @ 25 mls/hr IVPB Q8H JENA Rx#: [id number] Oral 140 / 140 0 / 0 240 / 240 Output: Urine 0 / 0 650 / 650 400 / 400 Wound Drainage 60 / 60 30 / 30 Right Lower Abdomen 60 / 60 30 / 30 Other: Meal Dinner Breakfast Percent of Meal Consumed 85% Stool Size Large Moderate Stool Consistency loose loose liquid liquid soft Stool Color Brown Brown # Bowel Movements 1 - General physical appearance well developed, well nourished, no distress - Eyes normal ocular movement - ENT normal mucosa, atraumatic, normocephalic - Neck Neck exam: trachea midline - Respiratory normal respiratory effort, clear to auscultation - Cardiovascular Cardiovascular exam: Present: RRR - Abdomen Abdomen: Present: bowel sounds present, soft, tender (Expected postoperative tenderness), wound (MARIBEL drain to bulb suction with mostly serous drainage noted ( 60ml noted since midnight)) - Neurologic CN 2-12 grossly intact - Psychiatric oriented to time, oriented to person, oriented to place, speech is normal, memory intact - Labs 04/10/18 01:20 04/10/18 01:20 Diabetes panel 04/10/18 Range/Units 01:20 Sodium 135 L (136-145) mEq/L Potassium 4.2 (3.5-5.1) mEq/L Chloride 102 (98-107) mEq/L Carbon Dioxide 27 (23-29) mEq/L BUN 33 H (6-20) mg/dL Creatinine 1.12 (0.70-1.30) mg/dL Glucose 121 H (70-105) mg/dL Calcium 8.5 L (8.6-10.3) mg/dL Calcium panel 04/10/18 Range/Units 01:20 Calcium 8.5 L (8.6-10.3) mg/dL Pituitary panel 04/10/18 Range/Units 01:20 Sodium 135 L (136-145) mEq/L Potassium 4.2 (3.5-5.1) mEq/L Chloride 102 (98-107) mEq/L Carbon Dioxide 27 (23-29) mEq/L BUN 33 H (6-20) mg/dL Creatinine 1.12 (0.70-1.30) mg/dL Glucose 121 H (70-105) mg/dL Calcium 8.5 L (8.6-10.3) mg/dL Adrenal panel 04/10/18 Range/Units 01:20 Sodium 135 L (136-145) mEq/L Potassium 4.2 (3.5-5.1) mEq/L Chloride 102 (98-107) mEq/L Carbon Dioxide 27 (23-29) mEq/L BUN 33 H (6-20) mg/dL Creatinine 1.12 (0.70-1.30) mg/dL Glucose 121 H (70-105) mg/dL Calcium 8.5 L (8.6-10.3) mg/dL Consult Discharge Plan - Plan Instructions: Laparoscopic Cholecystectomy (DC) Additional Instructions: General Surgical Discharge Instructions 1. No pushing, pulling, or lifting greater than 15 lbs for 2-4 weeks (depending upon procedure). 2. You may shower beginning today, but no tub baths, soaking, or swimming for 2 weeks. 3. You may resume driving when you are off narcotics and are safe to react in a car. 4. Take ibuprofen every 8 hours for discomfort. If this does not relieve discomfort, you may take the as needed [place]. Take narcotics as directed. Do not take more narcotics then directed and do not share your narcotics with any other person. Do not drink alcohol while on narcotics. 5. Take stool softeners (Colace) or a water based laxative (Miralax) while taking narcotics. You may hold for loose stools. 6. Report any fevers greater than 100.5F, increase abdominal discomfort, drainage that looks like pus, increased redness or pain at the surgical site, or any vomiting. 7. Report any pain in the calves, shortness of breath, or rapid heartbeat. 8. Follow-up in the office as directed. 9. If you were prescribed antibiotics, do not stop them without talking to your provider. Drain care- empty drain 2-3 times per day and as needed. Record outputs on drain record and bring to follow-up appointment on 04/14/18 with Hailee Lucio APRN. May shower and wash around drain with soap and water, pat dry. Apply dry gauze and tape to secure daily after showers. Do not allow drain to dangle. Secure to lanyard or safety pin to clothing. Referrals: Celia Peralta CNP [Advanced Practice Nurse] - 04/23/18 10:00 am Aundrea Thrasher CNP [Primary Care Provider] - Hailee Lucio CNP [Advanced Practice Nurse] - 04/14/18 1:30 pm (surgery follow -up; drain check) Prescriptions: Amoxicillin/Clavulanate [Augmentin] 875 mg PO BIDWM #10 tablet - Attending Attestation For this encounter, I have reviewed the [employer] or PA documentation, treatment plan, and medical decision making; and I have had face to face time with this patient.
[2018-04-10] MEDS ORDERED: tiZANidine 4 MG TABLET PO PRN (15:10)
[2018-04-10] MEDS: traZODone 50 MG TABLET PO SCH (20:24)
[2018-04-10] MEDS ORDERED: Melatonin 3 MG TABLET PO PRN (22:09)
[2018-04-11] MEDS: Piperacillin/Tazobactam 3.375 GM in 0.9 % Sodium Chloride Mini Bag 100 ML IVPB SCH ×2 (03:31→12:47)
[2018-04-11 06:49] LABS: Basophils % 0.4 %; Eosinophils # 0.2 K/mcL (0.0-0.6); Eosinophils % 2.8 %; Hematocrit 32.1 % (37.5-50.1); Hemoglobin 10.4 g/dL (12.9-16.9); Immature Granulocytes % 0.5 % (0-4); Lymphocytes # 1.6 K/mcL (0.6-4.6); Lymphocytes % 19.3 %; Mean Corpuscular HGB Conc 32.4 g/dL (31.6-35.5); Mean Corpuscular Volume 86.5 fL (83.0-100.0); Monocytes # 0.7 K/mcL (0.0-1.3); Monocytes % 7.9 %; Neutrophils # 5.8 K/mcL (1.6-8.9); Platelet Count 187 K/mcL (140-400); Red Blood Count 3.71 M/mcL (4.19-5.50); Segmented Neutrophils % 69.1 %
[2018-04-11 07:08] LABS: BUN/Creatinine Ratio 23 (6-26); Blood Urea Nitrogen 23 mg/dL (6-20); Calcium 8.6 mg/dL (8.6-10.3); Carbon Dioxide 26 mEq/L (23-29); Chloride 105 mEq/L (98-107); Glucose 92 mg/dL (70-105); Osmolality,Calculated 291 (280-300); Sodium 139 mEq/L (136-145); eGFR For Non-African Americans > 60 (> 60)
[2018-04-11] MEDS: Ringers Solution, Lactated 1,000 ML IVC SCH ×2 (07:35→15:28)
--- NOTE | 2018-04-11 08:39 | Internal Med Progress Note ---
Hospitalist Progress Note - Encounter Date of Encounter: 04/11/18 - Subjective Interval History: Patient postop day 3 laparoscopic cholecystectomy with MARIBEL drain in place - Exam Vitals: Temp Pulse Resp BP Pulse Ox 97.6 F 68 14 121/78 97 04/11/18 05:15 04/11/18 05:15 04/11/18 05:15 04/11/18 05:15 04/11/18 05:15 Exam: Gen.: Nonacute distress, alert and oriented 3 ENT: Mucosal membranes moist Respiratory: Lungs are clear to auscultation bilaterally without any wheezing rhonchi or rales Cardiovascular: Normal S1 and S2 regular rate rhythm no murmurs rubs or gallops Abdomen: MARIBEL drain in place Extremities: No lower extremity edema Skin: Normal color - Assessment and Plan (1) Acute cholecystitis Current Visit: Yes Status: Acute Assessment and Plan: POD 3 laparoscopic cholecystectomy MARIBEL drain in place Continue IVPB Zosyn as leukocytosis has now resolved Diet advancement per surgery Management and disposition per general surgery (2) Hx pulmonary embolism Current Visit: Yes Status: Acute Assessment and Plan: Hx of Provoked, post-op PE in October 2017. Per surgery, the patient had a gangrenous surgery an inflamed liver bed and they do not recommend any anticoagulation at this time He has an active MARIBEL drain He was on Xarelto prior to admission for PE Will rely on surgery recommendations when to restart anticoagulation (3) HTN (hypertension) Current Visit: Yes Status: Chronic Assessment and Plan: Controlled; continue calcium channel pooja and beta pooja (4) HLD (hyperlipidemia) Current Visit: Yes Status: Chronic Assessment and Plan: Continue statin (5) Chronic back pain greater than 3 months duration Current Visit: Yes Status: Chronic Assessment and Plan: Hx of chronic back pain following back surgery. Continue home dose of Trazodone and Zanaflex in addition to hydrocodone for breakthrough pain (6) Anxiety and depression Current Visit: Yes Status: Chronic Assessment and Plan: Continue Wellbutrin (7) Renal calculus, right Current Visit: Yes Status: Chronic Assessment and Plan: Chronic, stable, renal calculus. CT of the abdomen/pelvis shows large calculus in the right renal pelvis extending to the right ureteric-pelvic junction although no evidence of hydronephrosis. Continue pain control (8) Chest pain Current Visit: Yes Status: Resolved Assessment and Plan: Resolved EKG X2 and trops x2 negative (9) UTI (urinary tract infection) Current Visit: Yes Status: Ruled-out Assessment and Plan: Ruled out urine culture from 04/07 with no growth (10) DVT prophylaxis Current Visit: Yes Status: Acute Assessment and Plan: SCDs for now - Time Spent with Patient Total time spent is greater than 50% in coordination of care (as documented) at patient's floor/unit and/or counseling patient: Internal Medicine: Result - Labs CBC & Chem 7: 04/11/18 05:12 04/11/18 05:12 Labs: Short CBC 04/11/18 Range/Units 05:12 WBC 8.3 (4.3-11.1) K/mcL Hgb 10.4 L (12.9-16.9) g/dL Hct 32.1 L (37.5-50.1) % Plt Count 187 (140-400) K/mcL Neutrophils # 5.8 (1.6-8.9) K/mcL BMP 04/11/18 05:12 Sodium 139 Potassium 4.0 Chloride 105 Carbon Dioxide 26 BUN 23 H Creatinine 1.01 Glucose 92 Calcium 8.6 - ABG Interpretation ABG results: PT/INR, D-dimer PT 13.7 Seconds (9.4-12.1) H 04/07/18 17:03 D-Dimer 890 ng/mLFEU (0-500) H 04/07/18 17:03 Consult Discharge Plan - Plan Instructions: Laparoscopic Cholecystectomy (DC) Additional Instructions: General Surgical Discharge Instructions 1. No pushing, pulling, or lifting greater than 15 lbs for 2-4 weeks (depending upon procedure). 2. You may shower beginning today, but no tub baths, soaking, or swimming for 2 weeks. 3. You may resume driving when you are off narcotics and are safe to react in a car. 4. Take ibuprofen every 8 hours for discomfort. If this does not relieve discomfort, you may take the as needed [place]. Take narcotics as directed. Do not take more narcotics then directed and do not share your narcotics with any other person. Do not drink alcohol while on narcotics. 5. Take stool softeners (Colace) or a water based laxative (Miralax) while taking narcotics. You may hold for loose stools. 6. Report any fevers greater than 100.5F, increase abdominal discomfort, drainage that looks like pus, increased redness or pain at the surgical site, or any vomiting. 7. Report any pain in the calves, shortness of breath, or rapid heartbeat. 8. Follow-up in the office as directed. 9. If you were prescribed antibiotics, do not stop them without talking to your provider. Drain care- empty drain 2-3 times per day and as needed. Record outputs on drain record and bring to follow-up appointment on 04/14/18 with Hailee Lucio APRN. May shower and wash around drain with soap and water, pat dry. Apply dry gauze and tape to secure daily after showers. Do not allow drain to dangle. Secure to lanyard or safety pin to clothing. Referrals: Celia Peralta CNP [Advanced Practice Nurse] - 04/23/18 10:00 am Aundrea Thrasher CNP [Primary Care Provider] - Hailee Lucio CNP [Advanced Practice Nurse] - 04/14/18 1:30 pm (surgery follow -up; drain check) Prescriptions: Amoxicillin/Clavulanate [Augmentin] 875 mg PO BIDWM #10 tablet (3) HTN (hypertension) Qualifiers: Hypertension type: essential hypertension Qualified Code(s): I10 - Essential (primary) hypertension (4) HLD (hyperlipidemia) Qualifiers: Hyperlipidemia type: pure hypercholesterolemia Qualified Code(s): E78.00 - Pure hypercholesterolemia, unspecified; E78.0 - Pure hypercholesterolemia (8) Chest pain Qualifiers: Chest pain type: other chest pain Qualified Code(s): R07.89 - Other chest pain; R07.8 - Other chest pain (9) UTI (urinary tract infection) Qualifiers: Urinary tract infection type: acute cystitis Qualified Code(s): N30.00 - Acute cystitis without hematuria
[2018-04-11] MEDS: Gabapentin 400 MG CAPSULE PO SCH ×2 (10:04→15:27)
[2018-04-11] MEDS: Cholecalciferol (D-3) 1,000 UNIT TABLET PO SCH (10:04)
[2018-04-11] MEDS: BuPROPion SR (12 HR) 150 MG TABLET PO SCH (10:05)
--- NOTE | 2018-04-11 10:26 | General Surgery Progress Note ---
Addendum entered and electronically signed by Adriana Fitzpatrick 04/11/18 15:45: Please include in discharge instructions Daily MARIBEL drain care: Remove drain sponge.~ Shower/wash with antibacterial soap.~ Replace drain sponge.~ Cover with a dry dressing.~ Tape to secure.~ Do not let the MARIBEL drain dangle from the body.~ Secure the bulb to clothing with a safety pin or suspend from a lanyard when showering. General Surgical Discharge Instructions 1. No pushing, pulling, or lifting greater than 15 lbs for 2-4 weeks (depending upon procedure). 2. You may shower beginning today, but no tub baths, soaking, or swimming for 2 weeks. 3. You may resume driving when you are off narcotics and are safe to react in a car. 4. Take ibuprofen every 8 hours for discomfort. If this does not relieve discomfort, you may take the as needed P[place]. Take narcotics as directed. Do not take more narcotics then directed and do not share your narcotics with any other person. Do not drink alcohol while on narcotics. 5. Take stool softeners (Colace) or a water based laxative (Miralax) while taking narcotics. You may hold for loose stools. 6. Report any fevers greater than 100.5F, increase abdominal discomfort, drainage that looks like pus, increased redness or pain at the surgical site, or any vomiting. 7. Report any pain in the calves, shortness of breath, or rapid heartbeat. 8. Follow-up in the office as directed. 9. If you were prescribed antibiotics, do not stop them without talking to your provider. Original Note: Date of Encounter: 04/11/18 Time of Encounter: 10:24 - Assessment and Plan (1) Acute cholecystitis Current Visit: Yes Status: Acute POS 3 lap vito with pathology results acute acalculous cholecystitis with wall thickness of 0.8 cm - may restart Xeralto today - continue regular diet - continue wound and MARIBEL drain care- MARIBEL output still continues at around 100 ml per day - continue supportive care and pain management - transition to PO augmentin at discharge - discharge with MARIBEL drain- will remove at follow up appt Patient wishes to be discharged but doesn't feel comfortable caring for MARIBEL drain himself; may need home health care referral for wound care and we will allow decision per primary team. Okay to discharge from surgical perspective, surgery will sign off at this time. (2) Hx pulmonary embolism Current Visit: Yes Status: Acute see above Subjective Patient reports: pain is less, tolerating a regular diet, flatus, bowel movement, afebrile, other (patient wishes to go home. He considered back pain to be biggest problem at this time) Objective Vital Signs - Last 8 Hours Temp Pulse Resp BP Pulse Ox 04/11/18 05:15 97.6 F 68 14 121/78 97 Intake and Output 04/10/18 04/11/18 04/11/18 23:59 07:59 15:59 Intake Total 2600 / 2600 1200 / 1200 240 / 240 Output Total 1974 / 1974 600 / 600 Balance 625 / 625 600 / 600 240 / 240 Intake: IV Fluids 2200 / 2200 1200 / 1200 Lactated Ringers 1,000 ML @ 125 1000 / 1000 1000 / 1000 mls/hr IVC .Q8H JENA Rx#: [id number] Zosyn 3.375 GM In 0.9 % Sodium 100 / 100 200 / 200 Chloride (Mini-Bag +) 100 ML @ 25 mls/hr IVPB Q8H JENA Rx#: [id number] Oral 400 / 400 0 / 0 240 / 240 Output: Urine 1950 / 1950 600 / 600 Wound Drainage 25 / 25 Right Lower Abdomen 25 / 25 Other: Meal Breakfast Percent of Meal Consumed 100% Stool Size Smear Stool Consistency loose Stool Color Brown # Bowel Movements 1 Weight 157.6 kg Patient Weight 04/11/18 23:59 Weight 157.6 kg - General physical appearance well developed, well nourished, no distress, obese - Eyes normal ocular movement - ENT normal pinna, normal nares, normal mucosa - Respiratory normal expansion, normal respiratory effort, clear to auscultation - Cardiovascular Cardiovascular exam: Present: RRR, no murmurs/rubs/gallops - Abdomen Abdomen: Present: bowel sounds present, soft, non tender Hernia: none - Incision Incision: Present: draining, clean and dry, serosanguinous, approximated. Absent: inflamed, erythema - Integumentary no rash, no growths, no abnormal pigmentation - Neurologic CN 2-12 grossly intact, normal coordination, normal sensation - Musculoskeletal normal gait, normal posture - Psychiatric oriented to time, oriented to person, oriented to place, speech is normal, memory intact - Labs 04/11/18 05:12 04/11/18 05:12 Diabetes panel 04/11/18 Range/Units 05:12 Sodium 139 (136-145) mEq/L Potassium 4.0 (3.5-5.1) mEq/L Chloride 105 (98-107) mEq/L Carbon Dioxide 26 (23-29) mEq/L BUN 23 H (6-20) mg/dL Creatinine 1.01 (0.70-1.30) mg/dL Glucose 92 (70-105) mg/dL Calcium 8.6 (8.6-10.3) mg/dL Calcium panel 04/11/18 Range/Units 05:12 Calcium 8.6 (8.6-10.3) mg/dL Pituitary panel 04/11/18 Range/Units 05:12 Sodium 139 (136-145) mEq/L Potassium 4.0 (3.5-5.1) mEq/L Chloride 105 (98-107) mEq/L Carbon Dioxide 26 (23-29) mEq/L BUN 23 H (6-20) mg/dL Creatinine 1.01 (0.70-1.30) mg/dL Glucose 92 (70-105) mg/dL Calcium 8.6 (8.6-10.3) mg/dL Adrenal panel 04/11/18 Range/Units 05:12 Sodium 139 (136-145) mEq/L Potassium 4.0 (3.5-5.1) mEq/L Chloride 105 (98-107) mEq/L Carbon Dioxide 26 (23-29) mEq/L BUN 23 H (6-20) mg/dL Creatinine 1.01 (0.70-1.30) mg/dL Glucose 92 (70-105) mg/dL Calcium 8.6 (8.6-10.3) mg/dL Consult Discharge Plan - Plan Instructions: Laparoscopic Cholecystectomy (DC) Additional Instructions: General Surgical Discharge Instructions 1. No pushing, pulling, or lifting greater than 15 lbs for 2-4 weeks (depending upon procedure). 2. You may shower beginning today, but no tub baths, soaking, or swimming for 2 weeks. 3. You may resume driving when you are off narcotics and are safe to react in a car. 4. Take ibuprofen every 8 hours for discomfort. If this does not relieve discomfort, you may take the as needed [place]. Take narcotics as directed. Do not take more narcotics then directed and do not share your narcotics with any other person. Do not drink alcohol while on narcotics. 5. Take stool softeners (Colace) or a water based laxative (Miralax) while taking narcotics. You may hold for loose stools. 6. Report any fevers greater than 100.5F, increase abdominal discomfort, drainage that looks like pus, increased redness or pain at the surgical site, or any vomiting. 7. Report any pain in the calves, shortness of breath, or rapid heartbeat. 8. Follow-up in the office as directed. 9. If you were prescribed antibiotics, do not stop them without talking to your provider. Drain care- empty drain 2-3 times per day and as needed. Record outputs on drain record and bring to follow-up appointment on 04/14/18 with Hailee Lucio APRN. May shower and wash around drain with soap and water, pat dry. Apply dry gauze and tape to secure daily after showers. Do not allow drain to dangle. Secure to lanyard or safety pin to clothing. Referrals: Celia Peralta CNP [Advanced Practice Nurse] - 04/23/18 10:00 am Aundrea Thrasher CNP [Primary Care Provider] - Hailee Lucio CNP [Advanced Practice Nurse] - 04/14/18 1:30 pm (surgery follow-up; drain check) Prescriptions: Amoxicillin/Clavulanate [Augmentin] 875 mg PO BIDWM #10 tablet
[2018-04-11 15:52] VITALS: BP 134/90
--- NOTE | 2018-04-11 15:56 | Discharge Summary ---
- NOTES TO OUTPATIENT PROVIDER Notes to Outpatient Provider: Patient to follow up with general surgery as an outpatient for MARIBEL drain management Orders not resulted at time of discharge: Pending orders 04/07/18 17:25 Culture,Blood [BC] Routine Date of Encounter: 04/11/18 Time of Encounter: 11:00 - Discharge Diagnosis (1) Acute cholecystitis Priority: Primary Status: Acute (2) Hx pulmonary embolism Priority: Secondary Status: Acute (3) HTN (hypertension) Priority: Secondary Status: Chronic Qualifiers: Hypertension type: essential hypertension Qualified Code(s): I10 - Essential (primary) hypertension (4) HLD (hyperlipidemia) Priority: Secondary Status: Chronic Qualifiers: Hyperlipidemia type: pure hypercholesterolemia Qualified Code(s): E78.00 - Pure hypercholesterolemia, unspecified; E78.0 - Pure hypercholesterolemia (5) Chronic back pain greater than 3 months duration Priority: Secondary Status: Chronic (6) Anxiety and depression Priority: Secondary Status: Chronic (7) Renal calculus, right Priority: Secondary Status: Chronic (8) Chest pain Priority: Secondary Status: Resolved Qualifiers: Chest pain type: other chest pain Qualified Code(s): R07.89 - Other chest pain; R07.8 - Other chest pain (9) UTI (urinary tract infection) Priority: Secondary Status: Ruled-out Qualifiers: Urinary tract infection type: acute cystitis Hematuria presence: without hematuria Qualified Code(s): N30.00 - Acute cystitis without hematuria Hospital course: Patient is a 47-year-old male with past medical history significant for HLD, HTN , anxiety and depression, chronic back pain from previous surgery, and on Xarelto d/t PE in October 2017 presents from [facility] w/CC of abdominal pain, nausea , and vomiting since Friday evening. During patients hospital stay, CT was done which showed extensive thickening of the gallbladder with cholelithiasis. General surgery was consulted with recommendations of cholecystectomy which was done. Patient has a MARIBEL drain that will be left in place on discharge per general surgery and patient will follow up with general surgery as an outpatient for management of MARIBEL drainage. Patient will also be discharged with Augmentin per general surgery recommendations. - Time Spent with Patient Total time spent providing and/or coordinating discharge services: Less than 30 minutes - Discharge Medications Prescriptions: Ondansetron HCl [Zofran] 4 mg PO Q6HR PRN #15 tab PRN Reason: Nausea Amoxicillin/Clavulanate [Augmentin] 875 mg PO BIDWM #10 tablet Docusate [Colace] 100 mg PO BID #42 capsule HYDROcodone/Acet 5/325 mg [[place] 5-325 mg] 1 tab PO Q6H PRN 7 Days #28 tab PRN Reason: Pain Ibuprofen 800 mg PO Q8-10H #42 tablet Home Medications: Aspirin [Lo-Dose Aspirin EC] 81 mg PO DAILY 11/08/16 [History] Calcium Carbonate [Calcium] 600 mg PO BID 06/11/17 [History] Ergocalciferol (VITAMIN D2) [Vitamin D2] 400 unit PO BID 06/11/17 [History] Metoprolol [Lopressor] 50 mg PO BID 06/11/17 [History] BuPROPion SR (12 HR) [Wellbutrin SR] 150 mg PO DAILY 04/05/18 [History] Gabapentin [Neurontin] 1,800 mg PO BID 04/05/18 [History] HYDROcodone/Acet 5/325 mg [[place] 5-325 mg] 1 tab PO Q6H PRN 04/05/18 [History] Rivaroxaban [Xarelto] 20 mg PO DAILY 04/05/18 [History] Tizanidine HCl [Zanaflex] 16 mg PO HS PRN 04/05/18 [History] Pravastatin Sodium [Pravachol] 40 mg PO HS 04/09/18 [History] Trazodone HCl 300 mg PO HS 04/09/18 [History] Amoxicillin/Clavulanate [Augmentin] 875 mg PO BIDWM #10 tablet 04/10/18 [Rx] Docusate [Colace] 100 mg PO BID #42 capsule 04/11/18 [Rx] HYDROcodone/Acet 5/325 mg [[place] 5-325 mg] 1 tab PO Q6H PRN 7 Days #28 tab 04/11 [Rx] Ibuprofen 800 mg PO Q8-10H #42 tablet 04/11/18 [Rx] Ondansetron HCl [Zofran] 4 mg PO Q6HR PRN #15 tab 04/11/18 [Rx] Allergies/Adverse Reactions: 3 Allergy/AdvReac Type Severity Reaction Status Date / Time Oxycodone AdvReac Hallucinati Verified 04/09/18 10:47 ng Date of admission: 04/09/18 08:27 Primary care physician: Aundrea Thrasher Consults: 04/07/18 16:12 Consult to Surgery [CONS] Routine Consulting Provider: Surgery [facility] Reason for Consult: Pt. admitted w/cholecystitis and abdominal pain that began Friday night. Never happened before. Pt. on Xarelto for PE in October 2017. CT of the abd/pel shows findings consistent with acute cholecystitis and large calculus in the right renal pelvis extending to the right ureteric-pelvic junction although no evidence of hydronephrosis. Pt. last took his Xarelto yesterday (unsure of time). INR 1.2 on admission. Standard dose heparin drip ordered w/o bolus. NPO. Call Completed: Yes - Constitutional Vitals: Temp Pulse Resp BP Pulse Ox 98.2 F 74 16 134/90 97 04/11/18 15:47 04/11/18 15:47 04/11/18 15:47 04/11/18 15:47 04/11/18 15:47 General appearance: Present: cooperative, mild distress (N/V), A&O X 3, pleasant , obese, answers questions appropriately Exam: As above - Skin Skin exam: Present: normal color - Patient Status Disposition: Home, Self-Care - Discharge Instructions Instructions: Laparoscopic Cholecystectomy (DC) Follow Up With: Celia Peralta CNP [Advanced Practice Nurse] - 04/23/18 10:00 am Aundrea Thrasher CNP [Primary Care Provider] - Hailee Lucio CNP [Advanced Practice Nurse] - 04/14/18 1:30 pm (surgery follow -up; drain check) Additional Instructions: General Surgical Discharge Instructions 1. No pushing, pulling, or lifting greater than 15 lbs for 2-4 weeks (depending upon procedure). 2. You may shower beginning today, but no tub baths, soaking, or swimming for 2 weeks. 3. You may resume driving when you are off narcotics and are safe to react in a car. 4. Take ibuprofen every 8 hours for discomfort. If this does not relieve discomfort, you may take the as needed [place]. Take narcotics as directed. Do not take more narcotics then directed and do not share your narcotics with any other person. Do not drink alcohol while on narcotics. 5. Take stool softeners (Colace) or a water based laxative (Miralax) while taking narcotics. You may hold for loose stools. 6. Report any fevers greater than 100.5F, increase abdominal discomfort, drainage that looks like pus, increased redness or pain at the surgical site, or any vomiting. 7. Report any pain in the calves, shortness of breath, or rapid heartbeat. 8. Follow-up in the office as directed. 9. If you were prescribed antibiotics, do not stop them without talking to your provider. Drain care- empty drain 2-3 times per day and as needed. Record outputs on drain record and bring to follow-up appointment on 04/14/18 with Hailee Lucio APRN. May shower and wash around drain with soap and water, pat dry. Apply dry gauze and tape to secure daily after showers. Do not allow drain to dangle. Secure to lanyard or safety pin to clothing.
--- NOTE | 2018-04-12 16:50 | Electrocardiograph Report ---
[address] [place] [address] Test Date: 2018-04-07 Pat Name: Ilir Marte Department: 115 Room: 3A13 Gender: M Staff Development Nurse: : 1970 Requested By: Domenico Vivar Order Number: [id number] Reading MD: Collin Figueroa Measurements Intervals [place] Rate: 117 P: 47 IA: 175 QRS: 83 QRSD: 95 T: 13 QT: 311 QTc: 380 Interpretive Statements SINUS TACHYCARDIA POSSIBLE INFERIOR MYOCARDIAL INFARCTION, PROBABLY OLD Electronically Signed On 04-12-2018 16:48:57 EDT by Collin Figueroa
== END 2018-04-11 16:40 | disposition home or self-care (01) | DRG 418 ==
LOC: 3ANU → SUATTDRO 15:08
PROVIDERS: ADMIT Internal Medicine; ATTEND Hospitalist

== ENCOUNTER 2018-12-14 16:11 | Observation (INO) ==
--- NOTE | 2018-12-14 16:37 | Emergency Department Note ---
Disposition Clinical Impression: Headache Qualifiers: Headache type: unspecified Headache chronicity pattern: acute headache Intractability: not intractable Qualified Code(s): R51 - Headache Chest pain Qualifiers: Chest pain type: unspecified Qualified Code(s): R07.9 - Chest pain, unspecified Disposition: Admitted As Inpatient Condition: Undetermined Referrals: Aundrea Thrasher ENTERPRISE ENGINEER [Primary Care Provider] - Forms: ED Satisfaction Letter Time of Disposition: 19:15 General Adult HPI - General Chief complaint: ED Headache Stated complaint: head pain/HTN Time Seen by Provider: 12/14/18 16:23 Source: patient Mode of arrival: wheelchair Limitations: no limitations Nursing Notes Reviewed: Yes Vital Signs Reviewed: Yes - History of Present Illness HPI Narrative: 48-year-old male with history of CAD, hypertension, hyperlipidemia arrives to the emergency department with multiple complaints. The patient was at primary care's office and noted to have a episode of dizziness, lightheaded sensation, headache, chest discomfort. He is describing an epigastric burning sensation that is radiating up into his esophagus. The patient denies any associated s hortness of breath. He states he has never had anything like this in the past. Noted to be hypertensive at PCPs office. Denies any other complaints at this time. He is now resting comfortably in the room. He is chronic back pain worsens a back brace. Has chronic neuropathy of the right lower extremity. Other acute complaints at this time. Pain Scale: 6 - Related Data Home Medications Medication Instructions Recorded Confirmed Calcium Carbonate [Calcium] 600 mg PO BID 06/11/17 10/06/18 Metoprolol [Lopressor] 50 mg PO BID 06/11/17 10/06/18 BuPROPion SR (12 HR) [Wellbutrin 150 mg PO DAILY 04/05/18 10/06/18 SR] Gabapentin [Neurontin] 600 mg PO TID 04/05/18 10/06/18 Tizanidine HCl [Zanaflex] 16 mg PO HS 04/05/18 10/06/18 Pravastatin Sodium [Pravachol] 40 mg PO HS 04/09/18 10/06/18 Trazodone HCl 300 mg PO HS 04/09/18 10/06/18 Cholecalciferol (D-3) [Vitamin D] 5,000 unit PO DAILY 09/05/18 10/06/18 HYDROcodone/Acet 10/325 mg [[place] 1 tab PO Q6HR 09/05/18 10/06/18 10-325 mg] Allergies Allergy/AdvReac Type Severity Reaction Status Date / Time oxycodone [Oxycodone] AdvReac Hallucinati Verified 12/14/18 16:24 ng All systems ED: reviewed and negative except as stated. Constitutional: Denies: fever, chills, weakness Eyes: Reports: vision change ENT ED: Denies: dysphagia Cardiovascular: Reports: chest pain. Denies: dyspnea on exertion, edema, syncope Respiratory: Denies: cough, dyspnea, sputum production Gastrointestinal: Denies: abdominal pain, nausea, vomiting, diarrhea, const ipation Genitourinary: Denies: urgency, dysuria Musculoskeletal: Denies: back pain Integumentary: Denies: rash Neurological: Reports: headache. Denies: weakness, numbness, paresthesias, confusion, vertigo Past Medical History - Past Medical History Attestation: Yes The following information was validated with the patient. Source: patient, old records reviewed Medical history: Reports: hyperlipidemia, hypertension, kidney stones, pulmonary embolus Surgical history: Reports: cholecystectomy, other Psychiatric history: Reports: anxiety, depression - Social History Smoking Status: Former smoker Smokeless Tobacco Status: No Alcohol use: Reports: none Drug use: Reports: none Physical Exam - General Limitations: no limitations General appearance: alert, in no apparent distress - Head Head exam: atraumatic, normocephalic, normal inspection - Eye Eye exam: Present: normal appearance, PERRL, EOMI - ENT ENT exam: normal exam, normal oropharynx, mucous membranes moist - Neck Neck exam: Present: normal inspection, full ROM, trachea midline - Chest Chest inspection: Present: normal inspection, symmetric chest wall rise - Respiratory Respiratory exam: Present: normal lung sounds bilaterally. Absent: respiratory distress - Cardiovascular Cardiovascular exam: Present: regular rate, normal rhythm, normal heart sounds - Abdominal Exam Abdominal exam: Present: soft, Non-Tender. Absent: tenderness, distention, g uarding, rebound, rigidity - Extremities Exam Extremities exam: Present: normal inspection, full ROM, normal capillary refill. Absent: tenderness, pedal edema - Neurological Exam Neurological exam: Present: alert, oriented X3 - Skin Skin exam: Present: warm, dry, intact, normal color Course Vital Signs Temperature 98.5 F 12/14/18 16:23 Pulse Rate 60 12/14/18 16:23 Respiratory Rate 18 12/14/18 16:23 Blood Pressure 159/107 12/14/18 16:23 O2 Sat by Pulse Oximetry 95 12/14/18 16:23 Temperature 98.5 F 12/14/18 17:15 Pulse Rate 62 12/14/18 19:13 Respiratory Rate 18 12/14/18 19:13 Blood Pressure 166/109 12/14/18 19:13 O2 Sat by Pulse Oximetry 94 12/14/18 19:13 Oxygen Delivery Oxygen Delivery Room Air Medical Decision Making - MDM Narrative Medical decision making narrative: Patient's workup in the emergency department demonstrates no acute process of the patient's symptoms. Head CT and chest x-ray are unremarkable. Troponin and EKG also. The patient's chest discomfort combined workup here, we will admit the patient to the hospital for chest pain rule out. No further questions or concerns noted this time. Accepted by Dr. Barrientos. - Lab Data Lab results reviewed: Yes I reviewed the patient's lab results. Result diagrams: 12/14/18 16:51 12/14/18 16:51 Lab Results 12/14/18 12/14/18 12/14/18 Range/Units 16:51 16:51 16:51 WBC 6.3 (4.3-11.1) K/mcL RBC 4.89 (4.19-5.50) M/mcL Hgb 13.8 (12.9-16.9) g/dL Hct 41.5 (37.5-50.1) % MCV 84.9 (83.0-100.0) fL MCH 28.2 (28.0-33.3) pg MCHC 33.3 (31.6-35.5) g/dL RDW 13.0 (11.5-14.5) % Plt Count 194 (140-400) K/mcL MPV 11.4 (9.4-12.4) fL Immature Gran % 0.3 (0-4) % Seg Neutrophils % 60.6 % Lymphocytes % 29.7 % Monocytes % 7.0 % Eosinophils % 1.8 % Basophils % 0.6 % Neutrophils # 3.8 (1.6-8.9) K/mcL Lymphocytes # 1.9 (0.6-4.6) K/mcL Monocytes # 0.4 (0.0-1.3) K/mcL Eosinophils # 0.1 (0.0-0.6) K/mcL Basophils # 0.0 (0.0-0.2) K/mcL PT 18.8 H (9.4-12.1) Seconds INR 1.7 APTT 42.6 H (26.0-36.0) Seconds Sodium 137 (136-145) mEq/L Potassium 4.2 (3.5-5.1) mEq/L Chloride 106 (98-107) mEq/L Carbon Dioxide 29 (23-29) mEq/L BUN 15 (6-20) mg/dL Creatinine 1.10 (0.70-1.30) mg/dL Est GFR ( Amer) > 60 (> 60) Est GFR (Non-Af Amer) > 60 (> 60) BUN/Creatinine Ratio 14 (6-26) Glucose 88 (70-105) mg/dL Calculated Osmolality 284 (280-300) Calcium 9.1 (8.6-10.3) mg/dL Total Bilirubin 0.5 (0.3-1.0) mg/dL Direct Bilirubin 0.1 (0.0-0.2) mg/dL Indirect Bilirubin 0.4 (0.0-1.2) mg/dL AST 17 (13-39) Units/L ALT 17 (7-52) Units/L Alkaline Phosphatase 67 (34-104) Units/L Troponin I < 0.03 (< 0.04) ng/mL Serum Total Protein 6.9 (6.4-8.9) g/dL Albumin 4.1 (3.5-5.7) g/dL Globulin 2.8 (2.4-3.5) g/dL Albumin/Globulin Ratio 1.5 (1.1-2.2) - Radiology Data Radiology results reviewed: Yes I reviewed the patient's radiology results. Chest X-Ray 12/14/18 16:33 IMPRESSION: Stable chest. Mild dependent bibasilar atelectasis. No acute infiltrate or overt failure. D/ / Ilir Pratt MD / Ilir Pratt MD Interpreting Provider: Ilir Pratt MD Head CT 12/14/18 16:33 IMPRESSION: No acute intracranial abnormality. D/ / Emory Sweeney / Emory Sweeney Interpreting Provider: Emory Sweeney - EKG Data EKG #1 EKG attestation: Yes I reviewed and interpreted this EKG. EKG results narrative: Heart rate 57 beats for minute. Normal sinus rhythm. No ST elevation or ST depression. No acute changes Attestation Statement - Attestation Attestation: Resident Attestation: I examined this patient and my medical decision making was reviewed with the Resident Physician. I agree with the documented findings, disposition and treatment plan as described except to the extent set forth bel ow. We independently had [id number] contact with the patient.EKG reviewed with resident physician. Agree with documentation. Patient presented for multiple complaints including hypertension, chest pain, dizziness. Symptoms started while at the doctor's office. Patient's headache describes a sharp headache on the right side radiating to the left. Worse with certain movements of his neck. Patient has had headaches like this before. Intermittent in nature. No previous cause found. Patient states chest pain as well as dizziness. Dizziness he states is better than when he was previously having symptoms with standing or moving his head. Patient is neurologically intact, regular rhythm, clear to auscultation bilaterally. Patient does not appear to be acute distress. Overall underlying etiology at this time is nonspecific. Further CT imaging, x-ray, blood work, EKG will be obtained. Disposition pending. On Xeralto
[2018-12-14 17:05] LABS: Basophils % 0.6 %; Eosinophils # 0.1 K/mcL (0.0-0.6); Eosinophils % 1.8 %; Hematocrit 41.5 % (37.5-50.1); Hemoglobin 13.8 g/dL (12.9-16.9); Immature Granulocytes % 0.3 % (0-4); Lymphocytes # 1.9 K/mcL (0.6-4.6); Lymphocytes % 29.7 %; Mean Corpuscular HGB Conc 33.3 g/dL (31.6-35.5); Mean Corpuscular Hemoglobin 28.2 pg (28.0-33.3); Mean Corpuscular Volume 84.9 fL (83.0-100.0); Mean Platelet Volume 11.4 fL (9.4-12.4); Monocytes # 0.4 K/mcL (0.0-1.3); Neutrophils # 3.8 K/mcL (1.6-8.9); Platelet Count 194 K/mcL (140-400); Red Blood Count 4.89 M/mcL (4.19-5.50); Segmented Neutrophils % 60.6 %; White Blood Count 6.3 K/mcL (4.3-11.1)
[2018-12-14 17:12] LABS: INR 1.7; Prothrombin Time 18.8 Seconds (9.4-12.1)
[2018-12-14 17:14] LABS: Activated Partial Thrombo Time 42.6 Seconds (26.0-36.0)
[2018-12-14 17:26] LABS: Alanine Aminotransferase 17 Units/L (7-52); Albumin 4.1 g/dL (3.5-5.7); Albumin/Globulin Ratio 1.5 (1.1-2.2); Alkaline Phosphatase 67 Units/L (34-104); Aspartate Amino Transferase 17 Units/L (13-39); BUN/Creatinine Ratio 14 (6-26); Bilirubin,Direct 0.1 mg/dL (0.0-0.2); Bilirubin,Indirect 0.4 mg/dL (0.0-1.2); Bilirubin,Total 0.5 mg/dL (0.3-1.0); Blood Urea Nitrogen 15 mg/dL (6-20); Calcium 9.1 mg/dL (8.6-10.3); Carbon Dioxide 29 mEq/L (23-29); Chloride 106 mEq/L (98-107); Globulin 2.8 g/dL (2.4-3.5); Glucose 88 mg/dL (70-105); Osmolality,Calculated 284 (280-300); Potassium 4.2 mEq/L (3.5-5.1); Sodium 137 mEq/L (136-145); Total Protein 6.9 g/dL (6.4-8.9); Troponin I < 0.03 ng/mL (< 0.04); eGFR For African Americans > 60 (> 60); eGFR For Non-African Americans > 60 (> 60)
[2018-12-14] MEDS: Nitroglycerin 0.4 MG TAB.SUBL SL PRN ×2 (19:07→19:14)
[2018-12-14] MEDS ORDERED: Acetaminophen 325 MG TABLET PO ONE (19:10)
[2018-12-14] MEDS ORDERED: Naloxone 0.4 MG/ML INJ IVP PRN (20:17)
[2018-12-14] MEDS ORDERED: Acetaminophen 325 MG TABLET PO PRN (20:17)
--- NOTE | 2018-12-14 20:25 | Internal Med History&Physical ---
Date of Encounter: 12/14/18 Time of Encounter: 20:23 Internal Medicine - H&P: HPI Chief complaint: headache Admitted From: Home Plans for Post Hospital Care: Home History of present illness: Ilir Marte is a 48-year-old man with hypertension, hyperlipidemia and pulmonary embolism that resulted after orthopedic spinal fusion surgery with hardware. He was also seen here 3 months ago for a complicated UTI in the presence of a large renal stone that required extraction a complicated by bacteremia and required a 2 week course of antibiotics. He presents to the emergency room today upon referral from his PCPs office where he was found to have elevated BP values and at the same time complaining of headache and blurry vision. He reports inadequate adherence to his antihypertensives. On arrival to the ER he also complained of pressure on his precordial region and was given nitroglycerin which he says made him feel worse. He tells me he has these chest pressure sensations intermittently both at rest and with exertion but no accompanying symptoms. EKG is reviewed by me reveals normal sinus rhythm. Lab work was within normal limits as well. He is admitted for observation. Vitals: Reviewed General: Obese white male sitting up in bed in no acute distress. Skin: Warm and dry. HEENT: Moist mucous membranes. No conjunctivae pallor. Neck: No lymphadenopathy. No JVD. No carotid bruits. No palpable thyroid. Chest: Normal thoracic expansion. Normal breath sounds. Clear to auscultation. Heart: Normal S1 & S2; rhythmic. No rubs or murmurs. Abdomen: Non-distended, soft and non-tender to palpation. No peritoneal reaction. Extremities: No clubbing, cyanosis or edema. No calf tenderness. Normal distal pulses. Neurological: Awake, alert and oriented to person, place and time. No focal deficits. Psych: Affect appropriate. Assessment/Plan 1. Hypertensive urgency: Secondary to poor adherence. Will resume home medications once verified. 2. Chest pain: Non-specific. Will schedule for stress test in the morning. Monitor on telemetry. 3. Headache: Likely tension headaches. Imaging negative. Will provide analgesics as needed. 4. Hyperlipidemia: On pravastatin. 5. Obesity: Counseled and educated on therapeutic lifestyle changes for weight loss as it will be of benefit in controlling comorbidities. Book[employer] Librarian evaluation advised. 6. Pulmonary embolism: On rivaroxaban. Past Med Surg Social Fam HX - Past Medical History Medical history: hyperlipidemia, hypertension, kidney stones, pulmonary embolus Psychiatric history: anxiety, depression - Past Surgical History Surgical History: cholecystectomy, other Additional surgical history: LOWER BACK SURG WITH FIXATION AND FUSION 10/2017, stent, GB - Social History Smoking Status: Former smoker Smokeless Tobacco Status: No Alcohol use: none Drug use: none - Family History Mother Family Member Ethnicity: Non- Living Status: Still Living Hx Family Endocrine Disorder: Yes (DM) Father Family Member Ethnicity: Non- Living Status: Still Living Hx Family Endocrine Disorder: Yes (DM) Brother Family Member Ethnicity: Non- Living Status: Still Living Sister Family Member Ethnicity: Non- Living Status: Still Living Internal Medicine - H&P: Meds Calcium Carbonate [Calcium] 600 mg PO BID 06/11/17 [History] Metoprolol [Lopressor] 50 mg PO BID 06/11/17 [History] BuPROPion SR (12 HR) [Wellbutrin SR] 100 mg PO DAILY 04/05/18 [History] Gabapentin [Neurontin] 600 mg PO TID 04/05/18 [History] Tizanidine HCl [Zanaflex] 16 mg PO HS 04/05/18 [History] Pravastatin Sodium [Pravachol] 40 mg PO HS 04/09/18 [History] Trazodone HCl 300 mg PO HS 04/09/18 [History] Cholecalciferol (D-3) [Vitamin D] 5,000 unit PO DAILY 09/05/18 [History] HYDROcodone/Acet 10/325 mg [[place] 10-325 mg] 1 tab PO Q6HR 09/05/18 [History] Acetaminophen [Tylenol] 1,000 mg PO BID 12/14/18 [History] Ibuprofen [Motrin] 800 mg PO BID 12/14/18 [History] Rivaroxaban [Xarelto] 20 mg PO DAILY 12/14/18 [History] Allergy/AdvReac Type Severity Reaction Status Date / Time oxycodone [Oxycodone] AdvReac Hallucinati Verified 12/14/18 16:24 ng All Systems PM: A 10-system review of systems was performed and is negative for pertinent findings except as documented above in the HPI. - Constitutional Vitals: Temp Pulse Resp BP Pulse Ox 98.5 F 54 17 158/97 94 12/14/18 17:15 12/14/18 19:29 12/14/18 19:29 12/14/18 19:29 12/14/18 19:29 Exam: . Internal Med - H&P Results - Labs CBC & Chem 7: 12/14/18 16:51 12/14/18 16:51 Labs: Short CBC 12/14/18 Range/Units 16:51 WBC 6.3 (4.3-11.1) K/mcL Hgb 13.8 (12.9-16.9) g/dL Hct 41.5 (37.5-50.1) % Plt Count 194 (140-400) K/mcL Neutrophils # 3.8 (1.6-8.9) K/mcL BMP 12/14/18 16:51 Sodium 137 Potassium 4.2 Chloride 106 Carbon Dioxide 29 BUN 15 Creatinine 1.10 Glucose 88 Calcium 9.1 Cardiac Enzymes 12/14/18 Range/Units 16:51 Troponin I < 0.03 (< 0.04) ng/mL Liver Function 12/14/18 Range/Units 16:51 Total Bilirubin 0.5 (0.3-1.0) mg/dL Direct Bilirubin 0.1 (0.0-0.2) mg/dL AST 17 (13-39) Units/L ALT 17 (7-52) Units/L Alkaline Phosphatase 67 (34-104) Units/L Albumin 4.1 (3.5-5.7) g/dL - Impressions ITS Impressions Chest X-Ray 12/14/18 16:33 IMPRESSION: Stable chest. Mild dependent bibasilar atelectasis. No acute infiltrate or overt failure. D/ / Ilir Pratt MD / Ilir Pratt MD Interpreting Provider: Ilir Pratt MD Head CT 12/14/18 16:33 IMPRESSION: No acute intracranial abnormality. D/ / Emory Sweeney / Emory Sweeney Interpreting Provider: Emory Sweeney - Time Spent With Patient Total time spent is greater than 50% in coordination of care (as documented) at patient's floor/unit and/or counseling patient: Greater than 35 minutes
[2018-12-14] MEDS: traZODone 50 MG TABLET PO SCH (23:49)
[2018-12-14] MEDS: Gabapentin 300 MG CAPSULE PO SCH (23:49)
[2018-12-14] MEDS: *HR* HYDROcodone/Acet 5/325 mg TABLET PO PRN (23:53)
[2018-12-15] MEDS ORDERED: Regadenoson 0.4 MG/5 ML SYRINGE IVP ONE (05:42)
[2018-12-15] MEDS: BuPROPion SR (12 HR) 100 MG TABLET PO SCH (08:57)
[2018-12-15] MEDS: Gabapentin 300 MG CAPSULE PO SCH ×3 (08:57→20:46)
[2018-12-15] MEDS: *HR* Rivaroxaban 10 MG TABLET PO SCH (08:57)
[2018-12-15] MEDS: Cholecalciferol (D-3) 1,000 UNIT TABLET PO SCH (08:57)
[2018-12-15] MEDS: *HR* HYDROcodone/Acet 5/325 mg TABLET PO PRN ×2 (09:04→16:46)
--- NOTE | 2018-12-15 10:51 | Electrocardiograph Report ---
[address] [address] Test Date: 2018-12-14 Pat Name: Ilir Marte Department: EXAM7 Room: 3B Gender: M Rn Gastroenterology: : 1970 Requested By: Jasvir Lovelace Order Number: [id number] Reading MD: Salma Arreaga Measurements Intervals [place] Rate: 57 P: 46 ND: 192 QRS: 76 QRSD: 93 T: 43 QT: 432 QTc: 421 Interpretive Statements Sinus rhythm Electronically Signed On 12-15-2018 10:49:33 EDT by Salma Arreaga
--- NOTE | 2018-12-15 14:57 | Internal Med Progress Note ---
Hospitalist Progress Note - Encounter Date of Encounter: 12/15/18 Time of Encounter: 13:00 - Subjective Interval History: Mr. Marte is a 48-year-old man with hypertension, hyperlipidemia and pulmonary embolism that resulted after orthopedic spinal fusion surgery with hardware, on Xarelto for anti coag, now he presented to ER with intermittent CP, located sub sternal region, non radiating. He also c/o uncontrolled BP in 160/110 , associated with headache. He was admitted in the hospital placed him on monitoring coordinator. His his serial troponin came back is negative. He denied any more active chest pain now. - Exam Vitals: Temp Pulse Resp BP Pulse Ox 97.6 F 59 94 154/90 16 12/15/18 11:49 12/15/18 11:49 12/15/18 11:49 12/15/18 13:11 12/15/18 11:49 Exam: Gen: Alert, awake, Oriented to time,place and person Chest: Diminished breath sounds B/L, No wheezing, No crackles, No rales Heart: S1S2+ RRR No murmurs Abd: Soft, NT, BS +, No organomegaly Ext: No edema, pulses are palpable, No calf tenderness Neuro : No acute focal neuro deficits noticed Skin: No rash. - Assessment and Plan (1) Chest pain Current Visit: Yes Status: Acute Assessment and Plan: So far negative tropx 3 no acute ischemic changes on EKG noticed since patient is high risk for ACS he did go for nuclear stress test he does need 2 days stress test due to high BMI continue aspirin, Lipitor and metoprolol (2) Uncontrolled hypertension Current Visit: Yes Status: Acute Assessment and Plan: BP is fairly controlled cont home med Metoprolol Also started him on Lisinopril 20mg cont IV hydralazine PRN (3) Pulmonary embolism Current Visit: No Status: Chronic Assessment and Plan: cont home med Xarelto (4) Anxiety and depression Current Visit: No Status: Chronic Assessment and Plan: resumed home meds (5) CAD (coronary artery disease) Current Visit: No Status: Chronic Assessment and Plan: on ASA, Metoprolol and Lipitor (6) HLD (hyperlipidemia) Current Visit: No Status: Chronic Assessment and Plan: on statin - Time Spent with Patient Total time spent is greater than 50% in coordination of care (as documented) at patient's floor/unit and/or counseling patient: Internal Medicine: Result - Labs CBC & Chem 7: 12/14/18 16:51 12/14/18 16:51 Labs: Short CBC 12/14/18 Range/Units 16:51 WBC 6.3 (4.3-11.1) K/mcL Hgb 13.8 (12.9-16.9) g/dL Hct 41.5 (37.5-50.1) % Plt Count 194 (140-400) K/mcL Neutrophils # 3.8 (1.6-8.9) K/mcL BMP 12/14/18 16:51 Sodium 137 Potassium 4.2 Chloride 106 Carbon Dioxide 29 BUN 15 Creatinine 1.10 Glucose 88 Calcium 9.1 Cardiac Enzymes 12/14/18 12/14/18 Range/Units 16:51 22:34 Troponin I < 0.03 < 0.03 (< 0.04) ng/mL Liver Function 12/14/18 Range/Units 16:51 Total Bilirubin 0.5 (0.3-1.0) mg/dL Direct Bilirubin 0.1 (0.0-0.2) mg/dL AST 17 (13-39) Units/L ALT 17 (7-52) Units/L Alkaline Phosphatase 67 (34-104) Units/L Albumin 4.1 (3.5-5.7) g/dL - ABG Interpretation ABG results: PT/INR, D-dimer PT 18.8 Seconds (9.4-12.1) H 12/14/18 16:51 - Impressions Impressions Chest X-Ray 12/14/18 16:33 IMPRESSION: Stable chest. Mild dependent bibasilar atelectasis. No acute infiltrate or overt failure. D/ / Ilir Pratt MD / Ilir Pratt MD Interpreting Provider: Ilir Pratt MD Head CT 12/14/18 16:33 IMPRESSION: No acute intracranial abnormality. D/ / Emory Sweeney / Emory Sweeney Interpreting Provider: Emory Sweeney Consult Discharge Plan - Plan Referrals: Aundrea Thrasher, DAYO [Primary Care Provider] - (Appointment has been requested.) (1) Chest pain Qualifiers: Chest pain type: unspecified Qualified Code(s): R07.9 - Chest pain, unspecified (3) Pulmonary embolism Qualifiers: Pulmonary embolism type: other Chronicity: acute Acute cor pulmonale presence: without acute cor pulmonale Qualified Code(s): I26.99 - Other pul monary embolism without acute cor pulmonale (5) CAD (coronary artery disease) Qualifiers: Coronary Disease-Associated Artery/Lesion type: [place] artery [place] vs. transplanted heart: [place] heart Associated angina: without angina Qualified Code(s): I25.10 - Atherosclerotic heart disease of [place] coronary artery without angina pectoris (6) HLD (hyperlipidemia) Qualifiers: Hyperlipidemia type: pure hypercholesterolemia Qualified Code(s): E78.00 - Pure hypercholesterolemia, unspecified; E78.0 - Pure hypercholesterolemia
[2018-12-15] MEDS: Lisinopril 20 MG TABLET PO SCH (16:15)
[2018-12-15] MEDS: Nitroglycerin 0.4 MG TAB.SUBL SL PRN (16:16)
[2018-12-15] MEDS ORDERED: Methyl Salicylate/Menthol 28 GM TUBE TP PRN (18:55)
[2018-12-15] MEDS: traZODone 50 MG TABLET PO SCH (20:45)
[2018-12-15] MEDS ORDERED: tiZANidine 4 MG TABLET PO SCH (21:00)
[2018-12-16] MEDS: *HR* HYDROcodone/Acet 5/325 mg TABLET PO PRN (07:42)
[2018-12-16] MEDS: BuPROPion SR (12 HR) 100 MG TABLET PO SCH (07:43)
[2018-12-16] MEDS: *HR* Rivaroxaban 10 MG TABLET PO SCH (07:43)
[2018-12-16] MEDS: Gabapentin 300 MG CAPSULE PO SCH (07:43)
[2018-12-16] MEDS: Cholecalciferol (D-3) 1,000 UNIT TABLET PO SCH (07:43)
[2018-12-16] MEDS: Lisinopril 20 MG TABLET PO SCH (07:43)
[2018-12-16 11:09] VITALS: BP 143/84
--- NOTE | 2018-12-16 13:39 | Discharge Summary ---
- NOTES TO OUTPATIENT PROVIDER Notes to Outpatient Provider: f/u with PCP in one week. Orders not resulted at time of discharge: Pending orders 12/14/18 20:18 NM segun perf SPECT multi [NM] Routine Date of Encounter: 12/16/18 Time of Encounter: 11:45 - Discharge Diagnosis (1) Chest pain Priority: Primary Status: Acute Qualifiers: Chest pain type: unspecified Qualified Code(s): R07.9 - Chest pain, unspecified (2) Uncontrolled hypertension Priority: Primary Status: Acute (3) Pulmonary embolism Priority: Secondary Status: Chronic Qualifiers: Pulmonary embolism type: other Chronicity: acute Acute cor pulmonale presence: without acute cor pulmonale Qualified Code(s): I26.99 - Other pulmonary embolism without acute cor pulmonale (4) Anxiety and depression Priority: Secondary Status: Chronic (5) CAD (coronary artery disease) Priority: Secondary Status: Chronic Qualifiers: Coronary Disease-Associated Artery/Lesion type: [place] artery [place] vs. transplanted heart: [place] heart Associated angina: without angina Qualified Code(s): I25.10 - Atherosclerotic heart disease of [place] coronary artery without angina pectoris (6) HLD (hyperlipidemia) Priority: Secondary Status: Chronic Qualifiers: Hyperlipidemia type: pure hypercholesterolemia Qualified Code(s): E78.00 - Pure hypercholesterolemia, unspecified; E78.0 - Pure hypercholesterolemia Hospital course: Mr. Marte is a 48-year-old man with hypertension, hyperlipidemia and pulmonary embolism that resulted after orthopedic spinal fusion surgery with hardware, on Xarelto for anti coag, now he presented to ER with intermittent CP, located sub sternal region, non radiating. He also c/o uncontrolled BP in 160/110 , associated with headache. He was admitted in the hospital placed him on hand folder. His his serial troponin came back as negative. Since is high risk for ACS, he did go for nuclear stress test which came back as negative for ischemia/infarction. He does have small sized, mild intensity, primarily fixed basal inferior perfusion defect suggestive of artifact. Perfusion imaging was negative for ischemia or infarct. He denied any more active chest pain now. Will d/c him home in stable condition today. - Time Spent with Patient Total time spent providing and/or coordinating discharge services: - Discharge Medications Prescriptions: No Action Calcium Carbonate [Calcium] 600 mg PO BID Metoprolol [Lopressor] 50 mg PO BID Pravastatin Sodium [Pravachol] 40 mg PO HS Trazodone HCl 300 mg PO HS HYDROcodone/Acet 10/325 mg [[place] 10-325 mg] 2 tab PO BID PRN PRN Reason: Pain Rivaroxaban [Xarelto] 20 mg PO QAM Acetaminophen [Tylenol] 1,000 mg PO BID Ibuprofen [Motrin] 800 mg PO BID BuPROPion SR (12 HR) [Wellbutrin SR] 100 mg PO QAM Cholecalciferol (Vitamin D3) [Dialyvite Vitamin D] 5,000 units PO QAM Gabapentin [Neurontin] 1,200 mg PO QPM Tizanidine HCl [Zanaflex] 16 mg PO HS Gabapentin [Neurontin] 600 mg PO QAM Home Medications: Calcium Carbonate [Calcium] 600 mg PO BID 06/11/17 [History] Metoprolol [Lopressor] 50 mg PO BID 06/11/17 [History] Gabapentin [Neurontin] 600 mg PO QAM 04/05/18 [History] Tizanidine HCl [Zanaflex] 16 mg PO HS 04/05/18 [History] Pravastatin Sodium [Pravachol] 40 mg PO HS 04/09/18 [History] Trazodone HCl 300 mg PO HS 04/09/18 [History] HYDROcodone/Acet 10/325 mg [[place] 10-325 mg] 2 tab PO BID PRN 09/05/18 [History] Acetaminophen [Tylenol] 1,000 mg PO BID 12/14/18 [History] Rivaroxaban [Xarelto] 20 mg PO QAM 12/14/18 [History] Aspirin Enteric Coated [Aspirin EC] 81 mg PO DAILY #30 tablet. 12/16/18 [Rx] BuPROPion SR (12 HR) [Wellbutrin SR] 100 mg PO QAM 12/16/18 [History] Cholecalciferol (Vitamin D3) [Dialyvite Vitamin D] 5,000 units PO QAM 12/16/18 [History] Gabapentin [Neurontin] 1,200 mg PO QPM 12/16/18 [History] Lisinopril [Zestril] 20 mg PO DAILY #30 tablet 12/16/18 [Rx] Allergies/Adverse Reactions: Allergy/AdvReac Type Severity Reaction Status Date / Time oxycodone [Oxycodone] AdvReac Hallucinati Verified 12/14/18 16:24 ng Date of admission: 12/14/18 19:54 Primary care physician: Aundrea Thrasher - Constitutional Vitals: Temp Pulse Resp BP Pulse Ox 97.9 F 61 16 143/84 96 12/16/18 11:08 12/16/18 11:08 12/16/18 11:08 12/16/18 11:08 12/16/18 11:08 General appearance: Present: A&O X 3, no acute distress, answers questions appropriately Exam: Gen: Alert, awake, Oriented to time,place and person Chest: Diminished breath sounds B/L, No wheezing, No crackles, No rales Heart: S1S2+ RRR No murmurs Abd: Soft, NT, BS +, No organomegaly Ext: No edema, pulses are palpable, No calf tenderness Neuro : No acute focal neuro deficits noticed Skin: No rash. - Patient Status Disposition: Home, Self-Care Condition: Good Overall status at discharge: patient is back to baseline - Discharge Instructions Follow Up With: Aundrea Thrasher, DOCUMENT IMPROVEMENT SPECIALIST [Primary Care Provider] - 12/21/18 11:00 am () - Diet and Activity Activity: increase activity as tolerated Diet: low salt diet
--- NOTE | 2018-12-16 18:37 | Electrocardiograph Report ---
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
== END 2018-12-16 17:23 | disposition home or self-care (01) ==
LOC: EMEROOARM 16:11 → 3BNU 16:11
PROVIDERS: ADMIT Family Medicine; ATTEND Family Medicine

== ENCOUNTER 2021-04-20 20:40 | Observation (INO) ==
[2021-04-20] MEDS ORDERED: Melatonin 3 MG TABLET PO PRN (22:59)
[2021-04-20] MEDS ORDERED: Naloxone 0.4 MG/ML INJ IVP PRN (22:59)
[2021-04-20] MEDS ORDERED: *HR* Labetalol 20 MG/4 ML SYRINGE IVP PRN (23:05)
[2021-04-21] MEDS ORDERED: niCARdipine 20 MG/200 ML MLS IVC SCH (00:30)
[2021-04-21] MEDS: *HR* HYDROcodone/Acet 7.5/325 mg TABLET PO PRN ×3 (01:27→22:05)
[2021-04-21] MEDS: Baclofen 10 MG TABLET PO SCH ×2 (01:27→21:15)
[2021-04-21] MEDS: Gabapentin 300 MG CAPSULE PO SCH ×2 (01:27→16:46)
[2021-04-21] MEDS: tiZANidine 4 MG TABLET PO PRN ×2 (02:51→21:33)
[2021-04-21] MEDS: *HR* Heparin 5,000 UNIT/ML VIAL SQ SCH ×2 (05:05→16:46)
[2021-04-21 05:15] LABS: BUN/Creatinine Ratio 18 (6-26); Blood Urea Nitrogen 19 mg/dL (6-20); Calcium 9.1 mg/dL (8.6-10.3); Carbon Dioxide 26 mEq/L (23-29); Chloride 101 mEq/L (98-107); Glucose 140 mg/dL (70-105); Magnesium 1.7 mg/dL (1.6-2.6); Osmolality,Calculated 287 (280-300); Potassium 4.2 mEq/L (3.5-5.1); Sodium 136 mEq/L (136-145); eGFR For African Americans > 60 (> 60); eGFR For Non-African Americans > 60 (> 60)
[2021-04-21 08:16] LABS: Hematocrit 52.7 % (37.5-50.1); Hemoglobin 18.4 g/dL (12.9-16.9); Immature Platelets 5.1 % (1.1-6.1); Mean Corpuscular HGB Conc 34.9 g/dL (31.6-35.5); Mean Corpuscular Hemoglobin 31.5 pg (28.0-33.3); Mean Corpuscular Volume 90.2 fL (83.0-100.0); Mean Platelet Volume 10.9 fL (9.4-12.4); Red Blood Count 5.84 M/mcL (4.19-5.50); Red Cell Distribution Width 12.4 % (11.5-14.5); White Blood Count 8.5 K/mcL (4.3-11.1)
[2021-04-21] MEDS ORDERED: Ondansetron 4 MG/2 ML VIAL IVP PRN (10:35)
[2021-04-21] MEDS ORDERED: Perflutren Lipid Microsphere 1.3 ML in 0.9 % Sodium Chloride 8.7 ML IVP PRN (14:00)
[2021-04-21] MEDS: carvediloL 25 MG TABLET PO SCH (16:46)
[2021-04-21] MEDS: traZODone 50 MG TABLET PO SCH (21:15)
[2021-04-21] MEDS ORDERED: Gabapentin 300 MG CAPSULE PO ONE (23:18)
[2021-04-22] MEDS: *HR* Heparin 5,000 UNIT/ML VIAL SQ SCH ×2 (06:08→17:48)
[2021-04-22] MEDS: *HR* HYDROcodone/Acet 7.5/325 mg TABLET PO PRN ×2 (06:13→16:02)
[2021-04-22] MEDS: Gabapentin 300 MG CAPSULE PO SCH (09:14)
[2021-04-22] MEDS: carvediloL 25 MG TABLET PO SCH ×2 (09:18→16:02)
[2021-04-22 16:29] LABS: Immature Granulocytes % 0.8 % (0-4); Mean Corpuscular Hemoglobin 31.1 pg (28.0-33.3)
[2021-04-22 16:31] LABS: Basophils % 0.6 %; Eosinophils # 0.1 K/mcL (0.0-0.6); Hematocrit 44.1 % (37.5-50.1); Hemoglobin 15.3 g/dL (12.9-16.9); Immature Platelets 5.5 % (1.1-6.1); Lymphocytes # 1.8 K/mcL (0.6-4.6); Lymphocytes % 27.8 %; Mean Corpuscular HGB Conc 34.7 g/dL (31.6-35.5); Mean Corpuscular Volume 89.6 fL (83.0-100.0); Mean Platelet Volume 10.7 fL (9.4-12.4); Monocytes # 0.5 K/mcL (0.0-1.3); Monocytes % 7.9 %; Neutrophils # 3.9 K/mcL (1.6-8.9); Platelet Count 165 K/mcL (140-400); Red Blood Count 4.92 M/mcL (4.19-5.50); Segmented Neutrophils % 60.9 %; White Blood Count 6.4 K/mcL (4.3-11.1)
[2021-04-22] MEDS: amLODIPine 5 MG TABLET PO SCH (18:24)
[2021-04-22] MEDS: traZODone 50 MG TABLET PO SCH (21:34)
[2021-04-22] MEDS: Gabapentin 400 MG CAPSULE PO SCH (21:34)
[2021-04-22] MEDS: Baclofen 10 MG TABLET PO SCH (21:35)
[2021-04-22] MEDS: tiZANidine 4 MG TABLET PO PRN (21:37)
[2021-04-22 22:48] LABS: BUN/Creatinine Ratio 24 (6-26); Blood Urea Nitrogen 31 mg/dL (6-20); Calcium 9.1 mg/dL (8.6-10.3); Carbon Dioxide 27 mEq/L (23-29); Chloride 104 mEq/L (98-107); Glucose 120 mg/dL (70-105); Osmolality,Calculated 292 (280-300); Potassium 4.3 mEq/L (3.5-5.1); Sodium 137 mEq/L (136-145); eGFR For African Americans > 60 (> 60); eGFR For Non-African Americans 57 (> 60)
[2021-04-23] MEDS: *HR* Heparin 5,000 UNIT/ML VIAL SQ SCH ×2 (05:42→17:48)
[2021-04-23] MEDS: Gabapentin 300 MG CAPSULE PO SCH (08:13)
[2021-04-23] MEDS: Aspirin Enteric Coated 81 MG Tablet PO SCH (08:13)
[2021-04-23] MEDS: hydrALAZINE 25 MG TABLET PO SCH ×4 (08:13→20:49)
[2021-04-23] MEDS: carvediloL 25 MG TABLET PO SCH ×2 (08:13→17:48)
[2021-04-23] MEDS: amLODIPine 5 MG TABLET PO SCH (08:14)
[2021-04-23] MEDS ORDERED: amLODIPine 5 MG TABLET PO SCH (09:00)
[2021-04-23 14:59] LABS: BUN/Creatinine Ratio 22 (6-26); Blood Urea Nitrogen 26 mg/dL (6-20); Calcium 9.1 mg/dL (8.6-10.3); Carbon Dioxide 25 mEq/L (23-29); Chloride 105 mEq/L (98-107); Glucose 116 mg/dL (70-105); Osmolality,Calculated 292 (280-300); Potassium 4.2 mEq/L (3.5-5.1); Sodium 138 mEq/L (136-145); eGFR For African Americans > 60 (> 60); eGFR For Non-African Americans > 60 (> 60)
[2021-04-23] MEDS: Fluticasone Propionate Nasal 50 MCG/SPRAY BOTTLE NS SCH (16:01)
[2021-04-23] MEDS ORDERED: amLODIPine 5 MG TABLET PO ONE (18:05)
[2021-04-23] MEDS: Gabapentin 400 MG CAPSULE PO SCH (20:47)
[2021-04-23] MEDS: tiZANidine 4 MG TABLET PO PRN (20:48)
[2021-04-23] MEDS: traZODone 50 MG TABLET PO SCH (20:48)
[2021-04-23] MEDS: Baclofen 10 MG TABLET PO SCH (20:49)
[2021-04-23] MEDS: *HR* HYDROcodone/Acet 7.5/325 mg TABLET PO PRN (20:49)
[2021-04-23] MEDS ORDERED: Methyl Salicylate/Menthol 57 APPL/57 GM TUBE TP PRN (22:37)
[2021-04-23] MEDS ORDERED: 0.9 % Sodium Chloride 500 ML IVC ONE (23:35)
[2021-04-23] MEDS ORDERED: 0.9 % Sodium Chloride 500 ML ONE (23:39)
[2021-04-24] MEDS: *HR* Heparin 5,000 UNIT/ML VIAL SQ SCH ×2 (07:58→16:52)
[2021-04-24] MEDS: Gabapentin 300 MG CAPSULE PO SCH (07:59)
[2021-04-24] MEDS: carvediloL 25 MG TABLET PO SCH ×2 (08:00→16:51)
[2021-04-24] MEDS: Fluticasone Propionate Nasal 50 MCG/SPRAY BOTTLE NS SCH (08:00)
[2021-04-24] MEDS: Aspirin Enteric Coated 81 MG Tablet PO SCH (08:00)
[2021-04-24] MEDS ORDERED: Methyl Salicylate/Menthol 85 APPL/85 GM TUBE TP PRN (08:45)
[2021-04-24] MEDS ORDERED: amLODIPine 5 MG TABLET PO SCH (09:00)
[2021-04-24] MEDS ORDERED: hydrALAZINE 25 MG TABLET PO SCH ×2 (09:00→15:00)
[2021-04-24 11:22] LABS: Metanephrine, Plasma 0.13 nmol/L (0.00-0.49)
[2021-04-24] MEDS ORDERED: Isovue-370 500 ML BOTTLE IVP ONE (15:18)
[2021-04-24 15:47] VITALS: TEMP 98.1; O2SAT 97
[2021-04-24 16:50] VITALS: BP 172/92; PULSE 120
[2021-04-24] MEDS: *HR* HYDROcodone/Acet 7.5/325 mg TABLET PO PRN (16:51)
[2021-04-24] MEDS ORDERED: *HR* Labetalol 20 MG/4 ML SYRINGE IVP ONE ×2 (16:56)
== END 2021-04-24 19:45 | disposition home or self-care (01) ==
LOC: 3NENU → SUATTDRO 22:12
PROVIDERS: ADMIT Internal Medicine; ATTEND Internal Medicine

== ENCOUNTER 2021-04-30 11:11 | Observation (INO) ==
[~2021-04-30 11:11] MED LIST changes: +*HR* Methadone 5 MG TABLET PO ONE; +*HR* Midazolam HCl 2 MG/2 ML VIAL ONE; +*HR* Propofol 200 MG/20 ML VIAL IVP ONE; +*HR* Remifentanil 2 MG VIAL IVP ONE; +*HR* Rocuronium Bromide 50 MG/5 ML VIAL ONE; -Bacitracin 50,000 UNIT, Polymyxin B Sulfate 500,000 UNIT, Sodium Chloride IRRigation 1,... IR ONE; +Famotidine 20 MG/2 ML VIAL IVP ONE; +Lidocaine -MPF 2% 5 ML VIAL ONE; +Lidocaine HCL 4 ML Topical Solution (Laryng-O-Jet Kit Sterile Pak) TP ONE; +Ondansetron 4 MG/2 ML VIAL ONE
[2021-04-30] MEDS ORDERED: carvediloL 6.25 MG TABLET PO ONE (11:55)
[2021-04-30] MEDS ORDERED: CeFAZolin Syr 3,000MG/30 ML 3,000 MG/30 ML SYRINGE IVPB ONE (12:01)
[2021-04-30] MEDS ORDERED: Ringers Solution, Lactated 1,000 ML IVC SCH (12:15)
[2021-04-30] MEDS ORDERED: *HR* FentaNYL (PF) 100 MCG/2 ML VIAL IVP PRN (12:20)
[2021-04-30] MEDS ORDERED: *HR* HYDROcodone/Acet 7.5/325 mg TABLET PO PRN (12:25)
[2021-04-30] MEDS ORDERED: *HR* Labetalol 20 MG/4 ML SYRINGE IVP PRN (12:25)
[2021-04-30] MEDS ORDERED: Polymyxin B Sulfate 500,000 UNIT, Sodium Chloride IRRigation 1,000 ML IR ONE (12:35)
[2021-04-30] MEDS ORDERED: ceFAZolin 1,000 MG, Sodium Chloride IRRigation 1,000 ML IR ONE (12:35)
[2021-04-30] MEDS: Acetaminophen IV 1,000 MG/100 ML BAG IVPB ONE ×2 (12:45→19:00)
[2021-04-30] MEDS ORDERED: EPHEDrine 50 MG/ML VIAL ONE (12:47)
[2021-04-30] MEDS ORDERED: *HR* Vasopressin 20 UNIT/ML VIAL ONE (12:58)
[2021-04-30] MEDS ORDERED: Vancomycin 1,000 MG VIAL ONE (14:42)
[2021-04-30] MEDS ORDERED: *HR* Remifentanil 2 MG VIAL IVP ONE (14:43)
[2021-04-30] MEDS ORDERED: *HR* Remifentanil 1 MG VIAL IVP ONE (17:05)
[2021-04-30] MEDS ORDERED: *HR* Labetalol 20 MG/4 ML SYRINGE IVP ONE ×2 (17:58→18:52)
[2021-04-30] MEDS ORDERED: Ketorolac 15 MG/ML VIAL IVP ONE (18:52)
[2021-04-30] MEDS ORDERED: Acetaminophen IV 1,000 MG/100 ML BAG IVPB ONE (18:53)
[2021-04-30] MEDS: *HR* HYDROmorphone PF 0.5 MG/0.5 ML SYRINGE IVP PRN ×2 (18:59→19:06)
[2021-04-30] MEDS ORDERED: TESTOSTERONE CYPIONATE 200 MG/ML IM SCH (20:13)
[2021-04-30] MEDS ORDERED: Naloxone 0.4 MG/ML INJ IVP PRN (20:13)
[2021-04-30] MEDS ORDERED: [UNRECOGNIZED DRUG - OTHER] IM SCH (20:13)
[2021-04-30] MEDS ORDERED: Ondansetron 4 MG/2 ML VIAL IVP PRN (20:13)
[2021-04-30] MEDS: *HR* HYDROcodone/Acet 5/325 mg TABLET PO PRN (21:38)
[2021-04-30] MEDS: tiZANidine 4 MG TABLET PO PRN (21:38)
[2021-04-30] MEDS: traZODone 50 MG TABLET PO SCH (21:39)
[2021-04-30] MEDS: Baclofen 10 MG TABLET PO SCH (21:39)
[2021-04-30] MEDS: hydrALAZINE 25 MG TABLET PO SCH (21:39)
[2021-04-30] MEDS: CeFAZolin 2 GM/120 ML BAG IVPB SCH (22:24)
[2021-05-01] MEDS: Acetaminophen 325 MG TABLET PO PRN (05:13)
[2021-05-01] MEDS: CeFAZolin 2 GM/120 ML BAG IVPB SCH (05:13)
[2021-05-01] MEDS: *HR* HYDROcodone/Acet 5/325 mg TABLET PO PRN (05:50)
[2021-05-01] MEDS ORDERED: NON-FORMULARY MEDICATION 1 EACH EACH (Omega-3/Dha/Epa/Fish Oil [Cvs Fish Oil 1,000 Mg Soft PO SCH (09:00)
[2021-05-01] MEDS: hydrALAZINE 25 MG TABLET PO SCH ×3 (09:03→21:59)
[2021-05-01] MEDS: Baclofen 10 MG TABLET PO SCH ×2 (09:04→22:00)
[2021-05-01] MEDS: Cholecalciferol (D-3) 1,000 UNIT (25MCG) TABLET PO SCH (09:04)
[2021-05-01] MEDS: carvediloL 25 MG TABLET PO SCH ×2 (09:04→16:59)
[2021-05-01] MEDS: Gabapentin 300 MG CAPSULE PO SCH (09:04)
[2021-05-01] MEDS: amLODIPine 5 MG TABLET PO SCH (09:04)
[2021-05-01] MEDS: Aspirin Enteric Coated 81 MG Tablet PO SCH (09:04)
[2021-05-01] MEDS: diazePAM 10 MG TABLET PO PRN (11:29)
[2021-05-01 11:49] LABS: Basophils % 0.1 %; Hematocrit 36.2 % (37.5-50.1); Hemoglobin 12.5 g/dL (12.9-16.9); Immature Granulocytes % 0.4 % (0-4); Lymphocytes # 1.3 K/mcL (0.6-4.6); Lymphocytes % 8.7 %; Mean Corpuscular HGB Conc 34.5 g/dL (31.6-35.5); Mean Corpuscular Hemoglobin 31.3 pg (28.0-33.3); Mean Corpuscular Volume 90.7 fL (83.0-100.0); Mean Platelet Volume 10.7 fL (9.4-12.4); Monocytes # 1.3 K/mcL (0.0-1.3); Monocytes % 8.5 %; Neutrophils # 12.2 K/mcL (1.6-8.9); Platelet Count 220 K/mcL (140-400); Red Blood Count 3.99 M/mcL (4.19-5.50); Red Cell Distribution Width 11.7 % (11.5-14.5); Segmented Neutrophils % 82.3 %; White Blood Count 14.8 K/mcL (4.3-11.1)
[2021-05-01 12:12] LABS: Alanine Aminotransferase 28 Units/L (7-52); Albumin 3.7 g/dL (3.5-5.7); Albumin/Globulin Ratio 1.4 (1.1-2.2); Alkaline Phosphatase 51 Units/L (34-104); Aspartate Amino Transferase 30 Units/L (13-39); BUN/Creatinine Ratio 22 (6-26); Bilirubin,Total 0.5 mg/dL (0.3-1.0); Blood Urea Nitrogen 29 mg/dL (6-20); Calcium 8.8 mg/dL (8.6-10.3); Carbon Dioxide 23 mEq/L (23-29); Chloride 103 mEq/L (98-107); Globulin 2.6 g/dL (2.4-3.5); Glucose 145 mg/dL (70-105); Osmolality,Calculated 284 (280-300); Potassium 4.1 mEq/L (3.5-5.1); Sodium 133 mEq/L (136-145); Total Protein 6.3 g/dL (6.4-8.9); eGFR For African Americans > 60 (> 60); eGFR For Non-African Americans 56 (> 60)
[2021-05-01] MEDS: *HR* HYDROcodone/Acet 10/325 mg TABLET PO PRN ×2 (15:28→22:00)
[2021-05-01] MEDS: Gabapentin 400 MG CAPSULE PO SCH (16:59)
[2021-05-01] MEDS: Ringers Solution, Lactated 1,000 ML IVC SCH ×3 (20:24→22:06)
[2021-05-01] MEDS: traZODone 50 MG TABLET PO SCH (21:59)
[2021-05-01] MEDS: tiZANidine 4 MG TABLET PO PRN (22:57)
[2021-05-02] MEDS: Ringers Solution, Lactated 1,000 ML IVC SCH ×2 (02:57→18:10)
[2021-05-02] MEDS: Aspirin Enteric Coated 81 MG Tablet PO SCH (07:35)
[2021-05-02] MEDS: carvediloL 25 MG TABLET PO SCH ×2 (07:35→16:58)
[2021-05-02] MEDS: hydrALAZINE 25 MG TABLET PO SCH ×3 (07:35→20:08)
[2021-05-02] MEDS: Gabapentin 300 MG CAPSULE PO SCH (07:35)
[2021-05-02] MEDS: amLODIPine 5 MG TABLET PO SCH (07:35)
[2021-05-02] MEDS: Cholecalciferol (D-3) 1,000 UNIT (25MCG) TABLET PO SCH (07:35)
[2021-05-02] MEDS: Baclofen 10 MG TABLET PO SCH ×2 (07:36→20:08)
[2021-05-02] MEDS: *HR* HYDROcodone/Acet 10/325 mg TABLET PO PRN (16:57)
[2021-05-02] MEDS: Gabapentin 400 MG CAPSULE PO SCH (16:58)
[2021-05-02] MEDS: traZODone 50 MG TABLET PO SCH (20:08)
[2021-05-02] MEDS: tiZANidine 4 MG TABLET PO PRN (21:31)
[2021-05-03] MEDS: Ringers Solution, Lactated 1,000 ML IVC SCH (03:40)
[2021-05-03] MEDS: Acetaminophen 325 MG TABLET PO PRN (04:00)
[2021-05-03] MEDS: Gabapentin 300 MG CAPSULE PO SCH (07:43)
[2021-05-03] MEDS: carvediloL 25 MG TABLET PO SCH ×2 (07:44→19:04)
[2021-05-03] MEDS: Baclofen 10 MG TABLET PO SCH ×2 (07:44→20:42)
[2021-05-03] MEDS: Aspirin Enteric Coated 81 MG Tablet PO SCH (07:44)
[2021-05-03] MEDS: amLODIPine 5 MG TABLET PO SCH (07:44)
[2021-05-03] MEDS: hydrALAZINE 25 MG TABLET PO SCH ×3 (07:44→20:42)
[2021-05-03] MEDS: Cholecalciferol (D-3) 1,000 UNIT (25MCG) TABLET PO SCH (07:44)
[2021-05-03] MEDS: *HR* HYDROcodone/Acet 10/325 mg TABLET PO PRN ×2 (14:36→20:42)
[2021-05-03] MEDS: Gabapentin 400 MG CAPSULE PO SCH (19:03)
[2021-05-03] MEDS: traZODone 50 MG TABLET PO SCH (20:42)
[2021-05-03] MEDS: diazePAM 10 MG TABLET PO PRN (20:47)
[2021-05-03] MEDS: tiZANidine 4 MG TABLET PO PRN (21:51)
[2021-05-04] MEDS: *HR* HYDROcodone/Acet 10/325 mg TABLET PO PRN ×4 (03:34→23:04)
[2021-05-04] MEDS: carvediloL 25 MG TABLET PO SCH ×2 (07:18→15:21)
[2021-05-04] MEDS: amLODIPine 5 MG TABLET PO SCH (07:18)
[2021-05-04] MEDS: Cholecalciferol (D-3) 1,000 UNIT (25MCG) TABLET PO SCH (07:18)
[2021-05-04] MEDS: Aspirin Enteric Coated 81 MG Tablet PO SCH (07:18)
[2021-05-04] MEDS: Gabapentin 300 MG CAPSULE PO SCH (07:18)
[2021-05-04] MEDS: Baclofen 10 MG TABLET PO SCH ×2 (07:18→20:07)
[2021-05-04] MEDS: hydrALAZINE 25 MG TABLET PO SCH ×3 (07:18→20:07)
[2021-05-04] MEDS: Gabapentin 400 MG CAPSULE PO SCH (16:57)
[2021-05-04] MEDS: diazePAM 10 MG TABLET PO PRN (20:07)
[2021-05-04] MEDS: traZODone 50 MG TABLET PO SCH (20:08)
[2021-05-04] MEDS: tiZANidine 4 MG TABLET PO PRN (21:27)
[2021-05-05] MEDS: carvediloL 25 MG TABLET PO SCH ×2 (07:52→17:49)
[2021-05-05] MEDS: Gabapentin 300 MG CAPSULE PO SCH (07:52)
[2021-05-05] MEDS: Cholecalciferol (D-3) 1,000 UNIT (25MCG) TABLET PO SCH (07:52)
[2021-05-05] MEDS: Aspirin Enteric Coated 81 MG Tablet PO SCH (07:52)
[2021-05-05] MEDS: amLODIPine 5 MG TABLET PO SCH (07:52)
[2021-05-05] MEDS: Baclofen 10 MG TABLET PO SCH ×2 (07:52→19:54)
[2021-05-05] MEDS: hydrALAZINE 25 MG TABLET PO SCH ×3 (07:52→19:52)
[2021-05-05] MEDS: *HR* HYDROcodone/Acet 10/325 mg TABLET PO PRN ×2 (16:04→22:19)
[2021-05-05] MEDS: Gabapentin 400 MG CAPSULE PO SCH (17:49)
[2021-05-05] MEDS: traZODone 50 MG TABLET PO SCH (19:52)
[2021-05-05] MEDS: tiZANidine 4 MG TABLET PO PRN (21:03)
[2021-05-06] MEDS: Aspirin Enteric Coated 81 MG Tablet PO SCH (08:20)
[2021-05-06] MEDS: amLODIPine 5 MG TABLET PO SCH (08:20)
[2021-05-06] MEDS: Cholecalciferol (D-3) 1,000 UNIT (25MCG) TABLET PO SCH (08:20)
[2021-05-06] MEDS: hydrALAZINE 25 MG TABLET PO SCH ×2 (08:20→16:05)
[2021-05-06] MEDS: Baclofen 10 MG TABLET PO SCH (08:20)
[2021-05-06] MEDS: Gabapentin 300 MG CAPSULE PO SCH (08:20)
[2021-05-06] MEDS: carvediloL 25 MG TABLET PO SCH ×2 (08:20→16:06)
[2021-05-06 10:45] VITALS: TEMP 98.1
[2021-05-06 15:08] LABS: Influenza A PCR Negative (Negative); Influenza B PCR Negative (Negative); Resp. Syncytial Virus PCR Negative (Negative)
[2021-05-06 15:09] LABS: SARS-CoV-2 by PCR (In House) Negative (Negative)
[2021-05-06 15:43] VITALS: BP 116/74; PULSE 99; O2SAT 96
[2021-05-06] MEDS: Gabapentin 400 MG CAPSULE PO SCH (16:05)
[2021-05-06] MEDS: *HR* HYDROcodone/Acet 10/325 mg TABLET PO PRN (16:05)
== END 2021-05-06 16:15 ==
LOC: SDCAOSI 11:11 → 4WAOSI 11:11
PROVIDERS: ADMIT Orthopaedic Surgery Orthopaedic Surgery of the Spine; ATTEND Orthopaedic Surgery Orthopaedic Surgery of the Spine